=== PATIENT | female | born 1945 | race Caucasian/White ===

== ENCOUNTER → 2025-01-02 | Outpatient (CLI) | payer MEDICARE, SELFPAY ==
--- NOTE | 2025-01-02 | XR_ITS ---
Examination:Left hip AP, lateral, AP pelvis 3 views Technique: Hip AP lateral, AP pelvis, 3 views Exam date and time:January 02, 2025 1230 hours INDICATIONS: Left hip pain one week. FINDINGS: Bilateral total hip arthroplasties Satisfactory alignment Left femoral shaft sideplate and screws Bones of the pelvis intact IMPRESSION: Bilateral hip arthroplasties with satisfactory alignment.
[2025-01-02 13:50] LABS: Basophils # (Auto) 0.1 Thou/mm3 (0.0-0.2); Basophils % (Auto) 1 % (0-2.5); Eosinophils # (Auto) 0.2 Thou/mm3 (0.0-0.5); Eosinophils % (Auto) 4 % (0-10); Hematocrit 36.8 % (36.0-46.0); Hemoglobin 11.6 g/dL (12.0-16.0); Immature Granulocytes % (Auto) 0 % (0-0); Immature Granulocytes Auto 0.01 Thou/mm3 (0.00-0.00); Lymphocytes % (Auto) 20 % (10-50); Mean Corpuscular HGB Conc 31.5 g/dl (31.0-37.0); Mean Corpuscular Hemoglobin 32.7 pg (25.0-35.0); Mean Corpuscular Volume 104 fL (80-100); Monocytes # (Auto) 0.5 Thou/mm3 (0.0-0.8); Monocytes % (Auto) 11 % (0-12); Neutrophils # (Auto) 3.2 Thou/mm3 (1.8-7.7); Neutrophils % (Auto) 65 % (37-80); Nucleated Red Blood Cell % 0 /100 WBC (0); Platelet Count 139 Thou/mm3 (140-440); RDW Standard Deviation 49.3 fL (36.4-46.3); Red Blood Count 3.55 Miln/mm3 (4.00-5.20)
[2025-01-02 14:12] LABS: Alanine Aminotransferase 15 U/L (10-49); Albumin, Serum 3.8 gm/dL (3.4-4.8); Alkaline Phosphatase 96 U/L (46-116); Anion Gap 8 (7-16); Aspartate Amino Transferase 22 U/L (0-34); BUN/Creatinine Ratio 16 Ratio (12-20); Bilirubin,Total 0.3 mg/dL (0.3-1.2); Blood Urea Nitrogen 18 mg/dL (9-23); Calcium 9.4 mg/dL (8.3-10.6); Calcium (Corrected) 9.6 mg/dL (8.5-10.1); Carbon Dioxide 29.2 mMol/L (20.0-31.0); Cardiac Risk Estimate 2.3 RATIO (3.7-5.6); Chloride 107 mMol/L (98-107); Cholesterol 148 mg/dL (132-200); Creatinine (Component) 1.1 mg/dL (0.6-1.3); Globulin 1.9 gm/dL (2.3-3.5); Glucose 92 mg/dL (74-106); HDL Cholesterol 65 mg/dL (40-60); LDL Cholesterol,Calculated 64 mg/dL (0-130); Osmolality,Calculated 288 (275-295); Potassium 4.5 mMol/L (3.4-5.1); Sodium 144 mMol/L (136-145); Thyroid Stimulating Hormone 0.24 uIU/mL (0.55-4.78); Total Protein 5.7 gm/dL (5.7-8.2); Triglycerides 97 mg/dL (30-150); eGFR 52 See Note
[2025-01-02 14:13] LABS: T4 (Thyroxine) 10.8 mcg/dL (4.5-10.9)
[2025-01-02 14:18] LABS: Glucose Estimated Average 94 mg/dL (80-131); Hemoglobin A1C 4.9 % Hgb (4.8-6.0)
== END | disposition home or self-care (01) ==
LOC: COPL 11:34
PROVIDERS: PCP Family Medicine; Referring Provider Family Medicine; Visit Provider Family Medicine
DX: R79.9 Abnormal finding of blood chemistry, unspecified (principal); M25.552 Pain in left hip
CPT/HCPCS: 36415; 73502; 80053; 80061; 83036; 84436; 84443; 85025

== ENCOUNTER 2025-03-22 14:07 | Emergency (ER) | payer MEDICARE, SELFPAY ==
--- NOTE | 2025-03-22 | XR_ITS ---
Examination: MRI brain without intravenous contrast. Date and time of exam: March 22, 2025 1745 hours Comparison February 01, 2021 INDICATIONS: Onset of bilateral leg weakness beginning one week ago Technique: Multiple axial and sagittal images of the brain obtained. Siemens high-resolution 1.5 Samantha short bore scanners utilized. Sagittal sections, T1-weighted, TR 500, TE 14, are performed. Axial sections proton-density and T2-weighted have been obtained. Inversion recovery axial images, TR 9, 260, TE 111, TI 2500. Diffusion weighted images, axial sections, TR 4800, TE 128, B value 1000 Axial sections, ADC map, TR 4800, TE 128 Findings: Enlargement of the sella turcica is not present. The optic chiasm and infundibular are not remarkable. Prepontine and interpeduncular cisterns are not enlarged. There is no localized enlargement of the medulla or scarlet. Fourth ventricle and cerebellar tonsils appear normal in position. No subacute area of hemorrhage density is seen. Mass in the cerebellopontine angle region is not evident. Globes symmetrical. Orbital musculature including medial lateral rectus muscles do not exhibit abnormality. Diffusion-weighted images demonstrate no focus of restricted diffusion. Increased white matter signal mild Mass effect upon the ventricular system is not identified. Impression: Negative for acute hemorrhage mass effect or midline shift No acute infarct Mild chronic microvascular white matter change Moderate chronic ethmoid sinusitis
[2025-03-22 14:15] VITALS: BP 144/78; PULSE 72; RESP 17; TEMP 37.6; O2SAT 95
--- NOTE | 2025-03-22 14:24 | XR_ITS ---
Examination: AP chest single view TECHNIQUE: Portable sitting AP chest single view Date and time: March 22, 2025 1534 hours Comparison May 29, 2024 INDICATIONS: Chest pain shortness of breath today. FINDINGS: Minimal prominence left ventricle Minimal biapical pleural thickening No pneumonia or pulmonary edema Prominent osteopenia IMPRESSION: No active disease
--- NOTE | 2025-03-22 14:24 | EKG_ITS ---
[facility] Test Date: 2025-03-22 Pat Name: DYAN SUN Department: Room: - Gender: Female Professor Of Psychiatry: : 1945 Requested By: Octaviano García Order Number: [id number] Reading MD: Octaviano García Measurements Intervals Cass Rate: 63 P: 89 KS: 177 QRS: 50 QRSD: 90 T: 54 QT: 382 QTc: 394 Interpretive Statements SINUS RHYTHM Compared to ECG 12/01/2023 19:06:41 Left bundle-branch block no longer present /store/S0/[id number].pdf
[2025-03-22 14:30] VITALS: BMI 20.9
[2025-03-22 14:48] LABS: Lactate (Lactic Acid) 0.8 mMol/L (0.4-2.0)
[2025-03-22 14:49] LABS: Base Excess, Venous 1 (-3-3); O2 Saturation, Venous 92 % (96-97); PCO2, Venous 30 mmHg (36-56); PO2, Venous 73 mmHg (15-58)
[2025-03-22 14:57] LABS: Basophils % (Auto) 1 % (0-2.5); Eosinophils # (Auto) 0.1 Thou/mm3 (0.0-0.5); Eosinophils % (Auto) 3 % (0-10); Hematocrit 33.2 % (36.0-46.0); Hemoglobin 11.4 g/dL (12.0-16.0); Immature Granulocytes % (Auto) 1 % (0-0); Immature Granulocytes Auto 0.03 Thou/mm3 (0.00-0.00); Lymphocytes # (Auto) 0.8 Thou/mm3 (1.0-4.8); Lymphocytes % (Auto) 17 % (10-50); Mean Corpuscular HGB Conc 34.3 g/dl (31.0-37.0); Mean Corpuscular Hemoglobin 33.6 pg (25.0-35.0); Mean Corpuscular Volume 98 fL (80-100); Monocytes # (Auto) 0.5 Thou/mm3 (0.0-0.8); Monocytes % (Auto) 11 % (0-12); Neutrophils # (Auto) 3.2 Thou/mm3 (1.8-7.7); Neutrophils % (Auto) 68 % (37-80); Nucleated Red Blood Cell % 0 /100 WBC (0); Platelet Count 138 Thou/mm3 (140-440); RDW Standard Deviation 49.4 fL (36.4-46.3); Red Blood Count 3.39 Miln/mm3 (4.00-5.20); White Blood Count 4.7 Thou/mm3 (3.6-11.0)
[2025-03-22 15:02] LABS: Partial Thromboplastin Time 27.1 Seconds (22.0-36.0)
[2025-03-22 15:07] LABS: Alanine Aminotransferase 26 U/L (10-49); Albumin, Serum 3.5 gm/dL (3.4-4.8); Albumin/Globulin Ratio 1.8 (1.2-2.2); Alkaline Phosphatase 113 U/L (46-116); Anion Gap 10 (7-16); BUN/Creatinine Ratio 9 Ratio (12-20); Bilirubin,Total 0.2 mg/dL (0.3-1.2); Blood Urea Nitrogen 9 mg/dL (9-23); Calcium 9.1 mg/dL (8.3-10.6); Calcium (Corrected) 9.5 mg/dL (8.5-10.1); Chloride 108 mMol/L (98-107); Estimated Creatinine Clearance 43.9 mL/min (>60); Globulin 1.9 gm/dL (2.3-3.5); Glucose 87 mg/dL (74-106); Lipase 19 U/L (12-53); Magnesium 1.7 mg/dL (1.6-2.6); Osmolality,Calculated 282 (275-295); Potassium 4.1 mMol/L (3.4-5.1); Sodium 143 mMol/L (136-145); Total Protein 5.4 gm/dL (5.7-8.2); Troponin I < 0.002 ng/mL (0.0-0.045); eGFR 58 See Note
[2025-03-22 15:12] LABS: D-Dimer 539 ng/mL (<600)
[2025-03-22 15:25] LABS: B-Type Natriuretic Peptide 44 pg/mL (0-100)
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
[2025-03-22 16:52] LABS: Collection Type, Urine Clean Catch
[2025-03-22 17:07] LABS: Bilirubin,Urine Negative (Negative); Blood,Urine Negative (Negative); Clarity,Urine Clear (Clear/Hazy); Color,Urine Lt-Yellow (Lt Yel-Yel); Culture Indicated,Urine Not Indicated; Glucose, Urine Negative (Negative); Ketones,Urine 2+ (Negative); Leukocyte Esterase,Urine Positive (Negative); Nitrite,Urine Negative (Negative); Protein,Urine Negative (Neg - Trace); RBC,Urine 1 /hpf (0-3); Specific Gravity,Urine 1.016 (1.001-1.035); Squamous Epithelial Cell,Urine < 1 /hpf (0-5); Urobilinogen,Urine Negative mg/dL (0.0-1.0); WBC,Urine 3 /hpf (0-5)
[2025-03-22 17:24] LABS: Amphetamine/Methamp Scrn,U Negative (Negative); Barbiturate Screen,Urine Positive (Negative); Benzodiazepines Screen,Urine Positive (Negative); Benzoylecgonine Screen, Ur Negative (Negative); Fentanyl Screen,Urine Negative (Negative); Opiate Screen,Urine Positive (Negative); THC Screen,Urine Negative (Negative)
--- NOTE | 2025-03-22 18:06 | EDNOTE_ITS ---
Emergency Room Addendum Addendum Narrative: 1800: Care assumed from Dr. García (emergency physician). Past medical, surgical, social and family history reviewed. Vitals and home medications reviewed. Results and treatment plan discussed. They will assume the care of the patient at this time and will follow the patient, pending Brain MRI. The following addendum documentation note is intended to reflect any pending information, findings, or radiology results not included in the patient?s init ial chart by the previous shift scribe. RADIOLOGY Brain MRI Patient: DYAN SUN. Record#: [id number] Birthdate: 1945 Age/Sex: 79 / F Location: [facility] Attending Dr: Ordering Physician: Octaviano García MD Date of Service: 03/22/25 Procedure(s): MR head/brain wo con Accession Number(s): [id number] cc: Octaviano García MD; Ministerio Alvarez MD; Brien Mcgraw MD~ Examination: MRI brain without intravenous contrast. Date and time of exam: March 22, 2025 1745 hours Comparison February 01, 2021 INDICATIONS: Onset of bilateral leg weakness beginning one week ago Technique: Multiple axial and sagittal images of the brain obtained. Siemens high-resolution 1.5 Samantha short bore scanners utilized. Sagittal sections, T1-weighted, TR 500, TE 14, are performed. Axial sections proton-density and T2-weighted have been obtained. Inversion recovery axial images, TR 9, 260, TE 111, TI 2500. Diffusion weighted images, axial sections, TR 4800, TE 128, B value 1000 Axial sections, ADC map, TR 4800, TE 128 Findings: Enlargement of the sella turcica is not present. The optic chiasm and infundibular are not remarkable. Prepontine and interpeduncular cisterns are not enlarged. There is no localized enlargement of the medulla or scarlet. Fourth ventricle and cerebellar tonsils appear normal in position. No subacute area of hemorrhage density is seen. Mass in the cerebellopontine angle region is not evident. Globes symmetrical. Orbital musculature including medial lateral rectus muscles do not exhibit abnormality. Diffusion-weighted images demonstrate no focus of restricted diffusion. Increased white matter signal mild Mass effect upon the ventricular system is not identified. Impression: Negative for acute hemorrhage mass effect or midline shift No acute infarct Mild chronic microvascular white matter change Moderate chronic ethmoid sinusitis Dictated By: Ministerio Alvarez MD Signed By: <Electronically signed by Ministerio Alvarez MD in OV> 03/22/25 1836 1927: I have spoken with the patient and discussed today?s findings, in addition to providing specific details for the plan of care. Questions are answered and there is an agreement with the plan. Re-assessment at the time of disposition demonstrates that the patient is in no acute distress. The patient has remained stable throughout the entire ED visit and is without objective evidence for acute process requiring urgent intervention or hospitalization. The patient is stable for discharge; counseling is provided and documented as above, discussing symptomatic treatment and specific conditions for return.
[2025-03-22 19:47] VITALS: BP 135/68; PULSE 78; RESP 18; O2SAT 96
== END 2025-03-22 19:48 | disposition home or self-care (01) ==
PROVIDERS: Emergency Provider Emergency Medicine; PCP Family Medicine
DX: S00.83XA Contusion of other part of head, initial encounter (principal); S20.224A Contusion of middle back wall of thorax, initial encounter; S39.92XA Unspecified injury of lower back, initial encounter; M51.35 Other intervertebral disc degeneration, thoracolumbar region; M51.369 Other intervertebral disc degeneration, lumbar region without mention of lumbar back pain or lower extremity pain; M51.379 Other intervertebral disc degeneration, lumbosacral region without mention of lumbar back pain or lower extremity pain; M48.061 Spinal stenosis, lumbar region without neurogenic claudication; G95.29 Other cord compression; R06.02 Shortness of breath; R07.9 Chest pain, unspecified; Z93.3 Colostomy status; F13.20 Sedative, hypnotic or anxiolytic dependence, uncomplicated; G47.00 Insomnia, unspecified; R55 Syncope and collapse; W19.XXXA Unspecified fall, initial encounter; J32.2 Chronic ethmoidal sinusitis; Z87.891 Personal history of nicotine dependence; R90.82 White matter disease, unspecified; E78.00 Pure hypercholesterolemia, unspecified; I10 Essential (primary) hypertension; I25.10 Atherosclerotic heart disease of native coronary artery without angina pectoris; R53.1 Weakness
CPT/HCPCS: 36415; 70551; 71045; 72128; 72131; 80053; 80307; 81001; 82803; 83605; 83690; 83735; 83880; 84484; 85025; 85379; 85610; 85730; 87040; 93005; 99284

== ENCOUNTER → 2025-04-13 | Outpatient (CLI) | payer MEDICARE, SELFPAY ==
[2025-04-13 10:35] LABS: Basophils # (Auto) 0.1 Thou/mm3 (0.0-0.2); Basophils % (Auto) 1 % (0-2.5); Eosinophils # (Auto) 0.2 Thou/mm3 (0.0-0.5); Eosinophils % (Auto) 2 % (0-10); Hematocrit 41.8 % (36.0-46.0); Hemoglobin 14.3 g/dL (12.0-16.0); Immature Granulocytes Auto 0.02 Thou/mm3 (0.00-0.00); Lymphocytes # (Auto) 0.9 Thou/mm3 (1.0-4.8); Lymphocytes % (Auto) 12 % (10-50); Mean Corpuscular HGB Conc 34.2 g/dl (31.0-37.0); Mean Corpuscular Hemoglobin 34.1 pg (25.0-35.0); Mean Corpuscular Volume 100 fL (80-100); Monocytes # (Auto) 0.6 Thou/mm3 (0.0-0.8); Monocytes % (Auto) 8 % (0-12); Neutrophils # (Auto) 6.1 Thou/mm3 (1.8-7.7); Neutrophils % (Auto) 77 % (37-80); Nucleated Red Blood Cell # 0.00 Thou/mm3 (0.00-0.00); Nucleated Red Blood Cell % 0 /100 WBC (0); Platelet Count 198 Thou/mm3 (140-440); RDW Standard Deviation 54.2 fL (36.4-46.3); Red Blood Count 4.19 Miln/mm3 (4.00-5.20); White Blood Count 8.0 Thou/mm3 (3.6-11.0)
[2025-04-13 11:02] LABS: Alanine Aminotransferase 25 U/L (10-49); Albumin, Serum 4.3 gm/dL (3.4-4.8); Albumin/Globulin Ratio 1.8 (1.2-2.2); Alkaline Phosphatase 142 U/L (46-116); Anion Gap 13 (7-16); Aspartate Amino Transferase 31 U/L (0-34); BUN/Creatinine Ratio 11 Ratio (12-20); Bilirubin,Total 0.4 mg/dL (0.3-1.2); Blood Urea Nitrogen 16 mg/dL (9-23); Calcium 9.6 mg/dL (8.3-10.6); Calcium (Corrected) 9.6 mg/dL (8.5-10.1); Carbon Dioxide 28.2 mMol/L (20.0-31.0); Chloride 101 mMol/L (98-107); Creatinine (Component) 1.4 mg/dL (0.6-1.3); Globulin 2.4 gm/dL (2.3-3.5); Glucose 88 mg/dL (74-106); Osmolality,Calculated 283 (275-295); Potassium 3.0 mMol/L (3.4-5.1); Sodium 142 mMol/L (136-145); Total Protein 6.7 gm/dL (5.7-8.2); eGFR 39 See Note
== END | disposition home or self-care (01) ==
LOC: COPL 09:20
PROVIDERS: PCP Family Medicine; Referring Provider Family Medicine; Visit Provider Family Medicine
DX: R11.0 Nausea (principal); R53.1 Weakness
CPT/HCPCS: 36415; 80053; 85025

== ENCOUNTER → 2025-04-20 | Outpatient (CLI) | payer MEDICARE, SELFPAY ==
[2025-04-20 11:38] LABS: Basophils # (Auto) 0.0 Thou/mm3 (0.0-0.2); Basophils % (Auto) 1 % (0-2.5); Eosinophils # (Auto) 0.1 Thou/mm3 (0.0-0.5); Eosinophils % (Auto) 2 % (0-10); Hematocrit 41.6 % (36.0-46.0); Hemoglobin 13.6 g/dL (12.0-16.0); Immature Granulocytes Auto 0.02 Thou/mm3 (0.00-0.00); Lymphocytes # (Auto) 1.2 Thou/mm3 (1.0-4.8); Lymphocytes % (Auto) 19 % (10-50); Mean Corpuscular HGB Conc 32.7 g/dl (31.0-37.0); Mean Corpuscular Hemoglobin 34.2 pg (25.0-35.0); Mean Corpuscular Volume 105 fL (80-100); Monocytes # (Auto) 0.6 Thou/mm3 (0.0-0.8); Monocytes % (Auto) 10 % (0-12); Neutrophils # (Auto) 4.2 Thou/mm3 (1.8-7.7); Neutrophils % (Auto) 68 % (37-80); Nucleated Red Blood Cell # 0.00 Thou/mm3 (0.00-0.00); Nucleated Red Blood Cell % 0 /100 WBC (0); Platelet Count 142 Thou/mm3 (140-440); RDW Standard Deviation 58.3 fL (36.4-46.3); Red Blood Count 3.98 Miln/mm3 (4.00-5.20); White Blood Count 6.1 Thou/mm3 (3.6-11.0)
[2025-04-20 11:55] LABS: Alanine Aminotransferase 31 U/L (10-49); Albumin, Serum 4.2 gm/dL (3.4-4.8); Albumin/Globulin Ratio 1.8 (1.2-2.2); Alkaline Phosphatase 122 U/L (46-116); Anion Gap 10 (7-16); Aspartate Amino Transferase 34 U/L (0-34); BUN/Creatinine Ratio 15 Ratio (12-20); Bilirubin,Total 0.3 mg/dL (0.3-1.2); Blood Urea Nitrogen 17 mg/dL (9-23); Calcium 10.1 mg/dL (8.3-10.6); Calcium (Corrected) 10.1 mg/dL (8.5-10.1); Carbon Dioxide 32.2 mMol/L (20.0-31.0); Cardiac Risk Estimate 3.0 RATIO (3.7-5.6); Chloride 105 mMol/L (98-107); Cholesterol 154 mg/dL (132-200); Creatinine (Component) 1.1 mg/dL (0.6-1.3); Globulin 2.3 gm/dL (2.3-3.5); Glucose 116 mg/dL (74-106); HDL Cholesterol 52 mg/dL (40-60); LDL Cholesterol,Calculated 76 mg/dL (0-130); Osmolality,Calculated 294 (275-295); Potassium 3.7 mMol/L (3.4-5.1); Sodium 147 mMol/L (136-145); T4 (Thyroxine) 10.1 mcg/dL (4.5-10.9); Thyroid Stimulating Hormone 4.60 uIU/mL (0.55-4.78); Total Protein 6.5 gm/dL (5.7-8.2); Triglycerides 130 mg/dL (30-150); eGFR 52 See Note
== END | disposition home or self-care (01) ==
LOC: COPL 10:37
PROVIDERS: PCP Family Medicine; Referring Provider Family Medicine; Visit Provider Family Medicine
DX: K21.9 Gastro-esophageal reflux disease without esophagitis (principal); E03.9 Hypothyroidism, unspecified; N17.8 Other acute kidney failure
CPT/HCPCS: 36415; 80053; 80061; 84436; 84443; 85025

== ENCOUNTER 2025-07-28 09:25 | Inpatient (IN) | payer MEDICARE, SELFPAY ==
[2025-07-25 10:04] VITALS: BMI 21.0
[2025-07-25 11:33] LABS: Basophils # (Auto) 0.1 Thou/mm3 (0.0-0.2); Basophils % (Auto) 1 % (0-2.5); Eosinophils # (Auto) 0.1 Thou/mm3 (0.0-0.5); Eosinophils % (Auto) 2 % (0-10); Hematocrit 41.1 % (36.0-46.0); Hemoglobin 13.4 g/dL (12.0-16.0); Immature Granulocytes Auto 0.02 Thou/mm3 (0.00-0.00); Lymphocytes # (Auto) 1.1 Thou/mm3 (1.0-4.8); Lymphocytes % (Auto) 18 % (10-50); Mean Corpuscular HGB Conc 32.6 g/dl (31.0-37.0); Mean Corpuscular Hemoglobin 33.9 pg (25.0-35.0); Mean Corpuscular Volume 104 fL (80-100); Monocytes # (Auto) 0.6 Thou/mm3 (0.0-0.8); Monocytes % (Auto) 10 % (0-12); Neutrophils # (Auto) 4.3 Thou/mm3 (1.8-7.7); Neutrophils % (Auto) 69 % (37-80); Nucleated Red Blood Cell # 0.00 Thou/mm3 (0.00-0.00); Nucleated Red Blood Cell % 0 /100 WBC (0); Platelet Count 158 Thou/mm3 (140-440); RDW Standard Deviation 48.3 fL (36.4-46.3); Red Blood Count 3.95 Miln/mm3 (4.00-5.20); White Blood Count 6.2 Thou/mm3 (3.6-11.0)
[2025-07-25 11:34] LABS: INR 1.1 (0.9-1.3); Prothrombin Time 11.2 Seconds (9.0-12.2)
[2025-07-25 11:40] LABS: Alanine Aminotransferase 40 U/L (10-49); Albumin, Serum 4.4 gm/dL (3.4-4.8); Albumin/Globulin Ratio 2.0 (1.2-2.2); Alkaline Phosphatase 122 U/L (46-116); Anion Gap 10 (7-16); Aspartate Amino Transferase 46 U/L (0-34); BUN/Creatinine Ratio 12 Ratio (12-20); Bilirubin,Total 0.3 mg/dL (0.3-1.2); Blood Urea Nitrogen 12 mg/dL (9-23); Calcium 10.5 mg/dL (8.3-10.6); Calcium (Corrected) 10.5 mg/dL (8.5-10.1); Carbon Dioxide 28.1 mMol/L (20.0-31.0); Chloride 106 mMol/L (98-107); Creatinine (Component) 1.0 mg/dL (0.6-1.3); Estimated Creatinine Clearance 39.0 mL/min (>60); Globulin 2.2 gm/dL (2.3-3.5); Glucose 94 mg/dL (74-106); Osmolality,Calculated 286 (275-295); Potassium 4.2 mMol/L (3.4-5.1); Sodium 144 mMol/L (136-145); Total Protein 6.6 gm/dL (5.7-8.2); eGFR 58 See Note
[2025-07-28] VITALS (12 sets, daily range): BP systolic 106–156; BP diastolic 60–82; PULSE 71–102; RESP 15–22; TEMP 36.1–36.8; O2SAT 95–100; BMI 20.7
--- NOTE | 2025-07-28 15:40 | ESOP_ITS ---
Date of Procedure 07/28/25 Pre Op Diagnosis History of perforated diverticulitis status post sigmoid colectomy with end colostomy Symptomatic cholelithiasis Post Op Diagnosis Same as pre-op diagnosis Bleeding from spleen Procedure Exploratory laparotomy, lysis of adhesions, reversal of colostomy with colorectal anastomosis Cholecystectomy Splenectomy Left salpingo-oophorectomy Findings Significant adhesions from previous operation. The left tube and ovary were adherent to the rectal stump, needed to be removed for anastomosis. Moderately distended gallbladder with gallstones and evidence of chronic cholecystitis. Bleeding from inferior aspect of the spleen not amenable to topical hemostatic agents Procedure Description Patient is brought to the operating room in supine position. After administration of general endotracheal anesthesia, patient was placed in low lithotomy position. The colostomy site was closed with a pursestring suture using 0 Prolene. Patient's abdomen and perineum prepped and draped in standard surgical manner. A laparotomy incision was made over her previous scar and dissection was deepened into soft tissue. The abdominal cavity was entered. Patient was noted to have some adhesions from previous operation that was lysed. The small bowel was then retracted cephalad into the right upper quadrant. A Bookwalter retractor was placed for adequate exposure. Patient's uterus was adherent to the rectal stump, adhesions were divided and the uterus was freed. The left ovary and tube was significantly adherent to the rectal stump, I elected to perform left salpingo-oophorectomy. The lateral attachment was divided with Enseal harmonic device. The tube was also ligated with the harmonic device and left salpingo-oophorectomy was performed. The sutures that were placed at the previous operation on today rectal stump were then identified and the proximal and mid aspect of rectal stump were mobilized for the anastomosis. The proximal aspect of the rectum along with the previous staple line was divided with TA stapling device. At this point I turned my attention to the colostomy site. An elliptical incision was made around the colostomy site and the colostomy was circumferentially dissected out surrounding tissue. 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 The hernia sac was circumferentially dissected out surrounding tissue and excised. The colostomy site was then reduced. The end of colostomy was divided with JANESSA stapling device. The end of descending colon was not reaching the pelvis without any tension. The descending colon was mobilized along the white line of Toldt and the splenic flexure was mobilized. While mobilizing the splenic flexure there was a capsular tear at the spleen that was bleeding. Topical hemostatic agents and pressure applied and the spleen was packed to stop the bleeding. The end of descending colon was opened, a pursestring suture using 2- 0 Prolene applied. Patient was noted to have smaller caliber colon that could only accommodate a size 25 EEA stapling device. The anvil portion of the EEA stapling device was placed at the end of descending colon and the pursestring suture was tightened. Patient's rectum and anal canal were sequentially dilated. The EEA stapling device was placed through the rectum and was brought out just anterior to the rectal stump. The EEA stapling device was opened and connected to the anvil, care was taken to make sure orientation was appropriate without tension or any kinking. The stapling device was closed and fired. 2 well-formed donuts were retrieved. The integrity of the anastomosis was then checked with an air leak test. A rigid proctoscope was placed through the anal canal and air was insufflated. The pelvis was filled with warm saline, there was no evidence of any air leak assuring anastomosis was airtight. Air was removed and the rigid proctoscope was removed. Using 3-0 silk suture circumferential Lembert sutures were placed around the anastomosis to further secure the anastomosis. Because patient had history of symptomatic cholelithiasis I elected to perform cholecystectomy. The gallbladder was moderately distended with evidence of chronic cholecystitis and gallstones. The gallbladder was from the liver in antegrade fashion starting at the body of the gallbladder. Upon reaching the infundibulum the gallbladder cystic duct junction clearly identified. The cystic duct was ligated with 2-0 silk suture and divided. The cystic artery was similarly dissected and divided and the gallbladder was removed. The packing around the spleen was removed and patient was noted to have continuous bleeding from the capsular tear. Despite application of different topical hemostatic agent and applying pressure she continued to have bleeding from the spleen. I was contemplating packing the spleen, leaving the abdomen open and taking patient to ICU intubated and to bring her back in 24 to 48 hours to remove the packing in hopes of controlling bleeding from the spleen versus the splenectomy. I felt that patient would benefit from splenectomy and not being on the ventilator for extended period of time. At this point I elected to perform splenectomy. The gastrosplenic, splenorenal and splenophrenic were divided with harmonic Enseal device. The splenic artery and veins were ligated at the hilum and splenectomy was performed. Abdomen and pelvis copiously and thoroughly washed and irrigated, all the fluids were suctioned and the suction fluid returned clear. Hemostasis was adequate and satisfactory. I then turned my attention to closure of the posterior layer of the colostomy site. The peritoneum and posterior abdominal fascia opening of the colostomy site were closed with interrupted [id number] sutures using 0 Prolene. The laparotomy incision was then closed. The fascia was reapproximated with interrupted sutures using 0 PDS as well as interrupted sutures with #1 Vicryl. The wound was washed and the skin was closed with june. The anterior abdominal fascial defect of colostomy site was then closed with interrupted [id number] sutures using 0 Prolene. The wound was washed and the skin was partially closed with june. Telfa armani were placed between the stapler to act as a drain. Both incisions were covered with dry dressings and abdominal binder applied. Patient tolerated procedure well. She was placed in supine position and extubated. She was breathing spontaneously and without difficulty and was transferred to postanesthesia care in stable condition. Instruments, needles and sponge counts were reported to be correct x 2. Anesthesia GETA and local Pathology / specimen Other (Rectal stump and colostomy end. Gallbladder, spleen, left tube and ovary) Estimated Blood Loss 250 Condition Stable Disposition PACU Surgeon Tyron Barcenas MD Surgical Staff Operation Date: 07/28/25 12:00 Case Staff Anesthesiologist: Henri Mayo RN First Assistant: Joanie Portillo
--- NOTE | 2025-07-28 15:45 | SUR.PHASEI ---
1545: pt received from OR via bed. received report from GABRIEL Fry and Dr. Desouza. pt sleeping at this time. no s/s of resp. or discomfort. no s/s of pain or discomfort. dressing to mid-abdomen x1 and below umbilical area x1 clean, dry and intact. no bleeding noted from dressing. abdominal binder in place. disla cath in place and intact with dark color urine noted, no odor.
--- NOTE | 2025-07-28 15:50 | SUR.PHASEI ---
1550: pt awake and able to verbalize pain but drift back to sleeps.
[2025-07-28] MEDS: fentaNYL CIT INJ 50 mCg/ML AMP 2ML 25 MCG IVP (15:56)
[2025-07-28] MEDS: HYDROmorphone INJ 2 MG/ML VIAL 0.4 MG IVP (16:08)
[2025-07-28] MEDS: KETOROLAC INJ 30 MG/ML VIAL 15 MG IVP (16:44)
--- NOTE | 2025-07-28 16:56 | SUR.PHASEI ---
1656: report given to GABRIEL Parry.
[2025-07-28] MEDS: KCL 20 mEq/L in D5-1/2NS 20 MEQ/1,000 ML BAG 60 MEQ IV (17:05)
--- NOTE | 2025-07-28 17:20 | SUR.PHASEI ---
1720: pt transfer to room 370 via bed. pt alert and oriented. family at the bedside all the time. c/o pain but tolerable at this time. no s/s of resp. distress or discomfort. dressing mid-abdomen x1 clean, dry and intact and lower mid-abdoomen x1 clean, dry and intact. abdominal binder in place. disla cath in place and intact with dark yellow color urine.
[2025-07-28] MEDS: ACETAMINOPHEN IVPB 1,000 MG/100 ML VIAL 250 MG IV ×2 (18:20→23:48)
[2025-07-28] MEDS: MORPHINE SULF INJ 4 MG/ML VIAL 2 MG IVP ×2 (19:21→22:12)
[2025-07-28] MEDS: ASCORBIC ACID 250 MG TABLET 500 MG PO (20:20)
[2025-07-28] MEDS: PRIMIDONE 50 MG TABLET 250 MG PO (20:20)
[2025-07-28] MEDS: DOCUSATE SOD 100 MG CAPSULE PO (20:20)
[2025-07-28] MEDS: CEFOXITIN 2 GM in SODIUM CHLORIDE 0.9% (Popper) 50 ML IV (21:15)
--- NOTE | 2025-07-28 22:10 | PC.NURSE ---
Pt complained of having back pain, IV pain meds given, advised pt to be reposition to help with the back pain but pt refused at this time.
[2025-07-29] VITALS: BP 123/70; PULSE 93; RESP 16; TEMP 36.5; O2SAT 99
--- NOTE | 2025-07-29 00:01 | PC.NURSE ---
Pt wanted to call her daughter Renetta, I called her daughter and have pt talked to her daughter, pt said she is having back pain, I explained to pt and pt's daughter that Morphine IV is due in 20 mins. Pt reposition and as pts daughter wanting to put warm blanket on her back. Warm blanket placed on pt back but per pts its uncomfortable so warm blanket removed.
[2025-07-29] MEDS: MORPHINE SULF INJ 4 MG/ML VIAL 2 MG IVP ×7 (00:52→21:31)
[2025-07-29 04:00] VITALS: BP 125/74; PULSE 98; RESP 18; TEMP 37; O2SAT 96
[2025-07-29] MEDS: ACETAMINOPHEN IVPB 1,000 MG/100 ML VIAL 250 MG IV (05:13)
[2025-07-29] MEDS: CEFOXITIN 2 GM in SODIUM CHLORIDE 0.9% (Popper) 50 ML IV ×3 (05:41→21:25)
[2025-07-29 05:58] LABS: Basophils # (Auto) 0.0 Thou/mm3 (0.0-0.2); Basophils % (Auto) 0 % (0-2.5); Eosinophils # (Auto) 0.0 Thou/mm3 (0.0-0.5); Eosinophils % (Auto) 0 % (0-10); Hematocrit 37.0 % (36.0-46.0); Hemoglobin 12.0 g/dL (12.0-16.0); Immature Granulocytes Auto 0.06 Thou/mm3 (0.00-0.00); Lymphocytes # (Auto) 0.4 Thou/mm3 (1.0-4.8); Lymphocytes % (Auto) 5 % (10-50); Mean Corpuscular HGB Conc 32.4 g/dl (31.0-37.0); Mean Corpuscular Hemoglobin 34.0 pg (25.0-35.0); Mean Corpuscular Volume 105 fL (80-100); Monocytes # (Auto) 0.9 Thou/mm3 (0.0-0.8); Monocytes % (Auto) 10 % (0-12); Neutrophils # (Auto) 7.5 Thou/mm3 (1.8-7.7); Neutrophils % (Auto) 85 % (37-80); Nucleated Red Blood Cell # 0.00 Thou/mm3 (0.00-0.00); Nucleated Red Blood Cell % 0 /100 WBC (0); Platelet Count 149 Thou/mm3 (140-440); RDW Standard Deviation 47.9 fL (36.4-46.3); Red Blood Count 3.53 Miln/mm3 (4.00-5.20); White Blood Count 8.9 Thou/mm3 (3.6-11.0)
[2025-07-29 06:21] LABS: Albumin, Serum 3.2 gm/dL (3.4-4.8); Anion Gap 12 (7-16); BUN/Creatinine Ratio 15 Ratio (12-20); Blood Urea Nitrogen 21 mg/dL (9-23); Calcium 8.7 mg/dL (8.3-10.6); Calcium (Corrected) 9.3 mg/dL (8.5-10.1); Carbon Dioxide 22.9 mMol/L (20.0-31.0); Chloride 107 mMol/L (98-107); Creatinine (Component) 1.4 mg/dL (0.6-1.3); Estimated Creatinine Clearance 26.6 mL/min (>60); Glucose 224 mg/dL (74-106); Magnesium 1.6 mg/dL (1.6-2.6); Osmolality,Calculated 293 (275-295); Phosphorous 5.5 mg/dL (2.4-5.1); Potassium 4.9 mMol/L (3.4-5.1); Sodium 142 mMol/L (136-145); eGFR 39 See Note
[2025-07-29 06:49] VITALS: BMI 20.7
[2025-07-29 07:56] VITALS: BP 139/79; PULSE 100; RESP 16; TEMP 36.1; O2SAT 98
[2025-07-29] MEDS: PRIMIDONE 50 MG TABLET 250 MG PO ×2 (08:55→20:12)
[2025-07-29] MEDS: ASCORBIC ACID 250 MG TABLET 500 MG PO ×2 (08:56→20:13)
[2025-07-29] MEDS: DOCUSATE SOD 100 MG CAPSULE PO ×2 (08:56→20:12)
[2025-07-29] MEDS: ZINC SULFATE 220 MG CAPSULE PO (08:56)
--- NOTE | 2025-07-29 08:56 | ESPR_ITS ---
Documentation for date of: 07/29/25 Subjective Subjective Narrative: Patient is seen and examined. She is complaining of incisional pain. She denies nausea or vomiting. Exam Vital Signs Temp Pulse Resp BP Pulse Ox O2 Del Method O2 Flow Rate 97.0 F 100 16 139/79 H 98 Room Air 2 07/29/25 07:56 07/29/25 07:56 07/29/25 07:56 07/29/25 07:56 07/29/25 07:56 07/29/25 07:56 07/28/25 17:15 Constitutional Constitutional: no acute distress Routine Abdominal Exam Comments: Abdomen is soft and mildly distended. Incisions with dressings clean, dry and intact Assessment & Plan Assessment Additional comments: Postop day #1 status post exploratory laparotomy with lysis of adhesions, reversal of colostomy, cholecystectomy, splenectomy and left salpingo- oophorectomy Plan Keep n.p.o. Continue IV antibiotics. Will start patient on PPN. Will consult physical therapy to assist in ambulation PROCEDURES: Procedures Exploratory laparotomy, lysis of adhesions, reversal of colostomy with colorectal anastomosis Cholecystectomy Splenectomy Left salpingo-oophorectomy
[2025-07-29] MEDS: KCL 20 mEq/L in D5-1/2NS 20 MEQ/1,000 ML BAG 60 MEQ IV (09:23)
[2025-07-29 12:00] VITALS: BP 137/78; PULSE 106; RESP 17; TEMP 36.1; O2SAT 98
[2025-07-29 13:05] VITALS: BMI 20.6
[2025-07-29 16:00] VITALS: BP 141/80; PULSE 110; RESP 18; TEMP 36.4; O2SAT 97
[2025-07-29] MEDS: MULTIVITAMIN IV (17:48)
[2025-07-29] MEDS: [UNRECOGNIZED DRUG - OTHER] IV (17:48)
[2025-07-29] MEDS: MAGNESIUM SULF IV (17:48)
--- NOTE | 2025-07-29 19:57 | PC.NURSE ---
MD Barcenas verified regarding IV fluids running with the PPN, PPN running at 30ml/hr at this time and will increase at 60 ml/hr after 8 hrs, per MD to turn off IV fluids once PPN running at 60 ml/hr.
[2025-07-29 20:00] VITALS: BP 113/71; PULSE 119; RESP 18; TEMP 37.1; O2SAT 97
[2025-07-29] MEDS: INSULIN HUM REGULAR 1 UNIT/0.01 ML (PER UNIT) SC (23:42)
[2025-07-30] VITALS: BP 114/64; PULSE 114; RESP 17; TEMP 36.7; O2SAT 94
--- NOTE | 2025-07-30 01:56 | PC.NURSE ---
Increase PPN rate to 60 ml/hr at this time.
[2025-07-30] MEDS: MORPHINE SULF INJ 4 MG/ML VIAL 2 MG IVP ×4 (03:31→22:41)
[2025-07-30 04:00] VITALS: BP 123/62; PULSE 122; RESP 22; TEMP 37.1; O2SAT 95
[2025-07-30] MEDS: LEVOTHYROXINE SODIUM 88 MCG TABLET PO (05:04)
[2025-07-30] MEDS: CEFOXITIN 2 GM in SODIUM CHLORIDE 0.9% (Popper) 50 ML IV ×3 (05:04→21:20)
[2025-07-30 08:00] VITALS: BP 127/72; PULSE 114; RESP 18; TEMP 36.1; O2SAT 97
[2025-07-30] MEDS: ZINC SULFATE 220 MG CAPSULE PO (09:00)
[2025-07-30] MEDS: DOCUSATE SOD 100 MG CAPSULE PO ×2 (09:00→21:26)
[2025-07-30] MEDS: PRIMIDONE 50 MG TABLET 250 MG PO ×2 (09:00→21:26)
[2025-07-30] MEDS: ASCORBIC ACID 250 MG TABLET 500 MG PO ×2 (09:00→21:26)
--- NOTE | 2025-07-30 10:26 | ESPR_ITS ---
Documentation for date of: 07/30/25 Subjective Subjective Narrative: Patient is seen and examined. Her abdominal pain is controlled, she is complaining of low back pain. She denies nausea or vomiting. She has not passed flatus or bowel movement yet Exam Vital Signs Temp Pulse Resp BP Pulse Ox O2 Del Method O2 Flow Rate 97.0 F 114 H 18 127/72 97 Room Air 2 07/30/25 08:00 07/30/25 08:00 07/30/25 08:00 07/30/25 08:00 07/30/25 08:00 07/30/25 08:00 07/30/25 04:00 Constitutional Constitutional: no acute distress Routine Abdominal Exam Comments: Abdomen is soft and very minimally distended. Bowel sounds are absent. Incisions with dressings clean, dry and intact Assessment & Plan Assessment Additional comments: Postop day #2 status post exploratory laparotomy with lysis of adhesions, reversal of colostomy, cholecystectomy, splenectomy and left salpingo- oophorectomy Plan Continue IV antibiotics. Keep n.p.o. with PPN. Use incentive spirometer. Will DC Casey catheter and consult physical therapy to assist in ambulating the patient PROCEDURES: Procedures Exploratory laparotomy, lysis of adhesions, reversal of colostomy with colorectal anastomosis Cholecystectomy Splenectomy Left salpingo-oophorectomy
[2025-07-30 11:34] LABS: Alanine Aminotransferase 30 U/L (10-49); Albumin, Serum 2.8 gm/dL (3.4-4.8); Albumin/Globulin Ratio 1.6 (1.2-2.2); Alkaline Phosphatase 104 U/L (46-116); Anion Gap 10 (7-16); Aspartate Amino Transferase 49 U/L (0-34); BUN/Creatinine Ratio 15 Ratio (12-20); Bilirubin,Total 0.3 mg/dL (0.3-1.2); Blood Urea Nitrogen 33 mg/dL (9-23); Calcium 8.9 mg/dL (8.3-10.6); Calcium (Corrected) 9.9 mg/dL (8.5-10.1); Carbon Dioxide 20.6 mMol/L (20.0-31.0); Chloride 105 mMol/L (98-107); Creatinine (Component) 2.2 mg/dL (0.6-1.3); Estimated Creatinine Clearance 16.9 mL/min (>60); Globulin 1.8 gm/dL (2.3-3.5); Glucose 148 mg/dL (74-106); Magnesium 1.9 mg/dL (1.6-2.6); Osmolality,Calculated 282 (275-295); Phosphorous 3.6 mg/dL (2.4-5.1); Potassium 4.8 mMol/L (3.4-5.1); Sodium 136 mMol/L (136-145); Total Protein 4.6 gm/dL (5.7-8.2); eGFR 23 See Note
[2025-07-30 11:40] VITALS: BP 148/78; PULSE 112; RESP 20; TEMP 36.1; O2SAT 97
[2025-07-30] MEDS: ENOXAPARIN SOD INJ 30 MG/0.3 ML SYRINGE SC (12:19)
[2025-07-30 12:55] VITALS: BMI 11.0
[2025-07-30 16:00] VITALS: BP 140/78; PULSE 118; RESP 17; TEMP 36.3; O2SAT 95
[2025-07-30] MEDS: [UNRECOGNIZED DRUG - OTHER] IV (18:16)
[2025-07-30] MEDS: SOD PHOS ADDITIVE IV (18:16)
[2025-07-30] MEDS: MULTIVITAMIN IV (18:16)
[2025-07-30] MEDS: MAGNESIUM SULF IV (18:16)
[2025-07-30 20:00] VITALS: BP 126/71; PULSE 115; RESP 17; TEMP 36.9; O2SAT 94
[2025-07-31] VITALS: BP 122/63; PULSE 109; RESP 18; TEMP 36.7; O2SAT 94
[2025-07-31 04:00] VITALS: BP 131/74; PULSE 105; RESP 18; TEMP 36.9; O2SAT 97
[2025-07-31] MEDS: LEVOTHYROXINE SODIUM 88 MCG TABLET PO (05:23)
[2025-07-31] MEDS: CEFOXITIN 2 GM in SODIUM CHLORIDE 0.9% (Popper) 50 ML IV ×3 (05:24→21:00)
[2025-07-31 06:12] LABS: Basophils # (Auto) 0.1 Thou/mm3 (0.0-0.2); Basophils % (Auto) 0 % (0-2.5); Eosinophils # (Auto) 0.1 Thou/mm3 (0.0-0.5); Eosinophils % (Auto) 0 % (0-10); Hematocrit 29.4 % (36.0-46.0); Hemoglobin 9.6 g/dL (12.0-16.0); Immature Granulocytes Auto 0.18 Thou/mm3 (0.00-0.00); Lymphocytes # (Auto) 0.8 Thou/mm3 (1.0-4.8); Lymphocytes % (Auto) 4 % (10-50); Mean Corpuscular HGB Conc 32.7 g/dl (31.0-37.0); Mean Corpuscular Hemoglobin 34.0 pg (25.0-35.0); Mean Corpuscular Volume 104 fL (80-100); Monocytes # (Auto) 1.7 Thou/mm3 (0.0-0.8); Monocytes % (Auto) 9 % (0-12); Neutrophils # (Auto) 16.2 Thou/mm3 (1.8-7.7); Neutrophils % (Auto) 85 % (37-80); Nucleated Red Blood Cell # 0.03 Thou/mm3 (0.00-0.00); Nucleated Red Blood Cell % 0 /100 WBC (0); Platelet Count 151 Thou/mm3 (140-440); RDW Standard Deviation 48.1 fL (36.4-46.3); Red Blood Count 2.82 Miln/mm3 (4.00-5.20); White Blood Count 19.0 Thou/mm3 (3.6-11.0)
[2025-07-31 06:55] LABS: Alanine Aminotransferase 20 U/L (10-49); Albumin, Serum 2.7 gm/dL (3.4-4.8); Albumin/Globulin Ratio 1.5 (1.2-2.2); Alkaline Phosphatase 99 U/L (46-116); Anion Gap 10 (7-16); Aspartate Amino Transferase 29 U/L (0-34); BUN/Creatinine Ratio 25 Ratio (12-20); Bilirubin,Total 0.2 mg/dL (0.3-1.2); Blood Urea Nitrogen 42 mg/dL (9-23); Calcium 8.6 mg/dL (8.3-10.6); Calcium (Corrected) 9.6 mg/dL (8.5-10.1); Carbon Dioxide 21.8 mMol/L (20.0-31.0); Chloride 101 mMol/L (98-107); Creatinine (Component) 1.7 mg/dL (0.6-1.3); Estimated Creatinine Clearance 21.9 mL/min (>60); Globulin 1.8 gm/dL (2.3-3.5); Glucose 130 mg/dL (74-106); Magnesium 2.0 mg/dL (1.6-2.6); Osmolality,Calculated 278 (275-295); Phosphorous 2.9 mg/dL (2.4-5.1); Potassium 4.0 mMol/L (3.4-5.1); Sodium 133 mMol/L (136-145); Total Protein 4.5 gm/dL (5.7-8.2); eGFR 31 See Note
[2025-07-31 08:00] VITALS: BP 120/58; PULSE 97; RESP 19; TEMP 36.1; O2SAT 96
[2025-07-31] MEDS: ASCORBIC ACID 250 MG TABLET 500 MG PO ×2 (08:13→20:41)
[2025-07-31] MEDS: PRIMIDONE 50 MG TABLET 250 MG PO ×2 (08:13→20:40)
[2025-07-31] MEDS: DOCUSATE SOD 100 MG CAPSULE PO ×2 (08:13→20:41)
[2025-07-31] MEDS: ZINC SULFATE 220 MG CAPSULE PO (08:14)
[2025-07-31] MEDS: ENOXAPARIN SOD INJ 30 MG/0.3 ML SYRINGE SC (08:14)
--- NOTE | 2025-07-31 11:06 | PC.NURSE ---
DR. EVONNE SU, POC DISCUSSED WITH PT, ALL QUESTIONS ANSWER, PT VERBALIZE UNDERSTANDING.
[2025-07-31 11:47] VITALS: BMI 11.0
--- NOTE | 2025-07-31 11:57 | ESPR_ITS ---
Documentation for date of: 07/31/25 Subjective Subjective Narrative: Patient is seen and examined. Her pain continues to improve. She has had some nausea but no vomiting. She has not passed flatus or bowel movement yet Exam Vital Signs Temp Pulse Resp BP Pulse Ox O2 Del Method O2 Flow Rate 97.0 F 97 19 120/58 L 96 Nasal Cannula 2 07/31/25 08:00 07/31/25 08:00 07/31/25 08:00 07/31/25 08:00 07/31/25 08:00 07/31/25 08:00 07/31/25 08:00 Constitutional Constitutional: no acute distress Routine Abdominal Exam Comments: Abdomen is soft and minimally distended. Incisions with dressings clean, dry and intact. She has hypoactive bowel sounds Assessment & Plan Assessment Additional comments: Postop day #3 status post exploratory laparotomy with lysis of adhesions, reversal of colostomy, cholecystectomy, splenectomy and left salpingo- oophorectomy Plan Still awaiting for return of GI function. Continue IV antibiotics and PPN. Patient is encouraged to use incentive spirometer and increase ambulation PROCEDURES: Procedures Exploratory laparotomy, lysis of adhesions, reversal of colostomy with colorectal anastomosis Cholecystectomy Splenectomy Left salpingo-oophorectomy
[2025-07-31] MEDS: ONDANSETRON INJ 2 MG/ML INJ 2 ML 4 MG IVP (12:11)
--- NOTE | 2025-07-31 12:12 | PC.NURSE ---
Addendum entered by Marlen Tinoco RN 07/31/25 12:19: 50 ML OF BROWN EMISIS X1 Original Note: DR. DOUGLASS CALLED, NO ANSWER, VOICEMAIL MESSAGE LEFT IN REGARDS TO PT BROWN EMISIS. EXTENSION LEFT [id number].
[2025-07-31 12:26] VITALS: BP 134/81; PULSE 95; RESP 19; TEMP 36.3; O2SAT 96
--- NOTE | 2025-07-31 12:30 | PC.NURSE ---
PATIENT VITALS STABLE, SEE MAR, ALERT AND ORIENTED X4, AT BEDSIDE.
[2025-07-31 16:00] VITALS: BP 124/67; PULSE 96; RESP 18; TEMP 36.1; O2SAT 95
[2025-07-31] MEDS: AMINO ACID 4.25%/D5W E 2,000 ML 90 ML IV (16:15)
[2025-07-31] MEDS: FAT EMULSIONS 20% IV 500 ML 32 ML IV (17:54)
[2025-07-31] MEDS: METOCLOPRAMIDE INJ 5 MG/ML VIAL 2 ML 10 MG IVP (17:55)
--- NOTE | 2025-07-31 17:59 | PC.NURSE ---
PATIENT NOTED TO HAVE AN ELECTRIC HEATING PAD, PER DAUGHTER MOISES DOUGLASS IS AWARE AND OKAY WITH HEATING PAD.
[2025-07-31 20:00] VITALS: BP 137/75; PULSE 95; RESP 16; TEMP 36.9; O2SAT 95
[2025-07-31] MEDS: MORPHINE SULF INJ 4 MG/ML VIAL 2 MG IVP (23:58)
[2025-08-01] VITALS: BP 156/66; PULSE 84; RESP 16; TEMP 36.2; O2SAT 93
--- NOTE | 2025-08-01 00:05 | PC.NURSE ---
accessed patient chart for main nurse Greta RIOS.
[2025-08-01] MEDS: METOCLOPRAMIDE INJ 5 MG/ML VIAL 2 ML 10 MG IVP ×5 (00:40→23:23)
[2025-08-01 04:00] VITALS: BP 146/67; PULSE 83; RESP 16; TEMP 36.1; O2SAT 97
[2025-08-01] MEDS: MORPHINE SULF INJ 4 MG/ML VIAL 2 MG IVP ×4 (04:34→23:23)
[2025-08-01] MEDS: LEVOTHYROXINE SODIUM 88 MCG TABLET PO (06:04)
[2025-08-01] MEDS: CEFOXITIN 2 GM in SODIUM CHLORIDE 0.9% (Popper) 50 ML IV ×3 (06:04→23:21)
[2025-08-01 08:00] VITALS: BP 130/61; PULSE 86; RESP 16; TEMP 36.3; O2SAT 95
[2025-08-01] MEDS: PRIMIDONE 50 MG TABLET 250 MG PO ×2 (09:32→20:35)
[2025-08-01] MEDS: DOCUSATE SOD 100 MG CAPSULE PO ×2 (09:33→20:34)
[2025-08-01] MEDS: ZINC SULFATE 220 MG CAPSULE PO (09:33)
[2025-08-01] MEDS: ENOXAPARIN SOD INJ 30 MG/0.3 ML SYRINGE SC (09:33)
[2025-08-01] MEDS: ASCORBIC ACID 250 MG TABLET 500 MG PO ×2 (09:33→20:34)
[2025-08-01 10:20] LABS: Alanine Aminotransferase 18 U/L (10-49); Albumin, Serum 2.8 gm/dL (3.4-4.8); Albumin/Globulin Ratio 1.5 (1.2-2.2); Alkaline Phosphatase 97 U/L (46-116); Anion Gap 9 (7-16); Aspartate Amino Transferase 29 U/L (0-34); BUN/Creatinine Ratio 32 Ratio (12-20); Bilirubin,Total 0.2 mg/dL (0.3-1.2); Blood Urea Nitrogen 42 mg/dL (9-23); Calcium 8.6 mg/dL (8.3-10.6); Calcium (Corrected) 9.6 mg/dL (8.5-10.1); Carbon Dioxide 20.7 mMol/L (20.0-31.0); Chloride 102 mMol/L (98-107); Creatinine (Component) 1.3 mg/dL (0.6-1.3); Estimated Creatinine Clearance 28.7 mL/min (>60); Globulin 1.9 gm/dL (2.3-3.5); Glucose 127 mg/dL (74-106); Magnesium 2.4 mg/dL (1.6-2.6); Osmolality,Calculated 277 (275-295); Phosphorous 2.4 mg/dL (2.4-5.1); Potassium 4.0 mMol/L (3.4-5.1); Sodium 132 mMol/L (136-145); Total Protein 4.7 gm/dL (5.7-8.2); eGFR 42 See Note
[2025-08-01 12:00] VITALS: BP 144/66; PULSE 83; RESP 17; TEMP 36.2; O2SAT 96
[2025-08-01] MEDS: SODIUM ACET ADDITIVE IV (14:13)
[2025-08-01] MEDS: POTASSIUM PHOS IV (14:13)
[2025-08-01] MEDS: [UNRECOGNIZED DRUG - OTHER] IV (14:13)
[2025-08-01] MEDS: MULTIVITAMIN IV (14:13)
[2025-08-01 16:00] VITALS: BP 123/60; PULSE 83; RESP 17; TEMP 36.4; O2SAT 96
--- NOTE | 2025-08-01 19:33 | PC.NURSE ---
LEFT ARM SWELLING AND REDNESS D/T IV INFILTRATION. LEFT HAND ELEVATED AND WRAPPED IN WARM BLANKET. PT DENIED PAIN. MD. COLEMNA MADE AWARE.
[2025-08-01 20:00] VITALS: BP 124/50; PULSE 90; RESP 17; TEMP 36.4; O2SAT 93
[2025-08-01] MEDS: ACETAMINOPHEN IVPB 1,000 MG/100 ML VIAL 250 MG IV (20:19)
[2025-08-02] VITALS: BP 112/51; PULSE 84; RESP 20; TEMP 36.4; O2SAT 93
[2025-08-02] MEDS: MORPHINE SULF INJ 4 MG/ML VIAL 2 MG IVP ×4 (02:03→21:13)
[2025-08-02 04:00] VITALS: BP 131/56; PULSE 87; RESP 17; TEMP 36.1; O2SAT 93
--- NOTE | 2025-08-02 05:08 | PC.NURSE ---
turned off electric heating pad to back.
[2025-08-02] MEDS: CEFOXITIN 2 GM in SODIUM CHLORIDE 0.9% (Popper) 50 ML IV ×3 (05:14→21:20)
[2025-08-02] MEDS: METOCLOPRAMIDE INJ 5 MG/ML VIAL 2 ML 10 MG IVP ×4 (05:14→23:36)
[2025-08-02] MEDS: LEVOTHYROXINE SODIUM 88 MCG TABLET PO (05:15)
[2025-08-02 05:55] LABS: Basophils # (Auto) 0.1 Thou/mm3 (0.0-0.2); Basophils % (Auto) 1 % (0-2.5); Eosinophils # (Auto) 0.5 Thou/mm3 (0.0-0.5); Eosinophils % (Auto) 3 % (0-10); Hematocrit 25.9 % (36.0-46.0); Immature Granulocytes Auto 1.25 Thou/mm3 (0.00-0.00); Lymphocytes # (Auto) 1.3 Thou/mm3 (1.0-4.8); Lymphocytes % (Auto) 9 % (10-50); Mean Corpuscular HGB Conc 32.4 g/dl (31.0-37.0); Mean Corpuscular Hemoglobin 33.5 pg (25.0-35.0); Mean Corpuscular Volume 103 fL (80-100); Monocytes # (Auto) 2.2 Thou/mm3 (0.0-0.8); Monocytes % (Auto) 15 % (0-12); Neutrophils # (Auto) 8.9 Thou/mm3 (1.8-7.7); Neutrophils % (Auto) 63 % (37-80); Nucleated Red Blood Cell # 4.76 Thou/mm3 (0.00-0.00); Nucleated Red Blood Cell % 34 /100 WBC (0); Platelet Count 201 Thou/mm3 (140-440); RDW Standard Deviation 47.6 fL (36.4-46.3); Red Blood Count 2.51 Miln/mm3 (4.00-5.20); White Blood Count 14.2 Thou/mm3 (3.6-11.0)
[2025-08-02 06:01] LABS: Hemoglobin 8.4 g/dL (12.0-16.0)
[2025-08-02 06:34] LABS: Alanine Aminotransferase 16 U/L (10-49); Albumin, Serum 2.8 gm/dL (3.4-4.8); Albumin/Globulin Ratio 1.8 (1.2-2.2); Alkaline Phosphatase 109 U/L (46-116); Anion Gap 9 (7-16); Aspartate Amino Transferase 22 U/L (0-34); BUN/Creatinine Ratio 34 Ratio (12-20); Bilirubin,Total 0.2 mg/dL (0.3-1.2); Blood Urea Nitrogen 41 mg/dL (9-23); Calcium 8.3 mg/dL (8.3-10.6); Calcium (Corrected) 9.3 mg/dL (8.5-10.1); Carbon Dioxide 22.2 mMol/L (20.0-31.0); Chloride 103 mMol/L (98-107); Creatinine (Component) 1.2 mg/dL (0.6-1.3); Estimated Creatinine Clearance 31.1 mL/min (>60); Globulin 1.6 gm/dL (2.3-3.5); Glucose 102 mg/dL (74-106); Magnesium 2.0 mg/dL (1.6-2.6); Osmolality,Calculated 278 (275-295); Phosphorous 3.1 mg/dL (2.4-5.1); Potassium 3.5 mMol/L (3.4-5.1); Sodium 134 mMol/L (136-145); Total Protein 4.4 gm/dL (5.7-8.2); eGFR 47 See Note
[2025-08-02] MEDS: ACETAMINOPHEN IVPB 1,000 MG/100 ML VIAL 250 MG IV ×2 (07:30→14:31)
[2025-08-02 08:00] VITALS: BP 104/57; PULSE 90; RESP 19; TEMP 36.1; O2SAT 91
[2025-08-02] MEDS: PRIMIDONE 50 MG TABLET 250 MG PO (09:37)
[2025-08-02] MEDS: DOCUSATE SOD 100 MG CAPSULE PO ×2 (09:37→21:20)
[2025-08-02] MEDS: ZINC SULFATE 220 MG CAPSULE PO (09:37)
[2025-08-02] MEDS: ASCORBIC ACID 250 MG TABLET 500 MG PO ×2 (09:37→21:20)
[2025-08-02 10:37] VITALS: BMI 11.0
--- NOTE | 2025-08-02 11:31 | ESPR_ITS ---
Documentation for date of: 08/02/25 Subjective Subjective Narrative: Patient is seen and examined. She is resting comfortably, her pain is improving. She had treatment with physical therapy and ambulated in her room. She denies nausea or vomiting. She has not passed flatus or bowel movement yet Exam Vital Signs Temp Pulse Resp BP Pulse Ox O2 Del Method O2 Flow Rate 97.0 F 90 19 104/57 L 91 L Nasal Cannula 1 08/02/25 08:00 08/02/25 08:00 08/02/25 08:00 08/02/25 08:00 08/02/25 08:00 08/02/25 08:00 08/02/25 08:00 Constitutional Constitutional: no acute distress Routine Abdominal Exam Comments: Abdomen is soft and mildly distended. She has hypoactive bowel sounds. Incisions with dressing clean, dry and intact Assessment & Plan Assessment Additional comments: Postop day #4 status post exploratory laparotomy with lysis of adhesions, reversal of colostomy, cholecystectomy, splenectomy and left salpingo-ooph orectomy. Her hemoglobin is trending down. WBC is trending down. She has remained afebrile and hemodynamically stable Plan Will continue IV antibiotics. Keep n.p.o. with PPN, awaiting return of GI function PROCEDURES: Procedures Exploratory laparotomy, lysis of adhesions, reversal of colostomy with colorectal anastomosis Cholecystectomy Splenectomy Left salpingo-oophorectomy
[2025-08-02 12:00] VITALS: BP 117/59; PULSE 85; RESP 18; TEMP 36.7; O2SAT 93
[2025-08-02 12:32] LABS: Path Review Blood Smear Sent to Pathologist
[2025-08-02 12:37] VITALS: BMI 20.6
[2025-08-02] MEDS: AMINO ACID IV (13:29)
[2025-08-02] MEDS: POTASSIUM ACET IV (13:29)
[2025-08-02] MEDS: [UNRECOGNIZED DRUG - OTHER] IV (13:29)
[2025-08-02 16:00] VITALS: BP 113/53; PULSE 88; RESP 18; TEMP 36.1; O2SAT 90
--- NOTE | 2025-08-02 16:21 | PC.SS ---
Follow up note: Surgery for reverse Colostomy. Pt has not had bowel movement or passed gas. Pt on PPN, IV pain meds, and IV antibiotic. Pt is possible d/c to SNF.
[2025-08-02 20:00] VITALS: BP 104/54; PULSE 89; RESP 17; TEMP 36.3; O2SAT 92
[2025-08-03] VITALS (11 sets, daily range): BP systolic 102–137; BP diastolic 45–64; PULSE 88–97; RESP 14–19; TEMP 36.3–36.7; O2SAT 90–95; BMI 11.0
--- NOTE | 2025-08-03 | XR_ITS ---
Examination: Ultrasound-guided needle placement right basilic vein. Dual-lumen central line placement (PICC line). Fluoroscopy AP chest, portable, single view Exam date and time: August 03, 2025, 1254 hours INDICATIONS: Need for long-term intravenous parenteral nutrition A timeout was completed verifying correct patient, procedure, site, positioning Informed consent provided Technique: The patient's site was prepped and draped in sterile fashion. Maximum Sterile Barrier Technique used including cap, mask, sterile gown, sterile gloves, and sterile full body drape. If ultrasound technique used: sterile gel and sterile probe covers. Hand Hygiene performed using proper scrub, soap and water, or alcohol-based hand rub. Ultrasound Cyred portable apparatus utilized to confirm patency of the right basilic vein Utilizing ultrasonographic guidance successful 21-gauge needle puncture into the right basilic vein. Ultrasound images recorded and stored. 5 cc 1% lidocaine administered for local anesthetic. Successful micropuncture with a 21-gauge needle is performed. 0.18 wire guide is then introduced into the SVC under fluoroscopic guidance. Dual-lumen catheter dilator is then introduced, followed by the catheter in the SVC and proper position under fluoroscopic guidance. Successful aspiration of blood and flushing with heparinized saline is then performed in the 2 venous limbs. The catheter sutured in place. Findings: Under fluoroscopy, the tip of the catheter is in good position in the vena cava. Portable chest x-ray, post line placement is ordered. Estimated blood loss 3 cc The patient tolerated the procedure well and was in stable and satisfactory condition at completion of the procedure Impression: Successful ultrasound-guided needle placement right basilic vein Successful placement of dual lumen central line, percutaneous Fluoroscopy 8.5-minute radiation dose 1.24 mGy, 1 spot fluoroscopic chest film. AP chest completion procedure demonstrates satisfactory position central line. May use central line.
[2025-08-03] MEDS: MORPHINE SULF INJ 4 MG/ML VIAL 2 MG IVP ×4 (00:45→21:07)
[2025-08-03] MEDS: METOCLOPRAMIDE INJ 5 MG/ML VIAL 2 ML 10 MG IVP ×3 (05:27→17:45)
[2025-08-03] MEDS: LEVOTHYROXINE SODIUM 88 MCG TABLET PO (05:27)
[2025-08-03] MEDS: CEFOXITIN 2 GM in SODIUM CHLORIDE 0.9% (Popper) 50 ML IV ×3 (05:27→21:21)
[2025-08-03] MEDS: ZINC SULFATE 220 MG CAPSULE PO (09:03)
[2025-08-03] MEDS: DOCUSATE SOD 100 MG CAPSULE PO ×2 (09:03→21:23)
[2025-08-03] MEDS: ASCORBIC ACID 250 MG TABLET 500 MG PO ×2 (09:03→21:22)
[2025-08-03] MEDS: ENOXAPARIN SOD INJ 30 MG/0.3 ML SYRINGE SC (09:05)
--- NOTE | 2025-08-03 09:55 | PC.SS ---
SS met with pt and regarding d/c options for home or SNF. is refusing SNF placement for pt. Pt is currently on 2 liters Of O2. Per , pt utilizes O2 only at night and does not have O2 tanks. refuses SS to orders continuous home O2 (O2 tanks) and states she doesn't need it.
--- NOTE | 2025-08-03 10:24 | ESPR_ITS ---
Documentation for date of: 08/03/25 Subjective Subjective Narrative: Patient is seen and examined. Her pain is well-controlled. She denies nausea or vomiting. No bowel movement or flatus yet. She is complaining of swelling of her upper extremity from IV access. She is not ambulating much Exam Vital Signs Temp Pulse Resp BP Pulse Ox O2 Del Method O2 Flow Rate 97.4 F 95 15 103/49 L 92 L Nasal Cannula 2 08/03/25 08:00 08/03/25 08:00 08/03/25 08:00 08/03/25 08:00 08/03/25 08:00 08/03/25 08:00 08/03/25 08:00 Constitutional Constitutional: no acute distress Routine Abdominal Exam Comments: Abdomen is soft and minimally distended. Incisions clean, dry and intact. She has hypoactive bowel sounds Assessment & Plan Assessment Additional comments: Postop day #5 status post exploratory laparotomy with lysis of adhesions, reversal of colostomy, cholecystectomy, splenectomy and left salpingo- oophorectomy. Plan Will start her on sips of clears. PICC line placement by IR. Continue PPN until return of GI function. Use incentive spirometer and encouraged her to increase ambulation PROCEDURES: Procedures Exploratory laparotomy, lysis of adhesions, reversal of colostomy with colorectal anastomosis Cholecystectomy Splenectomy Left salpingo-oophorectomy
[2025-08-03] MEDS: AMINO ACID 4.25%/D5W E 2,000 ML 90 ML IV (12:14)
--- NOTE | 2025-08-03 12:41 | PC.SS ---
Pt is waiting for PICC line placement for PPN. SS has placed DME order and transportation form on patient's chart for physician's signature.
[2025-08-03] MEDS: HEPARIN SOD LOCK SYR 100 UNIT/ML 500 UNIT STFIELD (13:42)
[2025-08-03] MEDS: LIDOCAINE INJ PF 1% 5 ML VIAL 3 ML EPID (13:42)
--- NOTE | 2025-08-03 14:19 | PC.NURSE ---
Consent was obtained from Dr Marie explained the procedure to Patient was then taken to IR to prep her for the PICC line procedure once patient was prepped and draped we did our time out with the entire team including PICC line was successfully inserted in the right upper arm without any complications (See MAR for medications given) Dr hart gave us the may use PICC Line order which was then placed report given to GABRIEL Edouard patient was then taken up to her room, patient looks comfortable and stable
[2025-08-04] VITALS (23 sets, daily range): BP systolic 95–133; BP diastolic 40–66; PULSE 65–159; RESP 16–33; TEMP 36.1–36.7; O2SAT 85–97; BMI 20.6
[2025-08-04] MEDS: METOCLOPRAMIDE INJ 5 MG/ML VIAL 2 ML 10 MG IVP ×5 (00:05→23:25)
--- NOTE | 2025-08-04 00:43 | PC.NURSE ---
CATH LAB RADIOLOGICAL TECHNOLOGIST called because heart monitor was showing patient had a pulse sustaining in the 170's. Dr. Barcenas is the primary doctor on the case and no hospitalists was ordered. Dr. Barcenas was contacted and order for hospitalists consult was ordered. Hospitalist consult and labs were ordered. Patient not complaining of pain throughout the rapid and reports feeling okay throughout the rapid.
--- NOTE | 2025-08-04 00:51 | PD.RESCONSUL ---
HPI Data of Consult Consult date: 08/04/25 Requesting Physician: Tyron Barcenas MD Admitting Provider: Tyron Barcenas MD Attending Provider: Dylon Velasquez MD Primary Care Provider: Brien Mcgraw MD Consult Narrative Reason for consult: tachycardia History of present illness: 79F with pmhx of diverticulitis s/p colectomy and colostomy, hypothyroidism, CAD s/p angioplasty and stent placement, hypertension, hyperlipidemia, COPD who presented to the ED for reversal of colostomy by general surgery. Patient had procedure done on 07/28/2025. Currently is post-op day #5/6 status post exploratory laparotomy with lysis of adhesions, reversal of colostomy, cholecystectomy, splenectomy and left salpingo-oophorectomy. Patient had a rapid response on 08/04/2025 for tachycardia in the 170s and Internal Medicine was consulted. She currently is with HR in the 80s. Nontheless Labs will be ordered in view of patient looking pale and no labs since a couple days ago. PMHx: as above SxHx: colectomy, colostomy, reversal of collostomy, angioplasty Social Hx: former smoker, social alcohol use, denies illicit substances FHx: noncontributory cc:: cc: Tyron Barcenas MD Review of Systems Review of Systems Systems Reviewed: All systems reviewed, normal except as documented Exam Vital Signs Temp Pulse Resp BP Pulse Ox O2 Del Method O2 Flow Rate 97.2 F 159 H 28 H 123/52 L 85 L Nasal Cannula 3 08/04/25 00:38 08/04/25 00:38 08/04/25 00:38 08/04/25 00:38 08/04/25 00:38 08/04/25 00:00 08/04/25 00:38 Narrative Exam Physical Exam GENERAL: NAD HEENT: Moist mucosa. Eyes open, symmetrical, & clear CARDIO: Heart RRR, no obvious murmurs PULM: No noted coughing/dyspnea CTA B/L, no R/W/R GI: Abdomen soft, nondistended, no pain on palpation. Incisions clean, dry and intact. She has hypoactive bowel sounds SKIN/MSK/EXT: No wounds/rashes/edema/amputations, no pain on palpation. Pedal pulses present B/L NEURO: AAOx3, no focal neuro deficits, able to move all 4 extremities Results Labs 08/04/25 00:57 08/04/25 05:27 Quality Measures Quality Measures VTE prophylaxis Advance care planning discussed with:: patient Medications Home Medications and Allergies Home Medications ?Medication ?Instructions ?Recorded ?Confirmed ?Type alprazolam 1 mg tablet 1.5 mg PO HS Insomnia 04/13/21 07/28/25 History levothyroxine 88 mcg tablet 88 mcg PO QAM 04/13/21 07/28/25 History simvastatin 40 mg tablet 40 mg PO QPM 12/03/22 07/28/25 History aspirin 81 mg tablet,delayed 81 mg PO QDAY 07/25/25 07/25/25 History release loratadine 10 mg capsule 10 mg PO BID 07/25/25 07/28/25 History primidone 250 mg tablet 250 mg PO Q12H 07/25/25 07/28/25 History Allergies Allergy/AdvReac Type Severity Reaction Status Date / Time codeine Allergy Intermediate Fatigued Verified 07/28/25 10:05 meperidine AdvReac Unknown Verified 07/28/25 10:05 Visit Medications Alprazolam (Alprazolam 0.25 Mg Tablet) 1 mg PO HS PRN PRN Reason: INSOMNIA Stop: 08/05/25 15:47 Last Admin: 08/03/25 21:10 Dose: 1 mg Ascorbic Acid (Ascorbic Acid 250 Mg Tablet) 500 mg PO BID [facility] Stop: 08/27/25 20:59 Last Admin: 08/03/25 21:22 Dose: 500 mg Dextrose (Dextrose 50%-Water Inj 50 Ml Syringe) 25 ml IV Q15MIN PRN PRN Reason: BG 50-70 responsive npo pt Stop: 08/28/25 12:20 Dextrose (Dextrose 50%-Water Inj 50 Ml Syringe) 50 ml IV Q15MIN PRN PRN Reason: BG <50 OR BG <70 & pt unresponsive Stop: 08/28/25 12:20 Docusate Sodium (Docusate Sod 100 Mg Capsule) 100 mg PO BID [facility]; Protocol Stop: 08/27/25 20:59 Last Admin: 08/03/25 21:23 Dose: 100 mg Enoxaparin Sodium (Enoxaparin Sod Inj 30 Mg/0.3 Ml Syringe) 30 mg SC QDAY [facility] Stop: 08/13/25 11:59 Last Admin: 08/03/25 09:05 Dose: 30 mg Glucagon (Glucagon Inj 1 Mg Vial) 1 mg IM Q15MIN PRN PRN Reason: BG <70, and no IV access Cefoxitin Sodium 2 gm/ Sodium (Chloride) 50 mls @ 100 mls/hr IV Q8HR [facility] Stop: 08/04/25 21:59 Last Admin: 08/03/25 21:21 Dose: 100 mls/hr Acetaminophen (Ofirmev Inj) 1,000 mg in 100 mls @ 250 mls/hr IV Q8HR PRN On Hold: 08/01/25 19:39 Comment: HERO PRN Reason: PAIN 1-6 (mild-mod Fat Emulsion Intravenous (Intralipid 20% Iv) 500 mls @ 32 mls/hr IV MoFr@1800 [facility] Stop: 08/30/25 17:59 Last Admin: 07/31/25 17:54 Dose: 32 mls/hr Promethazine HCl 25 mg/ Sodium (Chloride) 51 mls @ 2.5 mls/min IV Q6HR PRN; Protocol PRN Reason: NAUSEA OR VOMITING Stop: 08/30/25 15:42 Amino Acids/Electrolytes/Dextrose (Clinimix E 4.25/5) 2,000 mls @ 90 mls/hr IV .[id number] [facility] Stop: 08/05/25 08:16 Last Admin: 08/03/25 12:14 Dose: 90 mls/hr Insulin Human Regular (Insulin Hum Regular 1 Unit/0.01 Ml (Per Unit)) 0 unit SC Q6HR [facility]; Protocol Stop: 08/28/25 17:59 Last Admin: 08/03/25 23:55 Dose: Not Given Levothyroxine Sodium (Levothyroxine Sodium 88 Mcg Tablet) 88 mcg PO ACBR [facility] Stop: 08/28/25 05:59 Last Admin: 08/03/25 05:27 Dose: 88 mcg Metoclopramide HCl (Metoclopramide Inj 5 Mg/Ml Vial 2 Ml) 10 mg IVP Q6HR [facility]; Protocol Stop: 08/30/25 17:59 Last Admin: 08/04/25 00:05 Dose: 10 mg Morphine Sulfate (Morphine Sulf Inj 4 Mg/Ml Vial) 2 mg IVP Q2HR PRN PRN Reason: PAIN SCALE 7-10 (Severe Stop: 08/07/25 19:59 Last Admin: 08/03/25 21:07 Dose: 2 mg Ondansetron HCl (Ondansetron Inj 2 Mg/Ml Inj 2 Ml) 4 mg IVP Q4HR PRN; Protocol PRN Reason: NAUSEA OR VOMITING Stop: 08/30/25 11:58 Last Admin: 07/31/25 12:11 Dose: 4 mg Pantoprazole Sodium (Pantoprazole 40 Mg Tablet) 40 mg PO QDAY [facility]; Protocol Stop: 09/03/25 08:59 Zinc Sulfate (Zinc Sulfate 220 Mg Capsule) 220 mg PO QDAY [facility] Stop: 08/28/25 08:59 Last Admin: 08/03/25 09:03 Dose: 220 mg Discontinued Medications Diphenhydramine HCl (Diphenhydramine Inj 50 Mg/Ml Vial) 25 mg IVP Q6HR PRN PRN Reason: ITCHING Stop: 08/29/25 12:07 Last Admin: 07/30/25 12:19 Dose: 25 mg Fentanyl Citrate (Fentanyl Cit Inj 50 Mcg/Ml Amp 2ml) 25 mcg IVP Q5M PRN PRN Reason: PAIN SCALE 1-3 (mild Stop: 07/28/25 15:10 Last Admin: 07/28/25 15:56 Dose: 25 mcg Heparin Sodium (Beef Lung) (Heparin Sod Lock Syr 100 Unit/Ml) 500 unit FIELD X1 ONE Stop: 08/03/25 13:41 Last Admin: 08/03/25 13:42 Dose: 500 unit Hydromorphone HCl (Hydromorphone Inj 2 Mg/Ml Vial) 0.4 mg IVP Q5M PRN PRN Reason: PAIN SCALE 7-10 (Severe Stop: 07/28/25 15:11 Last Admin: 07/28/25 16:08 Dose: 0.4 mg Cefoxitin Sodium 2 gm/ Sodium (Chloride) 50 mls @ 100 mls/hr IV X1 ONE Stop: 07/28/25 06:29 Lactated Ringer's (Lactated Ringers) 1,000 mls @ 20 mls/hr IV .Q24H ONE Stop: 07/29/25 05:59 Potassium Chloride/Dextrose/Sod Cl (Kcl 20 Meq/L In D5-1/2ns) 20 meq in 1,000 mls @ 60 mls/hr IV .[id number] [facility] Stop: 08/27/25 17:02 Last Admin: 07/29/25 09:23 Dose: 60 mls/hr Acetaminophen (Ofirmev Inj) 1,000 mg in 100 mls @ 250 mls/hr IV Q6HR [facility] Stop: 07/29/25 06:23 Last Admin: 07/29/25 05:13 Dose: 250 mls/hr Acetaminophen (Ofirmev Inj) 1,000 mg in 100 mls @ 250 mls/hr IV Q8HR PRN PRN Reason: PAIN 1-6 (mild-mod Stop: 07/30/25 14:23 Magnesium Sulfate 2 gm/Multivitamins/Minerals 10 ml/Amino Acids 2,014 mls @ 30 mls/hr IV .Q24H [facility] Stop: 08/28/25 17:59 Last Admin: 07/30/25 21:19 Dose: Not Given Sodium Phosphate 15 mmol/Magnesium Sulfate 2 gm/Multivitamins/Minerals 10 ml/Amino Acids 2,019 mls @ 90 mls/hr IV .[id number] [facility] Stop: 07/31/25 16:25 Last Admin: 07/30/25 18:16 Dose: 90 mls/hr Amino Acids/Electrolytes/Dextrose (Clinimix E 4.25/5) 2,000 mls @ 90 mls/hr IV .[id number] [facility] Stop: 08/01/25 14:43 Last Admin: 07/31/25 16:15 Dose: 90 mls/hr Sodium Acetate 80 meq/Potassium Phosphate 42 mmol/Multivitamins/Minerals 10 ml/Amino Acids 2,064 mls @ 90 mls/hr IV .[id number] [facility] Stop: 08/02/25 13:25 Last Admin: 08/01/25 14:13 Dose: 90 mls/hr Acetaminophen (Ofirmev Inj) 1,000 mg in 100 mls @ 250 mls/hr IV Q8HR [facility] Stop: 08/02/25 14:23 Last Admin: 08/02/25 14:31 Dose: 250 mls/hr Potassium Acetate 20 meq/Amino Acids/Electrolytes/Dextrose 2,010 mls @ 90 mls/hr IV .[id number] [facility] Stop: 08/03/25 11:49 Last Admin: 08/02/25 13:29 Dose: 90 mls/hr Ketorolac Tromethamine (Ketorolac Inj 30 Mg/Ml Vial) 15 mg IVP X1 ONE Stop: 07/28/25 16:40 Last Admin: 07/28/25 16:44 Dose: 15 mg Lidocaine HCl (Lidocaine Inj Pf 1% 5 Ml Vial) 3 ml EPID X1 ONE Stop: 08/03/25 13:41 Last Admin: 08/03/25 13:42 Dose: 3 ml Morphine Sulfate (Morphine Sulf Inj 4 Mg/Ml Vial) 3 mg IV Q5M PRN PRN Reason: PAIN SCALE 4-6 (Moderate Stop: 07/28/25 15:11 Morphine Sulfate (Morphine Sulf Inj 4 Mg/Ml Vial) 2 mg IVP Q2H PRN PRN Reason: PAIN SCALE 7-10 (Severe Stop: 08/02/25 17:20 Last Admin: 08/02/25 13:29 Dose: 2 mg Ondansetron HCl (Ondansetron Inj 2 Mg/Ml Inj 2 Ml) 4 mg IVP X1 ONE Stop: 07/28/25 13:11 Pantoprazole Sodium (Pantoprazole Inj 40 Mg Vial) 40 mg IVP QDAY [facility] Stop: 08/30/25 15:44 Last Admin: 08/03/25 09:05 Dose: 40 mg Primidone (Primidone 50 Mg Tablet) 250 mg PO Q12HR [facility] Stop: 08/02/25 20:59 Last Admin: 08/02/25 09:37 Dose: 250 mg Assessment & Plan Plan 79F with PMHx of diverticulitis s/p colectomy and colostomy, hypothyroidism, CAD s/p angioplasty and stent placement, hypertension, hyperlipidemia, COPD who presented to the ED for reversal of colostomy by general surgery. Patient had procedure done on 07/28/2025. Currently is post-op day #5/6 status post exploratory laparotomy with lysis of adhesions, reversal of colostomy, cholecystectomy, splenectomy and left salpingo-oophorectomy. Internal medicine consulted for tachycardia. #Healthcare associated PNA #SIRS 2 out of 4 tachypnea and leukocytotis #Tachycardia? #Lactic acidosis Patient had rapid response due to tachycardia in the 170s. After electrodes were adjusted HR currently in the 70-80s. Patient denies any kind of pain at this time and is resting comfortably. Currently on Cefoxitin CBC showed WBCs uptrending to 37 from 14. Lactic acid elevated at 2.1, procalcitonin elevated EKG shows no acute ST changes with normal sinus rhythm ? Antibiotic coverage broadened to Doxycycline and Zosyn ? On IV fluids ? Follow up Blood cultures, CXR ? Currently normotensive, afebrile with no active complaints #Acute Kidney injury Likely prerenal, creatinine 1.4, baseline seems to be around 0.7-0.9 ? on IVF ? Avoid nephrotoxins ? Renally dose medications #Hyperlipidemia #Hypertension #History of COPD #Hypothyroidism Currently appropriately saturating between 88-92% ? Continue to monitor, levalbuterol as needed ? Currently normotensive will withhold any antihypertensive at this time ? Resume levothyroxine as taken at home ? Resume simvastatin as taken at home #Postop day #6 status post exploratory laparotomy with lysis of adhesions, reversal of colostomy, cholecystectomy, splenectomy and left salpingo-oophorectomy. As per primary team Thank you for letting IM team consult on this patient Case discussed with my attending Dr. Ron Ray MD PGY-2 Attending Provider Attestation/Addendum After examination of the patient and review of the clinical data I feel that this patient needs admission to the hospital for further treatment/evaluation. Plan of care discussed with patient and is in agreement. I Dylon Velasquez MD, attest that I was physically present for kaur portions of evaluation, and examined patient, labs and imagings and plan of care were discussed with IM residents team, and I agree with the findings and plans documented above.
[2025-08-04 01:12] LABS: Basophils # (Auto) 0.2 Thou/mm3 (0.0-0.2); Basophils % (Auto) 1 % (0-2.5); Eosinophils # (Auto) 0.3 Thou/mm3 (0.0-0.5); Eosinophils % (Auto) 1 % (0-10); Hematocrit 24.3 % (36.0-46.0); Immature Granulocytes Auto 3.90 Thou/mm3 (0.00-0.00); Lymphocytes # (Auto) 1.4 Thou/mm3 (1.0-4.8); Lymphocytes % (Auto) 4 % (10-50); Mean Corpuscular HGB Conc 31.7 g/dl (31.0-37.0); Mean Corpuscular Hemoglobin 33.0 pg (25.0-35.0); Mean Corpuscular Volume 104 fL (80-100); Monocytes # (Auto) 3.3 Thou/mm3 (0.0-0.8); Monocytes % (Auto) 9 % (0-12); Neutrophils # (Auto) 28.0 Thou/mm3 (1.8-7.7); Neutrophils % (Auto) 76 % (37-80); Nucleated Red Blood Cell # 10.62 Thou/mm3 (0.00-0.00); Nucleated Red Blood Cell % 29 /100 WBC (0); Platelet Count 312 Thou/mm3 (140-440); RDW Standard Deviation 51.5 fL (36.4-46.3); Red Blood Count 2.33 Miln/mm3 (4.00-5.20)
[2025-08-04 01:15] LABS: Allen Test Performed/OK; Base Excess -2 (-3-3); HCO3 23 mEq/L (20-26); Inspired Oxygen, FIO2 21 %; O2 Saturation 88 % (91-98); PCO2 38 mmHg (32.0-48.0); Puncture Site Left Radial; pH, Arterial 7.39 (7.35-7.45)
[2025-08-04 01:16] LABS: PO2 52 mmHg (83-108)
[2025-08-04 01:19] LABS: Hemoglobin 7.7 g/dL (12.0-16.0)
[2025-08-04 01:22] LABS: Path Review Blood Smear Sent to Pathologist; White Blood Count 37.0 Thou/mm3 (3.6-11.0)
[2025-08-04 01:34] LABS: Alanine Aminotransferase 52 U/L (10-49); Albumin, Serum 2.8 gm/dL (3.4-4.8); Albumin/Globulin Ratio 1.5 (1.2-2.2); Alkaline Phosphatase 263 U/L (46-116); Anion Gap 11 (7-16); Aspartate Amino Transferase 68 U/L (0-34); BUN/Creatinine Ratio 29 Ratio (12-20); Bilirubin,Total 0.4 mg/dL (0.3-1.2); Blood Urea Nitrogen 40 mg/dL (9-23); Calcium 9.0 mg/dL (8.3-10.6); Calcium (Corrected) 10.0 mg/dL (8.5-10.1); Carbon Dioxide 21.4 mMol/L (20.0-31.0); Chloride 102 mMol/L (98-107); Creatinine (Component) 1.4 mg/dL (0.6-1.3); Estimated Creatinine Clearance 26.6 mL/min (>60); Globulin 1.9 gm/dL (2.3-3.5); Glucose 119 mg/dL (74-106); Magnesium 2.3 mg/dL (1.6-2.6); Osmolality,Calculated 278 (275-295); Potassium 4.2 mMol/L (3.4-5.1); Sodium 134 mMol/L (136-145); Total Protein 4.7 gm/dL (5.7-8.2); eGFR 39 See Note
--- NOTE | 2025-08-04 01:47 | XR_ITS ---
EXAMINATION: AP chest single view TECHNIQUE: AP portable semiupright chest single view Date and time: August 04, 2025, 0201 hours COMPARISON: March 22, 2025 INDICATIONS: Shortness of breath today. FINDINGS: Right arm dual lumen PICC line tip SVC satisfactory position Aorta normal size Bibasilar opacity consistent with pneumonia Moderate vascular congestion. No edilia pulmonary edema Severe osteopenia IMPRESSION: Significant bibasilar pneumonia
--- NOTE | 2025-08-04 01:48 | EKG_ITS ---
[facility] Test Date: 2025-08-04 Pat Name: DYAN SUN [facility] [employer] Coordinator: MYRNA : 1945 Requested By: Dylon High Order Number: [id number] Reading MD: Dylon High Measurements Intervals [place] Rate: 90 P: 29 NH: 163 QRS: 26 QRSD: 92 T: 54 QT: 344 QTc: 423 Interpretive Statements SINUS RHYTHM Compared to ECG 03/22/2025 15:21:36 No significant changes /store/S0/[id number].pdf
--- NOTE | 2025-08-04 02:00 | PC.NURSE ---
At approximately 0200H Dr. Velasquez came to med/surg to check on patient after [employer]ENDANT was called. WBC is 37.0 and blood cultures, CT, labs, antibiotics, fluids were ordered. All orders from Dr. Laurent were carried out.
[2025-08-04] MEDS: RINGERS LACTATED 1000 ML 500 ML 125 ML IV (02:15)
[2025-08-04] MEDS: DOXYCYCLINE INJ 100 MG in SODIUM CHLORIDE 0.9% (POP) 100 ML IV (02:24)
[2025-08-04] MEDS: PIPER/TAZO 3.375 GM PREMIX 3.375 GM/50 ML BAG IV (02:55)
[2025-08-04 03:07] LABS: Lactate (Lactic Acid) 2.1 mMol/L (0.4-2.0)
[2025-08-04 03:28] LABS: Partial Thromboplastin Time 20.5 Seconds (22.0-36.0)
[2025-08-04 03:44] LABS: Procalcitonin 2.40 ng/ml (0.0-0.49); Thyroid Stimulating Hormone 9.39 uIU/mL (0.55-4.78)
[2025-08-04] MEDS: LEVOTHYROXINE SODIUM 88 MCG TABLET PO (05:25)
[2025-08-04] MEDS: MORPHINE SULF INJ 4 MG/ML VIAL 2 MG IVP (05:33)
[2025-08-04 06:05] LABS: Lactate (Lactic Acid) 2.3 mMol/L (0.4-2.0)
[2025-08-04 06:05] LABS: Reflex Lactate? Y
[2025-08-04 06:41] LABS: Alanine Aminotransferase 51 U/L (10-49); Albumin, Serum 2.6 gm/dL (3.4-4.8); Albumin/Globulin Ratio 1.4 (1.2-2.2); Alkaline Phosphatase 258 U/L (46-116); Anion Gap 10 (7-16); Aspartate Amino Transferase 60 U/L (0-34); BUN/Creatinine Ratio 33 Ratio (12-20); Bilirubin,Total 0.5 mg/dL (0.3-1.2); Blood Urea Nitrogen 40 mg/dL (9-23); Calcium 8.7 mg/dL (8.3-10.6); Calcium (Corrected) 9.8 mg/dL (8.5-10.1); Carbon Dioxide 21.5 mMol/L (20.0-31.0); Chloride 103 mMol/L (98-107); Creatinine (Component) 1.2 mg/dL (0.6-1.3); Estimated Creatinine Clearance 31.1 mL/min (>60); Globulin 1.8 gm/dL (2.3-3.5); Glucose 114 mg/dL (74-106); Osmolality,Calculated 278 (275-295); Potassium 4.1 mMol/L (3.4-5.1); Sodium 134 mMol/L (136-145); Total Protein 4.4 gm/dL (5.7-8.2); eGFR 47 See Note
[2025-08-04] MEDS: PANTOPRAZOLE 40 MG TABLET PO (08:33)
[2025-08-04] MEDS: ASCORBIC ACID 250 MG TABLET 500 MG PO ×2 (08:33→21:51)
[2025-08-04] MEDS: ZINC SULFATE 220 MG CAPSULE PO (08:33)
[2025-08-04] MEDS: DOCUSATE SOD 100 MG CAPSULE PO ×2 (08:33→21:51)
[2025-08-04] MEDS: ENOXAPARIN SOD INJ 30 MG/0.3 ML SYRINGE SC (08:33)
[2025-08-04 09:02] LABS: Reflex Lactate? Y
[2025-08-04] MEDS: PIPER/TAZO INJ 4.5 GM in SODIUM CHLORIDE 0.9% (POP) 100 ML IV ×3 (09:08→22:42)
[2025-08-04] MEDS: AMINO ACID 4.25%/D5W E 2,000 ML 90 ML IV (09:57)
[2025-08-04] MEDS: VANCOMYCIN/NS 1 GM IVPB 200 ML IV (09:57)
--- NOTE | 2025-08-04 10:42 | XR_ITS ---
Examination: Abdomen AP single view Technique: AP portable supine abdomen, single view Exam date and time: August 04, 2025, 11:00 a.m. INDICATIONS: Abdominal distention today. FINDINGS: Orwell over the anterior abdomen Multiple air distended small bowel loops No free air Bilateral hip arthroplasties. IMPRESSION: Small bowel obstruction pattern
--- NOTE | 2025-08-04 12:16 | PC.NURSE ---
Dr. Machuca came to the flood at 12:10. Made aware of Patient vitals.
--- NOTE | 2025-08-04 12:21 | ESPR_ITS ---
Documentation for date of: 08/04/25 Subjective Subjective Narrative: Patient is seen and examined. She is resting comfortably right now, hemodynamically stable. Last night rapid response was called for tachycardia which resolved spontaneously, hospitalist service was consulted. X-ray revealed significant bibasilar pneumonia, antibiotics were changed Exam Vital Signs Temp Pulse Resp BP Pulse Ox O2 Del Method O2 Flow Rate 97.0 F 65 16 105/46 L 93 L Nasal Cannula 3 08/04/25 08:00 08/04/25 08:00 08/04/25 08:00 08/04/25 08:00 08/04/25 08:00 08/04/25 08:00 08/04/25 08:00 Constitutional Constitutional: no acute distress Routine Abdominal Exam Comments: Abdomen is soft and mildly distended. Incisions are clean, dry and intact. She has hypoactive bowel sounds Assessment & Plan Assessment Additional comments: Postop day #7 status post exploratory laparotomy with lysis of adhesions, reversal of colostomy, cholecystectomy, splenectomy and left salpingo- oophorectomy.. Significantly elevated WBC likely due to significant bibasilar pneumonia. Hemoglobin and hematocrit are trending down Plan Antibiotics were changed to cover bibasilar pneumonia. Continue PPN, awaiting return of GI function. Transfuse 2 unit PRBC. PROCEDURES: Procedures Exploratory laparotomy, lysis of adhesions, reversal of colostomy with colorectal anastomosis Cholecystectomy Splenectomy Left salpingo-oophorectomy
[2025-08-04] MEDS: HYDROcodone/APAP 5/325 TABLET 1 TAB PO (12:52)
[2025-08-04 13:35] LABS: Lactate (Lactic Acid) 1.3 mMol/L (0.4-2.0)
[2025-08-04 14:08] LABS: Free T4 (Free Thyroxine) 0.55 ng/dL (0.89-1.76)
--- NOTE | 2025-08-04 15:24 | PC.SS ---
rounding note: Patient had a rapid response last night for going into tachycardia. Pending blood cultures.
--- NOTE | 2025-08-04 15:59 | ESPR_ITS ---
<Statement entered by Atif Wilson MD - 08/04/25 17:46> I have reviewed the note and agree with the resident's assessment & plan with exceptions as below. I have personally reviewed labs, imaging, home meds/prior records, examined the patient, formulated and discussed management plan with my attending Patient was seen and examined at bedside this morning. No acute overnight events. IM team was consulted overnight due to SIRS. Patient is postop day 6. She was started on vancomycin and Zosyn given spiking WBCs and pneumonia seen on chest x-ray which was not there previously. Given that the patient still has not had a bowel movement or has passed any gas for the past 6 days ordered a KUB which showed SBO pattern and surgery was made aware. Otherwise no spiking fevers. Will continue to trend hemoglobin as it was on the lower end at 7.7. Will follow-up on blood cultures and continue following the patient with surgery. Atif Wilson PGY2 Disclaimer: Even though this this note was dictated by speech recognition and even though it was carefully revised there may still be minor errors in it desktop support technician due to voice recognition software. Documentation for date of: 08/04/25 Subjective Subjective Interval history: Hospitalist team consulted overnight, postop day 6. Patient is examined at bedside. Patient is feeling very fatigued with some abdominal pain, improved since surgery. Patient has not had bowel movement and endorses not passing gas. Patient denies chest pain, palpitations, shortness of breath N/V or fever/chills. Vitals and labs reviewed. SBP 90-120. Currently heart rate 60s, saturating 93% on 3 L. WBC now 37, hemoglobin stable downtrending 7.7, sodium 134, potassium 4.1, BUN 40, creatinine 1.2, lactic acid downtrending from 2.3 now 1.3, AST/ALT stable elevated 60/51, alk phos still elevated 258, free T4 low 0.55. KUB shows small bowel obstruction pattern, surgery made aware. Continue current antibiotics of Zosyn and vancomycin. Encourage incentive spirometer as patient is likely very deconditioned post surgery. F/u BCx. Exam Vital Signs Temp Pulse Resp BP Pulse Ox O2 Del Method O2 Flow Rate 97.1 F 69 20 106/60 94 L Room Air 1 08/04/25 12:00 08/04/25 15:53 08/04/25 15:53 08/04/25 12:00 08/04/25 15:53 08/04/25 12:00 08/04/25 08:05 Narrative Exam GENERAL: AOx3, no acute distress, fatigued HEENT: mucous membranes moist, bilateral sclera anicteric CARDIOVASCULAR: regular rate and rhythm, S1/S2 present, no murmurs appreciated PULMONARY: clear to auscultation bilaterally, no rales/rhonchi/wheezes ABDOMINAL: soft, non-distended, no rebound/guarding, bowel sounds hypoactive, abdominal binder in place, diffusely mild TTP EXTREMITIES: no peripheral edema SKIN: warm and dry, intact, no rashes NEURO: CN II-XII grossly intact, no focal deficits, alert, following commands Objective Labs 08/05/25 05:12 08/05/25 05:12 Labs: Laboratory Results - last 24 hr 08/04/25 08/04/25 08/04/25 00:57 01:04 02:38 WBC 37.0 H* D RBC 2.33 L Hgb 7.7 L Hct 24.3 L MCV 104 H MCH 33.0 MCHC 31.7 RDW Std Deviation 51.5 H Plt Count 312 D Neut % (Auto) 76 Lymph % (Auto) 4 L [place] % (Auto) 9 Eos % (Auto) 1 Baso % (Auto) 1 Neut # (Auto) 28.0 H Lymph # (Auto) 1.4 [place] # (Auto) 3.3 H Eos # (Auto) 0.3 Baso # (Auto) 0.2 Immature Gran # (Auto) 3.90 H Absolute Nucleated RBC 10.62 H Immature Gran % 11 H Nucleated RBC % 29 H Smear Path Review Sent to Pathologist APTT 20.5 L Puncture Site Left Radial ABG pH 7.39 ABG pCO2 38 ABG pO2 52 L* ABG HCO3 23 ABG O2 Saturation 88 L ABG Base Excess -2 FiO2 21 Sodium 134 L Potassium 4.2 D Chloride 102 Carbon Dioxide 21.4 Anion Gap 11 BUN 40 H Creatinine 1.4 H Estim Creat Clear Calc 26.6 L eGFR 39 L BUN/Creatinine Ratio 29 H Glucose 119 H Calculated Osmolality 278 Lactic Acid 2.1 H Calcium 9.0 Corrected Calcium 10.0 Magnesium 2.3 Total Bilirubin 0.4 AST 68 H ALT 52 H Alkaline Phosphatase 263 H D Total Protein 4.7 L Albumin 2.8 L Globulin 1.9 L Albumin/Globulin Ratio 1.5 Procalcitonin 2.40 H TSH 9.39 H Free T4 Blood Type Antibody Screen Crossmatch Blood Bank Wristband ID 08/04/25 08/04/25 05:27 13:13 WBC RBC Hgb Hct MCV MCH MCHC RDW Std Deviation Plt Count Neut % (Auto) Lymph % (Auto) [place] % (Auto) Eos % (Auto) Baso % (Auto) Neut # (Auto) Lymph # (Auto) [place] # (Auto) Eos # (Auto) Baso # (Auto) Immature Gran # (Auto) Absolute Nucleated RBC Immature Gran % Nucleated RBC % Smear Path Review APTT Puncture Site ABG pH ABG pCO2 ABG pO2 ABG HCO3 ABG O2 Saturation ABG Base Excess FiO2 Sodium 134 L Potassium 4.1 Chloride 103 Carbon Dioxide 21.5 Anion Gap 10 BUN 40 H Creatinine 1.2 Estim Creat Clear Calc 31.1 L eGFR 47 L BUN/Creatinine Ratio 33 H Glucose 114 H Calculated Osmolality 278 Lactic Acid 2.3 H 1.3 Calcium 8.7 Corrected Calcium 9.8 Magnesium Total Bilirubin 0.5 AST 60 H ALT 51 H Alkaline Phosphatase 258 H Total Protein 4.4 L Albumin 2.6 L Globulin 1.8 L Albumin/Globulin Ratio 1.4 Procalcitonin TSH Free T4 0.55 L Blood Type O Positive Antibody Screen NEGATIVE Crossmatch See Detail Blood Bank Wristband ID Yes ABG Interpretation ABG results: 08/04/25 01:04 ABG pH 7.39 ABG pCO2 38 ABG pO2 52 L* ABG HCO3 23 ABG O2 Saturation 88 L ABG Base Excess -2 Quality Measures Quality Measures VTE prophylaxis Advance care planning discussed with:: patient Assessment & Plan Assessment Current Active Medications: Generic Name Dose Route Start Last Admin Trade Name Freq PRN Reason Stop Dose Admin Hydrocodone Bitart/Acetaminophen 1 tab 08/04/25 12:24 08/04/25 12:52 Hydrocodone/Apap 5/325 Tablet PO 08/09/25 12:23 1 tab Q6HR PRN Administration PAIN Alprazolam 1 mg 07/31/25 15:48 08/03/25 21:10 Alprazolam 0.25 Mg Tablet PO 08/05/25 15:47 1 mg HS PRN Administration INSOMNIA Ascorbic Acid 500 mg 10/17/25 21:00 08/04/25 08:33 Ascorbic Acid 250 Mg Tablet PO 08/27/25 20:59 500 mg BID HERO Administration Dextrose 25 ml 07/29/25 12:21 Dextrose 50%-Water Inj 50 Ml Syringe IV 08/28/25 12:20 Q15MIN PRN BG 50-70 responsive npo pt Dextrose 50 ml 07/29/25 12:21 Dextrose 50%-Water Inj 50 Ml Syringe IV 08/28/25 12:20 Q15MIN PRN BG <50 OR BG <70 & pt unresponsive Docusate Sodium 100 mg 07/28/25 21:00 08/04/25 08:33 Docusate Sod 100 Mg Capsule PO 08/27/25 20:59 100 mg BID HERO Administration Protocol Enoxaparin Sodium 30 mg 07/30/25 12:00 08/04/25 08:33 Enoxaparin Sod Inj 30 Mg/0.3 Ml Syringe SC 08/13/25 11:59 30 mg QDAY HERO Administration Glucagon 1 mg 07/29/25 12:21 Glucagon Inj 1 Mg Vial IM Q15MIN PRN BG <70, and no IV access Fat Emulsion Intravenous 500 mls @ 32 mls/hr 07/31/25 18:00 07/31/25 17:54 Intralipid 20% Iv IV 08/30/25 17:59 32 mls/hr MoFr@1800 HERO Administration Promethazine HCl 25 mg/ Sodium 51 mls @ 2.5 mls/min 07/31/25 15:43 Chloride IV 08/30/25 15:42 Q6HR PRN NAUSEA OR VOMITING Protocol Amino Acids/Electrolytes/Dextrose 2,000 mls @ 90 mls/hr 08/03/25 11:50 08/04/25 09:57 Clinimix E 4.25/5 IV 08/06/25 06:30 90 mls/hr .[id number] HERO Administration Piperacillin Sod/Tazobactam 100 mls @ 200 mls/hr 08/04/25 08:30 08/04/25 14:31 Sod 4.5 gm/ Sodium Chloride IV 08/11/25 08:29 200 mls/hr Q8HR HERO Administration Protocol Vancomycin/Sodium Chloride 750 mg in 150 mls @ 120 mls/hr 08/05/25 10:00 Vancomycin/Ns 750 Mg Ivpb IV 08/12/25 09:59 Q24H HERO Insulin Human Regular 0 unit 07/29/25 18:00 08/04/25 11:28 Insulin Hum Regular 1 Unit/0.01 Ml (Per Unit) SC 08/28/25 17:59 Not Given Q6HR HERO Protocol Levalbuterol HCl 1.25 mg 08/04/25 02:02 Levalbuterol Rt 1.25 Mg/0.5 Ml Nebu INH 09/03/25 02:59 Q4HRRT PRN shortness of breath/wheezing Levothyroxine Sodium 88 mcg 07/29/25 06:00 08/04/25 05:25 Levothyroxine Sodium 88 Mcg Tablet PO 08/28/25 05:59 88 mcg ACBR HERO Administration Metoclopramide HCl 10 mg 07/31/25 18:00 08/04/25 11:31 Metoclopramide Inj 5 Mg/Ml Vial 2 Ml IVP 08/30/25 17:59 10 mg Q6HR HERO Administration Protocol Ondansetron HCl 4 mg 07/31/25 11:59 07/31/25 12:11 Ondansetron Inj 2 Mg/Ml Inj 2 Ml IVP 08/30/25 11:58 4 mg Q4HR PRN Administration NAUSEA OR VOMITING Protocol Pantoprazole Sodium 40 mg 08/04/25 09:00 08/04/25 08:33 Pantoprazole 40 Mg Tablet PO 09/03/25 08:59 40 mg QDAY HERO Administration Protocol Pharmacy Consult 1 each 08/04/25 09:00 Vancomycin Pharmacy To Dose 1 Each Each IV 09/03/25 08:59 QDAY PRN PROTOCOL Sodium Chloride 3 ml 08/04/25 02:02 Sodium Chloride Rt Elena 0.9% 3 Ml Nebu INH 09/03/25 02:01 PRN PRN SOLN Zinc Sulfate 220 mg 07/29/25 09:00 08/04/25 08:33 Zinc Sulfate 220 Mg Capsule PO 08/28/25 08:59 220 mg QDAY HERO Administration Plan Tiffanie Holliday [id number] pmhx significant for perforated diverticulitis s/p colectomy and colostomy, hypothyroidism, CAD s/p angioplasty and stent placement, hypertension, hyperlipidemia, COPD who presented to the ED for reversal of colostomy by general surgery. Patient had procedure done on 07/28/2025. On consultation, patient is post-op day #6 status post exploratory laparotomy with lysis of adhesions, reversal of colostomy, cholecystectomy, splenectomy and left salpingo-oophorectomy. Internal medicine consulted for tachycardia. #Bibasilar PNA #Leukocytosis #?Tachycardia #Lactic acidosis Patient had rapid response due to tachycardia in the 170s. After electrodes were adjusted HR in the 70-80s EKG shows no acute ST changes with normal sinus rhythm. Patient reports improved pain since surgery and is fatigued. CBC showed WBCs uptrending to 37 from 14. Lactic acid elevated at 2.1->2.3->1.3, procalcitonin 2.4. CXR significant bibasilar PNA. Cefoxitin (07/28-08/03) Plan: - Antibiotic coverage broadened to Doxycycline and Zosyn (08/04- - F/u BCx - Incentive spirometer given - Med tele for cardiac monitoring #Acute Kidney injury Likely prerenal, creatinine 1.4, baseline seems to be around 0.7-0.9 Plan: - Avoid nephrotoxins and renally dose medication - CTM Cr #Hyperlipidemia #Hypertension #History of COPD #Hypothyroidism Currently appropriately saturating between 88-92%. Plan: ? Continue to monitor, levalbuterol as needed ? Currently normotensive will withhold any antihypertensive at this time ? Resume levothyroxine 88 mcg ACBR as taken at home #Postop day #6 status post exploratory laparotomy with lysis of adhesions, reversal of colostomy, cholecystectomy, splenectomy and left salpingo- oophorectomy. As per surgery Hospital management: Lines: PIV Diet: CLD, ensure Bowel: Docusate 100 mg BID GI prophylaxis: PO protonix 40 mg QD DVT prophylaxis: Lovenox Disposition: med tele for post op, tele monitoring, IV abx CODE STATUS: FULL CODE Plan of care discussed with attending Dr. Machuca, and PGY-2 Dr. [place]. Angeline Solorio DO PGY-1 Internal Medicine Attending Provider Attestation/Addendum Swathi Caban DO, attest that I was physically present for the kaur portions of the service and evaluated the patient with the resident and I reviewed and discussed the case with the resident and agree with the resident's findings and plans of care as documented above Patient seen and evaluated this AM. Case discussed with surgeon at bedside. Patient resting comfortably and states she has no complaints. Abdomen is soft and nondistended. PICC line had been placed yesterday as patient has had poor oral intake for TPN and no BM due to ileus. Patient has not been out of bed or using incentive spirometer. Rapid response was called overnight due to tachycardia. CXR was done showing bibasilar pneumonia. CXR also noted to have some dilated loops of bowel and KUB was subsequently ordered concerning for SBO. Surgeon was made aware. Incisions appear clean, dry and intact. Patient denied and nausea or vomiting. Encourage OOB to chair with PT. Patient started on vancomycin and zosyn to cover for MRSA, gram negative rods and pseuodomonas. F/u with cultures.
[2025-08-04] MEDS: FAT EMULSIONS 20% IV 500 ML 32 ML IV (17:59)
--- NOTE | 2025-08-04 19:16 | PC.NURSE ---
Report received, pt currently finishing up first unit of PRBC, order in place to give Lasix now then administer second unit. at side call light within reach.
[2025-08-04] MEDS: FUROSEMIDE INJ 10 MG/ML VIAL 2 ML 20 MG IVP (19:29)
--- NOTE | 2025-08-04 19:39 | PC.NURSE ---
Second unit of PRBC's started, will monitor at bedside for reaction.
--- NOTE | 2025-08-04 19:57 | PC.NURSE ---
Pt tolerating blood transfusion well, see TAR for vital signs.
--- NOTE | 2025-08-04 20:12 | PC.NURSE ---
PRBC's infusing no s/s of reaction, see TAR for vitals.
[2025-08-04] MEDS: ONDANSETRON INJ 2 MG/ML INJ 2 ML 4 MG IVP (20:52)
--- NOTE | 2025-08-04 22:46 | PC.NURSE ---
Second unit of PRBC completed.
[2025-08-05] VITALS (57 sets, daily range): BP systolic 89–160; BP diastolic 34–71; PULSE 80–104; RESP 16–90; TEMP 36.1–36.6; O2SAT 80–100; BMI 25.5
[2025-08-05] MEDS: ONDANSETRON INJ 2 MG/ML INJ 2 ML 4 MG IVP ×2 (01:24→12:25)
[2025-08-05] MEDS: HYDROcodone/APAP 5/325 TABLET 1 TAB PO (01:28)
--- NOTE | 2025-08-05 01:52 | PC.NURSE ---
Rapid response called pt had increase in work of breathing rate in the high 30's moist lung sounds pt had received, zofran earlier for x2 episodes emesis and after requested pain medication, after drinking pain medication, pt began to have moist lung sounds positioned pt upright encouraged to take deep breath/cough, pt vomited multiple times approx 200ml brown emesis, after pt desat 83-85% on 3L via NC, attempted to increase at 5L via oxymask sats 87%.
--- NOTE | 2025-08-05 02:07 | XR_ITS ---
EXAMINATION: AP chest single view TECHNIQUE: AP portable semiupright chest single view Date and time: August 05, 2025, 0219 hours, comparison August 04, 2025 INDICATIONS: Post orogastric tube placement FINDINGS: Orogastric tube tip body the stomach satisfactory position Bibasilar pneumonia Right arm dual-lumen PICC line tip SVC satisfactory position Mild prominence left ventricle Moderate vascular congestion Prominent osteopenia IMPRESSION: Interval orogastric tube, tip in the stomach satisfactory position
[2025-08-05 02:26] LABS: Base Excess -3 (-3-3); HCO3 22 mEq/L (20-26); Inspired Oxygen, FIO2 40 %; O2 Saturation 88 % (91-98); PCO2 41 mmHg (32.0-48.0); Puncture Site Left Radial; pH, Arterial 7.34 (7.35-7.45)
[2025-08-05 02:27] LABS: Allen Test Performed/OK; PO2 54 mmHg (83-108)
--- NOTE | 2025-08-05 02:30 | PC.NURSE ---
End of RIVET CATCHER, pt on high flow oxygen 25L 40%, with NGT to left nare at LIS. Vitals 99/71 HR 93 RR 24 oxygen sat 90%.
--- NOTE | 2025-08-05 02:45 | PC.RT ---
Responded to Rapid, patient was in respiratory distress and hypoxic on oxymask with SpO2 of 83, [facility]
--- NOTE | 2025-08-05 02:55 | PC.NURSE ---
Pt sats remain 87% positioned pt and changed probe, contacted RT high flow setting changed 25L 45% keep sats above 88%
--- NOTE | 2025-08-05 03:36 | PD.RESEVENT ---
Documentation for date of: 08/05/25 Event Note Event Note: Rapid response was called around 2:15 AM for desaturation. The patient had vomited and desatted to 83% on nasal cannula. Oxygen delivery was increased and she improved to a saturation of 92% on 10 L nasal cannula but still had increased work of breathing. The patient was transitioned to high flow nasal cannula with an FiO2 of 40. Abdominal x-ray on 08-04-2025 showed distended bowel loops and suspicion for SBO. Given the dark color of the patient's vomitus and evidence of SBO, the decision was made to place an NG tube. X-ray confirmed the position of the NG tube after placement. Consistent suction was initiated. Patient was seen and discussed with my attending physician Dr. Ron PARRY. Domenico Jeronimo DO PGY-1.
--- NOTE | 2025-08-05 05:05 | PC.NURSE ---
Received call from endoscope technician pt oxygen at 85%, into room to check on pt, pt had taken high flow off and also pulled out NGT. Will notify
[2025-08-05] MEDS: METOCLOPRAMIDE INJ 5 MG/ML VIAL 2 ML 10 MG IVP ×4 (05:27→23:21)
[2025-08-05] MEDS: PIPER/TAZO INJ 4.5 GM in SODIUM CHLORIDE 0.9% (POP) 100 ML IV ×3 (05:27→23:00)
[2025-08-05 06:01] LABS: Basophils # (Auto) 0.1 Thou/mm3 (0.0-0.2); Basophils % (Auto) 0 % (0-2.5); Eosinophils # (Auto) 0.2 Thou/mm3 (0.0-0.5); Eosinophils % (Auto) 1 % (0-10); Hematocrit 31.0 % (36.0-46.0); Hemoglobin 10.5 g/dL (12.0-16.0); Immature Granulocytes Auto 1.95 Thou/mm3 (0.00-0.00); Lymphocytes # (Auto) 1.1 Thou/mm3 (1.0-4.8); Lymphocytes % (Auto) 4 % (10-50); Mean Corpuscular HGB Conc 33.9 g/dl (31.0-37.0); Mean Corpuscular Hemoglobin 32.8 pg (25.0-35.0); Mean Corpuscular Volume 97 fL (80-100); Monocytes # (Auto) 2.2 Thou/mm3 (0.0-0.8); Monocytes % (Auto) 7 % (0-12); Neutrophils # (Auto) 24.4 Thou/mm3 (1.8-7.7); Neutrophils % (Auto) 81 % (37-80); Nucleated Red Blood Cell # 8.82 Thou/mm3 (0.00-0.00); Nucleated Red Blood Cell % 29 /100 WBC (0); Platelet Count 346 Thou/mm3 (140-440); RDW Standard Deviation 62.1 fL (36.4-46.3); Red Blood Count 3.20 Miln/mm3 (4.00-5.20); White Blood Count 30.0 Thou/mm3 (3.6-11.0)
--- NOTE | 2025-08-05 06:02 | PC.NURSE ---
Total out from NGT for night 1250ml
[2025-08-05 06:30] LABS: Alanine Aminotransferase 51 U/L (10-49); Albumin, Serum 2.8 gm/dL (3.4-4.8); Albumin/Globulin Ratio 2.0 (1.2-2.2); Alkaline Phosphatase 311 U/L (46-116); Anion Gap 12 (7-16); Aspartate Amino Transferase 54 U/L (0-34); BUN/Creatinine Ratio 38 Ratio (12-20); Bilirubin,Total 0.5 mg/dL (0.3-1.2); Blood Urea Nitrogen 46 mg/dL (9-23); Calcium 8.4 mg/dL (8.3-10.6); Calcium (Corrected) 9.4 mg/dL (8.5-10.1); Carbon Dioxide 22.9 mMol/L (20.0-31.0); Chloride 101 mMol/L (98-107); Creatinine (Component) 1.2 mg/dL (0.6-1.3); Estimated Creatinine Clearance 34.8 mL/min (>60); Globulin 1.4 gm/dL (2.3-3.5); Glucose 126 mg/dL (74-106); Osmolality,Calculated 285 (275-295); Potassium 3.7 mMol/L (3.4-5.1); Sodium 136 mMol/L (136-145); Total Protein 4.2 gm/dL (5.7-8.2); eGFR 47 See Note
--- NOTE | 2025-08-05 08:04 | ESPR_ITS ---
Documentation for date of: 08/05/25 Subjective Subjective Narrative: Patient is seen and examined she is resting. Abdominal x-ray was obtained yesterday that revealed dilated loops of small bowel without free air. She had large amount of emesis, an NG tube was placed with approximately 800 cc drainage. She pulled her NG tube out earlier this morning Exam Vital Signs Temp Pulse Resp BP Pulse Ox O2 Del Method O2 Flow Rate 96.9 F 81 25 H 90/67 96 High Flow Nasal Cannula 08/05/25 04:00 08/05/25 06:52 08/05/25 06:52 08/05/25 04:00 08/05/25 06:52 08/05/25 04:00 08/05/25 06:52 FiO2 45 08/05/25 06:52 Constitutional Constitutional: no acute distress Routine Abdominal Exam Comments: Abdomen is soft but distended. Incisions are clean, dry and intact Assessment & Plan Assessment Additional comments: Postop day #8 status post exploratory laparotomy with lysis of adhesions, reversal of colostomy, cholecystectomy, splenectomy and left salpingo- oophorectomy. Plan Keep n.p.o., continue PPN and IV antibiotics. If she has further episodes of emesis, NG tube will be placed again. I had a lengthy discussion with patient's daughter via telephone conversation yesterday explaining to her that patient has significant bibasilar pneumonia, she is not ambulating and mild using incentive spirometer. With significant bilateral pneumonia and dilated loops of bowel she is at high risk of leak from the anastomosis site, if it happens she will have to be taken back to surgery and she will have another colostomy which most likely be permanent. PROCEDURES: Procedures Exploratory laparotomy, lysis of adhesions, reversal of colostomy with colorectal anastomosis Cholecystectomy Splenectomy Left salpingo-oophorectomy
[2025-08-05 08:51] LABS: Cardiac Risk Estimate 9.3 RATIO (3.7-5.6); Cholesterol 102 mg/dL (132-200); HDL Cholesterol 11 mg/dL (40-60); LDL Cholesterol,Calculated 30 mg/dL (0-130); Triglycerides 306 mg/dL (30-150)
[2025-08-05] MEDS: AMINO ACID 4.25%/D5W E 2,000 ML 90 ML IV (09:22)
[2025-08-05] MEDS: ENOXAPARIN SOD INJ 30 MG/0.3 ML SYRINGE SC (09:22)
[2025-08-05] MEDS: DOCUSATE SOD 100 MG CAPSULE PO (09:23)
[2025-08-05] MEDS: PANTOPRAZOLE 40 MG TABLET PO (09:23)
[2025-08-05] MEDS: ASCORBIC ACID 250 MG TABLET 500 MG PO (09:23)
[2025-08-05] MEDS: ZINC SULFATE 220 MG CAPSULE PO (09:23)
[2025-08-05] MEDS: VANCOMYCIN/NS 750 MG IVPB 750 MG/150 ML BAG 120 MG IV (10:27)
[2025-08-05] MEDS: POTASSIUM CHL 10 mEq IVPB 10 MEQ/100 ML BAG 100 MEQ IV ×4 (12:25→16:06)
--- NOTE | 2025-08-05 13:36 | PD.RESPRO ---
Documentation for date of: 08/05/25 Subjective Subjective Interval history: Patient evaluated bedside, overnight events and labs reviewed, patient had a rapid response in the morning patient had episode of vomiting, patient was placed on high flow nasal, oxygen, concern for aspiration, NG tube was placed. Patient pulled it out around [address] Barcenas saw the patient, recommended keeping patient n.p.o. and if patient has another episode of vomiting then reinserting NG tube. Later during the day, dressing was soiled and noted to have brownish/feculent discharge from the site of incision, also patient had 2 episodes of vomiting around 100 mL which were the same color per RN. Evaluate the patient in the room, possible feculent discharge, patient's abdomen is distended but soft and nontender, patient laying in the bed, NG tube in place, complaining of pain in her lower back but no symptoms in her abdomen. Ordered CT abdomen pelvis and IV fluids and reached out to general surgeon Dr Barcenas, who agreed with CT imaging, and will follow the patient. Exam Vital Signs Temp Pulse Resp BP Pulse Ox O2 Del Method O2 Flow Rate 97.1 F 86 32 H 127/56 L 94 L Nasal Cannula 25 08/05/25 11:54 08/05/25 11:54 08/05/25 11:54 08/05/25 11:54 08/05/25 11:54 08/05/25 11:54 08/05/25 10:58 FiO2 45 08/05/25 10:58 Narrative Exam GENERAL: Patient is noted to be somnolent but easily arousable, and daughter present in the room. HEENT: mucous membranes moist, bilateral sclera anicteric CARDIOVASCULAR: regular rate and rhythm, S1/S2 present, no murmurs appreciated PULMONARY: clear to auscultation bilaterally, no rales/rhonchi/wheezes ABDOMINAL: Abdomen is soft but distended, no tenderness or guarding noted, dressing is soiled, feculent/brownish discharge from the incision. EXTREMITIES: no peripheral edema SKIN: warm and dry, intact, no rashes NEURO: CN II-XII grossly intact, no focal deficits, alert, following commands Objective Labs 08/06/25 07:05 08/06/25 04:45 Labs: Laboratory Results - last 24 hr 08/04/25 08/05/25 08/05/25 13:13 02:15 05:12 WBC 30.0 H D RBC 3.20 L Hgb 10.5 L D Hct 31.0 L MCV 97 MCH 32.8 MCHC 33.9 RDW Std Deviation 62.1 H Plt Count 346 D Neut % (Auto) 81 H Lymph % (Auto) 4 L [place] % (Auto) 7 Eos % (Auto) 1 Baso % (Auto) 0 Neut # (Auto) 24.4 H Lymph # (Auto) 1.1 [place] # (Auto) 2.2 H Eos # (Auto) 0.2 Baso # (Auto) 0.1 Immature Gran # (Auto) 1.95 H Absolute Nucleated RBC 8.82 H Immature Gran % 7 H Nucleated RBC % 29 H Puncture Site Left Radial ABG pH 7.34 L ABG pCO2 41 ABG pO2 54 L* ABG HCO3 22 ABG O2 Saturation 88 L ABG Base Excess -3 FiO2 40 Sodium 136 Potassium 3.7 Chloride 101 Carbon Dioxide 22.9 Anion Gap 12 BUN 46 H Creatinine 1.2 Estim Creat Clear Calc 34.8 L eGFR 47 L BUN/Creatinine Ratio 38 H Glucose 126 H Calculated Osmolality 285 Lactic Acid 1.3 Calcium 8.4 Corrected Calcium 9.4 Total Bilirubin 0.5 AST 54 H ALT 51 H Alkaline Phosphatase 311 H D Total Protein 4.2 L Albumin 2.8 L Globulin 1.4 L Albumin/Globulin Ratio 2.0 Triglycerides 306 H Cholesterol 102 L LDL Cholesterol, Calc 30 HDL Cholesterol 11 L Cholesterol/HDL Ratio 9.3 H Free T4 0.55 L Blood Type O Positive Antibody Screen NEGATIVE Crossmatch See Detail Blood Bank Wristband ID Yes ABG Interpretation ABG results: 08/04/25 08/05/25 01:04 02:15 ABG pH 7.39 7.34 L ABG pCO2 38 41 ABG pO2 52 L* 54 L* ABG HCO3 23 22 ABG O2 Saturation 88 L 88 L ABG Base Excess -2 -3 Quality Measures Quality Measures VTE prophylaxis Advance care planning discussed with:: patient and significant other Assessment & Plan Assessment Current Active Medications: Generic Name Dose Route Start Last Admin Trade Name Freq PRN Reason Stop Dose Admin Hydrocodone Bitart/Acetaminophen 1 tab 08/04/25 12:24 08/05/25 01:28 Hydrocodone/Apap 5/325 Tablet PO 08/09/25 12:23 1 tab Q6HR PRN Administration PAIN Alprazolam 1 mg 07/31/25 15:48 08/04/25 21:50 Alprazolam 0.25 Mg Tablet PO 08/05/25 15:47 1 mg HS PRN Administration INSOMNIA Ascorbic Acid 500 mg 07/28/25 21:00 08/05/25 09:23 Ascorbic Acid 250 Mg Tablet PO 08/27/25 20:59 500 mg BID HERO Administration Dextrose 25 ml 07/29/25 12:21 Dextrose 50%-Water Inj 50 Ml Syringe IV 08/28/25 12:20 Q15MIN PRN BG 50-70 responsive npo pt Dextrose 50 ml 07/29/25 12:21 Dextrose 50%-Water Inj 50 Ml Syringe IV 08/28/25 12:20 Q15MIN PRN BG <50 OR BG <70 & pt unresponsive Docusate Sodium 100 mg 07/28/25 21:00 08/05/25 09:23 Docusate Sod 100 Mg Capsule PO 08/27/25 20:59 100 mg BID HERO Administration Protocol Enoxaparin Sodium 30 mg 07/30/25 12:00 08/05/25 09:22 Enoxaparin Sod Inj 30 Mg/0.3 Ml Syringe SC 08/13/25 11:59 30 mg QDAY HERO Administration Glucagon 1 mg 07/29/25 12:21 Glucagon Inj 1 Mg Vial IM Q15MIN PRN BG <70, and no IV access Fat Emulsion Intravenous 500 mls @ 32 mls/hr 07/31/25 18:00 08/04/25 17:59 Intralipid 20% Iv IV 08/30/25 17:59 32 mls/hr MoFr@1800 HERO Administration Promethazine HCl 25 mg/ Sodium 51 mls @ 2.5 mls/min 07/31/25 15:43 Chloride IV 08/30/25 15:42 Q6HR PRN NAUSEA OR VOMITING Protocol Amino Acids/Electrolytes/Dextrose 2,000 mls @ 90 mls/hr 08/03/25 11:50 08/05/25 09:22 Clinimix E 4.25/5 IV 08/06/25 06:30 90 mls/hr .[id number] HERO Administration Piperacillin Sod/Tazobactam 100 mls @ 200 mls/hr 08/04/25 08:30 08/05/25 05:27 Sod 4.5 gm/ Sodium Chloride IV 08/11/25 08:29 200 mls/hr Q8HR HERO Administration Protocol Vancomycin/Sodium Chloride 750 mg in 150 mls @ 120 mls/hr 08/05/25 10:00 08/05/25 10:27 Vancomycin/Ns 750 Mg Ivpb IV 08/12/25 09:59 120 mls/hr Q24H HERO Administration Protocol Potassium Chloride 10 meq in 100 mls @ 100 mls/hr 08/05/25 12:00 08/05/25 13:25 Kcl Ivpb IV 08/05/25 15:59 100 mls/hr Q1H HERO Administration Potassium Acetate 40 meq/ 2,030 mls @ 90 mls/hr 08/06/25 07:57 Multivitamins/Minerals 10 ml/ IV 08/07/25 06:30 Amino Acids/Electrolytes/ .[id number] HERO Dextrose Insulin Human Regular 0 unit 07/29/25 18:00 08/05/25 11:42 Insulin Hum Regular 1 Unit/0.01 Ml (Per Unit) SC 08/28/25 17:59 Not Given Q6HR HERO Protocol Levalbuterol HCl 1.25 mg 08/04/25 02:02 Levalbuterol Rt 1.25 Mg/0.5 Ml Nebu INH 09/03/25 02:59 Q4HRRT PRN shortness of breath/wheezing Levothyroxine Sodium 88 mcg 07/29/25 06:00 08/05/25 05:26 Levothyroxine Sodium 88 Mcg Tablet PO 08/28/25 05:59 Not Given ACBR HERO Metoclopramide HCl 10 mg 07/31/25 18:00 08/05/25 11:34 Metoclopramide Inj 5 Mg/Ml Vial 2 Ml IVP 08/30/25 17:59 10 mg Q6HR HERO Administration Protocol Ondansetron HCl 4 mg 07/31/25 11:59 08/05/25 12:25 Ondansetron Inj 2 Mg/Ml Inj 2 Ml IVP 08/30/25 11:58 4 mg Q4HR PRN Administration NAUSEA OR VOMITING Protocol Pantoprazole Sodium 40 mg 08/04/25 09:00 08/05/25 09:23 Pantoprazole 40 Mg Tablet PO 09/03/25 08:59 40 mg QDAY HERO Administration Protocol Pharmacy Consult 1 each 08/04/25 09:00 Vancomycin Pharmacy To Dose 1 Each Each IV 09/03/25 08:59 QDAY PRN PROTOCOL Sodium Chloride 3 ml 08/04/25 02:02 Sodium Chloride Rt Elena 0.9% 3 Ml Nebu INH 09/03/25 02:01 PRN PRN SOLN Zinc Sulfate 220 mg 07/29/25 09:00 08/05/25 09:23 Zinc Sulfate 220 Mg Capsule PO 08/28/25 08:59 220 mg QDAY HERO Administration Plan Tiffanie Holliday [id number] pmhx significant for perforated diverticulitis s/p colectomy and colostomy, hypothyroidism, CAD s/p angioplasty and stent placement, hypertension, hyperlipidemia, COPD who presented to the ED for reversal of colostomy by general surgery. Patient had procedure done on 07/28/2025. On consultation, patient is post-op day #7 status post exploratory laparotomy with lysis of adhesions, reversal of colostomy, cholecystectomy, splenectomy and left salpingo-oophorectomy. Internal medicine consulted for tachycardia. # Pneumonia, likely hospital-acquired pneumonia Patient had rapid response due to tachycardia in the 170s. After electrodes were adjusted HR in the 70-80s EKG shows no acute ST changes with normal sinus rhythm. Patient reports improved pain since surgery and is fatigued. CBC showed WBCs uptrending to 37 from 14. Lactic acid elevated at 2.1->2.3->1.3, procalcitonin 2.4. CXR significant bibasilar PNA. Cefoxitin (07/28-08/03) Plan: - Antibiotic coverage broadened to Vancomycin and Zosyn (08/04- - F/u BCx - Incentive spirometer given - [facility] for cardiac monitoring #Acute Kidney injury Likely prerenal, creatinine 1.4, baseline seems to be around 0.7-0.9 Plan: - Avoid nephrotoxins and renally dose medication - CTM Cr #Hyperlipidemia #Hypertension #History of COPD #Hypothyroidism Currently appropriately saturating between 88-92%. Plan: ? Continue to monitor, levalbuterol as needed ? Currently normotensive will withhold any antihypertensive at this time ? Resume levothyroxine 88 mcg ACBR as taken at home #Postop day #7 status post exploratory laparotomy with lysis of adhesions, reversal of colostomy, cholecystectomy, splenectomy and left salpingo-oophorectomy. Later during the day, dressing was soiled and noted to have brownish/feculent discharge from the site of incision, also patient had 2 episodes of vomiting around 100 mL which were the same color per RN. Evaluate the patient in the room, possible feculent discharge, patient's abdomen is distended but soft and nontender, patient laying in the bed, NG tube in place, complaining of pain in her lower back but no symptoms in her abdomen. Ordered CT abdomen pelvis and IV fluids and reached out to general surgeon Dr Barcenas, who agreed with CT imaging, and will follow the patient. ? IV fluid bolus x 1 ? CT abdomen pelvis noncontrast, concern for anastomosis leak ? Dr Barcenas made aware Hospital management: Lines: PIV Diet: CLD, ensure Bowel: Docusate 100 mg BID GI prophylaxis: PO protonix 40 mg QD DVT prophylaxis: Lovenox Disposition: med tele for post op, tele monitoring, IV abx CODE STATUS: FULL CODE Plan of care discussed with attending Emily Meza PGY 3 Attending Provider Attestation/Addendum Arsh, Swathi Machuca DO, attest that I was physically present for the kaur portions of the service and evaluated the patient with the resident and I reviewed and discussed the case with the resident and agree with the resident's findings and plans of care as documented above Patient seen and evaluated this AM. and daughter at bedside. Patient had an episode of emesis overnight that was dark. NG tube was placed. Patient had a rapid response due to O2 desaturation and subsequently placed on HFNC, currently on Fio2 of 45% and flow of 30L/min. She has otherwise been afebrile. She remains on vancomycin and zosyn. Patient is alert and denies any abdominal pain. Abdomen is soft and mildly distended. Incision is clean, dry and intact. She has not had a BM. Patient removed her NG tube this morning. If patient has another episode of N/V, will replace NG tube. She currently denies any pain. Patient is to remain NPO. May need exlap if symptoms persist. Case discussed with surgeon.
--- NOTE | 2025-08-05 13:40 | PC.NURSE ---
Pt is vomiting dark green and what looks like coffee ground emesis. While patient was vomiting, incision was actively leaking. Called Dr. Barcenas. to put in orders for NG tube placement and will come by to see patient later today.
--- NOTE | 2025-08-05 13:48 | XR_ITS ---
EXAMINATION: AP chest single view TECHNIQUE: AP portable supine chest single view Date and time: August 05, 2025, 1440 hours, comparison August 05, 2025 INDICATIONS: Post orogastric tube placement FINDINGS: Orogastric tube coiled in the esophagus Right arm PICC line tip satisfactory position Bibasilar pneumonia Mild enlargement cardiac contour with vascular congestion IMPRESSION: Remove the orogastric tube completely in reinsert
--- NOTE | 2025-08-05 15:50 | XR_ITS ---
EXAMINATION: AP chest single view TECHNIQUE: AP portable semiupright chest single view Date and time: August 05, 2025 1611 hours, comparison August 05, 2025 1440 hours INDICATIONS: Reposition orogastric tube FINDINGS: Orogastric tube tip in the body the stomach satisfactory position Bibasilar pneumonia remains Chest film is otherwise unchanged IMPRESSION: Orogastric tube in the stomach satisfactory position
--- NOTE | 2025-08-05 16:22 | PC.NURSE ---
MD Diaz made aware of drainage from patient's incision site, orders to bolus patient with 500ml of LR.
--- NOTE | 2025-08-05 16:38 | XR_ITS ---
Examination: CT abdomen and pelvis without contrast. Coronal 3-D reconstructions. Sagittal 2-D reconstructions. Date and time of exam: August 05, 2025, 1711 hours INDICATIONS: Status post colostomy reversal with discharge at the incision site CTDI: vol (mGy): 7.29 DLP: (mGycm): 407 Technique: Axial images of the abdomen have been obtained, 3 mm slice thickness Intravenous contrast material has not been administered. Low dose protocols were performed. One or more of the following dose reduction techniques were used; automated exposure control, adjustment of the mA and/or KV according to patient size, use of iterative reconstruction technique. 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
[2025-08-05] MEDS: RINGERS LACTATED 1000 ML 500 ML 999 ML IV (16:41)
--- NOTE | 2025-08-05 21:05 | PD.EVENT ---
Documentation for date of: 08/05/25 Event Note Event Note: Since last time I saw her in the morning she had multiple episode of emesis with brown foul-smelling fluid coming out of her incision. Her abdomen became distended. NG tube was reinserted with large amount of brownish fluid. CT scan was obtained and revealed dilated loops of small bowel with fluid in the abdomen. Findings are suggestive of leak from the anastomosis site. I had a lengthy discussion with patient's and her daughters. Patient will be taken back to the operating room for exploratory laparotomy, possible bowel resection and colostomy. Risks include but not limited to infection, bleeding, injury to bowel, surround neurovascular structures, abdominal sepsis and or abdominal abscess, need for further procedure and or operation, pneumonia, blood clot, heart attack, stroke and discussed with them and all their questions answered. They voiced understanding and agreed to proceed with the operation.
--- NOTE | 2025-08-05 21:07 | PD.SUROPNT ---
Date of Procedure 08/05/25 Pre Op Diagnosis Anastomotic leak Post Op Diagnosis Leak from colorectal anastomosis Multiple small bowel perforations, total of 5 Procedure Exploratory laparotomy, lysis of adhesions, abdominal washout. To segmental resection of small bowel containing perforations Resection of colorectal anastomosis Findings Large amount of feculent peritonitis. A total of 5 obvious small bowel perforations. Leak from the anastomosis site Procedure Description Patient brought into operating room in supine position. After administration of general tracheal anesthesia, the june were placed over the laparotomy incision were removed, abdomen and pelvis prepped and draped in standard surgical manner. Incision was opened. The sutures closing the fascia was divided and the abdomen was entered. Upon entering the peritoneal cavity copious amount of brownish feculent fluid encountered. The fluid was immediately suctioned, the abdomen was washed and irrigated. There was some inflammatory reaction and adhesions from previous operation that was meticulously dissected. Patient was noted to have an approximately 5 perforations in the small intestine with leakage of enteric contents. 3 of the perforations were at the mid jejunum and the other 2 were proximal ileum. Proximal and distal to the area of jejunal perforation the small bowel was divided and the mesentery was divided with harmonic Enseal device. The portion of proximal ileum containing the perforation was similarly divided. I then turned my attention to patient's pelvis to inspect the colorectal anastomosis. Patient was noted to have disruption of the anastomosis with some leakage of the fluid. The anastomosis was resected by dividing the distal descending colon and mid rectum. The rectal stump was oversewn with 0 Vicryl suture. Abdomen and pelvis copiously and thoroughly washed and irrigated, all the fluids were suctioned and the suction fluid returned clear. Because of the degree of contamination the gastrointestinal tract was left discontinuous and abdomen was left open. The bowel was covered with a sterile plastic covering. A wet towel was placed over the plastic covering and the wound VAC was placed patient is taken to ICU intubated and sedated to resuscitate her. She will be taken back to the operating room in 48 to 72 hours for reexploration, small bowel anastomosis with colostomy. Anesthesia GETA Drains Abdominal wound VAC Pathology / specimen Other (2 segments of small bowel. Colorectal anastomosis site) Estimated Blood Loss 50 Condition Critical Disposition ICU Surgeon Tyron Barcenas MD Surgical Staff Operation Date: 08/05/25 19:45 Case Staff Anesthesiologist: Macho Desouza RNmonument erector: Jordy Ochoa
--- NOTE | 2025-08-05 21:48 | ESCONSULT_ITS ---
HPI Data of Consult Requesting Physician: Swathi Machuca DO Admitting Provider: Tyron Barcenas MD Attending Provider: Dylon Velasquez MD Primary Care Provider: Brien Mcgraw MD Consult Narrative Reason for consult: Post Ex-Lap / Intubated History of present illness: 08/04/2025 HPI: Ms. Holliday is a 79-year-old female with past medical history of diverticulitis s/p colectomy and colostomy, hypothyroid, CAD s/p angioplasty and stent, primary hypertension, hyperlipidemia and COPD who was admitted on 07/28 for colostomy reversal. She was moved to inpatient service on 07/31/2025 (postop day 6) for exploratory laparotomy due to possible anastomotic leak. General surgery Dr Barcenas was consulted who was the surgeon for the initial procedure. 08/05/2025 1400 : Laboratory workup showed significant leukocytosis WBC 37 -> 30, lactic acid 2.3 -> resolved, afebrile. Per floor team documentation, dressing was soiled and noted to have brownish/feculent discharge from the site of incision, also patient had 2 episodes of vomiting around 100 mL which were the same color per RN. Abdomen was distended but soft and nontender, patient laying in the bed, NG tube in place, complaining of pain in her lower back but no symptoms in her abdomen. CT abdomen pelvis showed fluid distended stomach, fluid distended small bowel loops, Trace fluid throughout the abdomen and pelvis. General surgery Dr Barcenas was updated. 1700 : patient underwent exploratory laparotomy. Dr Barcenas performed lysis of adhesions and abdominal washout with segmental resection of small bowel containing multiple (5?6) perforations, and resection of colorectal anastomosis. Large amount of feculent peritonitis was noted intraoperatively, with significant leakage from the anastomotic site, as per surgical documentation. 2130 : Patient was intubated during the laparotomy by anesthesia and was moved to the ICU post-op with a wound vac. No sedation notes. Per anesthesia Dr Desouza, patient received x1 versed in the procedure around 9:10 PM. Started management in the ICU with low continuous suction for the NG as well as low continuous suction for the wound VAC, as per general surgery recommendations. Vent settings adjusted, MAP > 65 will start on prop and Fent for sedation, RASS -3. Continue empiric coverage with vancomycin and Zosyn 4.5 every 8 hours. Surgery to reevaluate in the morning on 08/06/2025. cc:: cc: Swathi Machuca DO Review of Systems Review of Systems ROS Unobtainable: due to endotracheal tube Exam Vital Signs Temp Pulse Resp BP Pulse Ox O2 Del Method O2 Flow Rate 97.8 F 95 26 H 101/56 L 92 L Nasal Cannula 30 08/05/25 16:00 08/05/25 18:38 08/05/25 18:38 08/05/25 16:00 08/05/25 18:38 08/05/25 16:00 08/05/25 18:38 FiO2 60 08/05/25 18:38 Narrative Exam Constitutional Sedated, comfortable. NGT , on suction HEENT PERRLA. Patent nares. Intubated on MV: AV/VC VT 370 , RR 16 , PEEP 8 , FiO2 80% Respiratory Chest normal on inspection and breath sounds on auscultation bilaterally. Cardiovascular S1 and S2 audible, RRR. No murmurs or carotid bruit. No gross JVD. Abdominal Soft BS ; clean, vertical incision on Abdo - wound vac on suction Genitourinary Casey in place, good urine output in bag Musculoskeletal Extremities tone within normal limits. No LE edema. SCDs on LE Neurological Unable to assess. GCS 3T Results Labs 08/05/25 05:12 08/05/25 05:12 Labs: Short CBC 08/05/25 Range/Units 05:12 WBC 30.0 H D (3.6-11.0) Thou/mm3 Hgb 10.5 L D (12.0-16.0) g/dL Hct 31.0 L (36.0-46.0) % Plt Count 346 D (140-440) Thou/mm3 BMP 08/05/25 05:12 Sodium 136 Potassium 3.7 Chloride 101 Carbon Dioxide 22.9 BUN 46 H Creatinine 1.2 Glucose 126 H Calcium 8.4 Liver Function 08/05/25 Range/Units 05:12 Total Bilirubin 0.5 (0.3-1.2) mg/dL AST 54 H (0-34) U/L ALT 51 H (10-49) U/L Alkaline Phosphatase 311 H D (46-116) U/L Albumin 2.8 L (3.4-4.8) gm/dL ABG Interpretation ABG results: 08/04/25 08/05/25 01:04 02:15 ABG pH 7.39 7.34 L ABG pCO2 38 41 ABG pO2 52 L* 54 L* ABG HCO3 23 22 ABG O2 Saturation 88 L 88 L ABG Base Excess -2 -3 Quality Measures Quality Measures VTE prophylaxis Advance care planning discussed with:: other Medications Home Medications and Allergies Home Medications ?Medication ?Instructions ?Recorded ?Confirmed ?Type alprazolam 1 mg tablet 1.5 mg PO HS Insomnia 07/28/25 History levothyroxine 88 mcg tablet 88 mcg PO QAM 04/13/21 History simvastatin 40 mg tablet 40 mg PO QPM 12/03/22 History aspirin 81 mg tablet,delayed 81 mg PO QDAY 07/25/25 History release loratadine 10 mg capsule 10 mg PO BID 07/25/25 History primidone 250 mg tablet 250 mg PO Q12H 07/25/2507/12 History Allergies Allergy/AdvReac Type Severity Reaction Status Date / Time codeine Allergy Intermediate Fatigued Verified 07/28/25 10:05 meperidine AdvReac Unknown Verified 07/28/25 10:05 Visit Medications Hydrocodone Bitart/Acetaminophen (Hydrocodone/Apap 5/325 Tablet) 1 tab PO Q6HR PRN PRN Reason: PAIN Stop: 08/09/25 12:23 Last Admin: 08/05/25 01:28 Dose: 1 tab Ascorbic Acid (Ascorbic Acid 250 Mg Tablet) 500 mg PO BID HERO Stop: 08/27/25 20:59 Last Admin: 08/05/25 09:23 Dose: 500 mg Dextrose (Dextrose 50%-Water Inj 50 Ml Syringe) 25 ml IV Q15MIN PRN PRN Reason: BG 50-70 responsive npo pt Stop: 08/28/25 12:20 Dextrose (Dextrose 50%-Water Inj 50 Ml Syringe) 50 ml IV Q15MIN PRN PRN Reason: BG <50 OR BG <70 & pt unresponsive Stop: 08/28/25 12:20 Docusate Sodium (Docusate Sod 100 Mg Capsule) 100 mg PO BID HERO; Protocol Stop: 08/27/25 20:59 Last Admin: 08/05/25 09:23 Dose: 100 mg Enoxaparin Sodium (Enoxaparin Sod Inj 30 Mg/0.3 Ml Syringe) 30 mg SC QDAY [facility] Stop: 08/13/25 11:59 Last Admin: 08/05/25 09:22 Dose: 30 mg Glucagon (Glucagon Inj 1 Mg Vial) 1 mg IM Q15MIN PRN PRN Reason: BG <70, and no IV access Fat Emulsion Intravenous (Intralipid 20% Iv) 500 mls @ 32 mls/hr IV MoFr@1800 HERO Stop: 08/30/25 17:59 Last Admin: 08/04/25 17:59 Dose: 32 mls/hr Promethazine HCl 25 mg/ Sodium (Chloride) 51 mls @ 2.5 mls/min IV Q6HR PRN; Protocol PRN Reason: NAUSEA OR VOMITING Stop: 08/30/25 15:42 Amino Acids/Electrolytes/Dextrose (Clinimix E 4.25/5) 2,000 mls @ 90 mls/hr IV .[id number] [facility] Stop: 08/06/25 06:30 Last Admin: 08/05/25 09:22 Dose: 90 mls/hr Piperacillin Sod/Tazobactam (Sod 4.5 gm/ Sodium Chloride) 100 mls @ 200 mls/hr IV Q8HR [facility]; Protocol Stop: 08/11/25 08:29 Last Admin: 08/05/25 14:36 Dose: 200 mls/hr Vancomycin/Sodium Chloride (Vancomycin/Ns 750 Mg Ivpb) 750 mg in 150 mls @ 120 mls/hr IV Q24H [facility]O; Protocol Stop: 08/12/25 09:59 Last Admin: 08/05/25 10:27 Dose: 120 mls/hr Potassium Acetate 40 meq/Multivitamins/Minerals 10 ml/Amino Acids/Electrolytes/Dextrose 2,030 mls @ 90 mls/hr IV .[id number] [facility] Stop: 08/07/25 06:30 Insulin Human Regular (Insulin Hum Regular 1 Unit/0.01 Ml (Per Unit)) 0 unit SC Q6HR [facility]; Protocol Stop: 08/28/25 17:59 Last Admin: 08/05/25 17:50 Dose: Not Given Levalbuterol HCl (Levalbuterol Rt 1.25 Mg/0.5 Ml Nebu) 1.25 mg INH Q4HRRT PRN PRN Reason: shortness of breath/wheezing Stop: 09/03/25 02:59 Levothyroxine Sodium (Levothyroxine Sodium 88 Mcg Tablet) 88 mcg PO ACBR [facility] Stop: 08/28/25 05:59 Last Admin: 08/05/25 05:26 Dose: Not Given Metoclopramide HCl (Metoclopramide Inj 5 Mg/Ml Vial 2 Ml) 10 mg IVP Q6HR [facility]; Protocol Stop: 08/30/25 17:59 Last Admin: 08/05/25 17:55 Dose: 10 mg Ondansetron HCl (Ondansetron Inj 2 Mg/Ml Inj 2 Ml) 4 mg IVP Q4HR PRN; Protocol PRN Reason: NAUSEA OR VOMITING Stop: 08/30/25 11:58 Last Admin: 08/05/25 12:25 Dose: 4 mg Pantoprazole Sodium (Pantoprazole 40 Mg Tablet) 40 mg PO QDAY [facility]; Protocol Stop: 09/03/25 08:59 Last Admin: 08/05/25 09:23 Dose: 40 mg Pharmacy Consult (Vancomycin Pharmacy To Dose 1 Each Each) 1 each IV QDAY PRN PRN Reason: PROTOCOL Stop: 09/03/25 08:59 Sodium Chloride (Sodium Chloride Rt Elena 0.9% 3 Ml Nebu) 3 ml INH PRN PRN PRN Reason: SOLN Stop: 09/03/25 02:01 Zinc Sulfate (Zinc Sulfate 220 Mg Capsule) 220 mg PO QDAY [facility] Stop: 08/28/25 08:59 Last Admin: 08/05/25 09:23 Dose: 220 mg Discontinued Medications Alprazolam (Alprazolam 0.25 Mg Tablet) 1 mg PO HS PRN PRN Reason: INSOMNIA Stop: 08/05/25 15:47 Last Admin: 08/04/25 21:50 Dose: 1 mg Alprazolam (Alprazolam 0.25 Mg Tablet) 1.5 mg PO HS HERO Stop: 08/09/25 20:59 Aspirin (Aspirin Ec 81 Mg Tabec) 81 mg PO QDAY [facility] Stop: 09/03/25 08:59 Diphenhydramine HCl (Diphenhydramine Inj 50 Mg/Ml Vial) 25 mg IVP Q6HR PRN PRN Reason: ITCHING Stop: 08/29/25 12:07 Last Admin: 07/30/25 12:19 Dose: 25 mg Diphenhydramine HCl (Diphenhydramine Inj 50 Mg/Ml Vial) 12.5 mg IVP X1 ONE Stop: 08/05/25 11:53 Last Admin: 08/05/25 12:24 Dose: 12.5 mg Fentanyl Citrate (Fentanyl Cit Inj 50 Mcg/Ml Amp 2ml) 25 mcg IVP Q5M PRN PRN Reason: PAIN SCALE 1-3 (mild Stop: 07/28/25 15:10 Last Admin: 07/28/25 15:56 Dose: 25 mcg Furosemide (Furosemide Inj 10 Mg/Ml Vial 2 Ml) 20 mg IVP X1 ONE Stop: 08/04/25 18:31 Last Admin: 08/04/25 19:29 Dose: 20 mg Heparin Sodium (Beef Lung) (Heparin Sod Lock Syr 100 Unit/Ml) 500 unit STFIELD X1 ONE Stop: 08/03/25 13:41 Last Admin: 08/03/25 13:42 Dose: 500 unit Hydromorphone HCl (Hydromorphone Inj 2 Mg/Ml Vial) 0.4 mg IVP Q5M PRN PRN Reason: PAIN SCALE 7-10 (Severe Stop: 07/28/25 15:11 Last Admin: 07/28/25 16:08 Dose: 0.4 mg Cefoxitin Sodium 2 gm/ Sodium (Chloride) 50 mls @ 100 mls/hr IV X1 ONE Stop: 07/28/25 06:29 Lactated Ringer's (Lactated Ringers) 1,000 mls @ 20 mls/hr IV .Q24H ONE Stop: 07/29/25 05:59 Potassium Chloride/Dextrose/Sod Cl (Kcl 20 Meq/L In D5-1/2ns) 20 meq in 1,000 mls @ 60 mls/hr IV .[id number] [facility] Stop: 08/27/25 17:02 Last Admin: 07/29/25 09:23 Dose: 60 mls/hr Cefoxitin Sodium 2 gm/ Sodium (Chloride) 50 mls @ 100 mls/hr IV Q8HR [facility] Stop: 08/04/25 21:59 Last Admin: 08/03/25 21:21 Dose: 100 mls/hr Acetaminophen (Ofirmev Inj) 1,000 mg in 100 mls @ 250 mls/hr IV Q6HR [facility] Stop: 07/29/25 06:23 Last Admin: 07/29/25 05:13 Dose: 250 mls/hr Acetaminophen (Ofirmev Inj) 1,000 mg in 100 mls @ 250 mls/hr IV Q8HR PRN PRN Reason: PAIN 1-6 (mild-mod Stop: 07/30/25 14:23 Acetaminophen (Ofirmev Inj) 1,000 mg in 100 mls @ 250 mls/hr IV Q8HR PRN PRN Reason: PAIN 1-6 (mild-mod Magnesium Sulfate 2 gm/Multivitamins/Minerals 10 ml/Amino Acids 2,014 mls @ 30 mls/hr IV .Q24H [facility] Stop: 08/28/25 17:59 Last Admin: 07/30/25 21:19 Dose: Not Given Sodium Phosphate 15 mmol/Magnesium Sulfate 2 gm/Multivitamins/Minerals 10 ml/Amino Acids 2,019 mls @ 90 mls/hr IV .[id number] [facility] Stop: 07/31/25 16:25 Last Admin: 07/30/25 18:16 Dose: 90 mls/hr Amino Acids/Electrolytes/Dextrose (Clinimix E 4.25/5) 2,000 mls @ 90 mls/hr IV .[id number] [facility] Stop: 08/01/25 14:43 Last Admin: 07/31/25 16:15 Dose: 90 mls/hr Sodium Acetate 80 meq/Potassium Phosphate 42 mmol/Multivitamins/Minerals 10 ml/Amino Acids 2,064 mls @ 90 mls/hr IV .[id number] [facility] Stop: 08/02/25 13:25 Last Admin: 08/01/25 14:13 Dose: 90 mls/hr Acetaminophen (Ofirmev Inj) 1,000 mg in 100 mls @ 250 mls/hr IV Q8HR [facility] Stop: 08/02/25 14:23 Last Admin: 08/02/25 14:31 Dose: 250 mls/hr Potassium Acetate 20 meq/Amino Acids/Electrolytes/Dextrose 2,010 mls @ 90 mls/hr IV .[id number] [facility] Stop: 08/03/25 11:49 Last Admin: 08/02/25 13:29 Dose: 90 mls/hr Cefepime HCl 1 gm/ Sodium (Chloride) 50 mls @ 100 mls/hr IV Q12HR [facility] Stop: 08/11/25 01:45 Vancomycin HCl 1,000 mg/ (Sodium Chloride) 250 mls @ 120 mls/hr IV X1 ONE Stop: 08/04/25 04:04 Lactated Ringer's (Lactated Ringers) 500 mls @ 125 mls/hr IV .Q4H [facility] Stop: 08/04/25 05:47 Piperacillin/Tazobactam/Dextrose (Zosyn) 50 mls @ 100 mls/hr IV Q8HR [facility]; Protocol Stop: 08/11/25 01:51 Piperacillin/Tazobactam/Dextrose (Zosyn) 3.375 gm in 50 mls @ 100 mls/hr IV X1 ONE; Protocol Stop: 08/04/25 02:29 Last Admin: 08/04/25 02:55 Dose: 100 mls/hr Lactated Ringer's (Lactated Ringers) 500 mls @ 125 mls/hr IV .Q4H [facility] Stop: 08/04/25 05:47 Last Admin: 08/04/25 02:15 Dose: 125 mls/hr Doxycycline Hyclate 100 mg/ (Sodium Chloride) 100 mls @ 100 mls/hr IV BID [facility] Stop: 08/11/25 02:14 Last Admin: 08/04/25 02:24 Dose: 100 mls/hr Vancomycin/Sodium Chloride (Vancomycin/Ns 1 Gm Ivpb) 200 mls @ 120 mls/hr IV X1 ONE Stop: 08/04/25 10:39 Last Admin: 08/04/25 09:57 Dose: 120 mls/hr Potassium Chloride (Kcl Ivpb) 10 meq in 100 mls @ 100 mls/hr IV Q1H [facility] Stop: 08/05/25 15:59 Last Admin: 08/05/25 16:06 Dose: 100 mls/hr Lactated Ringer's (Lactated Ringers) 1,000 mls @ 999 mls/hr IV .Q1H1M ONE Stop: 08/05/25 17:18 Last Admin: 08/05/25 16:30 Dose: Not Given Lactated Ringer's (Lactated Ringers) 500 mls @ 999 mls/hr IV .Q31M ONE Stop: 08/05/25 17:06 Last Admin: 08/05/25 16:41 Dose: 999 mls/hr Ketorolac Tromethamine (Ketorolac Inj 30 Mg/Ml Vial) 15 mg IVP X1 ONE Stop: 07/28/25 16:40 Last Admin: 07/28/25 16:44 Dose: 15 mg Lidocaine HCl (Lidocaine Inj Pf 1% 5 Ml Vial) 3 ml EPID X1 ONE Stop: 08/03/25 13:41 Last Admin: 08/03/25 13:42 Dose: 3 ml Morphine Sulfate (Morphine Sulf Inj 4 Mg/Ml Vial) 3 mg IV Q5M PRN PRN Reason: PAIN SCALE 4-6 (Moderate Stop: 07/28/25 15:11 Morphine Sulfate (Morphine Sulf Inj 4 Mg/Ml Vial) 2 mg IVP Q2H PRN PRN Reason: PAIN SCALE 7-10 (Severe Stop: 08/02/25 17:20 Last Admin: 08/02/25 13:29 Dose: 2 mg Morphine Sulfate (Morphine Sulf Inj 4 Mg/Ml Vial) 2 mg IVP Q2HR PRN PRN Reason: PAIN SCALE 7-10 (Severe Stop: 08/07/25 19:59 Last Admin: 08/04/25 05:33 Dose: 2 mg Ondansetron HCl (Ondansetron Inj 2 Mg/Ml Inj 2 Ml) 4 mg IVP X1 ONE Stop: 07/28/25 13:11 Pantoprazole Sodium (Pantoprazole Inj 40 Mg Vial) 40 mg IVP QDAY [facility] Stop: 08/30/25 15:44 Last Admin: 08/03/25 09:05 Dose: 40 mg Pharmacy Consult (Vancomycin Pharmacy To Dose 1 Each Each) 1 each IV QDAY [facility] Stop: 09/03/25 08:59 Primidone (Primidone 50 Mg Tablet) 250 mg PO Q12HR [facility] Stop: 08/02/25 20:59 Last Admin: 08/02/25 09:37 Dose: 250 mg Assessment & Plan Plan Ms. Holliday is a 79-year-old female who was transferred to ICU post ex lap on 08/05/2025 for reversal of anastomosis and wound VAC, after anastomotic leak noted on postop day 7. NEURO Sedated Dx: - Patient was intubated intraoperatively on 08/05/2025 by anesthesia - Was given x 1 Versed and transferred to ICU for postop management Rx: - On propofol and fentanyl for sedation postintubation. RASS goal -3 - Currently GCS 3 T. Patient appears comfortable on mechanical vent. - Will continue management overnight. Day team to titrate off of sedatives as tolerated and reevaluate GCS. CVS History of CAD s/p stents Dx: - Patient takes aspirin 81 mg daily at home - Also on statin 40 mg daily at home Rx: - Currently on Lovenox 30 mg renally dosed SC daily for DVT prophylaxis - Day team to resume home medications as tolerated, once p.o. intake cleared by general surgery - Patient is stable postop. No active cardiac issues. PULM AHRF?intubated on MV History of COPD Dx: - Patient was intubated IntraOp anesthesia - Longstanding history of COPD, not on any home oxygen - Last ABG at 0215 on 08/05/2025: pH 7.34, CO2 41 and bicarb 22.9 on CHEM panel Rx: - MV: AV/VC VT 370 (changed from 450) , RR 16 , PEEP 8 , FiO2 80% - Repeat ABG and chest x-ray ordered at midnight GI/Hep Anastomotic leak on day 7 S/p exploratory laparotomy with reversal and abdominal washout on 08/05 NGT on low continuous suction Dx: - 07/28: Colostomy reversal with anastomosis - 08/04: Admitted for anastomotic leak on day 6 postop - 08/05: Exploratory laparotomy with reversal of anastomosis and abdominal washout Rx: - Admitted to ICU post ex lap, intubated on MV - Dr aBrcenas consulted, appreciate recommendations. To reevaluate in the morning on 08/06/2025 - Continue empiric coverage with vancomycin and Zosyn - NPO until further eval and surgical recs - PRN Reglan and Promethazine for N/V - Protonix 40mg IV daily for GI prophylaxis - Per general surgery recommendations, low continuous suction via NG - Wound VAC in place for vertical abdominal incision. Clean, intact, no discharge. On continuous suction as per general surgery recs. RENAL KELSI on CKD stage IIIb Dx: - RFT: BUN 46, creatinine 1.2 (baseline 1) and GFR 40s (baseline 50s) - Likely in the setting of poor oral intake, prolonged dehydration due to surgical intervention on 07/28 Rx: - Patient was given multiple 2-3 L of IV fluids since admission - Received Lasix 20 mg x 1 intraoperatively - Will hold off on IV hydration at this time. Appears to be euvolemic. - MAP maintaining in the 70s postop. Anticipate spontaneous improvement in kidney function with perfusion. HEME/ONC Leukocytosis Dx: - Likely in the setting of anastomotic leak. S/p surgical reversal - WBC 37 -> 30, neutrophil predominant Rx: - Continue IV vancomycin and Zosyn - Daily CBC. Follow-up general surgery recommendations Normocytic Anemia Dx: - Hb 10.5, MCV 90 - Patient's hemoglobin improved from 7.7-10.5 posttransfusion Rx: - Continue to monitor daily CBC - Get iron panel, folate level and B12. Replete as necessary ENDO Hypothyroid Hyperlipidemia Dx: - Patient takes levothyroxine 88 mcg daily at home - Patient takes 40 mg simvastatin at bedtime daily Rx: - Hold p.o. levothyroxine as patient on continuous suction. Started IV levothyroxine 50 mcg daily for now - Day team to resume statin therapy when patient tolerating oral intake - General Surgery started patient on sliding scale with regular insulin every 6 hours, continue - Hypoglycemia protocol in place ID Aspiration PNA HAP Dx: - Patient was intubated during exploratory laparotomy on 08/05/2025 - Anesthesia expresses concern for possible aspiration. Start patient on Zosyn 4.5 every 8 hours Rx: - Continue Zosyn 4.5 q8 empirically (08/05 - - Continue vancomycin daily (08/05 - - Patient is currently afebrile. As needed acetaminophen temperature >99.9 ICU Health maintenance: Dispo: Admit to ICU for post exploratory laparotomy, intubated Diet: N.p.o., until general surgery clearance. NGT on suction DVT ppx: Enoxaparin 30mg SC daily GI ppx: Protonix 40mg qD Mechanical ventilation: Yes, Mode: ACVC Sedation: Fentanyl + propofol (RAAS -3) IV lines: 2 pIV Arterial line: Yes Casey: Yes Code status: FULL CODE Plan of care discussed with hospitalist Dr. Velasquez, - Herve Jarrett MD PGY 3 This document was compiled using speech recognition software. Grammatical errors can be an occasional consequence of this system due to software limitations. Attending Provider Attestation/Addendum After examination of the patient and review of the clinical data I feel that this patient needs admission to the hospital for further treatment/evaluation. TOTAL CC TIME: 45 MIN TOTAL TIME: 45 Minutes of direct medical management and planning of care. I Dylon Velasquez MD, attest that I was physically present for kaur portions of evaluation, and examined patient, labs and imagings and plan of care were discussed with IM residents team, and I agree with the findings and plans documented above.
--- NOTE | 2025-08-05 22:06 | PD.ANESPROG ---
Documentation for date of: 08/05/25 ANESTHESIA NOTE: This patient had GETA for emergent ex lap for bowel obstruction this evening. Pre-op, she recently had ex lap surgery on 07/28. She has h/o CAD and coronary stenting, HTN, HLD, COPD, chronic back pain. Since her initial surgery, reportedly she has had abdominal distension and nausea and multiple episodes of vomiting including today and NGT was placed, and rapid response was called for hyoxia per chart review. I saw her in pre-op with her family at bedside, she had labored breathing on 10 l/min FM O2 and appeared sick but was otherwise alert to answer some questions. She had R AC PICC and NGT in place. Intra-op, upon arrival, her O2 sat was 90% on 10 l/min FM O2. I connected her NGT to suction and it immediately put out about 600 cc of dark feculent type liquid (and another 400 cc during the case). Then she was induced and intubated easily and uneventfully. After intubation, I suctioned her ETT via 14 Fr soft tip ETT suction catheter and it was completely clear and nothing came out, and then placed on vent with 100% FiO2 and her O2 sat steve to 98%. She tolerated the surgery well but needed intermittent IV Vasopressin boluses to maintain her BP; rest of her vitals remained stable. Ex lap revealed large amount of feculent liquid contamination, and the surgeon reported the plan to keep abdomen open and thus send her to ICU post op intubated. I placed R brachial A line with 20 g A line catheter easily in 2 attempts with US guidance with sterile technique, then sutured and dressed with tegaderm and tape, good arterial waveform obtained, EBL 1 cc, wire removed intact. (R hand warm to touch with cap refill < 5 sec upon arrival to ICU). Her R radial artery appeared very small under US and thus not attempted. She received about 600 cc NS, about 400 cc LR, 250 cc of 5% Albumin, and 1 gm CaCl intra-op. Her IV nutrition was continued intra-op at 90 cc/hr per the pharmacy note. At the end, she was transferred to ICU intubated, stable with monitors, appropriately sedated, and care transferred over to ICU team. I gave brief update to her family in the waiting area. Will defer further management to ICU team. Macho Desouza MD Anesthesia Progress Note Progress Note Most recent Vital Signs: Last Vital Signs Temp 97.8 F 08/05/25 16:00 Pulse 95 08/05/25 18:38 Resp 26 H 08/05/25 18:38 BP 101/56 L 08/05/25 16:00 Pulse Ox 92 L 08/05/25 18:38 O2 Del Method Nasal Cannula 08/05/25 16:00 O2 Flow Rate 30 08/05/25 18:38 FiO2 60 08/05/25 18:38
[2025-08-05] MEDS: PROPOFOL 1,000 MG IVPB 1,000 MG/100 ML VIAL 1.962 MG IV (23:02)
[2025-08-05] MEDS: fentaNYL 2,500 MCG/250 ML BAG 2,500 MCG/250 ML BAG IV (23:10)
--- NOTE | 2025-08-05 23:50 | PC.RT ---
Patient received intubated from OR. Patient has a 7.0 ETT at 18cm to the gum. Patient placed on 7mL/kg on mechanical ventilation. ETT is patent and secured. Patient tolerating settings as charted. Alarms on and audible.
[2025-08-06] VITALS (121 sets, daily range): BP systolic 1–168; BP diastolic 0–75; PULSE 66–95; RESP 16–22; TEMP 35.8–36; O2SAT 86–99; BMI 24.7
--- NOTE | 2025-08-06 | XR_ITS ---
EXAMINATION: AP chest single view TECHNIQUE: AP portable semiupright chest single view Date and time: August 06, 2025, 0018 hours, comparison August 05, 2025 INDICATIONS: Hypoxic respiratory failure, post intubation FINDINGS: Significant bibasilar pneumonia. Normal heart size. Ectatic enlarged thoracic aorta. Endotracheal tube tip 5.6 cm above cristin. Orogastric tube in the stomach, the tip is below the level of the film The sidehole of the orogastric tube appears to be at the GE junction Right arm dual-lumen PICC line tip satisfactory position IMPRESSION: Significant bibasilar pneumonia Advance the orogastric tube 4 cm
[2025-08-06] MEDS: SODIUM CHLORIDE 0.9% 250 ML 250 ML 999 ML IV (00:34)
[2025-08-06 00:39] LABS: Base Excess -7 (-3-3); HCO3 21 mEq/L (20-26); Inspired Oxygen, FIO2 60 %; O2 Saturation 92 % (91-98); PCO2 58 mmHg (32.0-48.0); PO2 72 mmHg (83-108)
[2025-08-06 00:44] LABS: Allen Test Not Performed; Puncture Site Arterial Line; pH, Arterial 7.17 (7.35-7.45)
[2025-08-06] MEDS: Norepinephrine/D5W 8mg/250ml 8 MG/250 ML BAG 6.131 MG IV (00:58)
[2025-08-06] MEDS: RINGERS LACTATED 1000 ML 1,000 ML 100 ML IV ×3 (01:00→22:17)
[2025-08-06] MEDS: ALBUMIN HUMAN-KJDA 25% IVPB 25 GM/100 ML BTL IV ×2 (01:20→02:10)
[2025-08-06 03:35] LABS: Base Excess -5 (-3-3); HCO3 22 mEq/L (20-26); Inspired Oxygen, FIO2 50 %; O2 Saturation 97 % (91-98); PCO2 47 mmHg (32.0-48.0); PO2 83 mmHg (83-108); pH, Arterial 7.27 (7.35-7.45)
[2025-08-06 03:36] LABS: Allen Test Not Performed; Puncture Site Arterial Line
--- NOTE | 2025-08-06 03:57 | PC.RT ---
Sputum culture sent to lab
--- NOTE | 2025-08-06 03:59 | PC.RT ---
made aware of ABG @0326, No changes to be made at this time. Lyric [employer]
[2025-08-06 05:54] LABS: Basophils # (Auto) 0.3 Thou/mm3 (0.0-0.2); Basophils % (Auto) 1 % (0-2.5); Eosinophils # (Auto) 0.0 Thou/mm3 (0.0-0.5); Eosinophils % (Auto) 0 % (0-10); Hematocrit 21.6 % (36.0-46.0); Immature Granulocytes Auto 3.29 Thou/mm3 (0.00-0.00); Lymphocytes # (Auto) 1.3 Thou/mm3 (1.0-4.8); Lymphocytes % (Auto) 3 % (10-50); Mean Corpuscular HGB Conc 32.9 g/dl (31.0-37.0); Mean Corpuscular Hemoglobin 32.1 pg (25.0-35.0); Mean Corpuscular Volume 98 fL (80-100); Monocytes # (Auto) 4.0 Thou/mm3 (0.0-0.8); Monocytes % (Auto) 9 % (0-12); Neutrophils # (Auto) 34.8 Thou/mm3 (1.8-7.7); Neutrophils % (Auto) 80 % (37-80); Nucleated Red Blood Cell # 6.31 Thou/mm3 (0.00-0.00); Nucleated Red Blood Cell % 15 /100 WBC (0); Platelet Count 322 Thou/mm3 (140-440); RDW Standard Deviation 60.3 fL (36.4-46.3); Red Blood Count 2.21 Miln/mm3 (4.00-5.20)
[2025-08-06 05:54] LABS: Base Excess -4 (-3-3); HCO3 22 mEq/L (20-26); Inspired Oxygen, FIO2 21 %; O2 Saturation 98 % (91-98); PCO2 46 mmHg (32.0-48.0); PO2 81 mmHg (83-108); pH, Arterial 7.29 (7.35-7.45)
[2025-08-06 05:55] LABS: Allen Test Not Performed; Puncture Site Arterial Line
[2025-08-06 05:57] LABS: Hemoglobin 7.1 g/dL (12.0-16.0); White Blood Count 43.7 Thou/mm3 (3.6-11.0)
[2025-08-06 05:59] LABS: Path Review Blood Smear Sent to Pathologist
[2025-08-06] MEDS: PIPER/TAZO INJ 4.5 GM in SODIUM CHLORIDE 0.9% (POP) 100 ML IV ×3 (06:19→21:11)
[2025-08-06 06:20] LABS: Alanine Aminotransferase 34 U/L (10-49); Albumin, Serum 3.2 gm/dL (3.4-4.8); Albumin/Globulin Ratio 2.9 (1.2-2.2); Alkaline Phosphatase 180 U/L (46-116); Anion Gap 12 (7-16); Aspartate Amino Transferase 41 U/L (0-34); BUN/Creatinine Ratio 36 Ratio (12-20); Bilirubin,Total 1.4 mg/dL (0.3-1.2); Blood Urea Nitrogen 50 mg/dL (9-23); Calcium 8.7 mg/dL (8.3-10.6); Calcium (Corrected) 9.3 mg/dL (8.5-10.1); Carbon Dioxide 21.9 mMol/L (20.0-31.0); Chloride 103 mMol/L (98-107); Creatinine (Component) 1.4 mg/dL (0.6-1.3); Estimated Creatinine Clearance 29.9 mL/min (>60); Globulin 1.1 gm/dL (2.3-3.5); Glucose 171 mg/dL (74-106); Magnesium 2.0 mg/dL (1.6-2.6); Osmolality,Calculated 291 (275-295); Phosphorous 5.4 mg/dL (2.4-5.1); Potassium 4.4 mMol/L (3.4-5.1); Sodium 137 mMol/L (136-145); Total Protein 4.3 gm/dL (5.7-8.2); eGFR 39 See Note
[2025-08-06] MEDS: INSULIN HUM REGULAR 1 UNIT/0.01 ML (PER UNIT) SC (06:24)
[2025-08-06 07:40] LABS: Hematocrit 21.6 % (36.0-46.0)
[2025-08-06 07:43] LABS: Hemoglobin 7.2 g/dL (12.0-16.0)
[2025-08-06] MEDS: MICAFUNGIN SODIUM INJ 100 MG in SODIUM CHLORIDE 0.9% 100 ML IV (08:25)
[2025-08-06] MEDS: VANCOMYCIN/NS 500 MG IVPB 100 ML 120 MG IV (09:47)
--- NOTE | 2025-08-06 11:15 | XR_ITS ---
EXAMINATION: AP chest single view TECHNIQUE: AP portable sitting chest single view Date and time: August 06, 2025, 11:24 a.m., comparison August 06, 2025 INDICATION: Post central line placement, hypoxic respiratory failure FINDINGS: Right internal jugular central line tip SVC satisfactory position No pneumothorax Dual-lumen right arm PICC line tip SVC Significant bibasilar pneumonia. Normal heart size Tracheal tube tip 6.7 cm above cristin. Orogastric tube sidehole is at the GE junction IMPRESSION: Right internal jugular central line tip satisfactory position, no pneumothorax Advance the orogastric tube 5 cm
[2025-08-06] MEDS: Norepinephrine/D5W 8mg/250ml 8 MG/250 ML BAG 20.847 MG IV (12:31)
[2025-08-06] MEDS: VASOPRESSIN IN NS IVPB 20 UNIT/100 ML BAG 9 UNIT IV ×2 (13:13→23:39)
[2025-08-06 13:56] LABS: Hematocrit 29.2 % (36.0-46.0); Hemoglobin 9.7 g/dL (12.0-16.0)
--- NOTE | 2025-08-06 14:20 | ESOP_ITS ---
<Statement entered by Kendrick Bueno MD - 08/07/25 12:01> I was present for the critical and kaur portions of the procedure and was immediately available to provide assistance. PROCEDURES: Procedure Date / Time 08/06/25 1420 Central Line Placement Right IJ: Indication(s): shock and TPN Time out done, and the following verified: correct patient, side and site, procedure, patient position and implants and/or equipment Patient placed on monitor/pulse ox: Yes Hand Hygiene: scrub, soap & water and alcohol-based hand rub Max Sterile Barrier Techniques used: cap, mask, sterile gown, sterile gloves and sterile full body drape Central line prep: Povidone-Iodine 1%, Chlorhexidine scrub and sterile drapes applied Local anesthesia used: lidocaine 1% Amount of anesthesia used (mL): 5 Ultrasound used for placement: Yes Sterile Technique if Ultrasound used, including sterile gel: yes Central line lumen inserted: triple Post procedure: sutured in place, good blood return, all ports aspirated, flushed, capped and sterile dressing applied Post procedure x-ray: tip of catheter in good position and no pneumothorax seen Patient tolerated procedure: well and no complications EBL(ml): 5 Complications: none Procedure comment: Right IJV central Line placement A time out was performed. My hands were washed immediately prior to the procedure. I wore a surgical cap, mask with protective eyewear, full gown and sterile gloves throughout the procedure. The patient was placed in Trendelenburg position. Right chest region was prepped using chlorhexidine scrub and draped in sterile fashion using a full drape and sterile probe cover and sterile gel employed. The medial and lateral heads of the sternocleidomastoid muscle were identified as was the carotid pulse. The Right Internal Jugular vein was identified using the ultrasound. Anesthesia was achieved over the vein using 1% lidocaine. Using real-time out of plane guidance, the introducer needle was inserted into the Right Internal Jugular vein under direct ultrasound visualization. Venous blood was withdrawn. The syringe was removed and a guidewire was advanced into the introducer needle. The guidewire was visualized in the Internal Jugular Vein by ultrasound. A small incision was made at the skin surface with a scalpel and the introducer needle was exchanged for a dilator over the guidewire. After appropriate dilation was obtained, the dilator was exchanged over the wire for a central venous catheter. The wire was removed and the catheter was sutured in place. A sterile sorbaview shield was placed over the catheter at the insertion site. The patient tolerated the procedure without any hemodynamic compromise. At time of procedure completion, all ports aspirated and flushed properly. Post-procedure chest x-ray is Right internal jugular central line tip satisfactory position, no pneumothorax. Estimated blood loss is <5cc. Proceedure performed under the supervision of ICU attending,Dr Ximena Anderson MD,PGY3
--- NOTE | 2025-08-06 14:34 | XR_ITS ---
EXAMINATION: AP chest single view TECHNIQUE: AP portable sitting chest single view Date and time: August 06, 2025, 1454 hours, comparison August 06, 2025 1124 hours INDICATIONS: Reposition orogastric tube FINDINGS: Orogastric tube in stomach satisfactory position Right internal jugular central line and endotracheal tube stable position Bibasilar pneumonia Mild prominence cardiac contour IMPRESSION: Orogastric tube satisfactory position
[2025-08-06] MEDS: PROPOFOL 1,000 MG IVPB 1,000 MG/100 ML VIAL 3.924 MG IV (15:00)
[2025-08-06] MEDS: fentaNYL 2,500 MCG/250 ML BAG 2,500 MCG/250 ML BAG 17.5 MCG IV (15:00)
--- NOTE | 2025-08-06 15:58 | ESPR_ITS ---
<Statement entered by Kendrick Bueno MD - 08/07/25 12:03> TOTAL CC TIME: 65 MIN I saw and evaluated the patient. I reviewed the resident?s note and agree with findings and plan as documented in the resident?s note. Upon my evaluation, this patient had a high probability of imminent or life- threatening deterioration due to septic shock, acute kidney injury, acute hypoxic respiratory failure which required my direct attention, intervention, and personal management. This time is exclusive of time spent on procedures, which are documented separately if performed. Patient is fluid resuscitated appropriately; informal ICU echo consistent with normal LV RV function and plethoric IVC. Monitor urine output carefully. Continue empiric antibiotics for peritonitis as well as antifungals. Patient remains on pressors. trial pressure support ventilation as she awaits going back to the operating room in 1 or 2 days Family updated at bedside <Statement entered by Iglesia Anderson MD - 08/06/25 19:05> Patient was seen and examined at the bedside this morning. This patient is a 79-year-old female with significant history of diverticulitis status post colectomy and colostomy for perforated diverticulitis in 2021, hypothyroidism, CAD with angioplasty and stent placement, hypertension, hyperlipidemia, COPD who presented for colostomy reversal eventually developed complications with explorative laparotomy, lysis of adhesion and reversal of colostomy and had cholecystectomy, splenectomy and left salpingo oophorectomy as well. She did not pass a bowel movement and gas following the procedure. She developed a small bowel obstruction pattern and had emesis. PICC line was placed to start PPN. She had 3 rapids in total during hospital course before getting upgrade to ICU. She had episode of desaturation and dark-colored vomitus therefore NG tube was placed. She also had distended abdomen and CT abdomen confirmed dilated loops of small bowel with fluid in the abdomen suggestive of leakage of anastomosis therefore patient was taken urgently to the OR for 2 segmental resection of small bowel and resection of colorectal anastomosis. Abdomen was left open for another reexploration with a wound VAC likely anticipated in 48 to 72 hours. Patient was also placed on NG tube with suctioning. Will continue with propofol and fentanyl with RASS goal of -3. Levophed was started due to higher pressor requirement and vasopressin was added. PICC line was removed due to 1 out of 2 blood cultures yeast and right IJ central line was placed. Bedside ultrasound was performed which showed right-sided pleural effusion and free fluid without loculation suggestive transudative pleural effusion not requiring intervention at this point. RV was looking stable suggestive of adequate fluid resuscitation. Chemical prophylaxis was held in the setting of acute drop in hemoglobin this morning and 1 unit PRBC was transfused post Hgb improved to 9. H&H Q6 hourly. Patient will be continued on LR at 100 mL/h as PPN were stopped today and will likely start TPN tomorrow morning. Patient will be continued on volume control as patient was deeply sedated and not able to breathe on SBT trial. Urine output has been 45-50 cc/h. Electrolytes were reviewed. All labs and orders were reviewed. I discussed and supervised with the internet technology manager physician who took care of this patient. I personally saw and examined the patient. I agree with most of the assessment and plan. Disclaimer: Despite multiple revisions, due to the dictation software being used, the document bellow may not be free of grammatical errors including phonetic/typographic errors. However, this does not deter from our commitment to providing health care in the patient's best interest in mind. Plan of care discussed with attending Physician Dr. Ximena Anderson MD PGY-3 Documentation for date of: 08/06/25 Subjective Subjective Interval history: 79-year-old female with a significant medical history of diverticulitis (status post colectomy and colostomy for perforated diverticulitis in 09/2022), hypothyroidism, coronary artery disease with angioplasty and stent placement, hypertension, hyperlipidemia, and chronic obstructive pulmonary disease presented for colostomy reversal with Dr. Barcenas. 07/28: Patient underwent an exploratory laparotomy, lysis of adhesions, reversal of colostomy with colorectal anastomosis, cholecystectomy, splenectomy, and left salpingo-oophorectomy. Postoperative Course: 07/29 - 07/31 (Postop days 1-3): NPO, PPN, started IV antibiotics (Cefoxitin and Doxycycline). Awaiting return of GI function. 08/01 - 08/02 (Postop days 4-5): NPO, PPN, IV antibiotics. Hemoglobin and WBC trending down. Awaiting return of GI function. 08/03 (Postop day 6): Sips of clears initiated. PICC line placed by IR. Awaiting return of GI function. 08/04 (Postop day 7): Rapid response called for tachycardia in the 170s. - Night IM team consulted. CXR showed significant bibasilar pneumonia. - IV Antibiotics were changed to Vancomycin and Zosyn. - Transfused 2 units pRBC. - KUB showed SBO pattern. - Blood cultures ordered. - Awaiting return of GI function. 08/05 (Postop day 8): Rapid response #2 called for desaturation to 83% on nasal cannula. - Patient placed on HFNC. - Developed dark-colored vomitus, and NG tube was placed. - Dressing was soiled, with brown fecal discharge noted at the incision site. - Distended abdomen noted. - CT showed dilated loops of small bowel with fluid in the abdomen, suggestive of a leak from the anastomosis site. Surgical Intervention 08/04: - Patient taken back to the OR. - Findings included significant feculent peritonitis, 5 small bowel perforations, and a leak at the anastomosis site. - Two segmental resections of small bowel and resection of the colorectal anastomosis were performed. - Abdomen was left open with a wound vac. Plan to return to OR in 48 to 72 hours for reexploration, - Patient was transferred to the ICU. ICU Course: 08/06 - NG tube and wound vac placed with low continuous suction as per surgery recommendations. - Vent settings adjusted for permissive hypercapnia as patient as history of COPD. - Propofol and Fentanyl started for sedation, with a RASS of -3. - Levophed started for blood pressure support. Vasopressin added. - Right IJ central line placed. - PICC line removed. - Point of care ultrasound showed minimal respiratory variation in IVC, indicating adequate fluid resuscitation. - Right side pleural effusion and free fluid noted, without loculation, suggesting transudative pleural effusion from fluid resuscitation; no intervention needed at this time. . - Peritoneal culture was taken. - Chemical prophylaxis was held due to acute drop in hemoglobin. Transfused 1 unit pRBC for hemoglobin of 7.2; post-transfusion hemoglobin was 9.7. - Plan to start TPN on 08/07. - A spontaneous breathing trial was attempted but the patient became apneic. Switched back to AC mode. - Started LR at 1000 cc @ 100 mL/hr. - Current urine output was 45-50 cc/hr; if urine output slows, fluids will be increased. - Fluids will be stopped once TPN is initiated. Exam Vital Signs Temp Pulse Resp BP Pulse Ox O2 Del Method O2 Flow Rate 96.6 F L 68 20 133/46 H 98 Mechanical Ventilation 30 08/06/25 12:00 08/06/25 15:15 08/06/25 11:04 08/06/25 15:15 08/06/25 15:15 08/06/25 12:00 08/05/25 18:38 FiO2 50 08/06/25 14:01 Narrative Exam Physical Exam General: Sedated, NGT on suction. Head: Normocephalic, atraumatic. Eyes: Pupils equally round and reactive to light. Anicteric. Mouth/Throat: ETT in place. Heart: Regular rate and rhythm, no murmurs. No JVD. Lungs: Clear to auscultation with no wheezing or crackles. Non-labored respirations, symmetric chest rise, no use of accessory muscles. Abdomen: Soft, nontender. No guarding or rebound tenderness. Vertical incision, wound vac on suction. : disla in place. Extremities: No edema. Posterior tibial pulses are 2+ bilaterally. 2+ radial pulse bilaterally. No clubbing or cyanosis. No mottling. SCDs. Skin: No rash. Objective Labs 08/07/25 09:00 08/07/25 05:02 Labs: Laboratory Results - last 24 hr 08/04/25 08/06/25 08/06/25 13:13 00:20 03:26 WBC RBC Hgb Hct MCV MCH MCHC RDW Std Deviation Plt Count Neut % (Auto) Lymph % (Auto) [place] % (Auto) Eos % (Auto) Baso % (Auto) Neut # (Auto) Lymph # (Auto) [place] # (Auto) Eos # (Auto) Baso # (Auto) Immature Gran # (Auto) Absolute Nucleated RBC Immature Gran % Nucleated RBC % Smear Path Review Puncture Site Arterial Line Arterial Line ABG pH 7.17 L* D 7.27 L D ABG pCO2 58 H D 47 D ABG pO2 72 L 83 ABG HCO3 21 22 ABG O2 Saturation 92 97 ABG Base Excess -7 L -5 L FiO2 60 50 Sodium Potassium Chloride Carbon Dioxide Anion Gap BUN Creatinine Estim Creat Clear Calc eGFR BUN/Creatinine Ratio Glucose Calculated Osmolality Calcium Corrected Calcium Phosphorus Magnesium Total Bilirubin AST ALT Alkaline Phosphatase Total Protein Albumin Globulin Albumin/Globulin Ratio Blood Type O Positive Antibody Screen NEGATIVE Crossmatch See Detail Blood Bank Wristband ID Yes 10/26/25 10/26/25 10/26/25 04:45 05:45 07:05 WBC 43.7 H* D RBC 2.21 L Hgb 7.1 L D 7.2 L Hct 21.6 L* 21.6 L* MCV 98 MCH 32.1 MCHC 32.9 RDW Std Deviation 60.3 H Plt Count 322 Neut % (Auto) 80 Lymph % (Auto) 3 L [place] % (Auto) 9 Eos % (Auto) 0 Baso % (Auto) 1 Neut # (Auto) 34.8 H Lymph # (Auto) 1.3 [place] # (Auto) 4.0 H Eos # (Auto) 0.0 Baso # (Auto) 0.3 H Immature Gran # (Auto) 3.29 H Absolute Nucleated RBC 6.31 H Immature Gran % 8 H Nucleated RBC % 15 H Smear Path Review Sent to Pathologist Puncture Site Arterial Line ABG pH 7.29 L ABG pCO2 46 ABG pO2 81 L ABG HCO3 22 ABG O2 Saturation 98 ABG Base Excess -4 L FiO2 21 Sodium 137 Potassium 4.4 D Chloride 103 Carbon Dioxide 21.9 Anion Gap 12 BUN 50 H Creatinine 1.4 H Estim Creat Clear Calc 29.9 L eGFR 39 L BUN/Creatinine Ratio 36 H Glucose 171 H Calculated Osmolality 291 Calcium 8.7 Corrected Calcium 9.3 Phosphorus 5.4 H Magnesium 2.0 Total Bilirubin 1.4 H D AST 41 H ALT 34 Alkaline Phosphatase 180 H D Total Protein 4.3 L Albumin 3.2 L Globulin 1.1 L Albumin/Globulin Ratio 2.9 H Blood Type Antibody Screen Crossmatch Blood Bank Wristband ID 08/06/25 13:41 WBC RBC Hgb 9.7 L D Hct 29.2 L MCV MCH MCHC RDW Std Deviation Plt Count Neut % (Auto) Lymph % (Auto) [place] % (Auto) Eos % (Auto) Baso % (Auto) Neut # (Auto) Lymph # (Auto) [place] # (Auto) Eos # (Auto) Baso # (Auto) Immature Gran # (Auto) Absolute Nucleated RBC Immature Gran % Nucleated RBC % Smear Path Review Puncture Site ABG pH ABG pCO2 ABG pO2 ABG HCO3 ABG O2 Saturation ABG Base Excess FiO2 Sodium Potassium Chloride Carbon Dioxide Anion Gap BUN Creatinine Estim Creat Clear Calc eGFR BUN/Creatinine Ratio Glucose Calculated Osmolality Calcium Corrected Calcium Phosphorus Magnesium Total Bilirubin AST ALT Alkaline Phosphatase Total Protein Albumin Globulin Albumin/Globulin Ratio Blood Type Antibody Screen Crossmatch Blood Bank Wristband ID ABG Interpretation ABG results: 08/04/25 08/05/25 08/06/25 01:04 02:15 00:20 ABG pH 7.39 7.34 L 7.17 L* D ABG pCO2 38 41 58 H D ABG pO2 52 L* 54 L* 72 L ABG HCO3 23 22 21 ABG O2 Saturation 88 L 88 L 92 ABG Base Excess -2 -3 -7 L 08/06/25 08/06/25 03:26 05:45 ABG pH 7.27 L D 7.29 L ABG pCO2 47 D 46 ABG pO2 83 81 L ABG HCO3 22 22 ABG O2 Saturation 97 98 ABG Base Excess -5 L -4 L Quality Measures Quality Measures VTE prophylaxis Advance care planning discussed with:: patient Assessment & Plan Assessment Current Active Medications: Generic Name Dose Route Start Last Admin Trade Name Freq PRN Reason Stop Dose Admin Glucagon 1 mg 07/29/25 12:21 Glucagon Inj 1 Mg Vial IM Q15MIN PRN BG <70, and no IV access Promethazine HCl 25 mg/ Sodium 51 mls @ 2.5 mls/min 07/31/25 15:43 Chloride IV 08/30/25 15:42 Q6HR PRN NAUSEA OR VOMITING Protocol Piperacillin Sod/Tazobactam 100 mls @ 200 mls/hr 08/04/25 08:30 08/06/25 13:12 Sod 4.5 gm/ Sodium Chloride IV 08/11/25 08:29 200 mls/hr Q8HR HERO Administration Protocol Propofol 1,000 mg in 100 mls @ 1.962 mls/hr 08/05/25 22:04 08/06/25 15:00 Diprivan Ivpb IV 09/04/25 22:03 10 mcg/kg/min .Q24H PRN 3.924 mls/hr PER PROTOCOL Administration Protocol 5 MCG/KG/MIN Fentanyl Citrate 2,500 mcg in 250 mls @ 2.5 mls/hr 08/05/25 22:04 08/06/25 15:00 Sublimaze Inj 2,500 Mcg/250 Ml Bag IV 08/10/25 22:03 175 mcg/hr .Q24H PRN 17.5 mls/hr PER PROTOCOL Administration Protocol 25 MCG/HR Norepinephrine/Dextrose 8 mg in 250 mls @ 6.131 mls/hr 08/06/25 00:35 08/06/25 13:25 Levophed In D5w 8mg/250ml IV 09/05/25 00:34 0.13 mcg/kg/min .Q24H PRN 15.942 mls/hr PER PROTOCOL Titration Protocol 0.05 MCG/KG/MIN Micafungin Sodium 100 mg/ 100 mls @ 100 mls/hr 08/06/25 08:00 08/06/25 09:25 Sodium Chloride IV 08/11/25 07:59 Infused QDAY HERO Infusion Vancomycin/Sodium Chloride 100 mls @ 120 mls/hr 08/06/25 10:00 08/06/25 09:47 Vancomycin/Ns 500 Mg Ivpb IV 08/13/25 09:59 120 mls/hr QDAY@1000 HERO Administration Protocol Lactated Ringer's 1,000 mls @ 100 mls/hr 08/06/25 12:09 08/06/25 12:14 Lactated Ringers IV 09/05/25 12:08 100 mls/hr .Q10H HERO Administration Vasopressin/Sodium Chloride 20 unit in 100 mls @ 9 mls/hr 08/06/25 13:00 08/06/25 13:13 Vasostrict/Ns Ivpb IV 09/05/25 12:59 0.03 unit/min .Q11H7M PRN 9 mls/hr PER PROTOCOL Administration Protocol 0.03 UNIT/MIN Insulin Human Regular 0 unit 07/29/25 18:00 08/06/25 12:14 Insulin Hum Regular 1 Unit/0.01 Ml (Per Unit) SC 08/28/25 17:59 Not Given Q6HR HERO Protocol Levothyroxine Sodium 50 mcg 08/06/25 06:00 08/06/25 08:29 Levothyroxine Inj 100 Mcg Vial IV 09/05/25 05:59 Not Given DAILY HERO Ondansetron HCl 4 mg 07/31/25 11:59 08/05/25 12:25 Ondansetron Inj 2 Mg/Ml Inj 2 Ml IVP 08/30/25 11:58 4 mg Q4HR PRN Administration NAUSEA OR VOMITING Protocol Pantoprazole Sodium 40 mg 08/06/25 09:00 08/06/25 09:46 Pantoprazole Inj 40 Mg Vial IVP 09/05/25 08:59 40 mg QDAY HERO Administration Pharmacy Consult 1 each 08/04/25 09:00 Vancomycin Pharmacy To Dose 1 Each Each IV 09/03/25 08:59 QDAY PRN PROTOCOL Pharmacy Consult 1 each 08/06/25 08:27 Pharmacy Renal Dose Adjustment 1 Ea XX 09/05/25 08:26 PRN PRN CONSULT Sodium Chloride 5 ml 08/05/25 23:36 Sodium Chloride Rt 10% 15 Ml Nebu INH 09/04/25 23:35 X1 PRN SPUTUM CLEARANCE Plan 79-year-old female with a complex medical history, including perforated diverticulitis (status post colectomy and colostomy), hypothyroidism, coronary artery disease, hypertension, hyperlipidemia, and COPD, underwent a colostomy reversal, which was complicated by feculent peritonitis, requiring further surgery and ICU admission for hemodynamic support and mechanical ventilation. Neurology #Chemical sedation SBT today, patient became apenic, placed back on AC. Treatment Plan: - Propofol and Fentanyl for sedation postintubation. RASS goal -3. - Titrate off sedatives as tolerated. - Sedation vacation to reduce risk of ICU delirium. Cardiovascular #Septic shock Distributive shock in setting of sepsis. Refractory hypotension requiring vasopressors. 08/06 around 8AM, a sepsis re-evaluation was performed. - Vital signs: T 97.0F, HR 72, BP 117/43, RR 22. MAP 68. MV. - Focused exam: Heart: RRR, no murmurs, peripheral pulses 2+ and symmetric in all extremities, capillary refill >2 seconds. Lungs: anterior lung epps clear to auscultation bilaterally. Skin: pale, no mottling. Diagnostic Test: - Point of care ultrasound 08/06 showed minimal respiratory variation in IVC, indicating adequate fluid resuscitation. - CT: bilateral pneumonic consolidation, pleural effusion. - Blood cultures pending. - Peritoneal fluid culture pending. Intra-abdominal peritonitis with fluid and pus. - Sputum culture pending. - MRSA screen negative. Treatment Review (completed): - IV crystalloid fluid bolus - 30 cc/kg given. - Right IJ central line placed 08/06. - PICC line removed 08/06. Treatment Plan: - Levophed 0.13 mcg/kg/min (titrate to maintain MAP > 65). - Vasopressin 0.03 units/min. - LR 100 mls/hr (maintenance). - Sedation: Propofol 10 and Fentanyl 175. - Continue Vancomycin (08/06-). - Continue Zosyn 4.5 gram IV Q8HR (08/04-). - Micafungin 100 mg IV daily (08/06-). Respiratory #Acute hypoxic respiratory failure DDx: likely multifactorial - aspiration pneumonia vs transudative pleural effusion from fluid resuscitation. Diagnostic Test: - Patient was intubated intraop by anesthesia. - Longstanding history of COPD , not on home oxygen. - ABG 08/06 12:20: pH 7.17, pCO2 58. - ABG 08/06 3:26: pH 7.27, pCO2 47. - ABG 08/06 5:45: pH 7.29, pCO2 46. - CXR 08/06: significant bibasilar pneumonia. Treatment Plan: - Continue MV settings: AC/VC VT 370, RR 16, PEEP 8, FiO2 80%. - Allow for permissive hypercapnia for lung-protective ventilation. - Continue Vancomycin (08/06-). - Continue Zosyn 4.5 gram IV Q8HR (08/04-). - Thoracentesis not indicated at this time as pleural effusions likely transudative from fluid resuscitation. #History of COPD - No acute exacerbation at the moment. GI and F/E/N #Feculent peritonitis Diagnostic Test: - 07/28: colostomy reversal with colorectal anastomosis. - 08/05: exploratory laparotomy, lysis of adhesions, abdominal washout. Segmental resection of small bowel containing perforations. Resection of colorectal anastomosis. Admitted to ICU post ex lap, intubated on MV. Treatment Plan: - NG tube on low continuous suction. - Wound VAC in place for vertical abdominal incision. Clean, intact, no discharge. On continuous suction as per general surgery recs. - Continue empiric coverage with Vancomycin and Zosyn. - Start TPN on 08/07. - PRN Reglan and Promethazine for nausea/vomiting. - Protonix 40mg IV daily for GI prophylaxis. - General surgery following, appreciate recommendations. 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 Diagnostic Test: - Cr 1.2 (baseline 1). - BUN 46. - GFR 40s (baseline 50s). Treatment Plan: - LR 100 mls/hr. - Daily renal panel to trend BUN, Cr, and electrolytes. - Avoid nephrotoxins - Renally dose meds as appropriate. - Strict I&Os, monitor urine output closely. - Monitor for signs of volume overload or uremic symptoms. Heme #Normocytic anemia #Acute blood loss DDx: likely due to blood loss during surgery Diagnostic Test: - Hemoglobin 10.5 --> 7.1 --> 7.2. - MCV 90. - No active signs of bleeding noted. - Chemical DVT prophylaxis held until hemoglobin stabilizes. SCDs ordered. Treatment Plan: - Transfused 1 unit of pRBCs today. Repeat hemoglobin 9.7. - Monitor H&H - IVF resuscitation to maintain MAP > 65 - IV Pantoprazole QD. - Transfuse if Hgb < 8. #Leukocytosis DDx: likely in the setting of anastomotic leak, s/p surgical reversal Diagnostic Test: - WBC 37 -> 30 --> 43.7. - Afebrile. Treatment Plan - Continue IV Vancomycin and Zosyn. - Monitor daily CBC. - Follow-up general surgery recommendations. Endo #Hypothyroidism Treatment Plan: - Hold home medication levothyroxine 88 mcg daily. - Started IV levothyroxine 50 mcg daily. ID #Yeast infection Diagnostic Test: - 08/04 blood culture: yeast (preliminary result). Treatment Plan: - Micafungin 100 mg IV daily (08/06-). - Repeat blood cultures pending. Health Maintenance DVT prophylaxis: Hold heparin for now until hemoglobin stable, SCDs. GI prophylaxis: Pantoprazole 40 mg IV daily Diet: NPO Disla: Present Lines: Peripheral IV. Right IJ central line. Drips: Levophed, Vasopressin Vent: MV, PPlat <30 and TV < 8 ml/kg IBW CODE STATUS: FULL Patient discussed with my senior resident and attending, Dr. Bueno. Tito Garcia, DO Internal Medicine, PGY-1
[2025-08-06 18:22] LABS: Hematocrit 30.1 % (36.0-46.0); Hemoglobin 10.0 g/dL (12.0-16.0)
[2025-08-07] VITALS (95 sets, daily range): BP systolic 64–138; BP diastolic 30–76; PULSE 66–89; RESP 20–28; TEMP 36.5–36.9; O2SAT 94–99; BMI 26.2
[2025-08-07 02:38] LABS: Hematocrit 29.1 % (36.0-46.0); Hemoglobin 9.6 g/dL (12.0-16.0)
[2025-08-07] MEDS: Norepinephrine/D5W 8mg/250ml 8 MG/250 ML BAG 20.847 MG IV (03:55)
[2025-08-07] MEDS: PIPER/TAZO INJ 4.5 GM in SODIUM CHLORIDE 0.9% (POP) 100 ML IV ×3 (05:44→21:49)
[2025-08-07 06:08] LABS: Basophils # (Auto) 0.1 Thou/mm3 (0.0-0.2); Basophils % (Auto) 0 % (0-2.5); Eosinophils # (Auto) 0.2 Thou/mm3 (0.0-0.5); Eosinophils % (Auto) 0 % (0-10); Hematocrit 28.7 % (36.0-46.0); Hemoglobin 9.4 g/dL (12.0-16.0); Immature Granulocytes Auto 3.84 Thou/mm3 (0.00-0.00); Lymphocytes # (Auto) 2.1 Thou/mm3 (1.0-4.8); Lymphocytes % (Auto) 5 % (10-50); Mean Corpuscular HGB Conc 32.8 g/dl (31.0-37.0); Mean Corpuscular Hemoglobin 31.5 pg (25.0-35.0); Mean Corpuscular Volume 96 fL (80-100); Monocytes # (Auto) 4.7 Thou/mm3 (0.0-0.8); Monocytes % (Auto) 10 % (0-12); Neutrophils # (Auto) 35.4 Thou/mm3 (1.8-7.7); Neutrophils % (Auto) 76 % (37-80); Nucleated Red Blood Cell # 7.42 Thou/mm3 (0.00-0.00); Nucleated Red Blood Cell % 16 /100 WBC (0); Platelet Count 386 Thou/mm3 (140-440); RDW Standard Deviation 64.7 fL (36.4-46.3); Red Blood Count 2.98 Miln/mm3 (4.00-5.20)
[2025-08-07 06:10] LABS: White Blood Count 46.3 Thou/mm3 (3.6-11.0)
[2025-08-07] MEDS: fentaNYL 2,500 MCG/250 ML BAG 2,500 MCG/250 ML BAG 17.5 MCG IV ×2 (06:26→20:39)
[2025-08-07 06:45] LABS: Alanine Aminotransferase 25 U/L (10-49); Albumin, Serum 2.7 gm/dL (3.4-4.8); Albumin/Globulin Ratio 1.9 (1.2-2.2); Alkaline Phosphatase 154 U/L (46-116); Anion Gap 11 (7-16); Aspartate Amino Transferase 27 U/L (0-34); BUN/Creatinine Ratio 29 Ratio (12-20); Bilirubin,Total 1.5 mg/dL (0.3-1.2); Blood Urea Nitrogen 43 mg/dL (9-23); Calcium 8.4 mg/dL (8.3-10.6); Calcium (Corrected) 9.4 mg/dL (8.5-10.1); Carbon Dioxide 21.6 mMol/L (20.0-31.0); Chloride 105 mMol/L (98-107); Creatinine (Component) 1.5 mg/dL (0.6-1.3); Estimated Creatinine Clearance 28.2 mL/min (>60); Globulin 1.4 gm/dL (2.3-3.5); Glucose 100 mg/dL (74-106); Magnesium 1.9 mg/dL (1.6-2.6); Osmolality,Calculated 286 (275-295); Phosphorous 4.5 mg/dL (2.4-5.1); Potassium 4.3 mMol/L (3.4-5.1); Sodium 138 mMol/L (136-145); Total Protein 4.1 gm/dL (5.7-8.2); eGFR 36 See Note
[2025-08-07] MEDS: MICAFUNGIN SODIUM INJ 100 MG in SODIUM CHLORIDE 0.9% 100 ML IV (08:06)
[2025-08-07] MEDS: SODIUM CHLORIDE 0.9% 250 ML 250 ML 999 ML IV (08:32)
--- NOTE | 2025-08-07 09:01 | PC.PT ---
Patient will be dc from PT services secondary to patient is transferred to ICU.
[2025-08-07 09:26] LABS: Hematocrit 27.7 % (36.0-46.0); Hemoglobin 9.1 g/dL (12.0-16.0)
--- NOTE | 2025-08-07 09:35 | PD.IDPROG ---
Subjective Subjective Interval history: asked to see today by primary team. cx pending. gram stains neg ok to check for cdiff with leucocytosis and hx Exam Vital Signs Temp Pulse Resp BP Pulse Ox O2 Del Method O2 Flow Rate 96.6 F L 75 20 105/39 L 95 Mechanical Ventilation 30 08/06/25 12:00 08/07/25 06:15 08/07/25 06:15 08/07/25 06:15 08/07/25 06:15 08/06/25 12:00 08/05/25 18:38 FiO2 40 08/07/25 06:15 Narrative Exam sedated. on vent. 40% changed micafungin to flucon iv. sedated Objective - Internal Medicine Labs 08/07/25 09:00 08/07/25 05:02 Labs: Laboratory Results - last 24 hr 08/04/25 08/06/25 08/06/25 13:13 13:41 17:57 WBC RBC Hgb 9.7 L D 10.0 L Hct 29.2 L 30.1 L MCV MCH MCHC RDW Std Deviation Plt Count Neut % (Auto) Lymph % (Auto) [place] % (Auto) Eos % (Auto) Baso % (Auto) Neut # (Auto) Lymph # (Auto) [place] # (Auto) Eos # (Auto) Baso # (Auto) Immature Gran # (Auto) Absolute Nucleated RBC Immature Gran % Nucleated RBC % Sodium Potassium Chloride Carbon Dioxide Anion Gap BUN Creatinine Estim Creat Clear Calc eGFR BUN/Creatinine Ratio Glucose Calculated Osmolality Calcium Corrected Calcium Phosphorus Magnesium Total Bilirubin AST ALT Alkaline Phosphatase Total Protein Albumin Globulin Albumin/Globulin Ratio Blood Type O Positive Antibody Screen NEGATIVE Crossmatch See Detail Blood Bank Wristband ID Yes 08/07/25 08/07/25 08/07/25 02:20 05:02 09:00 WBC 46.3 H* RBC 2.98 L Hgb 9.6 L 9.4 L 9.1 L Hct 29.1 L 28.7 L 27.7 L MCV 96 MCH 31.5 MCHC 32.8 RDW Std Deviation 64.7 H Plt Count 386 D Neut % (Auto) 76 Lymph % (Auto) 5 L [place] % (Auto) 10 Eos % (Auto) 0 Baso % (Auto) 0 Neut # (Auto) 35.4 H Lymph # (Auto) 2.1 [place] # (Auto) 4.7 H Eos # (Auto) 0.2 Baso # (Auto) 0.1 Immature Gran # (Auto) 3.84 H Absolute Nucleated RBC 7.42 H Immature Gran % 8 H Nucleated RBC % 16 H Sodium 138 Potassium 4.3 Chloride 105 Carbon Dioxide 21.6 Anion Gap 11 BUN 43 H Creatinine 1.5 H Estim Creat Clear Calc 28.2 L eGFR 36 L BUN/Creatinine Ratio 29 H Glucose 100 D Calculated Osmolality 286 Calcium 8.4 Corrected Calcium 9.4 Phosphorus 4.5 Magnesium 1.9 Total Bilirubin 1.5 H AST 27 ALT 25 Alkaline Phosphatase 154 H D Total Protein 4.1 L Albumin 2.7 L D Globulin 1.4 L Albumin/Globulin Ratio 1.9 Blood Type Antibody Screen Crossmatch Blood Bank Wristband ID ABG Interpretation ABG results: 08/04/25 08/05/25 08/06/25 01:04 02:15 00:20 ABG pH 7.39 7.34 L 7.17 L* D ABG pCO2 38 41 58 H D ABG pO2 52 L* 54 L* 72 L ABG HCO3 23 22 21 ABG O2 Saturation 88 L 88 L 92 ABG Base Excess -2 -3 -7 L 08/06/25 08/06/25 03:26 05:45 ABG pH 7.27 L D 7.29 L ABG pCO2 47 D 46 ABG pO2 83 81 L ABG HCO3 22 22 ABG O2 Saturation 97 98 ABG Base Excess -5 L -4 L Assessment & Plan A&P Narrative abd abscess with neg stains but pending cx anxiety hypothyroid hld leucocytosis w/o fever. odd hx of cdiff pos a long time ago. Time Spent With Patient Time: Total time spent is greater than 50% in coordination of care (as documented) at patient's floor/unit and/or counseling patient: Quality - progress note VTE Deep Vein Thrombosis/Pulmonary Embolism Present on Admission: No
[2025-08-07 09:44] LABS: Vancomycin,Trough 12.3 mcg/mL (5.0-10.0)
--- NOTE | 2025-08-07 10:37 | ESCONSULT_ITS ---
RE: DYAN SUN : 1945 DATE OF CONSULTATION: 08/07/2025 REFERRING PHYSICIAN: Dr. Barcenas. REASON FOR CONSULTATION: Leukocytosis and respiratory failure. HISTORY OF PRESENT ILLNESS: Patient is an unfortunate 76-year-old woman. She is on a ventilator and has a history of C. diff positive about a year ago. I saw her at that time for presumptive recurrent C. diff and we treated her with whatever agents were prescribed at that time. She is unable to provide any history. History was obtained entirely from the grandson. He is at the bedside with his as well. He lives at home with the patient. Her surgeries include prior abdominal surgery on admission for ischemic colitis. Repeat surgery again this admission just the other last night. Supposedly, she had several perforations noted. She has been intubated and has a reported history of pneumonia as well. She is on 40 % on a ventilator. She is unable to interact. As a result, her history is somewhat limited other than the information from the grandson. Patient lives with her grandson and other relatives. ALLERGIES: DEMEROL. IMMUNIZATIONS: Last tetanus is not known. She has not had a pneumococcal vaccine or flu shot annually and has had 3 COVID vaccines. PAST MEDICAL HISTORY: Her medical problems include those listed including some anxiety, hypothyroidism disease and hyperlipidemia based on her medications. pe: on vent. settings as noted. Her current problems include pneumonia, abdominal perforation and leukocytosis which is rather dramatic. She is on empiric antibiotics and we will continue those for 5 days as long as her C. diff remains negative. We will ask for the C. diff repeated. I had tried to order it but was unsuccessful so you will have to order it. I do not know how to do it in the system. I was stymied. I will check on her again on Thursday. DT: 10:16:21 TT: 10:31:00 Ref: [id number] - TID: [id number] MTDD
[2025-08-07] MEDS: VASOPRESSIN IN NS IVPB 20 UNIT/100 ML BAG 9 UNIT IV ×2 (10:45→21:51)
[2025-08-07] MEDS: FLUCONAZOLE/NS 400 MG IVPB 400 MG/200 ML BAG 100 MG IV (10:45)
[2025-08-07] MEDS: PROPOFOL 1,000 MG IVPB 1,000 MG/100 ML VIAL 3.924 MG IV (11:54)
[2025-08-07] MEDS: [UNRECOGNIZED DRUG - OTHER] IV (11:58)
[2025-08-07] MEDS: POTASSIUM ACET IV (11:58)
[2025-08-07] MEDS: MAGNESIUM SULF IV (11:58)
[2025-08-07] MEDS: MULTIVITAMIN IV (11:58)
--- NOTE | 2025-08-07 13:27 | PD.RESCONSUL ---
HPI Data of Consult Consult date: 08/07/25 Requesting Physician: Kendrick Bueno MD Admitting Provider: Tyron Barcenas MD Attending Provider: Kendrick Bueno MD Primary Care Provider: Brien Mcgraw MD Consult Narrative Reason for consult: KELSI History of present illness: Mr Holliday is a 79-year-old female presenting with oliguria/anuria and acute kidney injury (KELSI). Urine output has decreased from 45-50 cc/hr to 10-20 cc/hr, and the patient is in critical condition post-surgical complications, including feculent peritonitis, septic shock, and acute hypoxic respiratory failure. The patient has a complex medical history including diverticulitis status post-colectomy and colostomy, hypothyroidism, CAD with stent placement, hypertension, hyperlipidemia, and COPD. She underwent a colostomy reversal complicated by multiple surgeries, including a small bowel resection and anastomotic leak. Postoperatively, she developed septic shock, acute hypoxic respiratory failure, and KELSI. Fluid resuscitation was started, and she has been on pressors (Levophed and Vasopressin) and mechanical ventilation. Urine output has been declining since yesterday, prompting nephrology consultation. Yesterday, the patient was receiving LR 100 mL/hr. This morning, fluids were stopped after the ICU team performed a NICOM, revealing that the patient was not fluid responsive. The patient continues to be closely monitored for changes in renal function and hemodynamics. 08/07/2025: Today, the patient remains sedated and on mechanical ventilation. Urine output has decreased from 45-50 cc/h to 10-20 cc/h since yesterday. Fluid resuscitation with LR at 100 mL/hr was stopped this morning after NICOM showed no fluid responsiveness. The patient is on pressor support (Levophed and Vasopressin) for hypotension. Dialysis line is scheduled for placement tomorrow. She has no complaints as she is currently sedated and continues to be monitored closely in the ICU. Labs: Sodium 138, Potassium 4.3, Chloride 105, Bicarbonate 21.6, BUN 43, Creatinine 1.5, WBC 46.3, Hemoglobin 9.4, Platelets 386. cc:: cc: Kendrick Bueno MD Review of Systems Review of Systems Narrative Review of Systems: Negative unless stated above Exam Vital Signs Temp Pulse Resp BP Pulse Ox O2 Del Method O2 Flow Rate 96.6 F L 79 20 121/45 L 95 Mechanical Ventilation 30 08/06/25 12:00 08/07/25 10:15 08/07/25 06:15 08/07/25 10:15 08/07/25 10:15 08/06/25 12:00 08/05/25 18:38 FiO2 40 08/07/25 10:01 Narrative Exam General: Sedated, on mechanical ventilation with NG tube in place. Head: Normocephalic, atraumatic. Eyes: Pupils equal, round, reactive to light. No icterus. Heart: Regular rate and rhythm, no murmurs. No JVD. Lungs: Clear to auscultation, no wheezing or crackles, non-labored respirations. Abdomen: Soft, non-tender, vertical incision with wound vac. No guarding or rebound. : Casey catheter in place. Extremities: No edema, symmetric pulses, no cyanosis or mottling. Skin: Intact, no rash. Results Labs 08/07/25 18:29 08/07/25 05:02 Labs: Short CBC 08/06/25 08/06/25 08/07/25 Range/Units 13:41 17:57 02:20 WBC (3.6-11.0) Thou/mm3 Hgb 9.7 L D 10.0 L 9.6 L (12.0-16.0) g/dL Hct 29.2 L 30.1 L 29.1 L (36.0-46.0) % Plt Count (140-440) Thou/mm3 08/07/25 08/07/25 Range/Units 05:02 09:00 WBC 46.3 H* (3.6-11.0) Thou/mm3 Hgb 9.4 L 9.1 L (12.0-16.0) g/dL Hct 28.7 L 27.7 L (36.0-46.0) % Plt Count 386 D (140-440) Thou/mm3 BMP 08/07/25 05:02 Sodium 138 Potassium 4.3 Chloride 105 Carbon Dioxide 21.6 BUN 43 H Creatinine 1.5 H Glucose 100 D Calcium 8.4 Liver Function 08/07/25 Range/Units 05:02 Total Bilirubin 1.5 H (0.3-1.2) mg/dL AST 27 (0-34) U/L ALT 25 (10-49) U/L Alkaline Phosphatase 154 H D (46-116) U/L Albumin 2.7 L D (3.4-4.8) gm/dL ABG Interpretation ABG results: 08/04/25 08/05/25 08/06/25 01:04 02:15 00:20 ABG pH 7.39 7.34 L 7.17 L* D ABG pCO2 38 41 58 H D ABG pO2 52 L* 54 L* 72 L ABG HCO3 23 22 21 ABG O2 Saturation 88 L 88 L 92 ABG Base Excess -2 -3 -7 L 08/06/25 08/06/25 03:26 05:45 ABG pH 7.27 L D 7.29 L ABG pCO2 47 D 46 ABG pO2 83 81 L ABG HCO3 22 22 ABG O2 Saturation 97 98 ABG Base Excess -5 L -4 L Quality Measures Quality Measures VTE prophylaxis Advance care planning discussed with:: patient Medications Home Medications and Allergies Home Medications ?Medication ?Instructions ?Recorded ?Confirmed ?Type alprazolam 1 mg tablet 1.5 mg PO HS Insomnia 04/13/21 07/28/25 History levothyroxine 88 mcg tablet 88 mcg PO QAM 04/13/21 07/28/25 History simvastatin 40 mg tablet 40 mg PO QPM 12/03/22 07/28/25 History aspirin 81 mg tablet,delayed 81 mg PO QDAY 07/25/25 07/25/25 History release loratadine 10 mg capsule 10 mg PO BID 07/25/25 07/28/25 History primidone 250 mg tablet 250 mg PO Q12H 07/25/25 07/28/25 History Allergies Allergy/AdvReac Type Severity Reaction Status Date / Time codeine Allergy Intermediate Fatigued Verified 07/28/25 10:05 meperidine AdvReac Unknown Verified 07/28/25 10:05 Visit Medications Glucagon (Glucagon Inj 1 Mg Vial) 1 mg IM Q15MIN PRN PRN Reason: BG <70, and no IV access Promethazine HCl 25 mg/ Sodium (Chloride) 51 mls @ 2.5 mls/min IV Q6HR PRN; Protocol PRN Reason: NAUSEA OR VOMITING Stop: 08/30/25 15:42 Piperacillin Sod/Tazobactam (Sod 4.5 gm/ Sodium Chloride) 100 mls @ 200 mls/hr IV Q8HR HERO; Protocol Stop: 08/11/25 08:29 Last Admin: 08/07/25 05:44 Dose: 200 mls/hr Propofol (Diprivan Ivpb) 1,000 mg in 100 mls @ 1.962 mls/hr IV .Q24H PRN; Protocol PRN Reason: PER PROTOCOL Stop: 09/04/25 22:03 Last Admin: 08/07/25 11:54 Dose: 10 mcg/kg/min, 3.924 mls/hr Fentanyl Citrate (Sublimaze Inj 2,500 Mcg/250 Ml Bag) 2,500 mcg in 250 mls @ 2.5 mls/hr IV .Q24H PRN; Protocol PRN Reason: PER PROTOCOL Stop: 08/10/25 22:03 Last Titration: 08/07/25 10:00 Dose: 175 mcg/hr, 17.5 mls/hr Norepinephrine/Dextrose (Levophed In D5w 8mg/250ml) 8 mg in 250 mls @ 6.131 mls/hr IV .Q24H PRN; Protocol PRN Reason: PER PROTOCOL Stop: 09/05/25 00:34 Last Titration: 08/07/25 12:10 Dose: 0.15 mcg/kg/min, 18.394 mls/hr Vasopressin/Sodium Chloride (Vasostrict/Ns Ivpb) 20 unit in 100 mls @ 9 mls/hr IV .Q11H7M PRN; Protocol PRN Reason: PER PROTOCOL Stop: 09/05/25 12:59 Last Admin: 08/07/25 10:45 Dose: 0.03 unit/min, 9 mls/hr Fluconazole (Diflucan/Ns Ivpb) 400 mg in 200 mls @ 100 mls/hr IV QDAY HERO Stop: 08/10/25 17:00 Last Admin: 08/07/25 10:45 Dose: 100 mls/hr Magnesium Sulfate 1 gm/Multivitamins/Minerals 10 ml/Potassium Acetate 10 meq/Amino Acids 1,017 mls @ 30 mls/hr IV Q24H HERO Stop: 08/08/25 12:29 Last Admin: 08/07/25 11:58 Dose: 30 mls/hr Insulin Human Regular (Insulin Hum Regular 1 Unit/0.01 Ml (Per Unit)) 0 unit SC Q6HR HERO; Protocol Stop: 08/28/25 17:59 Last Admin: 08/07/25 12:30 Dose: Not Given Levothyroxine Sodium (Levothyroxine Inj 100 Mcg Vial) 50 mcg IV DAILY HERO Stop: 09/05/25 05:59 Last Admin: 08/07/25 08:06 Dose: 50 mcg Ondansetron HCl (Ondansetron Inj 2 Mg/Ml Inj 2 Ml) 4 mg IVP Q4HR PRN; Protocol PRN Reason: NAUSEA OR VOMITING Stop: 08/30/25 11:58 Last Admin: 08/05/25 12:25 Dose: 4 mg Pantoprazole Sodium (Pantoprazole Inj 40 Mg Vial) 40 mg IVP QDAY HERO Stop: 09/05/25 08:59 Last Admin: 08/07/25 08:05 Dose: 40 mg Pharmacy Consult (Vancomycin Pharmacy To Dose 1 Each Each) 1 each IV QDAY PRN PRN Reason: PROTOCOL Stop: 09/03/25 08:59 Pharmacy Consult (Pharmacy Renal Dose Adjustment 1 Ea) 1 each XX PRN PRN PRN Reason: CONSULT Stop: 09/05/25 08:26 Sodium Chloride (Sodium Chloride Rt 10% 15 Ml Nebu) 5 ml INH X1 PRN PRN Reason: SPUTUM CLEARANCE Stop: 09/04/25 23:35 Discontinued Medications Hydrocodone Bitart/Acetaminophen (Hydrocodone/Apap 5/325 Tablet) 1 tab PO Q6HR PRN PRN Reason: PAIN Stop: 08/09/25 12:23 Last Admin: 08/05/25 01:28 Dose: 1 tab Alprazolam (Alprazolam 0.25 Mg Tablet) 1 mg PO HS PRN PRN Reason: INSOMNIA Stop: 08/05/25 15:47 Last Admin: 08/04/25 21:50 Dose: 1 mg Alprazolam (Alprazolam 0.25 Mg Tablet) 1.5 mg PO HS HERO Stop: 08/09/25 20:59 Ascorbic Acid (Ascorbic Acid 250 Mg Tablet) 500 mg PO BID HERO Stop: 08/27/25 20:59 Last Admin: 08/05/25 23:20 Dose: Not Given Aspirin (Aspirin Ec 81 Mg Tabec) 81 mg PO QDAY HERO Stop: 09/03/25 08:59 Dextrose (Dextrose 50%-Water Inj 50 Ml Syringe) 25 ml IV Q15MIN PRN PRN Reason: BG 50-70 responsive npo pt Stop: 08/28/25 12:20 Dextrose (Dextrose 50%-Water Inj 50 Ml Syringe) 50 ml IV Q15MIN PRN PRN Reason: BG <50 OR BG <70 & pt unresponsive Stop: 08/28/25 12:20 Diphenhydramine HCl (Diphenhydramine Inj 50 Mg/Ml Vial) 25 mg IVP Q6HR PRN PRN Reason: ITCHING Stop: 08/29/25 12:07 Last Admin: 07/30/25 12:19 Dose: 25 mg Diphenhydramine HCl (Diphenhydramine Inj 50 Mg/Ml Vial) 12.5 mg IVP X1 ONE Stop: 08/05/25 11:53 Last Admin: 08/05/25 12:24 Dose: 12.5 mg Docusate Sodium (Docusate Sod 100 Mg Capsule) 100 mg PO BID [facility]; Protocol Stop: 08/27/25 20:59 Last Admin: 08/05/25 23:20 Dose: Not Given Enoxaparin Sodium (Enoxaparin Sod Inj 30 Mg/0.3 Ml Syringe) 30 mg SC QDAY HERO Stop: 08/13/25 11:59 Last Admin: 08/05/25 09:22 Dose: 30 mg Fentanyl Citrate (Fentanyl Cit Inj 50 Mcg/Ml Amp 2ml) 25 mcg IVP Q5M PRN PRN Reason: PAIN SCALE 1-3 (mild Stop: 07/28/25 15:10 Last Admin: 07/28/25 15:56 Dose: 25 mcg Furosemide (Furosemide Inj 10 Mg/Ml Vial 2 Ml) 20 mg IVP X1 ONE Stop: 08/04/25 18:31 Last Admin: 08/04/25 19:29 Dose: 20 mg Heparin Sodium (Beef Lung) (Heparin Sod Lock Syr 100 Unit/Ml) 500 unit STFIELD X1 ONE Stop: 08/03/25 13:41 Last Admin: 08/03/25 13:42 Dose: 500 unit Hydromorphone HCl (Hydromorphone Inj 2 Mg/Ml Vial) 0.4 mg IVP Q5M PRN PRN Reason: PAIN SCALE 7-10 (Severe Stop: 07/28/25 15:11 Last Admin: 07/28/25 16:08 Dose: 0.4 mg Cefoxitin Sodium 2 gm/ Sodium (Chloride) 50 mls @ 100 mls/hr IV X1 ONE Stop: 07/28/25 06:29 Lactated Ringer's (Lactated Ringers) 1,000 mls @ 20 mls/hr IV .Q24H ONE Stop: 07/29/25 05:59 Potassium Chloride/Dextrose/Sod Cl (Kcl 20 Meq/L In D5-1/2ns) 20 meq in 1,000 mls @ 60 mls/hr IV .[id number] [facility] Stop: 08/27/25 17:02 Last Admin: 07/29/25 09:23 Dose: 60 mls/hr Cefoxitin Sodium 2 gm/ Sodium (Chloride) 50 mls @ 100 mls/hr IV Q8HR HERO Stop: 08/04/25 21:59 Last Admin: 08/03/25 21:21 Dose: 100 mls/hr Acetaminophen (Ofirmev Inj) 1,000 mg in 100 mls @ 250 mls/hr IV Q6HR HERO Stop: 07/29/25 06:23 Last Admin: 07/29/25 05:13 Dose: 250 mls/hr Acetaminophen (Ofirmev Inj) 1,000 mg in 100 mls @ 250 mls/hr IV Q8HR PRN PRN Reason: PAIN 1-6 (mild-mod Stop: 07/30/25 14:23 Acetaminophen (Ofirmev Inj) 1,000 mg in 100 mls @ 250 mls/hr IV Q8HR PRN PRN Reason: PAIN 1-6 (mild-mod Magnesium Sulfate 2 gm/Multivitamins/Minerals 10 ml/Amino Acids 2,014 mls @ 30 mls/hr IV .Q24H [facility] Stop: 08/28/25 17:59 Last Admin: 07/30/25 21:19 Dose: Not Given Sodium Phosphate 15 mmol/Magnesium Sulfate 2 gm/Multivitamins/Minerals 10 ml/Amino Acids 2,019 mls @ 90 mls/hr IV .[id number] [facility] Stop: 07/31/25 16:25 Last Admin: 07/30/25 18:16 Dose: 90 mls/hr Fat Emulsion Intravenous (Intralipid 20% Iv) 500 mls @ 32 mls/hr IV MoFr@1800 [facility] Stop: 08/30/25 17:59 Last Admin: 08/04/25 17:59 Dose: 32 mls/hr Amino Acids/Electrolytes/Dextrose (Clinimix E 4.25/5) 2,000 mls @ 90 mls/hr IV .[id number] HERO Stop: 08/01/25 14:43 Last Admin: 07/31/25 16:15 Dose: 90 mls/hr Sodium Acetate 80 meq/Potassium Phosphate 42 mmol/Multivitamins/Minerals 10 ml/Amino Acids 2,064 mls @ 90 mls/hr IV .[id number] HERO Stop: 08/02/25 13:25 Last Admin: 08/01/25 14:13 Dose: 90 mls/hr Acetaminophen (Ofirmev Inj) 1,000 mg in 100 mls @ 250 mls/hr IV Q8HR HERO Stop: 08/02/25 14:23 Last Admin: 08/02/25 14:31 Dose: 250 mls/hr Potassium Acetate 20 meq/Amino Acids/Electrolytes/Dextrose 2,010 mls @ 90 mls/hr IV .[id number] [facility] Stop: 08/03/25 11:49 Last Admin: 08/02/25 13:29 Dose: 90 mls/hr Amino Acids/Electrolytes/Dextrose (Clinimix E 4.25/5) 2,000 mls @ 90 mls/hr IV .[id number] [facility] Stop: 08/06/25 06:30 Last Infusion: 08/06/25 09:54 Dose: Infused Cefepime HCl 1 gm/ Sodium (Chloride) 50 mls @ 100 mls/hr IV Q12HR HERO Stop: 08/11/25 01:45 Vancomycin HCl 1,000 mg/ (Sodium Chloride) 250 mls @ 120 mls/hr IV X1 ONE Stop: 08/04/25 04:04 Lactated Ringer's (Lactated Ringers) 500 mls @ 125 mls/hr IV .Q4H HERO Stop: 08/04/25 05:47 Piperacillin/Tazobactam/Dextrose (Zosyn) 50 mls @ 100 mls/hr IV Q8HR HERO; Protocol Stop: 08/11/25 01:51 Piperacillin/Tazobactam/Dextrose (Zosyn) 3.375 gm in 50 mls @ 100 mls/hr IV X1 ONE; Protocol Stop: 08/04/25 02:29 Last Admin: 08/04/25 02:55 Dose: 100 mls/hr Lactated Ringer's (Lactated Ringers) 500 mls @ 125 mls/hr IV .Q4H [facility] Stop: 08/04/25 05:47 Last Admin: 08/04/25 02:15 Dose: 125 mls/hr Doxycycline Hyclate 100 mg/ (Sodium Chloride) 100 mls @ 100 mls/hr IV BID HERO Stop: 08/11/25 02:14 Last Admin: 08/04/25 02:24 Dose: 100 mls/hr Vancomycin/Sodium Chloride (Vancomycin/Ns 1 Gm Ivpb) 200 mls @ 120 mls/hr IV X1 ONE Stop: 08/04/25 10:39 Last Admin: 08/04/25 09:57 Dose: 120 mls/hr Vancomycin/Sodium Chloride (Vancomycin/Ns 750 Mg Ivpb) 750 mg in 150 mls @ 120 mls/hr IV Q24H [facility]; Protocol Stop: 08/12/25 09:59 Last Admin: 08/05/25 10:27 Dose: 120 mls/hr Potassium Chloride (Kcl Ivpb) 10 meq in 100 mls @ 100 mls/hr IV Q1H HERO Stop: 08/05/25 15:59 Last Admin: 08/05/25 16:06 Dose: 100 mls/hr Potassium Acetate 40 meq/Multivitamins/Minerals 10 ml/Amino Acids/Electrolytes/Dextrose 2,030 mls @ 90 mls/hr IV .[id number] [facility] Stop: 08/07/25 06:30 Lactated Ringer's (Lactated Ringers) 1,000 mls @ 999 mls/hr IV .Q1H1M ONE Stop: 08/05/25 17:18 Last Admin: 08/05/25 16:30 Dose: Not Given Lactated Ringer's (Lactated Ringers) 500 mls @ 999 mls/hr IV .Q31M ONE Stop: 08/05/25 17:06 Last Admin: 08/05/25 16:41 Dose: 999 mls/hr Sodium Chloride (Ns) 250 mls @ 999 mls/hr IV .Q16M ONE Stop: 08/06/25 00:49 Last Admin: 08/06/25 00:34 Dose: 999 mls/hr Lactated Ringer's (Lactated Ringers) 1,000 mls @ 100 mls/hr IV .Q10H ONE Stop: 08/06/25 10:35 Last Infusion: 08/07/25 09:55 Dose: Infused Albumin Human (Albuminex 25% Ivpb) 25 gm in 100 mls @ 100 mls/hr IV X1 ONE Stop: 08/06/25 02:07 Last Infusion: 08/06/25 02:10 Dose: Infused Albumin Human (Albuminex 25% Ivpb) 25 gm in 100 mls @ 100 mls/hr IV X1 ONE Stop: 08/06/25 03:59 Last Infusion: 08/06/25 03:10 Dose: Infused Micafungin Sodium 100 mg/ (Sodium Chloride) 100 mls @ 100 mls/hr IV QDAY HERO Stop: 08/11/25 07:59 Last Admin: 08/07/25 08:06 Dose: 100 mls/hr Vancomycin/Sodium Chloride (Vancomycin/Ns 500 Mg Ivpb) 100 mls @ 120 mls/hr IV QDAY@1000 HERO; Protocol Stop: 08/13/25 09:59 Last Admin: 08/07/25 10:29 Dose: Not Given Lactated Ringer's (Lactated Ringers) 1,000 mls @ 100 mls/hr IV .Q10H HERO Stop: 09/05/25 12:08 Last Infusion: 08/07/25 09:55 Dose: Infused Sodium Chloride (Ns) 250 mls @ 999 mls/hr IV .Q16M ONE Stop: 08/07/25 07:46 Last Infusion: 08/07/25 09:55 Dose: Infused Ketorolac Tromethamine (Ketorolac Inj 30 Mg/Ml Vial) 15 mg IVP X1 ONE Stop: 07/28/25 16:40 Last Admin: 07/28/25 16:44 Dose: 15 mg Levalbuterol HCl (Levalbuterol Rt 1.25 Mg/0.5 Ml Nebu) 1.25 mg INH Q4HRRT PRN PRN Reason: shortness of breath/wheezing Stop: 09/03/25 02:59 Levothyroxine Sodium (Levothyroxine Sodium 88 Mcg Tablet) 88 mcg PO ACBR HERO Stop: 08/28/25 05:59 Last Admin: 08/05/25 05:26 Dose: Not Given Lidocaine HCl (Lidocaine Inj Pf 1% 5 Ml Vial) 3 ml EPID X1 ONE Stop: 08/03/25 13:41 Last Admin: 08/03/25 13:42 Dose: 3 ml Metoclopramide HCl (Metoclopramide Inj 5 Mg/Ml Vial 2 Ml) 10 mg IVP Q6HR [facility]; Protocol Stop: 08/30/25 17:59 Last Admin: 08/05/25 23:21 Dose: 10 mg Morphine Sulfate (Morphine Sulf Inj 4 Mg/Ml Vial) 3 mg IV Q5M PRN PRN Reason: PAIN SCALE 4-6 (Moderate Stop: 07/28/25 15:11 Morphine Sulfate (Morphine Sulf Inj 4 Mg/Ml Vial) 2 mg IVP Q2H PRN PRN Reason: PAIN SCALE 7-10 (Severe Stop: 08/02/25 17:20 Last Admin: 08/02/25 13:29 Dose: 2 mg Morphine Sulfate (Morphine Sulf Inj 4 Mg/Ml Vial) 2 mg IVP Q2HR PRN PRN Reason: PAIN SCALE 7-10 (Severe Stop: 08/07/25 19:59 Last Admin: 08/04/25 05:33 Dose: 2 mg Ondansetron HCl (Ondansetron Inj 2 Mg/Ml Inj 2 Ml) 4 mg IVP X1 ONE Stop: 07/28/25 13:11 Pantoprazole Sodium (Pantoprazole Inj 40 Mg Vial) 40 mg IVP QDAY [facility] Stop: 08/30/25 15:44 Last Admin: 08/03/25 09:05 Dose: 40 mg Pantoprazole Sodium (Pantoprazole 40 Mg Tablet) 40 mg PO QDAY [facility]; Protocol Stop: 09/03/25 08:59 Last Admin: 08/05/25 09:23 Dose: 40 mg Pharmacy Consult (Vancomycin Pharmacy To Dose 1 Each Each) 1 each IV QDAY [facility] Stop: 09/03/25 08:59 Primidone (Primidone 50 Mg Tablet) 250 mg PO Q12HR [facility] Stop: 08/02/25 20:59 Last Admin: 08/02/25 09:37 Dose: 250 mg Sodium Chloride (Sodium Chloride Rt Elena 0.9% 3 Ml Nebu) 3 ml INH PRN PRN PRN Reason: SOLN Stop: 09/03/25 02:01 Zinc Sulfate (Zinc Sulfate 220 Mg Capsule) 220 mg PO QDAY [facility] Stop: 08/28/25 08:59 Last Admin: 08/05/25 09:23 Dose: 220 mg Assessment & Plan Plan 79-year-old female with complex medical history, including diverticulitis and septic shock, presenting with acute kidney injury, oliguria, and worsening renal function, managed in ICU with pressor support, mechanical ventilation, and scheduled for dialysis line placement tomorrow. #Acute Kidney Injury on Chronic Kidney Disease Likely secondary to poor oral intake, prolonged dehydration from surgical complications, and possible nephrotoxic effects from sepsis and antibiotics. Creatinine trending upward (1.5 today vs. 1.4 yesterday). Oliguria/anuria (10-20 cc/hr) likely due to fluid resuscitation and worsening shock. Plan: Since NICOM revealed no fluid responsiveness, fluids will not be resumed. Continue close monitoring of urine output and hemodynamic status. Strict I&Os. Avoid nephrotoxins and hold nephrotoxic medications. Continue daily renal panel to monitor BUN, creatinine, and electrolytes. If urine output continues to decline or uremic symptoms develop, consider renal replacement therapy ([facility]). Dialysis line placement scheduled for tomorrow. Other active problems: #Septic Shock #Acute Hypoxic Respiratory Failure #Feculent Peritonitis #Normocytic Anemia #Leukocytosis #Hypothyroidism Management per ICU team ----- Plan discussed with attending physician Dr. Sari Porras MD PGY-1 Internal Medicine Attending Provider Attestation/Addendum Patient currently seen and examined with resident physician Dr. Porras. Note reviewed, agree with findings and recommendations. Patient currently on ventilator. Extensive surgical history with postop complications. Sepsis with KELSI, respiratory failure. Currently on fluids, vent support and antibiotics. Suspect patient going towards ATN with decreasing urinary output. If no improvement will consider renal replacement therapy in AM. Prognosis remains guarded. Plan of care discussed with ICU team. Thank you Pedro for allowing me to participate in the care of Ms. Holliday
--- NOTE | 2025-08-07 13:31 | PC.SS ---
Updated: Patient remains intubated/sedated. Patient receiving pressor support. Patient on TPN. Patient is receiving IV antibiotics. Afebrile. Dr. Barcenas consulting.
--- NOTE | 2025-08-07 13:39 | ESPR_ITS ---
<Statement entered by Kendrick Bueno MD - 08/08/25 10:33> TOTAL CC TIME: 45 MIN I saw and evaluated the patient. I reviewed the resident?s note and agree with findings and plan as documented in the resident?s note. Upon my evaluation, this patient had a high probability of imminent or life- threatening deterioration due to septic shock, acute kidney injury, acute hypoxic respiratory failure, perforated abdominal viscera, which required my direct attention, intervention, and personal management. This time is exclusive of time spent on procedures, which are documented separately if performed. Mrs. Holliday remains critically ill relying on 2 pressors to maintain adequate mean arterial pressures despite appropriate fluid resuscitation. She likely has some degree of ATN with reduced urine output despite adequate resuscitation. No emergency indications for hemodialysis, continue to monitor urine output and avoid nephrotoxic agents Source control has not been appropriately managed until she is able to tolerate going back to the operating room for repeat washout exploration and possible anastomosis. Fungemia is yet to be speciated. My preference would be to keep her on micafungin due to her septic shock; however ID travel service consultant has switched her to fluconazole we will await culture results. Peritoneal cultures are still pending. Family updated at bedside <Statement entered by Iglesia Anderson MD - 08/07/25 16:52> Patient was seen and examined at the bedside in ICU. Overnight, patient's Levophed requirement increased from 0.13-0.17 along with vasopressin. Patient remained sedated with propofol and fentanyl. Patient had minimal output from NG tube. She remained afebrile. Urine output has decreased from 50 cc to 20 cc/h overnight. Nephrology has been consulted for possible need of dialysis however patient is currently producing urine will closely monitor and discuss with nephrology team tomorrow. Stress dose steroids were not considered to be added given concern for yeast infection in the blood. Patient was on Ringer's lactate 100 cc since yesterday however patient has not been making much urine therefore NICOM was performed which showed the patient is not fluid responsive. Fluids were discontinued. Currently awaiting peritoneal culture results. Surgeon came and spoke to the family and stated that if patient's pressor requirement come down tomorrow we will likely take her to the operative room and if not then they will wait for another day. TPN was started. ID recommended to change micafungin to fluconazole. ID was concern for C. difficile however stool sample could not be obtained as patient was not having bowel movement. Hemoglobin has been stable therefore serial H&H were stopped. NG tube will be continued with low continuous suctioning. Ventilator settings were adjusted for lung protective measures with tidal volume 320, respiratory rate 26, PEEP 7. I discussed and supervised with the transportation logistics internship physician who took care of this patient. I personally saw and examined the patient. I agree with most of the assessment and plan. Disclaimer: Despite multiple revisions, due to the dictation software being used, the document bellow may not be free of grammatical errors including phonetic/typographic errors. However, this does not deter from our commitment to providing health care in the patient's best interest in mind. Plan of care discussed with attending Physician Dr. Ximena Anderson MD PGY-3 Documentation for date of: 08/07/25 Subjective Subjective Interval history: 08/07/2025: Overnight, patient required an uptitration of Levophed from 0.13 to 0.17 mcg/kg/min, while vasopressin was maintained at 0.03 units/min. Patient remained sedated with Propofol 10 mcg/kg/min and Fentanyl 175 mcg/hr. The wound vac, connected to continuous suction, produced 200 cc of output. Minimal output was noted from the NG tube. Patient remained afebrile. Urine output has decreased from 45-50 cc/hour yesterday to 10-20 cc/hour overnight. Nephrology was consulted. Plan to place dialysis catheter tomorrow (08/08). Although stress-dose steroids are often considered for patients requiring two vasopressors to help reduce the dose of pressors, they are not indicated due to septic shock, as their use does not impact mortality. NICOM was performed this morning, with a 250 cc/hr fluid bolus, and the results indicated that the patient is not fluid-responsive. As a result, the administration of LR at 100 ml/hr was discontinued. TPN was initiated on 08/07. Dr. Barcenas (surgeon) plans to take the patient back to the operating room on 08/08 if patient is stable. ID changed the patient's antifungal regimen from Micafungin to Fluconazole. ID also wanted a C diff PCR test however patient is not having bowel movements and so unable to obtain sample. L Admission to ICU: 10/26 - NG tube and wound vac placed with low continuous suction as per surgery recommendations. - Vent settings adjusted for permissive hypercapnia as patient as history of COPD. - Propofol and Fentanyl started for sedation, with a RASS of -3. - Levophed started for blood pressure support. Vasopressin added. - Right IJ central line placed. - PICC line removed. - Point of care ultrasound showed minimal respiratory variation in IVC, indicating adequate fluid resuscitation. - Right side pleural effusion and free fluid noted, without loculation, suggesting transudative pleural effusion from fluid resuscitation; no intervention needed at this time. . - Peritoneal culture was taken. - Chemical prophylaxis was held due to acute drop in hemoglobin. Transfused 1 unit pRBC for hemoglobin of 7.2; post-transfusion hemoglobin was 9.7. - Plan to start TPN on 08/07. - Trialed pressure support ventilation but the patient became apneic. Switched back to AC mode. - Started LR at 1000 cc @ 100 mL/hr. - Current urine output was 45-50 cc/hr; if urine output slows, fluids will be increased. - Fluids will be stopped once TPN is initiated. 79-year-old female with a significant medical history of diverticulitis (status post colectomy and colostomy for perforated diverticulitis in 09/2022), hypothyroidism, coronary artery disease with angioplasty and stent placement, hypertension, hyperlipidemia, and chronic obstructive pulmonary disease presented for colostomy reversal with Dr. Barcenas. Surgery 07/28: Patient underwent an exploratory laparotomy, lysis of adhesions, reversal of colostomy with colorectal anastomosis, cholecystectomy, splenectomy, and left salpingo-oophorectomy. Postoperative Course: 07/29 - 07/31 (Postop days 1-3): NPO, PPN, started IV antibiotics (Cefoxitin and Doxycycline). Awaiting return of GI function. 08/01 - 08/02 (Postop days 4-5): NPO, PPN, IV antibiotics. Hemoglobin and WBC trending down. Awaiting return of GI function. 08/03 (Postop day 6): Sips of clears initiated. PICC line placed by IR. Awaiting return of GI function. 08/04 (Postop day 7): Rapid response called for tachycardia in the 170s. - Night IM team consulted. CXR showed significant bibasilar pneumonia. - IV Antibiotics were changed to Vancomycin and Zosyn. - Transfused 2 units pRBC. - KUB showed SBO pattern. - Blood cultures ordered. - Awaiting return of GI function. 08/05 (Postop day 8): Rapid response #2 called for desaturation to 83% on nasal cannula. - Patient placed on HFNC. - Developed dark-colored vomitus, and NG tube was placed. - Dressing was soiled, with brown fecal discharge noted at the incision site. - Distended abdomen noted. - CT showed dilated loops of small bowel with fluid in the abdomen, suggestive of a leak from the anastomosis site. Surgical Intervention 08/04: - Patient taken back to the OR. - Findings included significant feculent peritonitis, 5 small bowel perforations, and a leak at the anastomosis site. - Two segmental resections of small bowel and resection of the colorectal anastomosis were performed. - Abdomen was left open with a wound vac. Plan to return to OR in 48 to 72 hours for reexploration, - Patient was transferred to the ICU. Exam Vital Signs Temp Pulse Resp BP Pulse Ox O2 Del Method O2 Flow Rate 96.6 F L 72 20 113/44 L 95 Mechanical Ventilation 30 08/06/25 12:00 08/07/25 13:15 08/07/25 06:15 08/07/25 13:15 08/07/25 13:15 08/06/25 12:00 08/05/25 18:38 FiO2 40 08/07/25 10:01 Narrative Exam Physical Exam General: Sedated, NGT on suction. RASS -2: briefly awakens to voice with eye- opening to voice, responds to noxious stimuli. Head: Normocephalic, atraumatic. Eyes: Pupils equally round and reactive to light. Anicteric. Mouth/Throat: ETT in place. Heart: Regular rate and rhythm, no murmurs. No JVD. Lungs: Clear to auscultation with no wheezing or crackles. Non-labored respirations, symmetric chest rise, no use of accessory muscles. On mechanical ventilation. Abdomen: Vertical incision, wound vac on suction. Dressing is clean, dry and intact. : Casey in place. Extremities: No edema. Posterior tibial pulses are 2+ bilaterally. 2+ radial pulse bilaterally. No clubbing or cyanosis. No mottling. SCDs. Skin: No rash. Objective Labs 08/07/25 09:00 08/07/25 05:02 Labs: Laboratory Results - last 24 hr 08/06/25 08/06/25 08/07/25 13:41 17:57 02:20 WBC RBC Hgb 9.7 L D 10.0 L 9.6 L Hct 29.2 L 30.1 L 29.1 L MCV MCH MCHC RDW Std Deviation Plt Count Neut % (Auto) Lymph % (Auto) [place] % (Auto) Eos % (Auto) Baso % (Auto) Neut # (Auto) Lymph # (Auto) [place] # (Auto) Eos # (Auto) Baso # (Auto) Immature Gran # (Auto) Absolute Nucleated RBC Immature Gran % Nucleated RBC % Smear Path Review Sodium Potassium Chloride Carbon Dioxide Anion Gap BUN Creatinine Estim Creat Clear Calc eGFR BUN/Creatinine Ratio Glucose Calculated Osmolality Calcium Corrected Calcium Phosphorus Magnesium Total Bilirubin AST ALT Alkaline Phosphatase Total Protein Albumin Globulin Albumin/Globulin Ratio Vancomycin Trough 08/07/25 08/07/25 05:02 09:00 WBC 46.3 H* RBC 2.98 L Hgb 9.4 L 9.1 L Hct 28.7 L 27.7 L MCV 96 MCH 31.5 MCHC 32.8 RDW Std Deviation 64.7 H Plt Count 386 D Neut % (Auto) 76 Lymph % (Auto) 5 L [place] % (Auto) 10 Eos % (Auto) 0 Baso % (Auto) 0 Neut # (Auto) 35.4 H Lymph # (Auto) 2.1 [place] # (Auto) 4.7 H Eos # (Auto) 0.2 Baso # (Auto) 0.1 Immature Gran # (Auto) 3.84 H Absolute Nucleated RBC 7.42 H Immature Gran % 8 H Nucleated RBC % 16 H Smear Path Review Cancelled Sodium 138 Potassium 4.3 Chloride 105 Carbon Dioxide 21.6 Anion Gap 11 BUN 43 H Creatinine 1.5 H Estim Creat Clear Calc 28.2 L eGFR 36 L BUN/Creatinine Ratio 29 H Glucose 100 D Calculated Osmolality 286 Calcium 8.4 Corrected Calcium 9.4 Phosphorus 4.5 Magnesium 1.9 Total Bilirubin 1.5 H AST 27 ALT 25 Alkaline Phosphatase 154 H D Total Protein 4.1 L Albumin 2.7 L D Globulin 1.4 L Albumin/Globulin Ratio 1.9 Vancomycin Trough 12.3 H ABG Interpretation ABG results: 08/04/25 08/05/25 08/06/25 01:04 02:15 00:20 ABG pH 7.39 7.34 L 7.17 L* D ABG pCO2 38 41 58 H D ABG pO2 52 L* 54 L* 72 L ABG HCO3 23 22 21 ABG O2 Saturation 88 L 88 L 92 ABG Base Excess -2 -3 -7 L 08/06/25 08/06/25 03:26 05:45 ABG pH 7.27 L D 7.29 L ABG pCO2 47 D 46 ABG pO2 83 81 L ABG HCO3 22 22 ABG O2 Saturation 97 98 ABG Base Excess -5 L -4 L Quality Measures Quality Measures VTE prophylaxis Advance care planning discussed with:: other Assessment & Plan Assessment Current Active Medications: Generic Name Dose Route Start Last Admin Trade Name Freq PRN Reason Stop Dose Admin Glucagon 1 mg 07/29/25 12:21 Glucagon Inj 1 Mg Vial IM Q15MIN PRN BG <70, and no IV access Promethazine HCl 25 mg/ Sodium 51 mls @ 2.5 mls/min 07/31/25 15:43 Chloride IV 08/30/25 15:42 Q6HR PRN NAUSEA OR VOMITING Protocol Piperacillin Sod/Tazobactam 100 mls @ 200 mls/hr 08/04/25 08:30 08/07/25 05:44 Sod 4.5 gm/ Sodium Chloride IV 08/11/25 08:29 200 mls/hr Q8HR HERO Administration Protocol Propofol 1,000 mg in 100 mls @ 1.962 mls/hr 08/05/25 22:04 08/07/25 11:54 Diprivan Ivpb IV 09/04/25 22:03 10 mcg/kg/min .Q24H PRN 3.924 mls/hr PER PROTOCOL Administration Protocol 5 MCG/KG/MIN Fentanyl Citrate 2,500 mcg in 250 mls @ 2.5 mls/hr 08/05/25 22:04 08/07/25 10:00 Sublimaze Inj 2,500 Mcg/250 Ml Bag IV 08/10/25 22:03 175 mcg/hr .Q24H PRN 17.5 mls/hr PER PROTOCOL Titration Protocol 25 MCG/HR Norepinephrine/Dextrose 8 mg in 250 mls @ 6.131 mls/hr 08/06/25 00:35 08/07/25 12:10 Levophed In D5w 8mg/250ml IV 09/05/25 00:34 0.15 mcg/kg/min .Q24H PRN 18.394 mls/hr PER PROTOCOL Titration Protocol 0.05 MCG/KG/MIN Vasopressin/Sodium Chloride 20 unit in 100 mls @ 9 mls/hr 08/06/25 13:00 08/07/25 10:45 Vasostrict/Ns Ivpb IV 09/05/25 12:59 0.03 unit/min .Q11H7M PRN 9 mls/hr PER PROTOCOL Administration Protocol 0.03 UNIT/MIN Fluconazole 400 mg in 200 mls @ 100 mls/hr 08/07/25 10:08 08/07/25 10:45 Diflucan/Ns Ivpb IV 08/10/25 17:00 100 mls/hr QDAY HERO Administration Magnesium Sulfate 1 gm/ 1,017 mls @ 30 mls/hr 08/07/25 12:30 08/07/25 11:58 Multivitamins/Minerals 10 ml/ IV 08/08/25 12:29 30 mls/hr Potassium Acetate 10 meq/ Q24H HERO Administration Amino Acids Insulin Human Regular 0 unit 07/29/25 18:00 08/07/25 12:30 Insulin Hum Regular 1 Unit/0.01 Ml (Per Unit) SC 08/28/25 17:59 Not Given Q6HR HERO Protocol Levothyroxine Sodium 50 mcg 08/06/25 06:00 08/07/25 08:06 Levothyroxine Inj 100 Mcg Vial IV 09/05/25 05:59 50 mcg DAILY HERO Administration Ondansetron HCl 4 mg 07/31/25 11:59 08/05/25 12:25 Ondansetron Inj 2 Mg/Ml Inj 2 Ml IVP 08/30/25 11:58 4 mg Q4HR PRN Administration NAUSEA OR VOMITING Protocol Pantoprazole Sodium 40 mg 08/06/25 09:00 08/07/25 08:05 Pantoprazole Inj 40 Mg Vial IVP 09/05/25 08:59 40 mg QDAY HERO Administration Pharmacy Consult 1 each 08/04/25 09:00 Vancomycin Pharmacy To Dose 1 Each Each IV 09/03/25 08:59 QDAY PRN PROTOCOL Pharmacy Consult 1 each 08/06/25 08:27 Pharmacy Renal Dose Adjustment 1 Ea XX 09/05/25 08:26 PRN PRN CONSULT Sodium Chloride 5 ml 08/05/25 23:36 Sodium Chloride Rt 10% 15 Ml Nebu INH 09/04/25 23:35 X1 PRN SPUTUM CLEARANCE Plan 79-year-old female with a complex medical history, including perforated diverticulitis (status post colectomy and colostomy), hypothyroidism, coronary artery disease, hypertension, hyperlipidemia, and COPD, underwent a colostomy reversal, which was complicated by feculent peritonitis, requiring further surgery and ICU admission for hemodynamic support and mechanical ventilation. Neurology #Chemical sedation Treatment Plan: - Propofol and Fentanyl for sedation postintubation. RASS goal -3. - Titrate off sedatives as tolerated. - Sedation vacation to reduce risk of ICU delirium. Cardiovascular #Septic shock Distributive shock in setting of sepsis. Refractory hypotension requiring vasopressors. 08/06 around 8AM, a sepsis re-evaluation was performed. - Vital signs: T 97.0F, HR 72, BP 117/43, RR 22. MAP 68. MV. - Focused exam: Heart: RRR, no murmurs, peripheral pulses 2+ and symmetric in all extremities, capillary refill >2 seconds. Lungs: anterior lung epps clear to auscultation bilaterally. Skin: pale, no mottling. Diagnostic Test: - Point of care ultrasound 08/06 showed minimal respiratory variation in IVC, indicating adequate fluid resuscitation. - CT: bilateral pneumonic consolidation, pleural effusion. - Blood cultures pending. - Peritoneal fluid culture pending. Intra-abdominal peritonitis with fluid and pus. - Sputum culture pending. - MRSA screen negative. Treatment Review (completed): - IV crystalloid fluid bolus - 30 cc/kg given. - Right IJ central line placed 08/06. - PICC line removed 08/06. - Micafungin 100 mg IV daily (08/06-08/07). Treatment Plan: - Levophed 0.13 mcg/kg/min (titrate to maintain MAP > 65). - Vasopressin 0.03 units/min. - Stress dose steroids were not started as there is a concern for fungal infection in blood - Discontinued LR 100 mls/hr (maintenance) as NICOM showed that patient is not fluid responsive. - Sedation: Propofol 10 and Fentanyl 175. - Continue Vancomycin (08/06-). - Continue Zosyn 4.5 gram IV Q8HR (08/04-). - Start Fluconazole 400 mg in 200 ml IV daily (08/07-). Respiratory #Acute hypoxic respiratory failure DDx: likely multifactorial - aspiration pneumonia vs transudative pleural effusion from fluid resuscitation vs pneumonic consolidation. Diagnostic Test: - Patient was intubated intraop by anesthesia. - Longstanding history of COPD , not on home oxygen. - ABG 08/06 12:20: pH 7.17, pCO2 58. - ABG 08/06 3:26: pH 7.27, pCO2 47. - ABG 08/06 5:45: pH 7.29, pCO2 46. - CXR 08/06: significant bibasilar pneumonia. Treatment Plan: - Continue MV settings: AC/VC VT 320, RR 26, PEEP 7, FiO2 40%. Ppeak 20.5, Pplat 17.1. - Allow for permissive hypercapnia for lung-protective ventilation. - Continue Vancomycin (08/06-). - Continue Zosyn 4.5 gram IV Q8HR (08/04-). - Trial pressure support as tolerated. - Pleural effusion present on POCUS on 08/06, thoracentesis is not indicated at this time, as the fluid is likely transudative secondary to fluid resuscitation. A follow-up POCUS will be performed in a few days to assess whether the fluid remains hypoechoic and does not exhibit features suggestive of fibrosis or loculated fluid, which would indicate an exudative process. If the fluid characteristics change, thoracentesis will be considered at that time. #Transudative pleural effusion Likely from fluid resuscitation. Diagnostic Test: - Pleural effusion present on POCUS on 08/06 Treatment Plan: - Thoracentesis is not indicated at this time, as the fluid is likely transudative secondary to fluid resuscitation. A follow-up POCUS will be performed in a few days to assess whether the fluid remains hypoechoic and does not exhibit features suggestive of fibrosis or loculated fluid, which would indicate an exudative process. If the fluid characteristics change, thoracentesis will be considered at that time. #History of COPD - No acute exacerbation at the moment. GI and F/E/N #Feculent peritonitis Diagnostic Test: - 07/28: colostomy reversal with colorectal anastomosis. - 08/05: exploratory laparotomy, lysis of adhesions, abdominal washout. Segmental resection of small bowel containing perforations. Resection of colorectal anastomosis. Admitted to ICU post ex lap, intubated on MV. Treatment Plan: - NG tube on low continuous suction. - Wound VAC in place for vertical abdominal incision. Clean, intact, no discharge. On continuous suction as per general surgery recs. - Continue empiric coverage with Vancomycin and Zosyn. - Started TPN on 08/07. - PRN Reglan and Promethazine for nausea/vomiting. - Protonix 40mg IV daily for GI prophylaxis. - General surgery following, appreciate recommendations. - Will return to OR on 08/08 for reexploration, small bowel anastomosis with colostomy if patient is stable. 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 Diagnostic Test: - Cr 1.2 (baseline 1). - BUN 46. - GFR 40s (baseline 50s). Treatment Plan: - Discontinued LR 100 mls/hr as NICOM showed patient is not fluid responsive. - Daily renal panel to trend BUN, Cr, and electrolytes. - Avoid nephrotoxins - Renally dose meds as appropriate. - Urine output and renal function will continue to be monitored. Patient may have developed acute tubular necrosis secondary to septic shock. If renal function continues to deteriorate, dialysis will be considered. Nephrology has been consulted. Heme #Normocytic anemia #Acute blood loss DDx: likely due to blood loss during surgery Diagnostic Test: - Hemoglobin 10.5 --> 7.1 --> 7.2. - MCV 90. - No active signs of bleeding noted. - Chemical DVT prophylaxis held until hemoglobin stabilizes. SCDs ordered. Treatment Plan: - Transfused 1 unit of pRBCs today. Repeat hemoglobin 9.7. - Monitor H&H - IVF resuscitation to maintain MAP > 65 - IV Pantoprazole QD. - Transfuse if Hgb < 8. #Leukocytosis DDx: likely in the setting of anastomotic leak, s/p surgical reversal. Diagnostic Test: - WBC 37 -> 30 --> 43.7 --> 46.3. - Afebrile. Treatment Plan - Continue IV Vancomycin and Zosyn. - Monitor daily CBC. - Follow-up general surgery recommendations. Endo #Hypothyroidism Treatment Plan: - Hold home medication levothyroxine 88 mcg daily. - Started IV levothyroxine 50 mcg daily. ID #Candidemia Diagnostic Test: - 08/04 blood culture: yeast. Treatment Plan: - Discontinued Micafungin 100 mg IV daily (08/06-08/07). - Fluconazole 400 mg in 200 ml IV daily (08/07-). Health Maintenance DVT prophylaxis: Hold heparin for now until hemoglobin stable, SCDs. GI prophylaxis: Pantoprazole 40 mg IV daily Diet: TPN. Casey: Present Lines: Peripheral IV. Right IJ central line. Drips: Levophed, Vasopressin Vent: MV, PPlat <30 and TV < 8 ml/kg IBW CODE STATUS: FULL Patient discussed with my senior resident and attending, Dr. Bueno. Tito Garcia, DO Internal Medicine, PGY-1
[2025-08-07] MEDS: Norepinephrine/D5W 8mg/250ml 8 MG/250 ML BAG 18.394 MG IV (16:21)
[2025-08-07 18:57] LABS: Hematocrit 26.5 % (36.0-46.0)
[2025-08-07 19:37] LABS: Hemoglobin 8.6 g/dL (12.0-16.0)
[2025-08-08] VITALS (104 sets, daily range): BP systolic 0–173; BP diastolic 0–89; PULSE 53–82; RESP 26–30; TEMP 36.4–36.9; O2SAT 93–100; BMI 26.4
[2025-08-08] MEDS: Norepinephrine/D5W 8mg/250ml 8 MG/250 ML BAG 20.847 MG IV (05:25)
[2025-08-08 05:59] LABS: Basophils # (Auto) 0.1 Thou/mm3 (0.0-0.2); Basophils % (Auto) 0 % (0-2.5); Eosinophils # (Auto) 0.4 Thou/mm3 (0.0-0.5); Eosinophils % (Auto) 1 % (0-10); Hematocrit 26.1 % (36.0-46.0); Immature Granulocytes Auto 2.99 Thou/mm3 (0.00-0.00); Lymphocytes # (Auto) 1.3 Thou/mm3 (1.0-4.8); Lymphocytes % (Auto) 3 % (10-50); Mean Corpuscular HGB Conc 32.2 g/dl (31.0-37.0); Mean Corpuscular Hemoglobin 31.5 pg (25.0-35.0); Mean Corpuscular Volume 98 fL (80-100); Monocytes # (Auto) 3.0 Thou/mm3 (0.0-0.8); Monocytes % (Auto) 8 % (0-12); Neutrophils # (Auto) 31.6 Thou/mm3 (1.8-7.7); Neutrophils % (Auto) 80 % (37-80); Nucleated Red Blood Cell # 7.25 Thou/mm3 (0.00-0.00); Nucleated Red Blood Cell % 18 /100 WBC (0); Platelet Count 447 Thou/mm3 (140-440); RDW Standard Deviation 65.1 fL (36.4-46.3); Red Blood Count 2.67 Miln/mm3 (4.00-5.20)
[2025-08-08 06:04] LABS: Hemoglobin 8.4 g/dL (12.0-16.0); White Blood Count 39.3 Thou/mm3 (3.6-11.0)
[2025-08-08 06:06] LABS: INR 1.0 (0.9-1.3); Partial Thromboplastin Time 28.9 Seconds (22.0-36.0); Prothrombin Time 11.1 Seconds (9.0-12.2)
[2025-08-08] MEDS: PIPER/TAZO INJ 4.5 GM in SODIUM CHLORIDE 0.9% (POP) 100 ML IV ×3 (06:11→21:44)
[2025-08-08 06:33] LABS: Alanine Aminotransferase 17 U/L (10-49); Albumin, Serum 2.6 gm/dL (3.4-4.8); Albumin/Globulin Ratio 1.7 (1.2-2.2); Alkaline Phosphatase 139 U/L (46-116); Anion Gap 12 (7-16); Aspartate Amino Transferase 19 U/L (0-34); BUN/Creatinine Ratio 27 Ratio (12-20); Bilirubin,Total 1.3 mg/dL (0.3-1.2); Blood Urea Nitrogen 40 mg/dL (9-23); Calcium 8.2 mg/dL (8.3-10.6); Calcium (Corrected) 9.3 mg/dL (8.5-10.1); Carbon Dioxide 19.8 mMol/L (20.0-31.0); Chloride 106 mMol/L (98-107); Creatinine (Component) 1.5 mg/dL (0.6-1.3); Estimated Creatinine Clearance 28.3 mL/min (>60); Globulin 1.5 gm/dL (2.3-3.5); Glucose 185 mg/dL (74-106); Magnesium 2.1 mg/dL (1.6-2.6); Osmolality,Calculated 290 (275-295); Phosphorous 3.5 mg/dL (2.4-5.1); Potassium 3.7 mMol/L (3.4-5.1); Sodium 138 mMol/L (136-145); Total Protein 4.1 gm/dL (5.7-8.2); eGFR 36 See Note
[2025-08-08 08:10] LABS: Base Excess -8 (-3-3); HCO3 20 mEq/L (20-26); O2 Saturation 94 % (91-98); PCO2 54 mmHg (32.0-48.0); PO2 73 mmHg (83-108)
[2025-08-08 08:12] LABS: Allen Test Not Performed; Inspired Oxygen, FIO2 40 %; Puncture Site Arterial Line; pH, Arterial 7.18 (7.35-7.45)
[2025-08-08] MEDS: FLUCONAZOLE/NS 400 MG IVPB 400 MG/200 ML BAG 100 MG IV (08:16)
[2025-08-08] MEDS: Sodium Bicarb Inj 8.4% SYR 50 ML SYRINGE IV ×2 (08:16)
--- NOTE | 2025-08-08 09:02 | PD.RESPRO ---
Documentation for date of: 08/08/25 Subjective Subjective Interval history: Reason for consult: KELSI History of present illness: Mr Holliday is a 79-year-old female presenting with oliguria/anuria and acute kidney injury (KELSI). Urine output has decreased from 45-50 cc/hr to 10-20 cc/hr, and the patient is in critical condition post-surgical complications, including feculent peritonitis, septic shock, and acute hypoxic respiratory failure. The patient has a complex medical history including diverticulitis status post-colectomy and colostomy, hypothyroidism, CAD with stent placement, hypertension, hyperlipidemia, and COPD. She underwent a colostomy reversal complicated by multiple surgeries, including a small bowel resection and anastomotic leak. Postoperatively, she developed septic shock, acute hypoxic respiratory failure, and KELSI. Fluid resuscitation was started, and she has been on pressors (Levophed and Vasopressin) and mechanical ventilation. Urine output has been declining since yesterday, prompting nephrology consultation. Yesterday, the patient was receiving LR 100 mL/hr. This morning, fluids were stopped after the ICU team performed a NICOM, revealing that the patient was not fluid responsive. The patient continues to be closely monitored for changes in renal function and hemodynamics. 08/07/2025: Today, the patient remains sedated and on mechanical ventilation. Urine output has decreased from 45-50 cc/h to 10-20 cc/h since yesterday. Fluid resuscitation with LR at 100 mL/hr was stopped this morning after NICOM showed no fluid responsiveness. The patient is on pressor support (Levophed and Vasopressin) for hypotension. Dialysis line is scheduled for placement tomorrow. She has no complaints as she is currently sedated and continues to be monitored closely in the ICU. Labs: Sodium 138, Potassium 4.3, Chloride 105, Bicarbonate 21.6, BUN 43, Creatinine 1.5, WBC 46.3, Hemoglobin 9.4, Platelets 386. 08/08/2025: Today, the patient remains sedated and on mechanical ventilation in the ICU. Urine output has increased to 1 L in the past 24 hours, so dialysis has been held for today. The patient is being closely monitored, and further reassessment will be done tomorrow. Labs: WBC 39.3, Hemoglobin 8.4, Hematocrit 26, Platelets 447, pH 7.18, pCO2 54, Bicarbonate 20, Sodium 138, Potassium 3.7, Chloride 106, CO2 19.8, Creatinine 1.5, Glucose 185, Calcium 9.3, Phosphorus 3.5, Magnesium 2.1. Exam Vital Signs Temp Pulse Resp BP Pulse Ox O2 Del Method O2 Flow Rate 97.5 F 68 27 H 116/43 L 97 Mechanical Ventilation 30 08/08/25 04:00 08/08/25 07:15 08/07/25 18:11 08/08/25 07:15 08/08/25 07:15 08/06/25 12:00 08/05/25 18:38 FiO2 40 08/08/25 07:31 Narrative Exam General: Sedated, on mechanical ventilation with NG tube in place. Head: Normocephalic, atraumatic. Eyes: Pupils equal, round, reactive to light. No icterus. Heart: Regular rate and rhythm, no murmurs. No JVD. Lungs: Clear to auscultation, no wheezing or crackles, non-labored respirations. Abdomen: Soft, non-tender, vertical incision with wound vac. No guarding or rebound. : Casey catheter in place. Extremities: No edema, symmetric pulses, no cyanosis or mottling. Skin: Intact, no rash. Objective Labs 08/08/25 04:28 08/08/25 04:28 Labs: Laboratory Results - last 24 hr 08/04/25 08/07/25 08/07/25 13:13 05:02 09:00 WBC RBC Hgb 9.1 L Hct 27.7 L MCV MCH MCHC RDW Std Deviation Plt Count Neut % (Auto) Lymph % (Auto) [place] % (Auto) Eos % (Auto) Baso % (Auto) Neut # (Auto) Lymph # (Auto) [place] # (Auto) Eos # (Auto) Baso # (Auto) Immature Gran # (Auto) Absolute Nucleated RBC Immature Gran % Nucleated RBC % Smear Path Review Cancelled PT INR APTT Puncture Site ABG pH ABG pCO2 ABG pO2 ABG HCO3 ABG O2 Saturation ABG Base Excess FiO2 Sodium Potassium Chloride Carbon Dioxide Anion Gap BUN Creatinine Estim Creat Clear Calc eGFR BUN/Creatinine Ratio Glucose Calculated Osmolality Calcium Corrected Calcium Phosphorus Magnesium Total Bilirubin AST ALT Alkaline Phosphatase Total Protein Albumin Globulin Albumin/Globulin Ratio Vancomycin Trough 12.3 H Crossmatch See Detail 08/07/25 08/08/25 08/08/25 18:29 04:28 08:04 WBC 39.3 H* D RBC 2.67 L Hgb 8.6 L 8.4 L Hct 26.5 L 26.1 L MCV 98 MCH 31.5 MCHC 32.2 RDW Std Deviation 65.1 H Plt Count 447 H D Neut % (Auto) 80 Lymph % (Auto) 3 L [place] % (Auto) 8 Eos % (Auto) 1 Baso % (Auto) 0 Neut # (Auto) 31.6 H Lymph # (Auto) 1.3 [place] # (Auto) 3.0 H Eos # (Auto) 0.4 Baso # (Auto) 0.1 Immature Gran # (Auto) 2.99 H Absolute Nucleated RBC 7.25 H Immature Gran % 8 H Nucleated RBC % 18 H Smear Path Review TNP PT 11.1 INR 1.0 APTT 28.9 Puncture Site Arterial Line ABG pH 7.18 L* D ABG pCO2 54 H ABG pO2 73 L ABG HCO3 20 ABG O2 Saturation 94 ABG Base Excess -8 L FiO2 40 Sodium 138 Potassium 3.7 D Chloride 106 Carbon Dioxide 19.8 L Anion Gap 12 BUN 40 H Creatinine 1.5 H Estim Creat Clear Calc 28.3 L eGFR 36 L BUN/Creatinine Ratio 27 H Glucose 185 H D Calculated Osmolality 290 Calcium 8.2 L Corrected Calcium 9.3 Phosphorus 3.5 Magnesium 2.1 Total Bilirubin 1.3 H AST 19 ALT 17 Alkaline Phosphatase 139 H Total Protein 4.1 L Albumin 2.6 L Globulin 1.5 L Albumin/Globulin Ratio 1.7 Vancomycin Trough Crossmatch ABG Interpretation ABG results: 08/04/25 08/05/25 08/06/25 01:04 02:15 00:20 ABG pH 7.39 7.34 L 7.17 L* D ABG pCO2 38 41 58 H D ABG pO2 52 L* 54 L* 72 L ABG HCO3 23 22 21 ABG O2 Saturation 88 L 88 L 92 ABG Base Excess -2 -3 -7 L 08/06/25 08/06/25 08/08/25 03:26 05:45 08:04 ABG pH 7.27 L D 7.29 L 7.18 L* D ABG pCO2 47 D 46 54 H ABG pO2 83 81 L 73 L ABG HCO3 22 22 20 ABG O2 Saturation 97 98 94 ABG Base Excess -5 L -4 L -8 L Quality Measures Quality Measures VTE prophylaxis Advance care planning discussed with:: patient Assessment & Plan Assessment Current Active Medications: Generic Name Dose Route Start Last Admin Trade Name Freq PRN Reason Stop Dose Admin Glucagon 1 mg 07/29/25 12:21 Glucagon Inj 1 Mg Vial IM Q15MIN PRN BG <70, and no IV access Promethazine HCl 25 mg/ Sodium 51 mls @ 2.5 mls/min 07/31/25 15:43 Chloride IV 08/30/25 15:42 Q6HR PRN NAUSEA OR VOMITING Protocol Piperacillin Sod/Tazobactam 100 mls @ 200 mls/hr 08/04/25 08:30 08/08/25 06:11 Sod 4.5 gm/ Sodium Chloride IV 08/11/25 08:29 200 mls/hr Q8HR HERO Administration Protocol Propofol 1,000 mg in 100 mls @ 1.962 mls/hr 08/05/25 22:04 08/08/25 06:00 Diprivan Ivpb IV 09/04/25 22:03 10 mcg/kg/min .Q24H PRN 3.924 mls/hr PER PROTOCOL Titration Protocol 5 MCG/KG/MIN Fentanyl Citrate 2,500 mcg in 250 mls @ 2.5 mls/hr 08/05/25 22:04 08/08/25 06:00 Sublimaze Inj 2,500 Mcg/250 Ml Bag IV 08/10/25 22:03 175 mcg/hr .Q24H PRN 17.5 mls/hr PER PROTOCOL Titration Protocol 25 MCG/HR Norepinephrine/Dextrose 8 mg in 250 mls @ 6.131 mls/hr 08/06/25 00:35 08/08/25 06:00 Levophed In D5w 8mg/250ml IV 09/05/25 00:34 0.17 mcg/kg/min .Q24H PRN 20.847 mls/hr PER PROTOCOL Titration Protocol 0.05 MCG/KG/MIN Vasopressin/Sodium Chloride 20 unit in 100 mls @ 9 mls/hr 08/06/25 13:00 08/07/25 21:51 Vasostrict/Ns Ivpb IV 09/05/25 12:59 0.03 unit/min .Q11H7M PRN 9 mls/hr PER PROTOCOL Administration Protocol 0.03 UNIT/MIN Fluconazole 400 mg in 200 mls @ 100 mls/hr 08/07/25 10:08 08/08/25 08:16 Diflucan/Ns Ivpb IV 08/10/25 17:00 100 mls/hr QDAY HERO Administration Magnesium Sulfate 1 gm/ 1,017 mls @ 30 mls/hr 08/07/25 12:30 08/07/25 11:58 Multivitamins/Minerals 10 ml/ IV 08/08/25 12:29 30 mls/hr Potassium Acetate 10 meq/ Q24H HERO Administration Amino Acids Magnesium Sulfate 2 gm in 50 mls @ 25 mls/hr 08/08/25 07:57 Magnesium Sulfate Ivpb IV 08/08/25 09:56 X1 ONE Potassium Phosphate 15 mmol in 250 mls @ 62.5 mls/hr 08/08/25 07:58 Pot Phos 15 Mmol In Ns 250 Ml IV 08/08/25 11:57 X1 ONE Sodium Chloride 250 mls @ 999 mls/hr 08/08/25 08:51 Ns IV 08/08/25 09:06 .Q16M ONE Insulin Human Regular 0 unit 07/29/25 18:00 08/08/25 06:11 Insulin Hum Regular 1 Unit/0.01 Ml (Per Unit) SC 08/28/25 17:59 Not Given Q6HR [facility] Protocol Levothyroxine Sodium 50 mcg 08/06/25 06:00 08/08/25 08:26 Levothyroxine Inj 100 Mcg Vial IV 09/05/25 05:59 50 mcg DAILY HERO Administration Ondansetron HCl 4 mg 07/31/25 11:59 08/05/25 12:25 Ondansetron Inj 2 Mg/Ml Inj 2 Ml IVP 08/30/25 11:58 4 mg Q4HR PRN Administration NAUSEA OR VOMITING Protocol Pantoprazole Sodium 40 mg 08/06/25 09:00 08/08/25 08:16 Pantoprazole Inj 40 Mg Vial IVP 09/05/25 08:59 40 mg QDAY HERO Administration Pharmacy Consult 1 each 08/04/25 09:00 Vancomycin Pharmacy To Dose 1 Each Each IV 09/03/25 08:59 QDAY PRN PROTOCOL Pharmacy Consult 1 each 08/06/25 08:27 Pharmacy Renal Dose Adjustment 1 Ea XX 09/05/25 08:26 PRN PRN CONSULT Sodium Chloride 5 ml 08/05/25 23:36 Sodium Chloride Rt 10% 15 Ml Nebu INH 08/13/25 23:35 X1 PRN SPUTUM CLEARANCE Plan 79-year-old female with septic shock, KELSI, and acute hypoxic respiratory failure, showing improved urine output, no need for dialysis today, and ongoing management in the ICU with pressor support and mechanical ventilation. #Acute Kidney Injury on Chronic Kidney Disease Likely secondary to poor oral intake, prolonged dehydration from surgical complications, and possible nephrotoxic effects from sepsis and antibiotics. Creatinine stable at 1.5 Urine output has increased to 1 L over the past 24 hours, so dialysis is held for today. Plan: Reassess dialysis requirement tomorrow based on urine output and renal function trends. Administer sodium bicarbonate to correct acidosis. Administer potassium phosphate as needed to correct potassium and phosphorus imbalance. Continue close monitoring of urine output and hemodynamic status. Strict I&Os. Avoid nephrotoxins and hold nephrotoxic medications. Other active problems: #Septic Shock #Acute Hypoxic Respiratory Failure #Feculent Peritonitis #Normocytic Anemia #Leukocytosis #Hypothyroidism Management per ICU team ----- Plan discussed with attending physician Dr. Sari Porras MD PGY-1 Internal Medicine Attending Provider Attestation/Addendum Patient currently seen and examined with resident physician Dr. Porras. Note reviewed, agree with findings and recommendations. Patient currently on ventilator. Extensive surgical history with postop complications. Might go for another redo surgery. Sepsis with KELSI, respiratory failure. Currently on fluids prn, vent support and antibiotics. Patient started to make urine. Replace electrolytes. Patient had 1 run of while making rounds-most likely related to electrolyte imbalance. hold dialysis today. Plan of care discussed with ICU team. Thank you Pedro for allowing me to participate in the care of Ms. Holliday
[2025-08-08 09:24] LABS: Base Excess -4 (-3-3); HCO3 22 mEq/L (20-26); Inspired Oxygen, FIO2 40 %; O2 Saturation 97 % (91-98); PCO2 42 mmHg (32.0-48.0); PO2 73 mmHg (83-108); pH, Arterial 7.32 (7.35-7.45)
[2025-08-08 09:39] LABS: Allen Test Not Performed; Puncture Site Right Brachial
[2025-08-08] MEDS: PROPOFOL 1,000 MG IVPB 1,000 MG/100 ML VIAL 3.924 MG IV (10:51)
[2025-08-08] MEDS: VASOPRESSIN IN NS IVPB 20 UNIT/100 ML BAG 9 UNIT IV ×2 (10:53→22:51)
[2025-08-08] MEDS: SODIUM CHLORIDE 0.9% 250 ML 250 ML 999 ML IV (11:16)
--- NOTE | 2025-08-08 11:40 | EKG_ITS ---
[facility] Test Date: 2025-08-08 Pat Name: DYAN SUN Department: Room: 54A Gender: Female Field Underwriter: DAHIANA : 1945 Requested By: Chaitanya Brewer Order Number: [id number] Reading MD: Chaitanya Brewer Measurements Intervals [place] Rate: 66 P: [place]: QRS: 74 QRSD: 86 T: 125 QT: 406 QTc: 427 Interpretive Statements SUPRAVENTRICULAR RHYTHM NONSPECIFIC T-WAVE ABNORMALITY Compared to ECG 08/04/2025 03:00:59 Supraventricular rhythm now present T-wave abnormality now present Sinus rhythm no longer present /store/[id number]
[2025-08-08] MEDS: [UNRECOGNIZED DRUG - OTHER] IV (12:27)
[2025-08-08] MEDS: AMINO ACID IV (12:27)
[2025-08-08] MEDS: VANCOMYCIN/NS 500 MG IVPB 100 ML 120 MG IV (12:28)
[2025-08-08] MEDS: RINGERS LACTATED 500 ML 500 ML 999 ML IV (12:31)
[2025-08-08] MEDS: INSULIN HUM REGULAR 1 UNIT/0.01 ML (PER UNIT) SC (12:31)
[2025-08-08 12:42] LABS: Lactate (Lactic Acid) 2.1 mMol/L (0.4-2.0)
[2025-08-08] MEDS: fentaNYL 2,500 MCG/250 ML BAG 2,500 MCG/250 ML BAG 17.5 MCG IV (12:42)
--- NOTE | 2025-08-08 13:29 | ESPR_ITS ---
<Statement entered by Kendrick Bueno MD - 08/09/25 12:59> TOTAL CC TIME: 45 MIN TOTAL TIME: 45MINUTES ON DIRECT MEDICAL CARE, MANAGEMENT - COORDINATION AND COUNSELING > 50% OF TOTAL TIME I saw and evaluated the patient. I reviewed the resident?s note and agree with findings and plan as documented in the resident?s note. Upon my evaluation, this patient had a high probability of imminent or life- threatening deterioration due to septic shock, which required my direct attention, intervention, and personal management. This time is exclusive of time spent on procedures, which are documented separately if performed. Remains on 2 pressors Stroke-volume index increased by 13% with 250 mL fluid challenge; additional 250 mL given. Increased urine output. Renal function relatively unchanged Cultures are not back yet Surgery was held off due to acidosis and V. tach this morning-improved later with no further events FiO2 has been weaned, minute ventilation increased intentionally to adjust for severe metabolic acidosis Trending lactic acid <Statement entered by Iglesia Anderson MD - 08/08/25 15:28> Patient was seen and examined at the bedside in ICU. Overnight patient continued to require 2 pressor for blood pressure/MAP above 65. She continues to be on sedation with propofol and fentanyl with RASS of -2. This morning, patient had a episode of monomorphic V. tach which converted back to sinus rhythm spontaneously. Upon lab review, patient was found to have mild metabolic acidosis with bicarb 19 and respiratory acidosis with pH 7.19. Electrolytes revealed potassium 3.7, mag 2.1. Patient was given amp of bicarb, KCl and magnesium. Additionally, vent settings were adjusted with increase in tidal volume from 320 to 380, respirate was increased from 26-28 keeping PEEP 7 to improve acidosis which showed improvement with pH 7.32, pCO2 42. Expiratory hold was 7.5. Plateau pressure less than 30. Patient has been having improvement in her urine output from 30 to 60 cc/h. NICOM was performed which showed 12% variation with to 250 mL bolus of fluid therefore 500 cc LR was given. Hemoglobin has been relatively unchanged from yesterday. Lactic acid came back 2.1. White count slightly improved from 46.3->39.3. EKG showed sinus tachycardia with QTc 427. Surgery was postponed given higher pressor requirement and metabolic acidosis. Surgeon will reevaluate the patient tomorrow to see if patient will be able to go for surgery. MRSA screen pending. Currently pending on peritoneal cultures. Will continue with Zosyn, vancomycin and fluconazole for fungemia and fecalith peritonitis due to small bowel perforation and resection of colorectal anastomosis. TPN will be continued for malnutrition as patient has been not fed from past couple of weeks. Family was updated regarding the plan. All labs and orders were reviewed. I discussed and supervised with the supervisor international reservations physician who took care of this patient. I personally saw and examined the patient. I agree with most of the assessment and plan. Disclaimer: Despite multiple revisions, due to the dictation software being used, the document bellow may not be free of grammatical errors including phonetic/typographic errors. However, this does not deter from our commitment to providing health care in the patient's best interest in mind. Plan of care discussed with attending Physician Dr. Ximena Anderson MD PGY-3 Documentation for date of: 08/08/25 Subjective Subjective Interval history: 08/08/2025: Overnight patient continued to need to be on Levophed 0.17 mcg/kg/min with vasopression .03 u/min. Patient continues to be sedated on propofol 10 mcg/kg/hr and fentanyl 175 mcg/hr, was assessed and examined to have a RASS -2. Patient had urine output overnight averaging to ~50cc/hr, will not need to have dialysis today. Patient continued to be on TPN at 30 ml/hr. This morning patient's ABG at ~8am showed acidosis at pH of 7.18 with pco2 of 54 and had a monomorphic v-tach for a few seconds that spontaneously resolved. Patient's ventilator settings were adjusted from a tidal volume of 320 mls to 380 mls and a respiratory rate of 26 breaths per minute to 30 breaths per minute in order to reduce the acidosis, while keeping in mind that the patient does have a history of COPD. A repeat ABG was ordered and the patient was given potassium phosphate, magnesium and 1 amp of bicarb. Patient's repeat ABG after this showed improvement to pH of 7.32 and a pco2 of 42. Lactic acid was ordered but was cancelled for unknown reasons. A later lactic acid at noon was taken and resulted at 2.1. Patient had the cheetah done to assess for fluid responsiveness, showed 13% fluid responsiveness after 250 ml bolus was given over the course of 1/2 minutes; gave patient 0.5 L LR bolus after. Patient will not be going to the OR for laparotomy, small bowel anastomosis and colostomy due to continued need for elevated pressor dosages. 08/07/2025: Overnight, patient required an uptitration of Levophed from 0.13 to 0.17 mcg/kg/min, while vasopressin was maintained at 0.03 units/min. Patient remained sedated with Propofol 10 mcg/kg/min and Fentanyl 175 mcg/hr. The wound vac, connected to continuous suction, produced 200 cc of output. Minimal output was noted from the NG tube. Patient remained afebrile. Urine output has decreased from 45-50 cc/hour yesterday to 10-20 cc/hour overnight. Nephrology was consulted. Plan to place dialysis catheter tomorrow (08/08). Although stress-dose steroids are often considered for patients requiring two vasopressors to help reduce the dose of pressors, they are not indicated due to septic shock, as their use does not impact mortality. NICOM was performed this morning, with a 250 cc/hr fluid bolus, and the results indicated that the patient is not fluid-responsive. As a result, the administration of LR at 100 ml/hr was discontinued. TPN was initiated on 08/07. Dr. Barcenas (surgeon) plans to take the patient back to the operating room on 08/08 if patient is stable. ID changed the patient's antifungal regimen from Micafungin to Fluconazole. ID also wanted a C diff PCR test however patient is not having bowel movements and so unable to obtain sample. L Admission to ICU: 08/06 - NG tube and wound vac placed with low continuous suction as per surgery recommendations. - Vent settings adjusted for permissive hypercapnia as patient as history of COPD. - Propofol and Fentanyl started for sedation, with a RASS of -3. - Levophed started for blood pressure support. Vasopressin added. - Right IJ central line placed. - PICC line removed. - Point of care ultrasound showed minimal respiratory variation in IVC, indicating adequate fluid resuscitation. - Right side pleural effusion and free fluid noted, without loculation, suggesting transudative pleural effusion from fluid resuscitation; no intervention needed at this time. . - Peritoneal culture was taken. - Chemical prophylaxis was held due to acute drop in hemoglobin. Transfused 1 unit pRBC for hemoglobin of 7.2; post-transfusion hemoglobin was 9.7. - Plan to start TPN on 08/07. - Trialed pressure support ventilation but the patient became apneic. Switched back to AC mode. - Started LR at 1000 cc @ 100 mL/hr. - Current urine output was 45-50 cc/hr; if urine output slows, fluids will be increased. - Fluids will be stopped once TPN is initiated. 79-year-old female with a significant medical history of diverticulitis (status post colectomy and colostomy for perforated diverticulitis in 09/2022), hypothyroidism, coronary artery disease with angioplasty and stent placement, hypertension, hyperlipidemia, and chronic obstructive pulmonary disease presented for colostomy reversal with Dr. Barcenas. Surgery 07/28: Patient underwent an exploratory laparotomy, lysis of adhesions, reversal of colostomy with colorectal anastomosis, cholecystectomy, splenectomy, and left salpingo-oophorectomy. Postoperative Course: 07/29 - 07/31 (Postop days 1-3): NPO, PPN, started IV antibiotics (Cefoxitin and Doxycycline). Awaiting return of GI function. 08/01 - 08/02 (Postop days 4-5): NPO, PPN, IV antibiotics. Hemoglobin and WBC trending down. Awaiting return of GI function. 08/03 (Postop day 6): Sips of clears initiated. PICC line placed by IR. Awaiting return of GI function. 08/04 (Postop day 7): Rapid response called for tachycardia in the 170s. - Night IM team consulted. CXR showed significant bibasilar pneumonia. - IV Antibiotics were changed to Vancomycin and Zosyn. - Transfused 2 units pRBC. - KUB showed SBO pattern. - Blood cultures ordered. - Awaiting return of GI function. 08/05 (Postop day 8): Rapid response #2 called for desaturation to 83% on nasal cannula. - Patient placed on HFNC. - Developed dark-colored vomitus, and NG tube was placed. - Dressing was soiled, with brown fecal discharge noted at the incision site. - Distended abdomen noted. - CT showed dilated loops of small bowel with fluid in the abdomen, suggestive of a leak from the anastomosis site. Surgical Intervention 08/04: - Patient taken back to the OR. - Findings included significant feculent peritonitis, 5 small bowel perforations, and a leak at the anastomosis site. - Two segmental resections of small bowel and resection of the colorectal anastomosis were performed. - Abdomen was left open with a wound vac. Plan to return to OR in 48 to 72 hours for reexploration, - Patient was transferred to the ICU. Exam Vital Signs Temp Pulse Resp BP Pulse Ox O2 Del Method O2 Flow Rate 97.5 F 58 L 27 H 147/45 H 98 Mechanical Ventilation 30 08/08/25 12:00 08/08/25 12:45 08/07/25 18:11 08/08/25 12:45 08/08/25 12:45 08/06/25 12:00 08/05/25 18:38 FiO2 40 08/08/25 12:00 Narrative Exam General: Sedated, NGT on suction. RASS -2: briefly awakens to voice with eye- opening to voice, responds to noxious stimuli. Head: Normocephalic, atraumatic. Eyes: Pupils equally round and reactive to light. Anicteric. Mouth/Throat: ETT in place. Heart: Regular rate and rhythm, no murmurs. No JVD. Lungs: Clear to auscultation with no wheezing or crackles. Non-labored respirations, symmetric chest rise, no use of accessory muscles. On mechanical ventilation. Abdomen: Vertical incision, wound vac on suction. Dressing is clean, dry and intact. : Casey in place. Extremities: No edema. Posterior tibial pulses are 2+ bilaterally. 2+ radial pulse bilaterally. No clubbing or cyanosis. No mottling. SCDs. Skin: No rash. Objective Labs 08/08/25 04:28 08/08/25 04:28 Labs: Laboratory Results - last 24 hr 08/04/25 08/07/25 08/08/25 13:13 18:29 04:28 WBC 39.3 H* D RBC 2.67 L Hgb 8.6 L 8.4 L Hct 26.5 L 26.1 L MCV 98 MCH 31.5 MCHC 32.2 RDW Std Deviation 65.1 H Plt Count 447 H D Neut % (Auto) 80 Lymph % (Auto) 3 L Glades % (Auto) 8 Eos % (Auto) 1 Baso % (Auto) 0 Neut # (Auto) 31.6 H Lymph # (Auto) 1.3 Glades # (Auto) 3.0 H Eos # (Auto) 0.4 Baso # (Auto) 0.1 Immature Gran # (Auto) 2.99 H Absolute Nucleated RBC 7.25 H Immature Gran % 8 H Nucleated RBC % 18 H Smear Path Review TNP PT 11.1 INR 1.0 APTT 28.9 Puncture Site ABG pH ABG pCO2 ABG pO2 ABG HCO3 ABG O2 Saturation ABG Base Excess FiO2 Sodium 138 Potassium 3.7 D Chloride 106 Carbon Dioxide 19.8 L Anion Gap 12 BUN 40 H Creatinine 1.5 H Estim Creat Clear Calc 28.3 L eGFR 36 L BUN/Creatinine Ratio 27 H Glucose 185 H D Calculated Osmolality 290 Lactic Acid Calcium 8.2 L Corrected Calcium 9.3 Phosphorus 3.5 Magnesium 2.1 Total Bilirubin 1.3 H AST 19 ALT 17 Alkaline Phosphatase 139 H Total Protein 4.1 L Albumin 2.6 L Globulin 1.5 L Albumin/Globulin Ratio 1.7 Crossmatch See Detail 08/08/25 08/08/25 08/08/25 08:04 08:50 09:13 WBC RBC Hgb Hct MCV MCH MCHC RDW Std Deviation Plt Count Neut % (Auto) Lymph % (Auto) Glades % (Auto) Eos % (Auto) Baso % (Auto) Neut # (Auto) Lymph # (Auto) Glades # (Auto) Eos # (Auto) Baso # (Auto) Immature Gran # (Auto) Absolute Nucleated RBC Immature Gran % Nucleated RBC % Smear Path Review PT INR APTT Puncture Site Arterial Line Right Brachial ABG pH 7.18 L* D 7.32 L D ABG pCO2 54 H 42 D ABG pO2 73 L 73 L ABG HCO3 20 22 ABG O2 Saturation 94 97 ABG Base Excess -8 L -4 L FiO2 40 40 Sodium Potassium Chloride Carbon Dioxide Anion Gap BUN Creatinine Estim Creat Clear Calc eGFR BUN/Creatinine Ratio Glucose Calculated Osmolality Lactic Acid Cancelled Calcium Corrected Calcium Phosphorus Magnesium Total Bilirubin AST ALT Alkaline Phosphatase Total Protein Albumin Globulin Albumin/Globulin Ratio Crossmatch 08/08/25 12:23 WBC RBC Hgb Hct MCV MCH MCHC RDW Std Deviation Plt Count Neut % (Auto) Lymph % (Auto) Glades % (Auto) Eos % (Auto) Baso % (Auto) Neut # (Auto) Lymph # (Auto) Glades # (Auto) Eos # (Auto) Baso # (Auto) Immature Gran # (Auto) Absolute Nucleated RBC Immature Gran % Nucleated RBC % Smear Path Review PT INR APTT Puncture Site ABG pH ABG pCO2 ABG pO2 ABG HCO3 ABG O2 Saturation ABG Base Excess FiO2 Sodium Potassium Chloride Carbon Dioxide Anion Gap BUN Creatinine Estim Creat Clear Calc eGFR BUN/Creatinine Ratio Glucose Calculated Osmolality Lactic Acid 2.1 H Calcium Corrected Calcium Phosphorus Magnesium Total Bilirubin AST ALT Alkaline Phosphatase Total Protein Albumin Globulin Albumin/Globulin Ratio Crossmatch ABG Interpretation ABG results: 08/04/25 08/05/25 08/06/25 01:04 02:15 00:20 ABG pH 7.39 7.34 L 7.17 L* D ABG pCO2 38 41 58 H D ABG pO2 52 L* 54 L* 72 L ABG HCO3 23 22 21 ABG O2 Saturation 88 L 88 L 92 ABG Base Excess -2 -3 -7 L 08/06/25 08/06/25 08/08/25 03:26 05:45 08:04 ABG pH 7.27 L D 7.29 L 7.18 L* D ABG pCO2 47 D 46 54 H ABG pO2 83 81 L 73 L ABG HCO3 22 22 20 ABG O2 Saturation 97 98 94 ABG Base Excess -5 L -4 L -8 L 08/08/25 09:13 ABG pH 7.32 L D ABG pCO2 42 D ABG pO2 73 L ABG HCO3 22 ABG O2 Saturation 97 ABG Base Excess -4 L Quality Measures Quality Measures VTE prophylaxis Advance care planning discussed with:: patient Assessment & Plan Assessment Current Active Medications: Generic Name Dose Route Start Last Admin Trade Name Freq PRN Reason Stop Dose Admin Glucagon 1 mg 07/29/25 12:21 Glucagon Inj 1 Mg Vial IM Q15MIN PRN BG <70, and no IV access Promethazine HCl 25 mg/ Sodium 51 mls @ 2.5 mls/min 07/31/25 15:43 Chloride IV 08/30/25 15:42 Q6HR PRN NAUSEA OR VOMITING Protocol Piperacillin Sod/Tazobactam 100 mls @ 200 mls/hr 08/04/25 08:30 08/08/25 06:11 Sod 4.5 gm/ Sodium Chloride IV 08/11/25 08:29 200 mls/hr Q8HR HERO Administration Protocol Propofol 1,000 mg in 100 mls @ 1.962 mls/hr 08/05/25 22:04 08/08/25 10:51 Diprivan Ivpb IV 09/04/25 22:03 10 mcg/kg/min .Q24H PRN 3.924 mls/hr PER PROTOCOL Administration Protocol 5 MCG/KG/MIN Fentanyl Citrate 2,500 mcg in 250 mls @ 2.5 mls/hr 08/05/25 22:04 08/08/25 06:00 Sublimaze Inj 2,500 Mcg/250 Ml Bag IV 08/10/25 22:03 175 mcg/hr .Q24H PRN 17.5 mls/hr PER PROTOCOL Titration Protocol 25 MCG/HR Norepinephrine/Dextrose 8 mg in 250 mls @ 6.131 mls/hr 08/06/25 00:35 08/08/25 06:00 Levophed In D5w 8mg/250ml IV 09/05/25 00:34 0.17 mcg/kg/min .Q24H PRN 20.847 mls/hr PER PROTOCOL Titration Protocol 0.05 MCG/KG/MIN Vasopressin/Sodium Chloride 20 unit in 100 mls @ 9 mls/hr 08/06/25 13:00 08/08/25 10:53 Vasostrict/Ns Ivpb IV 09/05/25 12:59 0.03 unit/min .Q11H7M PRN 9 mls/hr PER PROTOCOL Administration Protocol 0.03 UNIT/MIN Fluconazole 400 mg in 200 mls @ 100 mls/hr 08/07/25 10:08 08/08/25 08:16 Diflucan/Ns Ivpb IV 08/10/25 17:00 100 mls/hr QDAY HERO Administration Amino Acids/Electrolytes 2,000 mls @ 60 mls/hr 08/08/25 12:00 08/08/25 12:27 Clinimix E 5/20 IV 08/09/25 11:59 60 mls/hr Q24H HERO Administration Vancomycin/Sodium Chloride 100 mls @ 120 mls/hr 08/08/25 11:15 08/08/25 12:28 Vancomycin/Ns 500 Mg Ivpb IV 08/15/25 11:14 120 mls/hr QDAY@1000 HERO Administration Insulin Human Regular 0 unit 07/29/25 18:00 08/08/25 12:31 Insulin Hum Regular 1 Unit/0.01 Ml (Per Unit) SC 08/28/25 17:59 2 unit Q6HR HERO Administration Protocol Levothyroxine Sodium 50 mcg 08/06/25 06:00 08/08/25 08:26 Levothyroxine Inj 100 Mcg Vial IV 09/05/25 05:59 50 mcg DAILY HERO Administration Ondansetron HCl 4 mg 07/31/25 11:59 08/05/25 12:25 Ondansetron Inj 2 Mg/Ml Inj 2 Ml IVP 08/30/25 11:58 4 mg Q4HR PRN Administration NAUSEA OR VOMITING Protocol Pantoprazole Sodium 40 mg 08/06/25 09:00 08/08/25 08:16 Pantoprazole Inj 40 Mg Vial IVP 09/05/25 08:59 40 mg QDAY HERO Administration Pharmacy Consult 1 each 08/04/25 09:00 Vancomycin Pharmacy To Dose 1 Each Each IV 09/03/25 08:59 QDAY PRN PROTOCOL Pharmacy Consult 1 each 08/06/25 08:27 Pharmacy Renal Dose Adjustment 1 Ea XX 09/05/25 08:26 PRN PRN CONSULT Sodium Chloride 5 ml 08/05/25 23:36 Sodium Chloride Rt 10% 15 Ml Nebu INH 08/13/25 23:35 X1 PRN SPUTUM CLEARANCE Plan 79-year-old female with a complex medical history, including perforated diverticulitis (status post colectomy and colostomy), hypothyroidism, coronary artery disease, hypertension, hyperlipidemia, and COPD, underwent a colostomy reversal, which was complicated by feculent peritonitis, requiring further surgery and ICU admission for hemodynamic support and mechanical ventilation. Neurology #Chemical sedation Treatment Plan: - Propofol and Fentanyl for sedation postintubation. RASS goal -3. - Titrate off sedatives as tolerated to assess mentation daily - Sedation vacation to reduce risk of ICU delirium. Cardiovascular #Septic shock Due to Feculent peritonitis s/p exploratory laparotomy, lysis of adhesions, segmental resection of small bowel & colorectal anastomosis. Diagnostic Test: -08/06 around 8AM, a sepsis re-evaluation was performed; T 97.0F, HR 72, BP 117/43, RR 22. MAP 68. MV; Exam notable for Cap refill > 2 secs - POCUS 08/06 showed minimal respiratory variation in IVC, indicating adequate fluid resuscitation. - CT: bilateral pneumonic consolidation, pleural effusion. - Blood, sputum, peritoneal cultures pending. - Peritoneal fluid culture pending. Intra-abdominal peritonitis with fluid and pus. - MRSA screen negative. - 08/08 Transient spontaneously resolving monomorphic v-tach with acidosis on ABG, resolved after vent adjustments, 1 amp bicarb & e-lyte repletion - EKG showed Supra-Ventricular Rhythm Treatment Plan: - 08/08 cheetah NICOM showed 13% fluid responsiveness after 250 ml bolus followed by 0.5 L LR bolus - Levophed 0.17 mcg/kg/min (titrate to maintain MAP > 65); wean as tolerated for anticipated surgery - Vasopressin 0.03 units/min. - Continue Vancomycin (08/06-) & Zosyn 4.5 gram IV Q8HR (08/04-) & Fluconazole 400 mg in 200 ml IV daily (08/07-). Stress dose steroids not started as there is a fungal infection in blood Treatment Review (completed): - 08/06: IV crystalloid fluid bolus - 30 cc/kg given; Right IJ central line placed 08/06; PICC line removed 08/06; Micafungin 100 mg IV DC'd (08/06-08/07). #Monomorphic Vtac, resolved -DDx Mixed acidosis(Resp and metabolic) due to shock, Electrolytes disturbance - 08/08 Transient spontaneously resolving monomorphic v-tach Diagnostic test: -Initial ABG showed pH 7.18 and bicarb 19 .repeat ABG after vent adjustments-> pH 7.32, pco2 42 -EKG showed sinus tacy with no acute ST-T changes. QTC 427 Treatment Plan: - vent adjustments inc TV and RR to correct resp acidosis and prevent further episodes of Vtac -1 amp bicarb & e-lyte repletion -F/U with AM labs and blood gas with lactic acid Respiratory #Acute hypoxic respiratory failure DDx: aspiration pneumonia and pneumonic consolidation. Diagnostic Test: - Patient was intubated intraop by anesthesia. - CXR 08/06: significant bibasilar pneumonia. - 08/08 ABG pH 7.18, pco2 54 i/s/o transient spontaneously resolving monomorphic v-tach -> repeat ABG after vent adjustments-> pH 7.32, pco2 42 Treatment Plan: - Adjusted Tidal volume to 380 mls (320) and RR 30 (26) along with 1 amp bicarb in order to reduce the respiratory acidosis; FiO2 weaned to 30% (40) - Currently we are not doing lung protective measures as patient became severely acidotic( RESP) and vtac therefore we had to inc minute ventilation to avoid complications - Continue Vancomycin (08/06-). - Continue Zosyn 4.5 gram IV Q8HR (08/04-). -F/U with ABG in morning and lactic acid #Transudative pleural effusion Likely from fluid resuscitation. Diagnostic Test: - Pleural effusion present on POCUS on 08/06 Treatment Plan: - Thoracentesis is not indicated at this time, as the fluid is likely transudative secondary to fluid resuscitation. - Bedside US everyday to reassess fluid characteristics (hypoechoic vs fibrosis and/or loculations), if changes seen -> thoracentesis will be considered. - Pleural effusion present on POCUS on 08/06, thoracentesis is not indicated at this time, as the fluid is likely transudative secondary to fluid resuscitation. A follow-up POCUS will be performed in a few days to assess whether the fluid remains hypoechoic and does not exhibit features suggestive of fibrosis or loculated fluid, which would indicate an exudative process. If the fluid characteristics change, thoracentesis will be considered at that time. #History of COPD Dx: - Longstanding history of COPD , not on home oxygen - No acute exacerbation at the moment. GI and F/E/N #Feculent peritonitis Diagnostic Test: - 07/28: colostomy reversal with colorectal anastomosis. - 08/05: exploratory laparotomy, lysis of adhesions, abdominal washout. Segmental resection of small bowel containing perforations. Resection of colorectal anastomosis. - 08/08 Wound vac 100 cc Treatment Plan: - NG tube on low continuous suction. - Wound VAC in place for vertical abdominal incision. Clean, intact, no discharge. On continuous suction as per general surgery recs. - Continue empiric coverage with Vancomycin and Zosyn, Fluconazole - PRN Reglan and Promethazine for nausea/vomiting. - Protonix 40mg IV daily for GI prophylaxis. - General surgery following, appreciate recommendations. 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 - Daily renal panel to trend BUN, Cr, and electrolytes. - Continue pressors - Avoid nephrotoxins - Renally dose meds as appropriate. - Urine output and renal function will continue to be monitored. - If renal function deteriorates, dialysis will be considered. Nephrology has been consulted. Heme #Acute blood loss anemia, resolved DDx: likely due to blood loss during surgeries on 07/28 & 08/05 Diagnostic Test: - Hemoglobin 08/08 of 8.4 (9.4); MCV 90s; relatively unchanged - No active signs of bleeding noted. Treatment Plan: - Monitor H&H; Transfuse if Hgb < 8. RRx: - PRBC transfusion x2 08/04, x1 08/06 #Leukocytosis DDx: likely in the setting of anastomotic leak, s/p surgical reversal. Diagnostic Test: - WBC 39.3 (46.3) - Afebrile. Treatment Plan - Continue IV Vancomycin, Fluconazole and Zosyn. - Monitor daily CBC. - Follow-up general surgery recommendations. Endo #Hypothyroidism Treatment Plan: - Hold home medication PO levothyroxine 88 mcg daily. - Started IV levothyroxine 50 mcg daily. ID #Fungemia Diagnostic Test: - 08/04 and 08/06 10/13 blood culture: yeast pending speciation Treatment Plan: - Discontinued Micafungin 100 mg IV daily (08/06-08/07). - Fluconazole 400 mg in 200 ml IV daily (08/07-). Health Maintenance DVT prophylaxis: Hold heparin for anticipated surgery, SCDs currently. GI prophylaxis: Pantoprazole 40 mg IV daily Diet: TPN Casey: Present Lines: Peripheral IV. Right IJ central line. Drips: Levophed, Vasopressin Vent: MV, PPlat <30 CODE STATUS: FULL Patient plan of care was discussed with the attending physician, Dr. Bueno & senior resident Dr. Justin Key MD PGY-1
--- NOTE | 2025-08-08 13:44 | PC.SS ---
Update: Patient remains intubated/sedated. Afebrile. Receiving pressor support. Surgical procedure held due to low blood pressure. Adjusting electrolytes. Dr. Barcenas consulting.
--- NOTE | 2025-08-08 13:47 | PD.EVENT ---
Documentation for date of: 08/08/25 Event Note Event Note: We were planning on taking the patient back to the operating room for laparotomy, small bowel anastomosis and colostomy. However, patient has not been hemodynamically stable and requiring 2 pressors at this time. Because the patient will require to small bowel anastomosis I fear that the anastomosis will breakdown in the presence of 2 pressors. Patient was also discussed with Dr. Bueno who also felt patient was not stable enough for another operation. I had a lengthy discussion with patient's family and explained to them patient's current condition. Will continue our resuscitative efforts. I will reevaluate patient's clinical condition tomorrow to see if she is stable enough for another operation.
[2025-08-08 15:39] LABS: Reflex Lactate? Y
[2025-08-08 17:05] LABS: Lactate (Lactic Acid) 1.9 mMol/L (0.4-2.0)
--- NOTE | 2025-08-08 19:05 | XR_ITS ---
EXAMINATION: AP chest single view TECHNIQUE: AP portable semiupright chest single view Date and time: August 08, 2025, 1923 hours, comparison August 06, 2025 INDICATIONS: Tachypnea today, hypoxic respiratory failure history of pneumonia FINDINGS: Significant bibasilar pneumonia again noted Stable cardiac contours Right internal jugular central line tip SVC satisfactory position Endotracheal tube tip 8.7 cm above cristin Orogastric tube sidehole is near the GE junction Prominent osteopenia IMPRESSION: Significant bibasilar pneumonia and possible pleural fluid, consider ultrasound hemithoraces follow-up Advance the orogastric tube 4 cm
[2025-08-08 20:04] LABS: Albumin, Serum 2.2 gm/dL (3.4-4.8); Anion Gap 9 (7-16); BUN/Creatinine Ratio 30 Ratio (12-20); Blood Urea Nitrogen 36 mg/dL (9-23); Calcium 7.8 mg/dL (8.3-10.6); Calcium (Corrected) 9.2 mg/dL (8.5-10.1); Carbon Dioxide 20.9 mMol/L (20.0-31.0); Chloride 109 mMol/L (98-107); Creatinine (Component) 1.2 mg/dL (0.6-1.3); Estimated Creatinine Clearance 35.4 mL/min (>60); Glucose 178 mg/dL (74-106); Magnesium 1.9 mg/dL (1.6-2.6); Osmolality,Calculated 289 (275-295); Phosphorous 2.4 mg/dL (2.4-5.1); Potassium 3.3 mMol/L (3.4-5.1); Sodium 139 mMol/L (136-145); eGFR 47 See Note
[2025-08-08] MEDS: Norepinephrine/D5W 8mg/250ml 8 MG/250 ML BAG 18.394 MG IV (22:00)
[2025-08-08] MEDS: Magnesium Sulfate 4 GM Ivpb 4 GM/50 ML BAG IV (22:46)
[2025-08-08] MEDS: POTASSIUM CHL 10 mEq IVPB 10 MEQ/100 ML BAG 100 MEQ IV ×2 (22:47→23:50)
[2025-08-09] VITALS (116 sets, daily range): BP systolic 0–172; BP diastolic 0–101; PULSE 47–78; RESP 24–30; TEMP 35–36.8; O2SAT 93–100; BMI 26.4
[2025-08-09] MEDS: POTASSIUM CHL 10 mEq IVPB 10 MEQ/100 ML BAG 100 MEQ IV ×2 (00:33→01:18)
[2025-08-09] MEDS: ALBUMIN HUMAN 25% IVPB 25 GM/100 ML BTL IV ×2 (00:35→01:37)
[2025-08-09] MEDS: fentaNYL 2,500 MCG/250 ML BAG 2,500 MCG/250 ML BAG 22.5 MCG IV ×2 (01:16→12:19)
[2025-08-09] MEDS: INSULIN HUM REGULAR 1 UNIT/0.01 ML (PER UNIT) SC ×4 (01:33→17:53)
[2025-08-09 02:51] LABS: Magnesium 3.3 mg/dL (1.6-2.6); Potassium 4.0 mMol/L (3.4-5.1)
[2025-08-09 04:14] LABS: Base Excess -6 (-3-3); HCO3 20 mEq/L (20-26); Inspired Oxygen, FIO2 40 %; O2 Saturation 98 % (91-98); PCO2 40 mmHg (32.0-48.0); PO2 92 mmHg (83-108); pH, Arterial 7.30 (7.35-7.45)
[2025-08-09 04:15] LABS: Allen Test Not Performed; Puncture Site Arterial Line
[2025-08-09] MEDS: PIPER/TAZO INJ 4.5 GM in SODIUM CHLORIDE 0.9% (POP) 100 ML IV ×3 (05:32→21:49)
[2025-08-09] MEDS: PROPOFOL 1,000 MG IVPB 1,000 MG/100 ML VIAL 3.924 MG IV (05:40)
[2025-08-09 06:10] LABS: Basophils # (Auto) 0.1 Thou/mm3 (0.0-0.2); Basophils % (Auto) 0 % (0-2.5); Eosinophils # (Auto) 0.3 Thou/mm3 (0.0-0.5); Eosinophils % (Auto) 1 % (0-10); Hematocrit 22.2 % (36.0-46.0); Immature Granulocytes Auto 2.45 Thou/mm3 (0.00-0.00); Lymphocytes # (Auto) 1.4 Thou/mm3 (1.0-4.8); Lymphocytes % (Auto) 5 % (10-50); Mean Corpuscular HGB Conc 32.9 g/dl (31.0-37.0); Mean Corpuscular Hemoglobin 31.1 pg (25.0-35.0); Mean Corpuscular Volume 95 fL (80-100); Monocytes # (Auto) 2.0 Thou/mm3 (0.0-0.8); Monocytes % (Auto) 7 % (0-12); Neutrophils # (Auto) 22.8 Thou/mm3 (1.8-7.7); Neutrophils % (Auto) 79 % (37-80); Nucleated Red Blood Cell # 4.69 Thou/mm3 (0.00-0.00); Nucleated Red Blood Cell % 16 /100 WBC (0); Platelet Count 420 Thou/mm3 (140-440); RDW Standard Deviation 61.9 fL (36.4-46.3); Red Blood Count 2.35 Miln/mm3 (4.00-5.20); White Blood Count 29.0 Thou/mm3 (3.6-11.0)
[2025-08-09 06:14] LABS: Hemoglobin 7.3 g/dL (12.0-16.0)
[2025-08-09 06:39] LABS: Alanine Aminotransferase 12 U/L (10-49); Albumin, Serum 3.2 gm/dL (3.4-4.8); Albumin/Globulin Ratio 2.5 (1.2-2.2); Alkaline Phosphatase 117 U/L (46-116); Anion Gap 12 (7-16); Aspartate Amino Transferase 18 U/L (0-34); BUN/Creatinine Ratio 29 Ratio (12-20); Bilirubin,Total 1.4 mg/dL (0.3-1.2); Blood Urea Nitrogen 35 mg/dL (9-23); Calcium 8.3 mg/dL (8.3-10.6); Calcium (Corrected) 8.9 mg/dL (8.5-10.1); Carbon Dioxide 18.8 mMol/L (20.0-31.0); Chloride 107 mMol/L (98-107); Creatinine (Component) 1.2 mg/dL (0.6-1.3); Estimated Creatinine Clearance 35.4 mL/min (>60); Globulin 1.3 gm/dL (2.3-3.5); Glucose 193 mg/dL (74-106); Magnesium 3.0 mg/dL (1.6-2.6); Osmolality,Calculated 288 (275-295); Phosphorous 2.2 mg/dL (2.4-5.1); Potassium 3.5 mMol/L (3.4-5.1); Sodium 138 mMol/L (136-145); Total Protein 4.5 gm/dL (5.7-8.2); eGFR 47 See Note
[2025-08-09] MEDS: POTASSIUM CHLORIDE 10% 20 MEQ/15 ML UDC 40 MEQ GT (07:42)
[2025-08-09] MEDS: Sodium Bicarb Inj 8.4% SYR 50 ML SYRINGE IV (07:42)
[2025-08-09] MEDS: POT PHOS 15 mMol in NS 250 ML 15 MMOL/250 ML BAG 62.5 MMOL IV ×3 (07:42→23:25)
[2025-08-09 07:53] LABS: INR 1.1 (0.9-1.3); Partial Thromboplastin Time 30.1 Seconds (22.0-36.0); Prothrombin Time 11.2 Seconds (9.0-12.2)
--- NOTE | 2025-08-09 08:05 | EKG_ITS ---
[facility], [place] Test Date: 2025-08-09 Pat Name: DYAN SUN [facility] Shoe Cleaner: NANCY : 1945 Requested By: Chaitanya Brewer Order Number: [id number] Reading MD: Chaitanya Brewer Measurements Intervals [place]x Rate: 54 P: 69 ID: [id number] QRS: 78 QRSD: 75 T: 80 QT: 406 QTc: 387 Interpretive Statements SINUS BRADYCARDIA NONSPECIFIC T-WAVE ABNORMALITY Compared to ECG 08/08/2025 12:40:07 Supraventricular rhythm no longer present T-wave abnormality still present /store/[id number]
[2025-08-09] MEDS: FLUCONAZOLE/NS 400 MG IVPB 400 MG/200 ML BAG 100 MG IV (08:09)
[2025-08-09] MEDS: VASOPRESSIN IN NS IVPB 20 UNIT/100 ML BAG 9 UNIT IV ×2 (08:51→18:08)
--- NOTE | 2025-08-09 09:26 | ESPR_ITS ---
<Statement entered by Kendrick Bueno MD - 08/10/25 20:03> TOTAL CC TIME: 45 MIN I saw and evaluated the patient. I reviewed the resident?s note and agree with findings and plan as documented in the resident?s note. Upon my evaluation, this patient had a high probability of imminent or life- threatening deterioration due to septic shock, KELSI which required my direct attention, intervention, and personal management. This time is exclusive of time spent on procedures, which are documented separately if performed. septic shock persistent but w/ evid of improvement given weaning of pressors and improved GFR no further cardiac arrythmias suspect surgery tomorrow cont full care - family updated at bedside <Statement entered by Chaitanya Vasquez MD - 08/09/25 16:32> Patient seen and examined at bedside. I discussed and supervised with the actuarial internship physician who took care of this patient. I personally saw and examined the patient. I agree with most of the assessment and plan. Patient remains on 2 pressors, however pressor requirements are coming down. Reducing sedation, allowing patient to be interactive. Spoke with surgery, per recommendations ordered 2 units PRBCs and 1 unit FFP, anticipate surgery tomorrow if patient continues to improve. Hg 7.3. Maintaining good urine output, renal labs improving. Will closely monitor for signs of worsening kidney function, give additional IV fluids as appropriate. Plan of care discussed with attending Dr. Bueno. Chaitanya Vasquez MD PGY-2 Documentation for date of: 08/09/25 Subjective Subjective Interval history: 08/09/2025: Overnight, the patient remained on Levophed at 0.15 mcg/kg/min and vasopressin. Currently, Levophed has been reduced to 0.05 mcg/kg/min. Patient continues to be sedated with propofol at 10 mcg/kg/hr and fentanyl at 225 mcg/hr. A sedation vacation is planned for today. Urine output ranged between 35-55 cc/hr. If output decreases, a 500cc IV bolus of LR will be given. NG tube output was 60 cc, and wound vac output was approximately 800cc. This morning, patient was bradycardic, and an EKG confirmed sinus bradycardia. Leukocytosis is showing improvement. General surgery recommended 2 units of pRBCs and 1 unit of FFP. Anticipate patient going back to the OR tomorrow if remains stable and continues to decrease pressor dosage. 08/08/2025: Overnight patient continued to need to be on Levophed 0.17 mcg/kg/min with vasopression .03 u/min. Patient continues to be sedated on propofol 10 mcg/kg/hr and fentanyl 175 mcg/hr, was assessed and examined to have a RASS -2. Patient had urine output overnight averaging to ~50cc/hr, will not need to have dialysis today. Patient continued to be on TPN at 30 ml/hr. This morning patient's ABG at ~8am showed acidosis at pH of 7.18 with pco2 of 54 and had a monomorphic v-tach for a few seconds that spontaneously resolved. Patient's ventilator settings were adjusted from a tidal volume of 320 mls to 380 mls and a respiratory rate of 26 breaths per minute to 30 breaths per minute in order to reduce the acidosis, while keeping in mind that the patient does have a history of COPD. A repeat ABG was ordered and the patient was given potassium phosphate, magnesium and 1 amp of bicarb. Patient's repeat ABG after this showed improvement to pH of 7.32 and a pco2 of 42. Lactic acid was ordered but was cancelled for unknown reasons. A later lactic acid at noon was taken and resulted at 2.1. Patient had the cheetah done to assess for fluid responsiveness, showed 13% fluid responsiveness after 250 ml bolus was given over the course of 1/2 minutes; gave patient 0.5 L LR bolus after. Patient will not be going to the OR for laparotomy, small bowel anastomosis and colostomy due to continued need for elevated pressor dosages. 08/07/2025: Overnight, patient required an uptitration of Levophed from 0.13 to 0.17 mcg/kg/min, while vasopressin was maintained at 0.03 units/min. Patient remained sedated with Propofol 10 mcg/kg/min and Fentanyl 175 mcg/hr. The wound vac, connected to continuous suction, produced 200 cc of output. Minimal output was noted from the NG tube. Patient remained afebrile. Urine output has decreased from 45-50 cc/hour yesterday to 10-20 cc/hour overnight. Nephrology was consulted. Plan to place dialysis catheter tomorrow (08/08). Although stress-dose steroids are often considered for patients requiring two vasopressors to help reduce the dose of pressors, they are not indicated due to septic shock, as their use does not impact mortality. NICOM was performed this morning, with a 250 cc/hr fluid bolus, and the results indicated that the patient is not fluid-responsive. As a result, the administration of LR at 100 ml/hr was discontinued. TPN was initiated on 08/07. Dr. Barcenas (surgeon) plans to take the patient back to the operating room on 08/08 if patient is stable. ID changed the patient's antifungal regimen from Micafungin to Fluconazole. ID also wanted a C diff PCR test however patient is not having bowel movements and so unable to obtain sample. Admission to ICU: 08/06 - NG tube and wound vac placed with low continuous suction as per surgery recommendations. - Vent settings adjusted for permissive hypercapnia as patient as history of COPD. - Propofol and Fentanyl started for sedation, with a RASS of -3. - Levophed started for blood pressure support. Vasopressin added. - Right IJ central line placed. - PICC line removed. - Point of care ultrasound showed minimal respiratory variation in IVC, indicating adequate fluid resuscitation. - Right side pleural effusion and free fluid noted, without loculation, suggesting transudative pleural effusion from fluid resuscitation; no intervention needed at this time. . - Peritoneal culture was taken. - Chemical prophylaxis was held due to acute drop in hemoglobin. Transfused 1 unit pRBC for hemoglobin of 7.2; post-transfusion hemoglobin was 9.7. - Plan to start TPN on 08/07. - Trialed pressure support ventilation but the patient became apneic. Switched back to AC mode. - Started LR at 1000 cc @ 100 mL/hr. - Current urine output was 45-50 cc/hr; if urine output slows, fluids will be increased. - Fluids will be stopped once TPN is initiated. 79-year-old female with a significant medical history of diverticulitis (status post colectomy and colostomy for perforated diverticulitis in 09/2022), hypothyroidism, coronary artery disease with angioplasty and stent placement, hypertension, hyperlipidemia, and chronic obstructive pulmonary disease presented for colostomy reversal with Dr. Barcenas. Surgery 07/28: Patient underwent an exploratory laparotomy, lysis of adhesions, reversal of colostomy with colorectal anastomosis, cholecystectomy, splenectomy, and left salpingo-oophorectomy. Postoperative Course: 07/29 - 07/31 (Postop days 1-3): NPO, PPN, started IV antibiotics (Cefoxitin and Doxycycline). Awaiting return of GI function. 08/01 - 08/02 (Postop days 4-5): NPO, PPN, IV antibiotics. Hemoglobin and WBC trending down. Awaiting return of GI function. 08/03 (Postop day 6): Sips of clears initiated. PICC line placed by IR. Awaiting return of GI function. 08/04 (Postop day 7): Rapid response called for tachycardia in the 170s. - Night IM team consulted. CXR showed significant bibasilar pneumonia. - IV Antibiotics were changed to Vancomycin and Zosyn. - Transfused 2 units pRBC. - KUB showed SBO pattern. - Blood cultures ordered. - Awaiting return of GI function. 08/05 (Postop day 8): Rapid response #2 called for desaturation to 83% on nasal cannula. - Patient placed on HFNC. - Developed dark-colored vomitus, and NG tube was placed. - Dressing was soiled, with brown fecal discharge noted at the incision site. - Distended abdomen noted. - CT showed dilated loops of small bowel with fluid in the abdomen, suggestive of a leak from the anastomosis site. Surgical Intervention 08/04: - Patient taken back to the OR. - Findings included significant feculent peritonitis, 5 small bowel perforations, and a leak at the anastomosis site. - Two segmental resections of small bowel and resection of the colorectal anastomosis were performed. - Abdomen was left open with a wound vac. Plan to return to OR in 48 to 72 hours for reexploration, - Patient was transferred to the ICU. Exam Vital Signs Temp Pulse Resp BP Pulse Ox O2 Del Method O2 Flow Rate 95.1 F L 58 L 30 H 118/40 L 94 L Mechanical Ventilation 30 08/09/25 09:17 08/09/25 09:17 08/09/25 09:17 08/09/25 09:17 08/09/25 09:00 08/06/25 12:00 08/05/25 18:38 FiO2 40 08/09/25 09:00 Narrative Exam General: Sedated, NGT on suction. RASS -4: no response to voice but responds to noxious stimuli. Head: Normocephalic, atraumatic. Eyes: Pupils equally round and reactive to light. Anicteric. Mouth/Throat: ETT in place. Heart: Regular rate and rhythm, no murmurs. No JVD. Lungs: Clear to auscultation with no wheezing or crackles. Non-labored respirations, symmetric chest rise, no use of accessory muscles. On mechanical ventilation. Abdomen: Vertical incision, wound vac on suction. Dressing is clean, dry and intact. : Casey in place. Extremities: Posterior tibial pulses are 2+ bilaterally. 2+ radial pulse bilaterally. No clubbing or cyanosis. No mottling. SCDs. Skin: No rash. Objective Labs 08/09/25 16:52 08/09/25 04:30 Labs: Laboratory Results - last 24 hr 08/08/25 08/08/25 08/08/25 08:50 09:13 12:23 WBC RBC Hgb Hct MCV MCH MCHC RDW Std Deviation Plt Count Neut % (Auto) Lymph % (Auto) Haskell % (Auto) Eos % (Auto) Baso % (Auto) Neut # (Auto) Lymph # (Auto) Haskell # (Auto) Eos # (Auto) Baso # (Auto) Immature Gran # (Auto) Absolute Nucleated RBC Immature Gran % Nucleated RBC % PT INR APTT Puncture Site Right Brachial ABG pH 7.32 L D ABG pCO2 42 D ABG pO2 73 L ABG HCO3 22 ABG O2 Saturation 97 ABG Base Excess -4 L FiO2 40 Sodium Potassium Chloride Carbon Dioxide Anion Gap BUN Creatinine Estim Creat Clear Calc eGFR BUN/Creatinine Ratio Glucose Calculated Osmolality Lactic Acid Cancelled 2.1 H Calcium Corrected Calcium Phosphorus Magnesium Total Bilirubin AST ALT Alkaline Phosphatase Total Protein Albumin Globulin Albumin/Globulin Ratio Blood Type Antibody Screen Crossmatch Blood Bank Wristband ID 08/08/25 08/08/25 08/09/25 16:45 19:32 01:47 WBC RBC Hgb Hct MCV MCH MCHC RDW Std Deviation Plt Count Neut % (Auto) Lymph % (Auto) Haskell % (Auto) Eos % (Auto) Baso % (Auto) Neut # (Auto) Lymph # (Auto) Haskell # (Auto) Eos # (Auto) Baso # (Auto) Immature Gran # (Auto) Absolute Nucleated RBC Immature Gran % Nucleated RBC % PT INR APTT Puncture Site ABG pH ABG pCO2 ABG pO2 ABG HCO3 ABG O2 Saturation ABG Base Excess FiO2 Sodium 139 Potassium 3.3 L 4.0 D Chloride 109 H Carbon Dioxide 20.9 Anion Gap 9 BUN 36 H Creatinine 1.2 Estim Creat Clear Calc 35.4 L eGFR 47 L BUN/Creatinine Ratio 30 H Glucose 178 H Calculated Osmolality 289 Lactic Acid 1.9 Calcium 7.8 L Corrected Calcium 9.2 Phosphorus 2.4 Magnesium 1.9 3.3 H Total Bilirubin AST ALT Alkaline Phosphatase Total Protein Albumin 2.2 L Globulin Albumin/Globulin Ratio Blood Type Antibody Screen Crossmatch Blood Bank Wristband ID 08/09/25 08/09/25 08/09/25 04:02 04:30 07:15 WBC 29.0 H D RBC 2.35 L Hgb 7.3 L Hct 22.2 L MCV 95 MCH 31.1 MCHC 32.9 RDW Std Deviation 61.9 H Plt Count 420 Neut % (Auto) 79 Lymph % (Auto) 5 L Haskell % (Auto) 7 Eos % (Auto) 1 Baso % (Auto) 0 Neut # (Auto) 22.8 H Lymph # (Auto) 1.4 Haskell # (Auto) 2.0 H Eos # (Auto) 0.3 Baso # (Auto) 0.1 Immature Gran # (Auto) 2.45 H Absolute Nucleated RBC 4.69 H Immature Gran % 8 H Nucleated RBC % 16 H PT 11.2 INR 1.1 APTT 30.1 Puncture Site Arterial Line ABG pH 7.30 L ABG pCO2 40 ABG pO2 92 ABG HCO3 20 ABG O2 Saturation 98 ABG Base Excess -6 L FiO2 40 Sodium 138 Potassium 3.5 D Chloride 107 Carbon Dioxide 18.8 L Anion Gap 12 BUN 35 H Creatinine 1.2 Estim Creat Clear Calc 35.4 L eGFR 47 L BUN/Creatinine Ratio 29 H Glucose 193 H Calculated Osmolality 288 Lactic Acid Calcium 8.3 Corrected Calcium 8.9 Phosphorus 2.2 L Magnesium 3.0 H Total Bilirubin 1.4 H AST 18 ALT 12 Alkaline Phosphatase 117 H D Total Protein 4.5 L Albumin 3.2 L D Globulin 1.3 L Albumin/Globulin Ratio 2.5 H Blood Type O Positive Antibody Screen NEGATIVE Crossmatch See Detail Blood Bank Wristband ID Yes ABG Interpretation ABG results: 08/04/25 08/05/25 08/06/25 01:04 02:15 00:20 ABG pH 7.39 7.34 L 7.17 L* D ABG pCO2 38 41 58 H D ABG pO2 52 L* 54 L* 72 L ABG HCO3 23 22 21 ABG O2 Saturation 88 L 88 L 92 ABG Base Excess -2 -3 -7 L 08/06/25 08/06/25 08/08/25 03:26 05:45 08:04 ABG pH 7.27 L D 7.29 L 7.18 L* D ABG pCO2 47 D 46 54 H ABG pO2 83 81 L 73 L ABG HCO3 22 22 20 ABG O2 Saturation 97 98 94 ABG Base Excess -5 L -4 L -8 L 08/08/25 08/09/25 09:13 04:02 ABG pH 7.32 L D 7.30 L ABG pCO2 42 D 40 ABG pO2 73 L 92 ABG HCO3 22 20 ABG O2 Saturation 97 98 ABG Base Excess -4 L -6 L Quality Measures Quality Measures VTE prophylaxis Advance care planning discussed with:: patient Assessment & Plan Assessment Current Active Medications: Generic Name Dose Route Start Last Admin Trade Name Freq PRN Reason Stop Dose Admin Glucagon 1 mg 07/29/25 12:21 Glucagon Inj 1 Mg Vial IM Q15MIN PRN BG <70, and no IV access Promethazine HCl 25 mg/ Sodium 51 mls @ 2.5 mls/min 07/31/25 15:43 Chloride IV 08/30/25 15:42 Q6HR PRN NAUSEA OR VOMITING Protocol Piperacillin Sod/Tazobactam 100 mls @ 200 mls/hr 08/04/25 08:30 08/09/25 05:32 Sod 4.5 gm/ Sodium Chloride IV 08/11/25 08:29 200 mls/hr Q8HR HERO Administration Protocol Propofol 1,000 mg in 100 mls @ 1.962 mls/hr 08/05/25 22:04 08/09/25 09:00 Diprivan Ivpb IV 09/04/25 22:03 10 mcg/kg/min .Q24H PRN 3.924 mls/hr PER PROTOCOL Titration Protocol 5 MCG/KG/MIN Fentanyl Citrate 2,500 mcg in 250 mls @ 2.5 mls/hr 08/05/25 22:04 08/09/25 09:00 Sublimaze Inj 2,500 Mcg/250 Ml Bag IV 08/10/25 22:03 225 mcg/hr .Q24H PRN 22.5 mls/hr PER PROTOCOL Titration Protocol 25 MCG/HR Norepinephrine/Dextrose 8 mg in 250 mls @ 6.131 mls/hr 08/06/25 00:35 08/09/25 09:00 Levophed In D5w 8mg/250ml IV 09/05/25 00:34 0.07 mcg/kg/min .Q24H PRN 8.584 mls/hr PER PROTOCOL Titration Protocol 0.05 MCG/KG/MIN Vasopressin/Sodium Chloride 20 unit in 100 mls @ 9 mls/hr 08/06/25 13:00 08/09/25 09:00 Vasostrict/Ns Ivpb IV 09/05/25 12:59 0.03 unit/min .Q11H7M PRN 9 mls/hr PER PROTOCOL Titration Protocol 0.03 UNIT/MIN Fluconazole 400 mg in 200 mls @ 100 mls/hr 08/07/25 10:08 08/09/25 08:09 Diflucan/Ns Ivpb IV 08/10/25 17:00 100 mls/hr QDAY HERO Administration Amino Acids/Electrolytes 2,000 mls @ 60 mls/hr 08/08/25 12:00 08/08/25 12:27 Clinimix E 5/20 IV 08/09/25 11:59 60 mls/hr Q24H HERO Administration Potassium Phosphate 15 mmol in 250 mls @ 62.5 mls/hr 08/09/25 06:47 08/09/25 07:42 Pot Phos 15 Mmol In Ns 250 Ml IV 08/09/25 10:46 62.5 mls/hr X1 ONE Administration Vancomycin/Sodium Chloride 750 mg in 150 mls @ 120 mls/hr 08/09/25 10:00 Vancomycin/Ns 750 Mg Ivpb IV 08/16/25 09:59 QDAY@1000 HERO Insulin Human Regular 0 unit 07/29/25 18:00 08/09/25 05:34 Insulin Hum Regular 1 Unit/0.01 Ml (Per Unit) SC 08/28/25 17:59 2 unit Q6HR HERO Administration Protocol Levothyroxine Sodium 50 mcg 08/06/25 06:00 08/09/25 08:09 Levothyroxine Inj 100 Mcg Vial IV 09/05/25 05:59 50 mcg DAILY HERO Administration Ondansetron HCl 4 mg 07/31/25 11:59 08/05/25 12:25 Ondansetron Inj 2 Mg/Ml Inj 2 Ml IVP 08/30/25 11:58 4 mg Q4HR PRN Administration NAUSEA OR VOMITING Protocol Pantoprazole Sodium 40 mg 08/06/25 09:00 08/09/25 08:10 Pantoprazole Inj 40 Mg Vial IVP 09/05/25 08:59 40 mg QDAY HERO Administration Pharmacy Consult 1 each 08/04/25 09:00 Vancomycin Pharmacy To Dose 1 Each Each IV 09/03/25 08:59 QDAY PRN PROTOCOL Pharmacy Consult 1 each 08/06/25 08:27 Pharmacy Renal Dose Adjustment 1 Ea XX 09/05/25 08:26 PRN PRN CONSULT Sodium Chloride 5 ml 08/05/25 23:36 Sodium Chloride Rt 10% 15 Ml Nebu INH 08/13/25 23:35 X1 PRN SPUTUM CLEARANCE Plan 79-year-old female with a complex medical history, including perforated diverticulitis (status post colectomy and colostomy), hypothyroidism, coronary artery disease, hypertension, hyperlipidemia, and COPD, underwent a colostomy reversal, which was complicated by feculent peritonitis, requiring further surgery and ICU admission for hemodynamic support and mechanical ventilation. Neurology #Chemical sedation Treatment Plan: - Propofol and Fentanyl for sedation postintubation. RASS goal -3. - Titrate off sedatives as tolerated to assess mentation daily - Sedation vacation to reduce risk of ICU delirium. Cardiovascular #Septic shock Due to Feculent peritonitis s/p exploratory laparotomy, lysis of adhesions, segmental resection of small bowel & colorectal anastomosis. Diagnostic Test: - 08/06 around 8AM, a sepsis re-evaluation was performed; T 97.0F, HR 72, BP 117/43, RR 22. MAP 68. MV; Exam notable for Cap refill > 2 secs - POCUS 08/06 showed minimal respiratory variation in IVC, indicating adequate fluid resuscitation. - CT: bilateral pneumonic consolidation, pleural effusion. - Blood culture 08/06: 1 out of 2 bottles positive for yeast. - Sputum culture 08/05: 2+ yeast, speciation pending - Peritoneal fluid culture 08/06: gram negative rods (preliminary). - MRSA screen negative. - 08/08 Transient spontaneously resolving monomorphic v-tach with acidosis on ABG, resolved after vent adjustments, 1 amp bicarb & e-lyte repletion - EKG showed Supra-Ventricular Rhythm. Treatment Review (completed): - 08/06: IV crystalloid fluid bolus - 30 cc/kg given; Right IJ central line placed 08/06; PICC line removed 08/06; Micafungin 100 mg IV DC'd (08/06-08/07). - 08/08 cheetah NICOM showed 13% fluid responsiveness after 250 ml bolus followed by 0.5 L LR bolus Treatment Plan: - Levophed 0.15 mcg/kg/min (titrate to maintain MAP > 65); wean as tolerated for anticipated surgery. - Vasopressin 0.03 units/min. - Continue Vancomycin (08/06-) & Zosyn 4.5 gram IV Q8HR (08/04-) & Fluconazole 400 mg in 200 ml IV daily (08/07-). - Stress dose steroids not started as there is a fungal infection in blood #Sinus bradycardia Likely due to sedation medications. Diagnostic Test: - HR in the 50s. - EKG showed sinus bradycardia. Treatment Plan: - Continue cardiac monitoring. #Monomorphic Vtac (resolved) DDx: electrolytes disturbance vs vasopressors can be proarrhythmic. - 08/08 Transient spontaneously resolving monomorphic v-tach. Diagnostic test: - Initial ABG showed pH 7.18 and bicarb 19 .repeat ABG after vent adjustments-> pH 7.32, pco2 42. - EKG showed sinus tacychardia with no acute ST-T changes. QTC 427. - 08/09 ABG: pH 7.30, pCO2 40, HCO3 20. Treatment Review (completed): - 1 amp bicarb and electrolye repleation. - Ventilation settings were adjusted on 08/08, increase TV and RR to correct respiratory acidosis and prevent further episodes of VTach. Treatment Plan: - Continue cardiac monitoring. Respiratory #Acute hypoxic respiratory failure DDx: aspiration pneumonia and pneumonic consolidation. Diagnostic Test: - Patient was intubated intraop by anesthesia. - CXR 08/06: significant bibasilar pneumonia. - 08/08 ABG pH 7.18, pco2 54 i/s/o transient spontaneously resolving monomorphic v-tach -> repeat ABG after vent adjustments-> pH 7.32, pco2 42 - 08/09 ABG: pH 7.30, pCO2 40, HCO3 20. Respiratory acidosis. - Lactic acid 1.7. Treatment Plan: - Continue MV settings: TV 380 mls and RR 30 along with 1 amp bicarb in order to reduce the respiratory acidosis; FiO2 weaned to 30%. - Currently not doing lung protective measures as patient became severely acidotic and vtac therefore we had to increase minute ventilation to avoid complications. - Continue Vancomycin (08/06-). - Continue Zosyn 4.5 gram IV Q8HR (08/04-). #Pleural effusion DDx: transudative vs exudative Diagnostic Test: - POCUS 08/06: free flowing fluid, small amount of liquid, hypoechoic. No fibrosis and/or loculations noted. Treatment Plan: - Thoracentesis is not indicated at this time, as the fluid is likely transudative secondary to fluid resuscitation. A follow-up POCUS will be performed everyday to assess whether the fluid remains hypoechoic and does not exhibit features suggestive of fibrosis or loculated fluid, which would indicate an exudative process. If the fluid characteristics change, thoracentesis will be considered at that time. #History of COPD Dx: - Longstanding history of COPD , not on home oxygen. - No acute exacerbation at the moment. GI and F/E/N #Feculent peritonitis Diagnostic Test: - 07/28: colostomy reversal with colorectal anastomosis. - 08/05: exploratory laparotomy, lysis of adhesions, abdominal washout. Segmental resection of small bowel containing perforations. Resection of colorectal anastomosis. - 08/08 Wound vac 100 cc. - 08/09 Wound vac 800 cc. - Peritoneal culture gram negative jayme, speciation pending. Treatment Plan: - NG tube on low continuous suction. - Wound VAC in place for vertical abdominal incision. Clean, intact, no discharge. On continuous suction as per general surgery recs. - Continue empiric coverage with Vancomycin, Zosyn, and Fluconazole. Zosyn covers for gram negative bacteria seen on perionteal gram stain. - PRN Reglan and Promethazine for nausea/vomiting. - Protonix 40mg IV daily for GI prophylaxis. - General surgery following, appreciate recommendations. - Re-evaluation by Surgeon tomorrow for reexploration, small bowel anastomosis with colostomy with enough hemodynamic improvement based on pressor requirement. #Malnutrition Patient has not eaten in more than a week -08/06 PICC line removed. -08/06 central line placed. Treatment Plan: -Receiving TPN at 30 mls/hr for caloric requirements. 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 Treatment Review (completed): - NICOM 08/08 showed 13% fluid responsiveness after 250 ml bolus; gave 0.5 L LR afterward. Treatment Plan: - Daily renal panel to trend BUN, Cr, and electrolytes. - Continue pressors - Avoid nephrotoxins - Renally dose meds as appropriate. - Urine output and renal function will continue to be monitored. - If renal function deteriorates, dialysis will be considered. Nephrology has been consulted. Heme #Acute blood loss anemia, resolved DDx: likely due to blood loss during surgeries on 07/28 & 08/05. Diagnostic Test: - Hemoglobin 08/08 of 8.4 (9.4); MCV 90s; relatively unchanged - No active signs of bleeding noted. Treatment Review (completed): - pRBC transfusion x2 08/04, x1 08/06. Treatment Plan: - Monitor H&H; Transfuse if Hgb < 8. - Transfuse 2 units pRBCs and 1 unit of FFP as requested by surgery. #Leukocytosis (downtrending) DDx: likely in the setting of anastomotic leak, s/p surgical reversal. Diagnostic Test: - WBC 46.3. --> 39.3 --> 29.0. - Afebrile. Treatment Plan - Continue IV Vancomycin, Fluconazole and Zosyn. - Monitor daily CBC. - Follow-up general surgery recommendations. Endo #Hypothyroidism Treatment Plan: - Hold home medication PO levothyroxine 88 mcg daily. - IV levothyroxine 50 mcg daily. ID #Fungemia Diagnostic Test: - 08/04 and 08/06 10/13 blood culture: yeast pending speciation Treatment Plan: - Discontinued Micafungin 100 mg IV daily (08/06-08/07). - Fluconazole 400 mg in 200 ml IV daily (08/07-). Health Maintenance DVT prophylaxis: Hold heparin for anticipated surgery, SCDs currently. GI prophylaxis: Pantoprazole 40 mg IV daily Diet: TPN Casey: Present Lines: Peripheral IV. Right IJ central line. Drips: Levophed, Vasopressin Vent: MV, PPlat <30 CODE STATUS: FULL Patient plan of care was discussed with the attending physician, Dr. Bueno & senior resident Dr. Vasquez. Tito Garcia Internal Medicine, PGY-1
[2025-08-09 09:30] LABS: Lactate (Lactic Acid) 1.7 mMol/L (0.4-2.0)
--- NOTE | 2025-08-09 10:57 | ESPR_ITS ---
Documentation for date of: 08/09/25 Subjective Subjective Interval history: Reason for consult: KELSI History of present illness: Mr Holliday is a 79-year-old female presenting with oliguria/anuria and acute kidney injury (KELSI). Urine output has decreased from 45-50 cc/hr to 10-20 cc/hr, and the patient is in critical condition post-surgical complications, including feculent peritonitis, septic shock, and acute hypoxic respiratory failure. The patient has a complex medical history including diverticulitis status post- colectomy and colostomy, hypothyroidism, CAD with stent placement, hypertension, hyperlipidemia, and COPD. She underwent a colostomy reversal complicated by multiple surgeries, including a small bowel resection and anastomotic leak. Postoperatively, she developed septic shock, acute hypoxic respiratory failure, and KELSI. Fluid resuscitation was started, and she has been on pressors (Levophed and Vasopressin) and mechanical ventilation. Urine output has been declining since yesterday, prompting nephrology consultation. Yesterday, the patient was receiving LR 100 mL/hr. This morning, fluids were stopped after the ICU team performed a NICOM, revealing that the patient was not fluid responsive. The patient continues to be closely monitored for changes in renal function and hemodynamics. 08/07/2025: Today, the patient remains sedated and on mechanical ventilation. Urine output has decreased from 45-50 cc/h to 10-20 cc/h since yesterday. Fluid resuscitation with LR at 100 mL/hr was stopped this morning after NICOM showed no fluid responsiveness. The patient is on pressor support (Levophed and Vasopressin) for hypotension. Dialysis line is scheduled for placement tomorrow. She has no complaints as she is currently sedated and continues to be monitored closely in the ICU. Labs: Sodium 138, Potassium 4.3, Chloride 105, Bicarbonate 21.6, BUN 43, Creatinine 1.5, WBC 46.3, Hemoglobin 9.4, Platelets 386. 08/08/2025: Today, the patient remains sedated and on mechanical ventilation in the ICU. Urine output has increased to 1 L in the past 24 hours, so dialysis has been held for today. The patient is being closely monitored, and further reassessment will be done tomorrow. Labs: WBC 39.3, Hemoglobin 8.4, Hematocrit 26, Platelets 447, pH 7.18, pCO2 54, Bicarbonate 20, Sodium 138, Potassium 3.7, Chloride 106, CO2 19.8, Creatinine 1.5, Glucose 185, Calcium 9.3, Phosphorus 3.5, Magnesium 2.1. 08/09/2025: The patient remains sedated and on mechanical ventilation in the ICU. She has had some improvement in her urine output, now averaging 35-50 cc/h. The patient's electrolytes are being replaced, and dialysis has been held for today. The surgical team postponed further procedures due to the patient's hemodynamic instability and ongoing pressor requirements. The family has been updated regarding the patient's condition. Labs: Hemoglobin 7.3, Hematocrit 22.2, Platelets 420, pH 7.3, pCO2 40, Bicarbonate 20, Sodium 138, Potassium 3.5, Chloride 107, Carbon Dioxide 18.8, BUN 35, Creatinine 1.2, Calcium 8.9, Phosphorus 2.2, Magnesium 3 Exam Vital Signs Temp Pulse Resp BP Pulse Ox O2 Del Method O2 Flow Rate 95.1 F L 49 L 30 H 121/41 L 98 Mechanical Ventilation 30 08/09/25 09:48 08/09/25 10:38 08/09/25 09:48 08/09/25 10:38 08/09/25 10:38 08/06/25 12:00 08/05/25 18:38 FiO2 40 08/09/25 10:38 Narrative Exam General: Sedated, NGT on suction. RASS -2: briefly awakens to voice with eye- opening to voice, responds to noxious stimuli. Head: Normocephalic, atraumatic. Eyes: Pupils equally round and reactive to light. Anicteric. Mouth/Throat: ETT in place. Heart: Regular rate and rhythm, no murmurs. No JVD. Lungs: Clear to auscultation with no wheezing or crackles. Non-labored respirations, symmetric chest rise, no use of accessory muscles. On mechanical ventilation. Abdomen: Vertical incision, wound vac on suction. Dressing is clean, dry and intact. : Casey in place. Extremities: No edema. Posterior tibial pulses are 2+ bilaterally. 2+ radial pulse bilaterally. No clubbing or cyanosis. No mottling. SCDs. Skin: No rash. Objective Labs 08/09/25 16:52 08/09/25 04:30 Labs: Laboratory Results - last 24 hr 10/08/08/25 08/08/25 12:23 16:45 19:32 WBC RBC Hgb Hct MCV MCH MCHC RDW Std Deviation Plt Count Neut % (Auto) Lymph % (Auto) [place] % (Auto) Eos % (Auto) Baso % (Auto) Neut # (Auto) Lymph # (Auto) [place] # (Auto) Eos # (Auto) Baso # (Auto) Immature Gran # (Auto) Absolute Nucleated RBC Immature Gran % Nucleated RBC % PT INR APTT Puncture Site ABG pH ABG pCO2 ABG pO2 ABG HCO3 ABG O2 Saturation ABG Base Excess FiO2 Sodium 139 Potassium 3.3 L Chloride 109 H Carbon Dioxide 20.9 Anion Gap 9 BUN 36 H Creatinine 1.2 Estim Creat Clear Calc 35.4 L eGFR 47 L BUN/Creatinine Ratio 30 H Glucose 178 H Calculated Osmolality 289 Lactic Acid 2.1 H 1.9 Calcium 7.8 L Corrected Calcium 9.2 Phosphorus 2.4 Magnesium 1.9 Total Bilirubin AST ALT Alkaline Phosphatase Total Protein Albumin 2.2 L Globulin Albumin/Globulin Ratio Blood Type Antibody Screen Crossmatch Blood Bank Wristband ID 08/09/25 08/09/25 08/09/25 01:47 04:02 04:30 WBC 29.0 H D RBC 2.35 L Hgb 7.3 L Hct 22.2 L MCV 95 MCH 31.1 MCHC 32.9 RDW Std Deviation 61.9 H Plt Count 420 Neut % (Auto) 79 Lymph % (Auto) 5 L [place] % (Auto) 7 Eos % (Auto) 1 Baso % (Auto) 0 Neut # (Auto) 22.8 H Lymph # (Auto) 1.4 [place] # (Auto) 2.0 H Eos # (Auto) 0.3 Baso # (Auto) 0.1 Immature Gran # (Auto) 2.45 H Absolute Nucleated RBC 4.69 H Immature Gran % 8 H Nucleated RBC % 16 H PT INR APTT Puncture Site Arterial Line ABG pH 7.30 L ABG pCO2 40 ABG pO2 92 ABG HCO3 20 ABG O2 Saturation 98 ABG Base Excess -6 L FiO2 40 Sodium 138 Potassium 4.0 D 3.5 D Chloride 107 Carbon Dioxide 18.8 L Anion Gap 12 BUN 35 H Creatinine 1.2 Estim Creat Clear Calc 35.4 L eGFR 47 L BUN/Creatinine Ratio 29 H Glucose 193 H Calculated Osmolality 288 Lactic Acid Calcium 8.3 Corrected Calcium 8.9 Phosphorus 2.2 L Magnesium 3.3 H 3.0 H Total Bilirubin 1.4 H AST 18 ALT 12 Alkaline Phosphatase 117 H D Total Protein 4.5 L Albumin 3.2 L D Globulin 1.3 L Albumin/Globulin Ratio 2.5 H Blood Type O Positive Antibody Screen NEGATIVE Crossmatch See Detail Blood Bank Wristband ID Yes 08/09/25 08/09/25 07:15 09:20 WBC RBC Hgb Hct MCV MCH MCHC RDW Std Deviation Plt Count Neut % (Auto) Lymph % (Auto) [place] % (Auto) Eos % (Auto) Baso % (Auto) Neut # (Auto) Lymph # (Auto) [place] # (Auto) Eos # (Auto) Baso # (Auto) Immature Gran # (Auto) Absolute Nucleated RBC Immature Gran % Nucleated RBC % PT 11.2 INR 1.1 APTT 30.1 Puncture Site ABG pH ABG pCO2 ABG pO2 ABG HCO3 ABG O2 Saturation ABG Base Excess FiO2 Sodium Potassium Chloride Carbon Dioxide Anion Gap BUN Creatinine Estim Creat Clear Calc eGFR BUN/Creatinine Ratio Glucose Calculated Osmolality Lactic Acid 1.7 Calcium Corrected Calcium Phosphorus Magnesium Total Bilirubin AST ALT Alkaline Phosphatase Total Protein Albumin Globulin Albumin/Globulin Ratio Blood Type Antibody Screen Crossmatch Blood Bank Wristband ID ABG Interpretation ABG results: 08/04/25 08/05/25 08/06/25 01:04 02:15 00:20 ABG pH 7.39 7.34 L 7.17 L* D ABG pCO2 38 41 58 H D ABG pO2 52 L* 54 L* 72 L ABG HCO3 23 22 21 ABG O2 Saturation 88 L 88 L 92 ABG Base Excess -2 -3 -7 L 08/06/25 08/06/25 08/08/25 03:26 05:45 08:04 ABG pH 7.27 L D 7.29 L 7.18 L* D ABG pCO2 47 D 46 54 H ABG pO2 83 81 L 73 L ABG HCO3 22 22 20 ABG O2 Saturation 97 98 94 ABG Base Excess -5 L -4 L -8 L 08/08/25 08/09/25 09:13 04:02 ABG pH 7.32 L D 7.30 L ABG pCO2 42 D 40 ABG pO2 73 L 92 ABG HCO3 22 20 ABG O2 Saturation 97 98 ABG Base Excess -4 L -6 L Quality Measures Quality Measures VTE prophylaxis Advance care planning discussed with:: patient Assessment & Plan Assessment Current Active Medications: Generic Name Dose Route Start Last Admin Trade Name Freq PRN Reason Stop Dose Admin Glucagon 1 mg 07/29/25 12:21 Glucagon Inj 1 Mg Vial IM Q15MIN PRN BG <70, and no IV access Promethazine HCl 25 mg/ Sodium 51 mls @ 2.5 mls/min 07/31/25 15:43 Chloride IV 08/30/25 15:42 Q6HR PRN NAUSEA OR VOMITING Protocol Piperacillin Sod/Tazobactam 100 mls @ 200 mls/hr 08/04/25 08:30 08/09/25 05:32 Sod 4.5 gm/ Sodium Chloride IV 08/11/25 08:29 200 mls/hr Q8HR HERO Administration Protocol Propofol 1,000 mg in 100 mls @ 1.962 mls/hr 08/05/25 22:04 08/09/25 10:00 Diprivan Ivpb IV 09/04/25 22:03 10 mcg/kg/min .Q24H PRN 3.924 mls/hr PER PROTOCOL Titration Protocol 5 MCG/KG/MIN Fentanyl Citrate 2,500 mcg in 250 mls @ 2.5 mls/hr 08/05/25 22:04 08/09/25 10:00 Sublimaze Inj 2,500 Mcg/250 Ml Bag IV 08/10/25 22:03 225 mcg/hr .Q24H PRN 22.5 mls/hr PER PROTOCOL Titration Protocol 25 MCG/HR Norepinephrine/Dextrose 8 mg in 250 mls @ 6.131 mls/hr 08/06/25 00:35 08/09/25 10:00 Levophed In D5w 8mg/250ml IV 09/05/25 00:34 0.05 mcg/kg/min .Q24H PRN 6.131 mls/hr PER PROTOCOL Titration Protocol 0.05 MCG/KG/MIN Vasopressin/Sodium Chloride 20 unit in 100 mls @ 9 mls/hr 08/06/25 13:00 08/09/25 10:00 Vasostrict/Ns Ivpb IV 09/05/25 12:59 0.03 unit/min .Q11H7M PRN 9 mls/hr PER PROTOCOL Titration Protocol 0.03 UNIT/MIN Fluconazole 400 mg in 200 mls @ 100 mls/hr 08/07/25 10:08 08/09/25 08:09 Diflucan/Ns Ivpb IV 08/10/25 17:00 100 mls/hr QDAY HERO Administration Amino Acids/Electrolytes 2,000 mls @ 60 mls/hr 08/08/25 12:00 08/08/25 12:27 Clinimix E 5/20 IV 08/09/25 11:59 60 mls/hr Q24H HERO Administration Vancomycin/Sodium Chloride 750 mg in 150 mls @ 120 mls/hr 08/09/25 10:00 Vancomycin/Ns 750 Mg Ivpb IV 08/16/25 09:59 QDAY@1000 HERO Insulin Human Regular 0 unit 07/29/25 18:00 08/09/25 05:34 Insulin Hum Regular 1 Unit/0.01 Ml (Per Unit) SC 08/28/25 17:59 2 unit Q6HR HERO Administration Protocol Levothyroxine Sodium 50 mcg 08/06/25 06:00 08/09/25 08:09 Levothyroxine Inj 100 Mcg Vial IV 09/05/25 05:59 50 mcg DAILY HERO Administration Ondansetron HCl 4 mg 07/31/25 11:59 08/05/25 12:25 Ondansetron Inj 2 Mg/Ml Inj 2 Ml IVP 08/30/25 11:58 4 mg Q4HR PRN Administration NAUSEA OR VOMITING Protocol Pantoprazole Sodium 40 mg 08/06/25 09:00 08/09/25 08:10 Pantoprazole Inj 40 Mg Vial IVP 09/05/25 08:59 40 mg QDAY HERO Administration Pharmacy Consult 1 each 08/04/25 09:00 Vancomycin Pharmacy To Dose 1 Each Each IV 09/03/25 08:59 QDAY PRN PROTOCOL Pharmacy Consult 1 each 08/06/25 08:27 Pharmacy Renal Dose Adjustment 1 Ea XX 09/05/25 08:26 PRN PRN CONSULT Sodium Chloride 5 ml 08/05/25 23:36 Sodium Chloride Rt 10% 15 Ml Nebu INH 08/13/25 23:35 X1 PRN SPUTUM CLEARANCE Plan 79-year-old female with septic shock, KELSI, and acute hypoxic respiratory failure, showing improved urine output, no need for dialysis today, and ongoing management in the ICU with pressor support and mechanical ventilation. #Acute Kidney Injury on Chronic Kidney Disease Likely secondary to poor oral intake, prolonged dehydration from surgical complications, and possible nephrotoxic effects from sepsis and antibiotics. Creatinine down trending now back to normal at 1.2 The patient?s urine output has improved to 30-60 cc/h, indicating some renal recovery. No indication for dialysis. Plan: * Administer sodium bicarbonate to correct acidosis. * Administer potassium phosphate as needed to correct potassium and phosphorus imbalance. * Continue close monitoring of urine output and hemodynamic status. * Strict I&Os. * Avoid nephrotoxins and hold nephrotoxic medications. Other active problems: #Septic Shock #Acute Hypoxic Respiratory Failure #Feculent Peritonitis #Normocytic Anemia #Leukocytosis #Hypothyroidism Management per ICU team ----- Plan discussed with attending physician Dr. Sari Porras MD PGY-1 Internal Medicine Attending Provider Attestation/Addendum Patient seen and examined with resident physician Dr. Porras. Note reviewed, agree with findings and recommendations. Patient currently seen in ICU. Remains on the ventilator. Urine output acceptable. As needed diuretics. Noted Dr Barcenas might take care for surgery again. Will follow closely.
[2025-08-09] MEDS: VANCOMYCIN/NS 750 MG IVPB 750 MG/150 ML BAG 120 MG IV (11:02)
--- NOTE | 2025-08-09 12:18 | PC.SS ---
Update: Patient remains intubated/sedated. Receiving pressor support. NPO. Afebrile. Receiving IV antibiotics. Plan is for surgery tomorrow. Dr. Barcenas consulting.
[2025-08-09] MEDS: [UNRECOGNIZED DRUG - OTHER] IV (12:19)
[2025-08-09] MEDS: POTASSIUM ACET IV (12:19)
[2025-08-09] MEDS: POTASSIUM PHOS IV (12:19)
[2025-08-09] MEDS: CALCIUM GLUCONATE IV (12:19)
[2025-08-09 17:05] LABS: Hematocrit 28.6 % (36.0-46.0); Hemoglobin 9.6 g/dL (12.0-16.0)
--- NOTE | 2025-08-09 17:12 | ESPR_ITS ---
Subjective Subjective Interval history: ordered cdiff test and advised staff of the order. not much out in terms of bm and abd drainage noted with pos cx with gnr's so will stop vanco and leave on zosyn pending more cx Exam Vital Signs Temp Pulse Resp BP Pulse Ox O2 Del Method O2 Flow Rate 96.3 F L 53 L 30 H 115/44 L 97 Mechanical Ventilation 30 08/09/25 16:00 08/09/25 17:00 08/09/25 12:28 08/09/25 17:00 08/09/25 17:00 08/09/25 14:01 08/05/25 18:38 FiO2 40 08/09/25 16:00 Narrative Exam on vent at 40%. abd seems benign but she is sedated with yeast in bc will repeat them in am and f/u on those and overall picture. Objective - Internal Medicine Labs 08/09/25 16:52 08/09/25 04:30 Labs: Laboratory Results - last 24 hr 08/08/25 08/09/25 08/09/25 19:32 01:47 04:02 WBC RBC Hgb Hct MCV MCH MCHC RDW Std Deviation Plt Count Neut % (Auto) Lymph % (Auto) [place] % (Auto) Eos % (Auto) Baso % (Auto) Neut # (Auto) Lymph # (Auto) [place] # (Auto) Eos # (Auto) Baso # (Auto) Immature Gran # (Auto) Absolute Nucleated RBC Immature Gran % Nucleated RBC % PT INR APTT Puncture Site Arterial Line ABG pH 7.30 L ABG pCO2 40 ABG pO2 92 ABG HCO3 20 ABG O2 Saturation 98 ABG Base Excess -6 L FiO2 40 Sodium 139 Potassium 3.3 L 4.0 D Chloride 109 H Carbon Dioxide 20.9 Anion Gap 9 BUN 36 H Creatinine 1.2 Estim Creat Clear Calc 35.4 L eGFR 47 L BUN/Creatinine Ratio 30 H Glucose 178 H Calculated Osmolality 289 Lactic Acid Calcium 7.8 L Corrected Calcium 9.2 Phosphorus 2.4 Magnesium 1.9 3.3 H Total Bilirubin AST ALT Alkaline Phosphatase Total Protein Albumin 2.2 L Globulin Albumin/Globulin Ratio Blood Type Antibody Screen Crossmatch Blood Bank Wristband ID Blood Bank Comment 08/09/25 08/09/25 08/09/25 04:30 07:15 09:20 WBC 29.0 H D RBC 2.35 L Hgb 7.3 L Hct 22.2 L MCV 95 MCH 31.1 MCHC 32.9 RDW Std Deviation 61.9 H Plt Count 420 Neut % (Auto) 79 Lymph % (Auto) [address] [place] % (Auto) 7 Eos % (Auto) 1 Baso % (Auto) 0 Neut # (Auto) 22.8 H Lymph # (Auto) 1.4 [place] # (Auto) 2.0 H Eos # (Auto) 0.3 Baso # (Auto) 0.1 Immature Gran # (Auto) 2.45 H Absolute Nucleated RBC 4.69 H Immature Gran % 8 H Nucleated RBC % 16 H PT 11.2 INR 1.1 APTT 30.1 Puncture Site ABG pH ABG pCO2 ABG pO2 ABG HCO3 ABG O2 Saturation ABG Base Excess FiO2 Sodium 138 Potassium 3.5 D Chloride 107 Carbon Dioxide 18.8 L Anion Gap 12 BUN 35 H Creatinine 1.2 Estim Creat Clear Calc 35.4 L eGFR 47 L BUN/Creatinine Ratio 29 H Glucose 193 H Calculated Osmolality 288 Lactic Acid 1.7 Calcium 8.3 Corrected Calcium 8.9 Phosphorus 2.2 L Magnesium 3.0 H Total Bilirubin 1.4 H AST 18 ALT 12 Alkaline Phosphatase 117 H D Total Protein 4.5 L Albumin 3.2 L D Globulin 1.3 L Albumin/Globulin Ratio 2.5 H Blood Type O Positive Antibody Screen NEGATIVE Crossmatch See Detail Blood Bank Wristband ID Yes Blood Bank Comment FFP Ready 08/09/25 16:52 WBC RBC Hgb 9.6 L D Hct 28.6 L MCV MCH MCHC RDW Std Deviation Plt Count Neut % (Auto) Lymph % (Auto) [place] % (Auto) Eos % (Auto) Baso % (Auto) Neut # (Auto) Lymph # (Auto) [place] # (Auto) Eos # (Auto) Baso # (Auto) Immature Gran # (Auto) Absolute Nucleated RBC Immature Gran % Nucleated RBC % PT INR APTT Puncture Site ABG pH ABG pCO2 ABG pO2 ABG HCO3 ABG O2 Saturation ABG Base Excess FiO2 Sodium Potassium Chloride Carbon Dioxide Anion Gap BUN Creatinine Estim Creat Clear Calc eGFR BUN/Creatinine Ratio Glucose Calculated Osmolality Lactic Acid Calcium Corrected Calcium Phosphorus Magnesium Total Bilirubin AST ALT Alkaline Phosphatase Total Protein Albumin Globulin Albumin/Globulin Ratio Blood Type Antibody Screen Crossmatch Blood Bank Wristband ID Blood Bank Comment ABG Interpretation ABG results: 08/04/25 08/05/25 08/06/25 01:04 02:15 00:20 ABG pH 7.39 7.34 L 7.17 L* D ABG pCO2 38 41 58 H D ABG pO2 52 L* 54 L* 72 L ABG HCO3 23 22 21 ABG O2 Saturation 88 L 88 L 92 ABG Base Excess -2 -3 -7 L 08/06/25 08/06/25 08/08/25 03:26 05:45 08:04 ABG pH 7.27 L D 7.29 L 7.18 L* D ABG pCO2 47 D 46 54 H ABG pO2 83 81 L 73 L ABG HCO3 22 22 20 ABG O2 Saturation 97 98 94 ABG Base Excess -5 L -4 L -8 L 08/08/25 08/09/25 09:13 04:02 ABG pH 7.32 L D 7.30 L ABG pCO2 42 D 40 ABG pO2 73 L 92 ABG HCO3 22 20 ABG O2 Saturation 97 98 ABG Base Excess -4 L -6 L Assessment & Plan A&P Narrative abd abscess with neg stains but pending cx yeast in bc. not yet identified anxiety hypothyroid hld leucocytosis and candidemia hx of cdiff pos a long time ago. Time Spent With Patient Time: Total time spent is greater than 50% in coordination of care (as documented) at patient's floor/unit and/or counseling patient: Quality - progress note VTE Deep Vein Thrombosis/Pulmonary Embolism Present on Admission: No
[2025-08-09] MEDS: PROPOFOL 1,000 MG IVPB 1,000 MG/100 ML VIAL 1.962 MG IV (17:52)
[2025-08-09] MEDS: Norepinephrine/D5W 8mg/250ml 8 MG/250 ML BAG 6.131 MG IV (17:52)
[2025-08-09] MEDS: ALBUMIN HUMAN-KJDA 25% IVPB 25 GM/100 ML BTL IV (20:48)
[2025-08-10] VITALS (80 sets, daily range): BP systolic 49–143; BP diastolic 14–101; PULSE 35–101; RESP 0–30; TEMP 35.7–36.2; O2SAT 32–98; BMI 26.4
[2025-08-10] MEDS: PIPER/TAZO INJ 4.5 GM in SODIUM CHLORIDE 0.9% (POP) 100 ML IV (05:15)
[2025-08-10] MEDS: VASOPRESSIN IN NS IVPB 20 UNIT/100 ML BAG 9 UNIT IV (05:16)
[2025-08-10] MEDS: fentaNYL 2,500 MCG/250 ML BAG 2,500 MCG/250 ML BAG 12.5 MCG IV (06:21)
[2025-08-10 06:30] LABS: Basophils # (Auto) 0.2 Thou/mm3 (0.0-0.2); Basophils % (Auto) 1 % (0-2.5); Eosinophils # (Auto) 0.3 Thou/mm3 (0.0-0.5); Eosinophils % (Auto) 1 % (0-10); Hematocrit 29.2 % (36.0-46.0); Hemoglobin 9.6 g/dL (12.0-16.0); Immature Granulocytes Auto 1.89 Thou/mm3 (0.00-0.00); Lymphocytes # (Auto) 0.3 Thou/mm3 (1.0-4.8); Lymphocytes % (Auto) 1 % (10-50); Mean Corpuscular HGB Conc 32.9 g/dl (31.0-37.0); Mean Corpuscular Hemoglobin 29.8 pg (25.0-35.0); Mean Corpuscular Volume 91 fL (80-100); Monocytes # (Auto) 2.1 Thou/mm3 (0.0-0.8); Monocytes % (Auto) 10 % (0-12); Neutrophils # (Auto) 17.3 Thou/mm3 (1.8-7.7); Neutrophils % (Auto) 78 % (37-80); Nucleated Red Blood Cell # 2.39 Thou/mm3 (0.00-0.00); Nucleated Red Blood Cell % 11 /100 WBC (0); Platelet Count 392 Thou/mm3 (140-440); RDW Standard Deviation 61.7 fL (36.4-46.3); Red Blood Count 3.22 Miln/mm3 (4.00-5.20); White Blood Count 22.1 Thou/mm3 (3.6-11.0)
[2025-08-10 06:38] LABS: INR 1.1 (0.9-1.3); Partial Thromboplastin Time 30.2 Seconds (22.0-36.0); Prothrombin Time 11.4 Seconds (9.0-12.2)
[2025-08-10 06:46] LABS: Alanine Aminotransferase 12 U/L (10-49); Albumin, Serum 2.9 gm/dL (3.4-4.8); Albumin/Globulin Ratio 1.7 (1.2-2.2); Alkaline Phosphatase 121 U/L (46-116); Anion Gap 11 (7-16); Aspartate Amino Transferase 19 U/L (0-34); BUN/Creatinine Ratio 29 Ratio (12-20); Bilirubin,Total 1.5 mg/dL (0.3-1.2); Blood Urea Nitrogen 29 mg/dL (9-23); Calcium 8.4 mg/dL (8.3-10.6); Calcium (Corrected) 9.3 mg/dL (8.5-10.1); Carbon Dioxide 19.4 mMol/L (20.0-31.0); Chloride 108 mMol/L (98-107); Creatinine (Component) 1.0 mg/dL (0.6-1.3); Estimated Creatinine Clearance 42.5 mL/min (>60); Globulin 1.7 gm/dL (2.3-3.5); Glucose 138 mg/dL (74-106); Magnesium 2.2 mg/dL (1.6-2.6); Osmolality,Calculated 283 (275-295); Phosphorous 4.7 mg/dL (2.4-5.1); Potassium 4.7 mMol/L (3.4-5.1); Sodium 138 mMol/L (136-145); Total Protein 4.6 gm/dL (5.7-8.2); eGFR 58 See Note
[2025-08-10] MEDS: FLUCONAZOLE/NS 400 MG IVPB 400 MG/200 ML BAG 100 MG IV (08:39)
[2025-08-10] MEDS: PROPOFOL 1,000 MG IVPB 1,000 MG/100 ML VIAL 7.848 MG IV (08:40)
--- NOTE | 2025-08-10 11:25 | ESPR_ITS ---
<Statement entered by Kendrick Bueno MD - 08/11/25 08:27> TOTAL CC TIME: 45 MIN I saw and evaluated the patient. I reviewed the resident?s note and agree with findings and plan as documented in the resident?s note. Upon my evaluation, this patient had a high probability of imminent or life- threatening deterioration due to septic shock, which required my direct attention, intervention, and personal management. This time is exclusive of time spent on procedures, which are documented separately if performed. she remained on sedation and pressors discussed post operative findings with surgeon Dr. Barcenas sb integrity extremely poor with continuous perforations with minimal surgical instrumpent manipulation He spoke with her family who requested a transition of care to comfort measures <Statement entered by Chaitanya Vasquez MD - 08/10/25 15:01> Patient seen and examined at bedside. I discussed and supervised with the campus recruiting intern physician who took care of this patient. I personally saw and examined the patient. I agree with most of the assessment and plan. Plan of care discussed with attending Dr. Bueno. Chaitanya Vasquez MD PGY-2 Documentation for date of: 08/10/25 Subjective Subjective Interval history: 08/10/2025: No overnight events. Wound vac output was about 500cc. No fevers. Urine output around 50cc/hr. Hemoglobin stable 7.3 --> 9.6 post 2 units of pRBC and 1 unit FFP. Patient continues to be sedated with propofol at 20 mcg/kg/hr and fentanyl at 125 mcg/hr. Currently, Levophed at 0.05 mcg/kg/min and vasopressin. Dr. Cardoza discontinued vancomycin. Patient will be proceeding with surgery today. 08/09/2025: Overnight, the patient remained on Levophed at 0.15 mcg/kg/min and vasopressin. Currently, Levophed has been reduced to 0.05 mcg/kg/min. Patient continues to be sedated with propofol at 10 mcg/kg/hr and fentanyl at 225 mcg/hr. A sedation vacation is planned for today. Urine output ranged between 35-55 cc/hr. If output decreases, a 500cc IV bolus of LR will be given. NG tube output was 60 cc, and wound vac output was approximately 800cc. This morning, patient was bradycardic, and an EKG confirmed sinus bradycardia. Leukocytosis is showing improvement. General surgery recommended 2 units of pRBCs and 1 unit of FFP. Anticipate patient going back to the OR tomorrow if remains stable and continues to decrease pressor dosage. 08/08/2025: Overnight patient continued to need to be on Levophed 0.17 mcg/kg/min with vasopression .03 u/min. Patient continues to be sedated on propofol 10 mcg/kg/hr and fentanyl 175 mcg/hr, was assessed and examined to have a RASS -2. Patient had urine output overnight averaging to ~50cc/hr, will not need to have dialysis today. Patient continued to be on TPN at 30 ml/hr. This morning patient's ABG at ~8am showed acidosis at pH of 7.18 with pco2 of 54 and had a monomorphic v-tach for a few seconds that spontaneously resolved. Patient's ventilator settings were adjusted from a tidal volume of 320 mls to 380 mls and a respiratory rate of 26 breaths per minute to 30 breaths per minute in order to reduce the acidosis, while keeping in mind that the patient does have a history of COPD. A repeat ABG was ordered and the patient was given potassium phosphate, magnesium and 1 amp of bicarb. Patient's repeat ABG after this showed improvement to pH of 7.32 and a pco2 of 42. Lactic acid was ordered but was cancelled for unknown reasons. A later lactic acid at noon was taken and resulted at 2.1. Patient had the cheetah done to assess for fluid responsiveness, showed 13% fluid responsiveness after 250 ml bolus was given over the course of 1/2 minutes; gave patient 0.5 L LR bolus after. Patient will not be going to the OR for laparotomy, small bowel anastomosis and colostomy due to continued need for elevated pressor dosages. 08/07/2025: Overnight, patient required an uptitration of Levophed from 0.13 to 0.17 mcg/kg/min, while vasopressin was maintained at 0.03 units/min. Patient remained sedated with Propofol 10 mcg/kg/min and Fentanyl 175 mcg/hr. The wound vac, connected to continuous suction, produced 200 cc of output. Minimal output was noted from the NG tube. Patient remained afebrile. Urine output has decreased from 45-50 cc/hour yesterday to 10-20 cc/hour overnight. Nephrology was consulted. Plan to place dialysis catheter tomorrow (08/08). Although stress-dose steroids are often considered for patients requiring two vasopressors to help reduce the dose of pressors, they are not indicated due to septic shock, as their use does not impact mortality. NICOM was performed this morning, with a 250 cc/hr fluid bolus, and the results indicated that the patient is not fluid-responsive. As a result, the administration of LR at 100 ml/hr was discontinued. TPN was initiated on 08/07. Dr. Barcenas (surgeon) plans to take the patient back to the operating room on 08/08 if patient is stable. ID changed the patient's antifungal regimen from Micafungin to Fluconazole. ID also wanted a C diff PCR test however patient is not having bowel movements and so unable to obtain sample. Admission to ICU: 08/06 - NG tube and wound vac placed with low continuous suction as per surgery recommendations. - Vent settings adjusted for permissive hypercapnia as patient as history of COPD. - Propofol and Fentanyl started for sedation, with a RASS of -3. - Levophed started for blood pressure support. Vasopressin added. - Right IJ central line placed. - PICC line removed. - Point of care ultrasound showed minimal respiratory variation in IVC, indicating adequate fluid resuscitation. - Right side pleural effusion and free fluid noted, without loculation, suggesting transudative pleural effusion from fluid resuscitation; no intervention needed at this time. . - Peritoneal culture was taken. - Chemical prophylaxis was held due to acute drop in hemoglobin. Transfused 1 unit pRBC for hemoglobin of 7.2; post-transfusion hemoglobin was 9.7. - Plan to start TPN on 08/07. - Trialed pressure support ventilation but the patient became apneic. Switched back to AC mode. - Started LR at 1000 cc @ 100 mL/hr. - Current urine output was 45-50 cc/hr; if urine output slows, fluids will be increased. - Fluids will be stopped once TPN is initiated. 79-year-old female with a significant medical history of diverticulitis (status post colectomy and colostomy for perforated diverticulitis in 09/2022), hypothyroidism, coronary artery disease with angioplasty and stent placement, hypertension, hyperlipidemia, and chronic obstructive pulmonary disease presented for colostomy reversal with Dr. Barcenas. Surgery 07/28: Patient underwent an exploratory laparotomy, lysis of adhesions, reversal of colostomy with colorectal anastomosis, cholecystectomy, splenectomy, and left salpingo-oophorectomy. Postoperative Course: 07/29 - 07/31 (Postop days 1-3): NPO, PPN, started IV antibiotics (Cefoxitin and Doxycycline). Awaiting return of GI function. 08/01 - 08/02 (Postop days 4-5): NPO, PPN, IV antibiotics. Hemoglobin and WBC trending down. Awaiting return of GI function. 08/03 (Postop day 6): Sips of clears initiated. PICC line placed by IR. Awaiting return of GI function. 08/04 (Postop day 7): Rapid response called for tachycardia in the 170s. - Night IM team consulted. CXR showed significant bibasilar pneumonia. - IV Antibiotics were changed to Vancomycin and Zosyn. - Transfused 2 units pRBC. - KUB showed SBO pattern. - Blood cultures ordered. - Awaiting return of GI function. 08/05 (Postop day 8): Rapid response #2 called for desaturation to 83% on nasal cannula. - Patient placed on HFNC. - Developed dark-colored vomitus, and NG tube was placed. - Dressing was soiled, with brown fecal discharge noted at the incision site. - Distended abdomen noted. - CT showed dilated loops of small bowel with fluid in the abdomen, suggestive of a leak from the anastomosis site. Surgical Intervention 08/04: - Patient taken back to the OR. - Findings included significant feculent peritonitis, 5 small bowel perforations, and a leak at the anastomosis site. - Two segmental resections of small bowel and resection of the colorectal anastomosis were performed. - Abdomen was left open with a wound vac. Plan to return to OR in 48 to 72 hours for reexploration, - Patient was transferred to the ICU. Exam Vital Signs Temp Pulse Resp BP Pulse Ox O2 Del Method O2 Flow Rate 96.3 F L 68 30 H 124/59 L 96 Mechanical Ventilation 30 08/10/25 11:00 08/10/25 11:15 08/10/25 06:26 08/10/25 11:15 08/10/25 11:15 08/10/25 08:00 08/05/25 18:38 FiO2 40 08/10/25 11:13 Narrative Exam General: Sedated, NGT on suction. RASS -2: briefly opens eyes to voice. Head: Normocephalic, atraumatic. Eyes: Pupils equally round and reactive to light. Anicteric. Mouth/Throat: ETT in place. Heart: Regular rate and rhythm, no murmurs. No JVD. Lungs: Clear to auscultation with no wheezing or crackles. Non-labored respirations, symmetric chest rise, no use of accessory muscles. On mechanical ventilation. Abdomen: Vertical incision, wound vac on suction. Dressing is clean, dry and intact. : Casey in place. Extremities: Posterior tibial pulses are 2+ bilaterally. 2+ radial pulse bilaterally. No clubbing or cyanosis. No mottling. SCDs. Mild edmea of bilateral hands. Skin: No rash. Objective Labs 08/10/25 04:40 08/10/25 04:40 Labs: Laboratory Results - last 24 hr 08/09/25 08/09/25 08/10/25 04:30 16:52 04:40 WBC 22.1 H D RBC 3.22 L Hgb 9.6 L D 9.6 L Hct 28.6 L 29.2 L MCV 91 MCH 29.8 MCHC 32.9 RDW Std Deviation 61.7 H Plt Count 392 Neut % (Auto) 78 Lymph % (Auto) 1 L Griggs % (Auto) 10 Eos % (Auto) 1 Baso % (Auto) 1 Neut # (Auto) 17.3 H Lymph # (Auto) 0.3 L Griggs # (Auto) 2.1 H Eos # (Auto) 0.3 Baso # (Auto) 0.2 Immature Gran # (Auto) 1.89 H Absolute Nucleated RBC 2.39 H Immature Gran % 9 H Nucleated RBC % 11 H PT 11.4 INR 1.1 APTT 30.2 Sodium 138 Potassium 4.7 D Chloride 108 H Carbon Dioxide 19.4 L Anion Gap 11 BUN 29 H Creatinine 1.0 Estim Creat Clear Calc 42.5 L eGFR 58 L BUN/Creatinine Ratio 29 H Glucose 138 H D Calculated Osmolality 283 Calcium 8.4 Corrected Calcium 9.3 Phosphorus 4.7 Magnesium 2.2 Total Bilirubin 1.5 H AST 19 ALT 12 Alkaline Phosphatase 121 H Total Protein 4.6 L Albumin 2.9 L Globulin 1.7 L Albumin/Globulin Ratio 1.7 Blood Type O Positive Antibody Screen NEGATIVE Crossmatch See Detail Blood Bank Wristband ID Yes Blood Bank Comment FFP Ready ABG Interpretation ABG results: 08/04/25 08/05/25 08/06/25 01:04 02:15 00:20 ABG pH 7.39 7.34 L 7.17 L* D ABG pCO2 38 41 58 H D ABG pO2 52 L* 54 L* 72 L ABG HCO3 23 22 21 ABG O2 Saturation 88 L 88 L 92 ABG Base Excess -2 -3 -7 L 08/06/25 08/06/25 08/08/25 03:26 05:45 08:04 ABG pH 7.27 L D 7.29 L 7.18 L* D ABG pCO2 47 D 46 54 H ABG pO2 83 81 L 73 L ABG HCO3 22 22 20 ABG O2 Saturation 97 98 94 ABG Base Excess -5 L -4 L -8 L 08/08/25 08/09/25 09:13 04:02 ABG pH 7.32 L D 7.30 L ABG pCO2 42 D 40 ABG pO2 73 L 92 ABG HCO3 22 20 ABG O2 Saturation 97 98 ABG Base Excess -4 L -6 L Quality Measures Quality Measures VTE prophylaxis Advance care planning discussed with:: patient Assessment & Plan Assessment Current Active Medications: Generic Name Dose Route Start Last Admin Trade Name Freq PRN Reason Stop Dose Admin Glucagon 1 mg 07/29/25 12:21 Glucagon Inj 1 Mg Vial IM Q15MIN PRN BG <70, and no IV access Promethazine HCl 25 mg/ Sodium 51 mls @ 2.5 mls/min 07/31/25 15:43 Chloride IV 08/30/25 15:42 Q6HR PRN NAUSEA OR VOMITING Protocol Piperacillin Sod/Tazobactam 100 mls @ 200 mls/hr 08/04/25 08:30 08/10/25 05:15 Sod 4.5 gm/ Sodium Chloride IV 08/11/25 08:29 200 mls/hr Q8HR HERO Administration Protocol Norepinephrine/Dextrose 8 mg in 250 mls @ 6.131 mls/hr 08/06/25 00:35 08/10/25 11:00 Levophed In D5w 8mg/250ml IV 09/05/25 00:34 0.05 mcg/kg/min .Q24H PRN 6.131 mls/hr PER PROTOCOL Titration Protocol 0.05 MCG/KG/MIN Vasopressin/Sodium Chloride 20 unit in 100 mls @ 9 mls/hr 08/06/25 13:00 08/10/25 11:00 Vasostrict/Ns Ivpb IV 09/05/25 12:59 0.03 unit/min .Q11H7M PRN 9 mls/hr PER PROTOCOL Titration Protocol 0.03 UNIT/MIN Fluconazole 400 mg in 200 mls @ 100 mls/hr 08/07/25 10:08 08/10/25 08:39 Diflucan/Ns Ivpb IV 08/10/25 17:00 100 mls/hr QDAY HERO Administration Potassium Acetate 70 meq/ 2,055 mls @ 60 mls/hr 08/09/25 12:30 08/09/25 12:19 Potassium Phosphate 30 mmol/ IV 08/10/25 12:29 60 mls/hr Calcium Gluconate 1 gm/ Amino Q24H HERO Administration Acids Propofol 1,000 mg in 100 mls @ 1.962 mls/hr 08/09/25 15:06 08/10/25 08:40 Diprivan Ivpb IV 09/04/25 22:03 20 mcg/kg/min .Q24H PRN 7.848 mls/hr PER PROTOCOL Administration Protocol 5 MCG/KG/MIN Fentanyl Citrate 2,500 mcg in 250 mls @ 2.5 mls/hr 08/09/25 15:06 08/10/25 11:00 Sublimaze Inj 2,500 Mcg/250 Ml Bag IV 08/10/25 22:03 125 mcg/hr .Q24H PRN 12.5 mls/hr PER PROTOCOL Titration Protocol 25 MCG/HR Insulin Human Regular 0 unit 07/29/25 18:00 08/10/25 08:27 Insulin Hum Regular 1 Unit/0.01 Ml (Per Unit) SC 08/28/25 17:59 Not Given Q6HR HERO Protocol Levothyroxine Sodium 50 mcg 08/06/25 06:00 08/10/25 08:39 Levothyroxine Inj 100 Mcg Vial IV 09/05/25 05:59 50 mcg DAILY HERO Administration Ondansetron HCl 4 mg 07/31/25 11:59 08/05/25 12:25 Ondansetron Inj 2 Mg/Ml Inj 2 Ml IVP 08/30/25 11:58 4 mg Q4HR PRN Administration NAUSEA OR VOMITING Protocol Pantoprazole Sodium 40 mg 08/06/25 09:00 08/10/25 08:40 Pantoprazole Inj 40 Mg Vial IVP 09/05/25 08:59 40 mg QDAY HERO Administration Pharmacy Consult 1 each 08/06/25 08:27 Pharmacy Renal Dose Adjustment 1 Ea XX 09/05/25 08:26 PRN PRN CONSULT Sodium Chloride 5 ml 08/05/25 23:36 Sodium Chloride Rt 10% 15 Ml Nebu INH 08/13/25 23:35 X1 PRN SPUTUM CLEARANCE Plan 79-year-old female with a complex medical history, including perforated diverticulitis (status post colectomy and colostomy), hypothyroidism, coronary artery disease, hypertension, hyperlipidemia, and COPD, underwent a colostomy reversal, which was complicated by feculent peritonitis, requiring further surgery and ICU admission for hemodynamic support and mechanical ventilation. Neurology #Chemical sedation Treatment Plan: - Propofol and Fentanyl for sedation postintubation. RASS goal -3. - Titrate off sedatives as tolerated to assess mentation daily. - Sedation vacation to reduce risk of ICU delirium. Cardiovascular #Septic shock Due to feculent peritonitis and fungemia. Diagnostic Test: - 08/06 around 8AM, a sepsis re-evaluation was performed; T 97.0F, HR 72, BP 117/43, RR 22. MAP 68. Exam notable for Cap refill > 2 secs - POCUS 08/06 showed minimal respiratory variation in IVC, indicating adequate fluid resuscitation. - CT: bilateral pneumonic consolidation, pleural effusion. - Blood culture 08/06: 1 out of 2 bottles positive for yeast. - Sputum culture 08/05: 2+ yeast, speciation pending - Peritoneal fluid culture 08/06: gram negative rods (preliminary). - MRSA screen negative. - 08/08 Transient spontaneously resolving monomorphic v-tach with acidosis on ABG, resolved after vent adjustments, 1 amp bicarb & e-lyte repletion - EKG showed Supra-Ventricular Rhythm. Treatment Review (completed): - 08/06: IV crystalloid fluid bolus - 30 cc/kg given; Right IJ central line placed 08/06; PICC line removed 08/06; Micafungin 100 mg IV DC'd (08/06-08/07). - 08/08 cheetah NICOM showed 13% fluid responsiveness after 250 ml bolus followed by 0.5 L LR bolus. - Vancomycin (08/06-08/09) was discontinued by ID. Treatment Plan: - Levophed 0.05 mcg/kg/min (titrate to maintain MAP > 65); wean as tolerated for anticipated surgery. - Vasopressin 0.03 units/min. - Zosyn 4.5 gram IV Q8HR (08/04-) & Fluconazole 400 mg in 200 ml IV daily (08/07-). - Stress dose steroids not started as there is a fungal infection in blood #Sinus bradycardia Likely due to sedation medications. Diagnostic Test: - HR in the 50s. - EKG showed sinus bradycardia. Treatment Plan: - Continue cardiac monitoring. #Monomorphic Vtac (resolved) DDx: electrolytes disturbance vs vasopressors can be proarrhythmic. - 08/08 Transient spontaneously resolving monomorphic v-tach. Diagnostic test: - Initial ABG showed pH 7.18 and bicarb 19 .repeat ABG after vent adjustments-> pH 7.32, pco2 42. - EKG showed sinus tachycardia with no acute ST-T changes. QTC 427. - 08/09 ABG: pH 7.30, pCO2 40, HCO3 20. Treatment Review (completed): - 1 amp bicarb and electrolyte repletion. - Ventilation settings were adjusted on 08/08, increase TV and RR to correct respiratory acidosis and prevent further episodes of VTach. Treatment Plan: - Continue cardiac monitoring. Respiratory #Acute hypoxic respiratory failure DDx: aspiration pneumonia and pneumonic consolidation. Diagnostic Test: - Patient was intubated intraop by anesthesia. - CXR 08/06: significant bibasilar pneumonia. - 08/08 ABG pH 7.18, pco2 54 i/s/o transient spontaneously resolving monomorphic v-tach -> repeat ABG after vent adjustments-> pH 7.32, pco2 42 - 08/09 ABG: pH 7.30, pCO2 40, HCO3 20. Respiratory acidosis. - Lactic acid 1.7. Treatment Plan: - Continue MV settings: TV 380 mls and RR 30 along with 1 amp bicarb in order to reduce the respiratory acidosis; FiO2 weaned to 30%. PEEP 7.0, Ppeak 26.2, and Pplat 22.5. - Currently not doing lung protective measures as patient became severely acidotic and vtac therefore we had to increase minute ventilation to avoid complications. - Continue Vancomycin (08/06-). - Continue Zosyn 4.5 gram IV Q8HR (08/04-). #Pleural effusion DDx: transudative vs exudative Diagnostic Test: - POCUS 08/06: free flowing fluid, small amount of liquid, hypoechoic. No fibrosis and/or loculations noted. Treatment Plan: - Thoracentesis is not indicated at this time, as the fluid is likely transudative secondary to fluid resuscitation. A follow-up POCUS will be performed everyday to assess whether the fluid remains hypoechoic and does not exhibit features suggestive of fibrosis or loculated fluid, which would indicate an exudative process. If the fluid characteristics change, thoracentesis will be considered at that time. #History of COPD Dx: - Longstanding history of COPD , not on home oxygen. - No acute exacerbation at the moment. GI and F/E/N #Feculent peritonitis Diagnostic Test: - 07/28: colostomy reversal with colorectal anastomosis. - 08/05: exploratory laparotomy, lysis of adhesions, abdominal washout. Segmental resection of small bowel containing perforations. Resection of colorectal anastomosis. - 08/08 Wound vac 100 cc. - 08/09 Wound vac 800 cc. - 08/10 Wound vac 500 cc. - Peritoneal culture gram negative jayme, speciation pending. Treatment Plan: - NG tube on low continuous suction. - Wound VAC in place for vertical abdominal incision. Clean, intact, no discharge. On continuous suction as per general surgery recs. - Continue Zosyn and Fluconazole. Zosyn covers for gram negative bacteria seen on perionteal gram stain. - PRN Reglan and Promethazine for nausea/vomiting. - Protonix 40mg IV daily for GI prophylaxis. - General surgery following, appreciate recommendations. - Re-evaluation by Surgeon for reexploration, small bowel anastomosis with colostomy with enough hemodynamic improvement based on pressor requirement. #Malnutrition Patient has not eaten in more than a week -08/06 PICC line removed. -08/06 central line placed. Treatment Plan: -Receiving TPN at 30 mls/hr for caloric requirements. 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 Treatment Review (completed): - NICOM 08/08 showed 13% fluid responsiveness after 250 ml bolus; gave 0.5 L LR afterward. Treatment Plan: - Daily renal panel to trend BUN, Cr, and electrolytes. - Continue pressors, wean as tolerated. - Avoid nephrotoxins. - Renally dose meds as appropriate. - Urine output and renal function will continue to be monitored. - If renal function deteriorates, dialysis will be considered. Nephrology following. Heme #Acute blood loss anemia (resolved) DDx: likely due to blood loss during surgeries on 07/28 & 08/05. Diagnostic Test: - Hemoglobin 08/08 of 8.4 (9.4); MCV 90s; relatively unchanged - No active signs of bleeding noted. Treatment Review (completed): - pRBC transfusion x2 08/04, x1 08/06. - 08/09:transfuse 2 units pRBCs and 1 unit of FFP as requested by surgery. Treatment Plan: - Monitor H&H; Transfuse if Hgb < 8. #Leukocytosis (downtrending) DDx: likely in the setting of anastomotic leak, s/p surgical reversal. Diagnostic Test: - WBC 46.3. --> 39.3 --> 29.0 --> 22.1. - Afebrile. Treatment Plan - Continue IV Fluconazole and Zosyn. - Monitor daily CBC. - Follow-up general surgery recommendations. Endo #Hypothyroidism Treatment Plan: - Hold home medication PO levothyroxine 88 mcg daily. - IV levothyroxine 50 mcg daily. ID #Fungemia Diagnostic Test: - 08/04 and 08/06 10/13 blood culture: yeast pending speciation Treatment Plan: - Discontinued Micafungin 100 mg IV daily (08/06-08/07). - Fluconazole 400 mg in 200 ml IV daily (08/07-). Health Maintenance DVT prophylaxis: Hold heparin for anticipated surgery, SCDs currently. GI prophylaxis: Pantoprazole 40 mg IV daily Diet: TPN Casey: Present Lines: Peripheral IV. Right IJ central line. Drips: Levophed, Vasopressin Vent: MV, PPlat <30 CODE STATUS: FULL Patient plan of care was discussed with the attending physician, Dr. Bueno & senior resident Dr. Vasquez. Tito Garcia Internal Medicine, PGY-1
--- NOTE | 2025-08-10 12:20 | ESPR_ITS ---
Documentation for date of: 08/10/25 Subjective Subjective Interval history: Reason for consult: KELSI History of present illness: Mr Holliday is a 79-year-old female presenting with oliguria/anuria and acute kidney injury (KELSI). Urine output has decreased from 45-50 cc/hr to 10-20 cc/hr, and the patient is in critical condition post-surgical complications, including feculent peritonitis, septic shock, and acute hypoxic respiratory failure. The patient has a complex medical history including diverticulitis status post- colectomy and colostomy, hypothyroidism, CAD with stent placement, hypertension, hyperlipidemia, and COPD. She underwent a colostomy reversal complicated by multiple surgeries, including a small bowel resection and anastomotic leak. Postoperatively, she developed septic shock, acute hypoxic respiratory failure, and KELSI. Fluid resuscitation was started, and she has been on pressors (Levophed and Vasopressin) and mechanical ventilation. Urine output has been declining since yesterday, prompting nephrology consultation. Yesterday, the patient was receiving LR 100 mL/hr. This morning, fluids were stopped after the ICU team performed a NICOM, revealing that the patient was not fluid responsive. The patient continues to be closely monitored for changes in renal function and hemodynamics. 08/07/2025: Today, the patient remains sedated and on mechanical ventilation. Urine output has decreased from 45-50 cc/h to 10-20 cc/h since yesterday. Fluid resuscitation with LR at 100 mL/hr was stopped this morning after NICOM showed no fluid responsiveness. The patient is on pressor support (Levophed and Vasopressin) for hypotension. Dialysis line is scheduled for placement tomorrow. She has no complaints as she is currently sedated and continues to be monitored closely in the ICU. Labs: Sodium 138, Potassium 4.3, Chloride 105, Bicarbonate 21.6, BUN 43, Creatinine 1.5, WBC 46.3, Hemoglobin 9.4, Platelets 386. 08/08/2025: Today, the patient remains sedated and on mechanical ventilation in the ICU. Urine output has increased to 1 L in the past 24 hours, so dialysis has been held for today. The patient is being closely monitored, and further reassessment will be done tomorrow. Labs: WBC 39.3, Hemoglobin 8.4, Hematocrit 26, Platelets 447, pH 7.18, pCO2 54, Bicarbonate 20, Sodium 138, Potassium 3.7, Chloride 106, CO2 19.8, Creatinine 1.5, Glucose 185, Calcium 9.3, Phosphorus 3.5, Magnesium 2.1. 08/09/2025: The patient remains sedated and on mechanical ventilation in the ICU. She has had some improvement in her urine output, now averaging 35-50 cc/h. The patient's electrolytes are being replaced, and dialysis has been held for today. The surgical team postponed further procedures due to the patient's hemodynamic instability and ongoing pressor requirements. The family has been updated regarding the patient's condition. Labs: Hemoglobin 7.3, Hematocrit 22.2, Platelets 420, pH 7.3, pCO2 40, Bicarbonate 20, Sodium 138, Potassium 3.5, Chloride 107, Carbon Dioxide 18.8, BUN 35, Creatinine 1.2, Calcium 8.9, Phosphorus 2.2, Magnesium 3 08/10/2025: Seen today in the ICU, the patient remains sedated and on mechanical ventilation. Urine output has normalized at 50?55 cc/h over the past 24 hours. Renal function has significantly improved with normalization of creatinine. Labs: Sodium 138, Potassium 4.7, Chloride 108, Carbon Dioxide 19.4, BUN 29, Creatinine 1.0, GFR 58, Calcium 9.3, Magnesium 2.2, Phosphorus 4.7 Exam Vital Signs Temp Pulse Resp BP Pulse Ox O2 Del Method O2 Flow Rate 96.3 F L 58 L 30 H 124/59 L 96 Mechanical Ventilation 30 08/10/25 11:00 08/10/25 11:36 08/10/25 06:26 08/10/25 11:15 08/10/25 11:15 08/10/25 08:00 08/05/25 18:38 FiO2 40 08/10/25 11:13 Narrative Exam General: Sedated, NGT on suction. Briefly awakens to voice with eye-opening to voice, responds to noxious stimuli. Head: Normocephalic, atraumatic. Eyes: Pupils equally round and reactive to light. Anicteric. Mouth/Throat: ETT in place. Heart: Regular rate and rhythm, no murmurs. No JVD. Lungs: Clear to auscultation with no wheezing or crackles. Non-labored respirations, symmetric chest rise, no use of accessory muscles. On mechanical ventilation. Abdomen: Vertical incision, wound vac on suction. Dressing is clean, dry and intact. : Casey in place. Extremities: No edema. Posterior tibial pulses are 2+ bilaterally. 2+ radial pulse bilaterally. No clubbing or cyanosis. No mottling. SCDs. Skin: No rash. Objective Labs 08/10/25 04:40 08/10/25 04:40 Labs: Laboratory Results - last 24 hr 08/09/25 08/09/25 08/10/25 04:30 16:52 04:40 WBC 22.1 H D RBC 3.22 L Hgb 9.6 L D 9.6 L Hct 28.6 L 29.2 L MCV 91 MCH 29.8 MCHC 32.9 RDW Std Deviation 61.7 H Plt Count 392 Neut % (Auto) 78 Lymph % (Auto) 1 L [place] % (Auto) 10 Eos % (Auto) 1 Baso % (Auto) 1 Neut # (Auto) 17.3 H Lymph # (Auto) 0.3 L [place] # (Auto) 2.1 H Eos # (Auto) 0.3 Baso # (Auto) 0.2 Immature Gran # (Auto) 1.89 H Absolute Nucleated RBC 2.39 H Immature Gran % 9 H Nucleated RBC % 11 H PT 11.4 INR 1.1 APTT 30.2 Sodium 138 Potassium 4.7 D Chloride 108 H Carbon Dioxide 19.4 L Anion Gap 11 BUN 29 H Creatinine 1.0 Estim Creat Clear Calc 42.5 L eGFR 58 L BUN/Creatinine Ratio 29 H Glucose 138 H D Calculated Osmolality 283 Calcium 8.4 Corrected Calcium 9.3 Phosphorus 4.7 Magnesium 2.2 Total Bilirubin 1.5 H AST 19 ALT 12 Alkaline Phosphatase 121 H Total Protein 4.6 L Albumin 2.9 L Globulin 1.7 L Albumin/Globulin Ratio 1.7 Blood Type O Positive Antibody Screen NEGATIVE Crossmatch See Detail Blood Bank Wristband ID Yes Blood Bank Comment FFP Ready ABG Interpretation ABG results: 08/04/25 08/05/25 08/06/25 01:04 02:15 00:20 ABG pH 7.39 7.34 L 7.17 L* D ABG pCO2 38 41 58 H D ABG pO2 52 L* 54 L* 72 L ABG HCO3 23 22 21 ABG O2 Saturation 88 L 88 L 92 ABG Base Excess -2 -3 -7 L 08/06/25 08/06/25 08/08/25 03:26 05:45 08:04 ABG pH 7.27 L D 7.29 L 7.18 L* D ABG pCO2 47 D 46 54 H ABG pO2 83 81 L 73 L ABG HCO3 22 22 20 ABG O2 Saturation 97 98 94 ABG Base Excess -5 L -4 L -8 L 08/08/25 08/09/25 09:13 04:02 ABG pH 7.32 L D 7.30 L ABG pCO2 42 D 40 ABG pO2 73 L 92 ABG HCO3 22 20 ABG O2 Saturation 97 98 ABG Base Excess -4 L -6 L Quality Measures Quality Measures VTE prophylaxis Advance care planning discussed with:: patient Assessment & Plan Assessment Current Active Medications: Generic Name Dose Route Start Last Admin Trade Name Freq PRN Reason Stop Dose Admin Glucagon 1 mg 07/29/25 12:21 Glucagon Inj 1 Mg Vial IM Q15MIN PRN BG <70, and no IV access Promethazine HCl 25 mg/ Sodium 51 mls @ 2.5 mls/min 07/31/25 15:43 Chloride IV 08/30/25 15:42 Q6HR PRN NAUSEA OR VOMITING Protocol Piperacillin Sod/Tazobactam 100 mls @ 200 mls/hr 08/04/25 08:30 08/10/25 05:15 Sod 4.5 gm/ Sodium Chloride IV 08/11/25 08:29 200 mls/hr Q8HR HERO Administration Protocol Norepinephrine/Dextrose 8 mg in 250 mls @ 6.131 mls/hr 08/06/25 00:35 08/10/25 11:00 Levophed In D5w 8mg/250ml IV 09/05/25 00:34 0.05 mcg/kg/min .Q24H PRN 6.131 mls/hr PER PROTOCOL Titration Protocol 0.05 MCG/KG/MIN Vasopressin/Sodium Chloride 20 unit in 100 mls @ 9 mls/hr 08/06/25 13:00 08/10/25 11:00 Vasostrict/Ns Ivpb IV 09/05/25 12:59 0.03 unit/min .Q11H7M PRN 9 mls/hr PER PROTOCOL Titration Protocol 0.03 UNIT/MIN Fluconazole 400 mg in 200 mls @ 100 mls/hr 08/07/25 10:08 08/10/25 08:39 Diflucan/Ns Ivpb IV 08/10/25 17:00 100 mls/hr QDAY HERO Administration Potassium Acetate 70 meq/ 2,055 mls @ 60 mls/hr 08/09/25 12:30 08/09/25 12:19 Potassium Phosphate 30 mmol/ IV 08/10/25 12:29 60 mls/hr Calcium Gluconate 1 gm/ Amino Q24H HERO Administration Acids Propofol 1,000 mg in 100 mls @ 1.962 mls/hr 08/09/25 15:06 08/10/25 08:40 Diprivan Ivpb IV 09/04/25 22:03 20 mcg/kg/min .Q24H PRN 7.848 mls/hr PER PROTOCOL Administration Protocol 5 MCG/KG/MIN Fentanyl Citrate 2,500 mcg in 250 mls @ 2.5 mls/hr 08/09/25 15:06 08/10/25 11:00 Sublimaze Inj 2,500 Mcg/250 Ml Bag IV 08/10/25 22:03 125 mcg/hr .Q24H PRN 12.5 mls/hr PER PROTOCOL Titration Protocol 25 MCG/HR Multivitamins/Minerals 10 ml/ 2,022 mls @ 60 mls/hr 08/10/25 12:30 Magnesium Sulfate 1 gm/ IV 08/11/25 12:29 Calcium Gluconate 1 gm/ Amino Q24H HERO Acids Insulin Human Regular 0 unit 07/29/25 18:00 08/10/25 11:41 Insulin Hum Regular 1 Unit/0.01 Ml (Per Unit) SC 08/28/25 17:59 Not Given Q6HR HERO Protocol Levothyroxine Sodium 50 mcg 08/06/25 06:00 08/10/25 08:39 Levothyroxine Inj 100 Mcg Vial IV 09/05/25 05:59 50 mcg DAILY HERO Administration Ondansetron HCl 4 mg 07/31/25 11:59 08/05/25 12:25 Ondansetron Inj 2 Mg/Ml Inj 2 Ml IVP 08/30/25 11:58 4 mg Q4HR PRN Administration NAUSEA OR VOMITING Protocol Pantoprazole Sodium 40 mg 08/06/25 09:00 08/10/25 08:40 Pantoprazole Inj 40 Mg Vial IVP 09/05/25 08:59 40 mg QDAY HERO Administration Pharmacy Consult 1 each 08/06/25 08:27 Pharmacy Renal Dose Adjustment 1 Ea XX 09/05/25 08:26 PRN PRN CONSULT Sodium Chloride 5 ml 08/05/25 23:36 Sodium Chloride Rt 10% 15 Ml Nebu INH 08/13/25 23:35 X1 PRN SPUTUM CLEARANCE Plan 79-year-old female with resolved KELSI, normalized urine output (50-55 cc/h), improved renal function (creatinine 1.0, GFR 58), and stable electrolytes, nephrology sign-off. #Acute Kidney Injury on Chronic Kidney Disease (resolved) Likely secondary to poor oral intake, prolonged dehydration from surgical complications, and possible nephrotoxic effects from sepsis and antibiotics. Renal function and urine output normalized; creatinine improved to 1.0 with adequate GFR. Plan: * Continue close monitoring of urine output and hemodynamic status. * Strict I&Os. * Avoid nephrotoxins and hold nephrotoxic medications. * No dialysis indicated * Nephrology will sign off Other active problems: #Septic Shock #Acute Hypoxic Respiratory Failure #Feculent Peritonitis #Normocytic Anemia #Leukocytosis #Hypothyroidism Management per ICU team ----- Plan discussed with attending physician Dr. Sari Porras MD PGY-1 Internal Medicine Attending Provider Attestation/Addendum Patient seen and examined with resident physician Dr. Porras. Note reviewed, agree with findings and recommendations. Patient currently seen in ICU. Remains on the ventilator. Urine output acceptable. As needed diuretics. Noted Dr Barcenas might take care for surgery again. Will follow closely.prognosis poor.
--- NOTE | 2025-08-10 13:10 | PD.SURPROG ---
Documentation for date of: 08/10/25 Subjective Subjective Narrative: Patient is seen and examined. She remains intubated and sedated. Clinically she seems to be improving, WBC is trending down towards, she is making adequate urine and has remained afebrile. She continues to require pressors however lower doses Exam Vital Signs Temp Pulse Resp BP Pulse Ox O2 Del Method O2 Flow Rate 96.3 F L 58 L 30 H 124/59 L 96 Mechanical Ventilation 30 08/10/25 11:00 08/10/25 11:36 08/10/25 06:26 08/10/25 11:15 08/10/25 11:15 08/10/25 08:00 08/05/25 18:38 FiO2 40 08/10/25 11:13 Assessment & Plan Plan Patient will be taken to the operating room for reexploration, anastomosis of small intestine and creation of colostomy. Risks include but not limited to infection, bleeding, leak from anastomosis site, abdominal sepsis and or abdominal abscess, need for further procedure and or operation, pneumonia, blood clot, heart attack, stroke and discussed with patient's and daughters. All their questions answered, they agreed and consented to proceed with the operation. As per family's request patient's CODE STATUS was changed to limited code with no chest compression, medications only should patient sustain cardiopulmonary compromise. This was witnessed by patient's nurse and has been documented in the chart. PROCEDURES: Procedures Exploratory laparotomy, lysis of adhesions, abdominal washout. To segmental resection of small bowel containing perforations Resection of colorectal anastomosis
--- NOTE | 2025-08-10 14:22 | PD.SUROPNT ---
Date of Procedure 08/10/25 Pre Op Diagnosis Open abdomen status post bowel resection for feculent peritonitis Post Op Diagnosis Open abdomen status post bowel resection for feculent peritonitis Feculent peritonitis Procedure Exploratory laparotomy, lysis of adhesions, abdominal washout. Findings Large amount of enteric contents throughout the abdomen. Edematous and inflamed small and large bowels. Complete dehiscence of staple lines from previous bowel resections Procedure Description Patient brought into the operating room in supine position. After administration of general tracheal anesthesia, patient's abdomen prepped and draped in standard surgical manner. The previously placed wound VAC apparatus was removed. Patient was noted to have copious amount of brownish feculent and enteric contents throughout the abdomen. The abdomen and pelvis copiously and thoroughly washed and irrigated. There were edema and adhesions from previous operation that were lysed. Upon further inspection patient was noted to have very edematous and inflamed small and large bowel. All 4 staple lines from previous operation noted to be completely dehisced with leakage of enteric contents. The rectal stump was intact without leakage or bleeding. The small bowel was significantly edematous. I made an attempt to create an anastomosis between the 2 ends of the previously transected small bowel. The staple line tore through the small bowel and could not approximate the 2 ends of small bowel. I attempted to place sutures, the sutures were ripping through the small bowel due to significant edema. I paused the operation and went discussed with patient's family and explained the findings with them. I explained to them that I could not create an anastomosis between the 2 ends of the bowel due to significant edema and I made an attempt to perform anastomosis, the staple line tore through the small bowel. Family decided not to pursue further and keep her comfortable. They have decided to take the patient back to the ICU and proceed with comfort measures only. I oversewn the ends of the small bowel to close them. The abdomen was washed. The fascia was left open and the skin was closed with running 0 PDS suture. Patient was left intubated and transferred to intensive care unit. Anesthesia GETA Pathology / specimen None Estimated Blood Loss 50 Condition Critical Disposition ICU Surgeon Tyron Barcenas MD Surgical Staff Operation Date: 08/10/25 15:00 <No data on this case meets the specified criteria>
--- NOTE | 2025-08-10 14:48 | SUR.OPER ---
Intentionally retained items from previous surgical case removed. One lap sponge, one towel, and one plastic drape. Completed retained item form in physical chart.
[2025-08-10] MEDS: MORPHINE SULF INJ 4 MG/ML VIAL 2 MG IVP (15:39)
--- NOTE | 2025-08-10 15:44 | PC.RT ---
Pt extubated at this time to comfort care
[2025-08-10] MEDS: fentaNYL CIT INJ 50 mCg/ML AMP 2ML IVP (15:51)
[2025-08-10] MEDS: LORazepam 2 MG/ML VIAL 1 MG IVP (15:51)
--- NOTE | 2025-08-10 16:09 | DES_ITS ---
<Statement entered by Kendrick Bueno MD - 08/13/25 18:28> TOTAL TIME: 45MINUTES ON DIRECT MEDICAL CARE, MANAGEMENT - COORDINATION AND COUNSELING > 50% OF TOTAL TIME I saw and evaluated the patient. I reviewed the resident?s note and agree with findings and plan as documented in the resident?s note. Documentation for date of: 08/10/25 Pronouncement Note Date and Time of Date of : 08/10/25 Time of : 16:05 Summary Additional details: Confirmation of : no pulse, no cardiac sounds were heard after 1 continuous minute of auscultation. No respirations. Pupils fixed and dilated. Patient pronounced at 1605. Family: at bedside. Was code activated?: No Additional Data Attending physician: Kendrick Bueno MD
--- NOTE | 2025-08-10 20:43 | DES_ITS ---
<Statement entered by Chaitanya Vasquez MD - 08/13/25 19:50> Patient seen and examined at bedside. I discussed and supervised with the international marketing coordinator physician who took care of this patient. I personally saw and examined the patient. I agree with most of the assessment and plan. Plan of care discussed with attending Dr. Bueno. Chaitanya Vasquez MD PGY-2 <Statement entered by Kendrick Bueno MD - 08/13/25 18:27> TOTAL TIME: 45MINUTES ON DIRECT MEDICAL CARE, MANAGEMENT - COORDINATION AND COUNSELING > 50% OF TOTAL TIME I saw and evaluated the patient. I reviewed the resident?s note and agree with findings and plan as documented in the resident?s note d/w Dr. Barcenas - bowel wall integrity severely compromised case dw/ family and they requested a transition to comfort care Documentation for date of: 08/10/25 Summary Date and Time Date of admission: 07/28/25 09:25 Summary Hospital Course: 79-year-old female with a medical history significant for diverticulitis (status post colectomy and colostomy for perforated diverticulitis in September 2022), hypothyroidism, coronary artery disease with angioplasty and stent placement, hypertension, hyperlipidemia, and chronic obstructive pulmonary disease was admitted to the ICU on 08/05/2025 due to complications following a colostomy reversal surgery on 07/28/2025. On 08/04 and 08/05, two rapid responses were called: one for tachycardia and another for oxygen desaturation to the 80s. CT imaging revealed fluid accumula tion in the abdomen, raising concern for an anastomotic leak. The patient returned to the operating room, where significant feculent peritonitis, multiple small bowel perforations, and a colorectal anastomotic leak were found. Two segmental resections were performed, and the abdomen was left open with a wound vac in place. Plans were made for reexploration and small bowel anastomosis with colostomy in 48?72 hours. In the ICU, the patient remained mechanically ventilated and sedated with propofol and fentanyl. Ventilator settings were adjusted for her COPD, with permissive hypercapnia utilized. She was started on Levophed and vasopressin for blood pressure support, gradually weaned as tolerated. A central line was placed, and the PICC line was removed. TPN was initiated. The patient required transfusions for an acute drop in hemoglobin. Patient had developed acute kidney injury with initially reduced urine output, but renal function improved, and dialysis was not needed. Blood cultures were positive for yeast in one of two bottles, and sputum cultures showed 2+ yeast, with species identification pending. Peritoneal fluid culture was preliminarily positive for gram-negative rods. She was started on vancomycin, zosyn, and fluconazole. The patient also experienced a brief episode of monomorphic ventricular tachycardia, which self-resolved. Ventilator settings were adjusted to correct acidosis based on ABG results. On 08/10, during reexploration in the OR, significant small bowel edema was noted. Attempts at performing an anastomosis between the transected bowel ends were unsuccessful due to the extent of the edema. After the surgeon consulted with the family, it was decided to stop further surgical intervention. The patient was returned to the ICU, where comfort measures were initiated according to the family?s wishes. The patient was pronounced on 08/10/2025 at 16:05. 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 Vasquez, and attending physician, Dr. Bueno. Tito Garcia, DO Internal Medicine PGY-1 Additional Data Attending physician: Kendrick Bueno MD Visit Providers Provider Primary care physician: Brien Mcgraw MD Consults: 07/30/25 10:28 PT [Referral Physical Therapy] Routine Comment: Physician Instructions: Instructions: Please assist with ambulating the patient. Thank you! 08/04/25 00:32 Consult to Adult Hospitalist Stat Comment: Consulting Provider: Dylon Velasquez 08/06/25 06:44 Consult to Infectious Diseases Stat Comment: MICAFUNGIN Consulting Provider: David Cardoza 08/07/25 08:32 Referral Nutritional Services Stat Comment: start TPN today 08/0708/07/25 11:20 Consult to Nephrology Routine Comment: worsening kidney function Consulting Provider: Sukumar Guo 08/07/25 11:50 Consult to Nephrology Routine Comment: Dialysis Consulting Provider: Sukumar Guo Discharge Plan Plan Patient Disposition: Prescriptions/Referrals Referrals: Brien Mcgraw MD [Primary Care Provider, Family Practice] Patient/Caregiver Discharge Instructions Education Materials: Preventing Surgical Site Infections Print Language: German Stand Alone Forms: Ana Award Info., Patient Portal Info Letter
== END 2025-08-10 17:32 | disposition expired | DRG 329 ==
LOC: S2W1 09:31 → S3SX 17:41 → S2SX 08-06 07:58 → S3SX 08-14 08:58
PROVIDERS: Anesthesiology; Student in an Organized Health Care Education/Training Program; Admitting Provider Surgery; PCP Family Medicine; Visit Provider Internal Medicine
PROC: 07TP0ZZ Resection of Spleen, Open Approach (ICD-10-PCS; CPT 44620; principal; 2025-07-28 12:00)
PROC: 5A1945Z Respiratory Ventilation, 24-96 Consecutive Hours (ICD-10-PCS; CPT 49000; principal; 2025-08-05 19:30)
PROC: (CPT 49000; principal; 2025-08-10 15:00)
DX: K57.30 Diverticulosis of large intestine without perforation or abscess without bleeding (principal); B37.7 Candidal sepsis; J18.9 Pneumonia, unspecified organism; J96.01 Acute respiratory failure with hypoxia; K65.8 Other peritonitis; N17.0 Acute kidney failure with tubular necrosis; R65.21 Severe sepsis with septic shock; K80.10 Calculus of gallbladder with chronic cholecystitis without obstruction; D62 Acute posthemorrhagic anemia; E46 Unspecified protein-calorie malnutrition; E87.29 Other acidosis; I47.29 Other ventricular tachycardia; J44.0 Chronic obstructive pulmonary disease with (acute) lower respiratory infection; J90 Pleural effusion, not elsewhere classified; K56.50 Intestinal adhesions [bands], unspecified as to partial versus complete obstruction; K91.89 Other postprocedural complications and disorders of digestive system; K57.80 Diverticulitis of intestine, part unspecified, with perforation and abscess without bleeding; D73.5 Infarction of spleen; E03.9 Hypothyroidism, unspecified; E86.0 Dehydration; E78.5 Hyperlipidemia, unspecified; F41.9 Anxiety disorder, unspecified; I12.9 Hypertensive chronic kidney disease with stage 1 through stage 4 chronic kidney disease, or unspecified chronic kidney disease; I25.10 Atherosclerotic heart disease of native coronary artery without angina pectoris; K43.5 Parastomal hernia without obstruction or gangrene; N18.9 Chronic kidney disease, unspecified; K82.8 Other specified diseases of gallbladder; R00.1 Bradycardia, unspecified; R57.8 Other shock; Y83.2 Surgical operation with anastomosis, bypass or graft as the cause of abnormal reaction of the patient, or of later complication, without mention of misadventure at the time of the procedure; Z43.3 Encounter for attention to colostomy; Y95 Nosocomial condition; Z79.890 Hormone replacement therapy; Z51.5 Encounter for palliative care; Z87.891 Personal history of nicotine dependence; Z95.5 Presence of coronary angioplasty implant and graft; Z87.01 Personal history of pneumonia (recurrent)
CPT/HCPCS: 36415; 36600; 71045; 74018; 74176; 80048; 80053; 80061; 80069; 80202; 82803; 83605; 83735; 84100; 84132; 84145; 84439; 84443; 85014; 85018; 85025; 85610; 85730; 86850; 86900; 86901; 86923; 86927; 87040; 87070; 87075; 87077; 87081; 87106; 87186; 87205; 87493; 93005; 94002; 94003; 94664; 97162; A4649; C1751; C1894; J0131; J0612; J0694; J1100; J1171; J1200; J1450; J1642; J1650; J1815; J1885; J1938; J2060; J2247; J2250; J2270; J2371; J2405; J2470; J2543; J2598; J2704; J2765; J3010; J3370; J3373; J3475; J3480; J3490; J7050; J7120; J7999; P9016; P9045; P9047; P9060; A9270; J1805; P0947